=== PATIENT | female | born 1990 | race Caucasian/White ===

== ENCOUNTER 2016-09-29 16:35 | Emergency (ER) | payer OTHER ==
[~2016-09-29] VITALS: Ht 160 cm; Wt 126.5 kg
[~2016-09-29 16:35] MED LIST: ABILIFY5 MG; ALBUTEROL SULF8.5 GM INH; ATIVAN1 MG PO; BUSPIRONE HCL15 MG PO; CLONIDINE HCL0.1 MG PO; COPAXONE20 MG/1 ML SQ; COPAXONE20 MG/1 ML SUB-Q; CYCLOBENZAPRINE5 MG PO; DAYPRO600 MG PO; GABAPENTIN300 MG PO; GLATOPA20 MG/1 ML SQ; HYDROCODON-ACE1 EA10 PO; IBUPROFEN600 MG PO; IBUPROFEN800 MG PO; MACROBID 100 M100 MG PO; MEDROL4 M1 PO; MELOXICAM15 MG PO; MOTRIN600 MG PO; NAPROXEN500 MG PO; NORCO 10-325 T1 EACH PO; NORCO 5-325 TA1 EACH PO; PREDNISONE20 MG PO; PRENATAL 19 TA1 EAC1 PO; PRENATAL-FOLIC1 EACH PO; PROMETHAZINE HC25 M1 PO; ROBAXIN500 MG PO; TYLENOL325 MG PO; ZANAFLEX4 MG PO; ZOFRAN4 MG PO
== END 2016-09-29 19:29 | disposition home or self-care (01) ==
LOC: ED 16:35
DX: G35 Multiple sclerosis (principal); R51 Headache; J45.909 Unspecified asthma, uncomplicated; E66.01 Morbid (severe) obesity due to excess calories; Z88.0 Allergy status to penicillin; Z88.1 Allergy status to other antibiotic agents; Z88.5 Allergy status to narcotic agent; Z88.8 Allergy status to other drugs, medicaments and biological substances; Z79.899 Other long term (current) drug therapy
CPT/HCPCS: 96361; 96374; 96375; 99282; J1200; J2765; J7030

== ENCOUNTER 2016-11-27 13:33 | Emergency (ER) | payer OTHER ==
[~2016-11-27] VITALS: Ht 160 cm; Wt 126.5 kg
== END 2016-11-27 13:50 | disposition home or self-care (01) ==
LOC: ED 13:33
DX: Z00.8 Encounter for other general examination (principal)

== ENCOUNTER 2017-03-24 01:35 | Emergency (ER) | payer OTHER ==
[~2017-03-24] VITALS: Ht 160 cm; Wt 113.4 kg
[2017-03-27] MEDS ORDERED: PRENATABS RX T1 EACH PO (07:55)
[2017-07-16] MEDS ORDERED: NORCO 5-325 TA1 EACH PO (13:01)
== END 2017-03-24 02:19 | disposition home or self-care (01) ==
LOC: ED 01:35
DX: J20.9 Acute bronchitis, unspecified (principal); E66.01 Morbid (severe) obesity due to excess calories; Z87.891 Personal history of nicotine dependence; Z88.0 Allergy status to penicillin; Z88.5 Allergy status to narcotic agent; Z88.8 Allergy status to other drugs, medicaments and biological substances; Z79.899 Other long term (current) drug therapy
CPT/HCPCS: 99282

== ENCOUNTER → 2017-07-16 | Emergency (ER) | payer OTHER ==
[~2017-07-16] VITALS: Ht 160 cm; Wt 107.0 kg
[~2017-07-16] MED LIST changes: +PRENATABS RX T1 EACH PO
== END ==
LOC: ED 11:33
DX: M25.551 Pain in right hip (principal); W18.30XA Fall on same level, unspecified, initial encounter; J45.909 Unspecified asthma, uncomplicated; E66.01 Morbid (severe) obesity due to excess calories; Z87.891 Personal history of nicotine dependence; Z88.0 Allergy status to penicillin; Z88.1 Allergy status to other antibiotic agents; Z88.5 Allergy status to narcotic agent; Z88.8 Allergy status to other drugs, medicaments and biological substances; Z79.899 Other long term (current) drug therapy
CPT/HCPCS: 73502; 99283

== ENCOUNTER 2017-08-11 16:51 | Emergency (ER) | payer OTHER ==
[~2017-08-11] VITALS: Ht 160 cm; Wt 107.0 kg
== END 2017-08-11 21:05 | disposition home or self-care (01) ==
LOC: ED 16:51
DX: O99.353 Diseases of the nervous system complicating pregnancy, third trimester (principal); G35 Multiple sclerosis; O99.213 Obesity complicating pregnancy, third trimester; E66.01 Morbid (severe) obesity due to excess calories; O99.333 Smoking (tobacco) complicating pregnancy, third trimester; F17.200 Nicotine dependence, unspecified, uncomplicated; Z88.0 Allergy status to penicillin; Z88.5 Allergy status to narcotic agent; Z88.8 Allergy status to other drugs, medicaments and biological substances; Z79.899 Other long term (current) drug therapy
CPT/HCPCS: 80053; 85025; 96374; 96375; 99283; J2405; J2930

== ENCOUNTER 2017-09-01 00:06 | Inpatient (IN) | payer OTHER ==
[~2017-09-01] VITALS: Ht 160 cm; Wt 103.0 kg
[2017-09-01] MEDS ORDERED: VENTOLIN HFA18 GM (06:56)
[2017-09-01] MEDS ORDERED: ZONEGRAN25 MG PO (06:56)
--- NOTE | 2017-09-01 08:17 | PR ---
[facility] [address] [place], [place] [address] Signed Progress Notes IP Datetime Report Generated by CPN: 09/01/2017 08:17 PROGRESS NOTES: [id number] Impression: Normal progression of labor Procedures: Artificial ROM Plan: Continue present management; Anticipate Vaginal Delivery VITAL SIGNS: [id number] EXAM: [id number] Dilatation: 4.0 Effacement: 50 Station: -3 Uterine Contractions: every 2-4 minutes MEMBRANES: [id number] Membrane Status: Ruptured Amniotic Fluid Color: Meconium, Light ROM Note: AROM without difficulty Comments: Epidural prn Fetus A: [id number] FHR Baseline: 130 Variability: Moderate 6-25bpm Accelerations: 15X15 Presentation: Vertex Fetus B: [id number] Signing Physician: Jose Mcadams MD Copies: ~ *Electronically Signed* 09/01/17 0817 JOSE MCADAMS MD PATIENT NAME: CORDELL MORALES PROGRESS NOTE DATE OF : 89 PHYSICIAN: JOSE MCADAMS MD RPT #: [id number] REPORT IS CONFIDENTIAL AND NOT TO BE RELEASED WITHOUT AUTHORIZATION
[2017-09-01] MEDS ORDERED: PNV PRENATAL P1 EACH PO (16:16)
[2017-09-01] MEDS ORDERED: FOLIC ACID1 MG PO (16:17)
--- NOTE | 2017-09-01 16:18 | NUR ---
MED REC COMPLETE
== END 2017-09-03 15:15 | disposition home or self-care (01) | DRG 775 ==
LOC: FBCO 00:06 → FBC 05:40
PROVIDERS: ADMIT General Practice
PROC: 10E0XZZ Delivery of Products of Conception, External Approach (ICD-10-PCS; principal; 2017-09-01)
PROC: 10907ZC Drainage of Amniotic Fluid, Therapeutic from Products of Conception, Via Natural or Artificial Opening (ICD-10-PCS; 2017-09-01)
PROC: 00HU33Z Insertion of Infusion Device into Spinal Canal, Percutaneous Approach (ICD-10-PCS; 2017-09-01)
PROC: 3E0R3BZ Introduction of Anesthetic Agent into Spinal Canal, Percutaneous Approach (ICD-10-PCS; 2017-09-01)
DX: O99.354 Diseases of the nervous system complicating childbirth (principal); G35 Multiple sclerosis; E66.9 Obesity, unspecified; O99.214 Obesity complicating childbirth; O77.0 Labor and delivery complicated by meconium in amniotic fluid; O99.824 Streptococcus B carrier state complicating childbirth; F15.11 Other stimulant abuse, in remission; O99.324 Drug use complicating childbirth; O28.2 Abnormal cytological finding on antenatal screening of mother; O99.344 Other mental disorders complicating childbirth; F41.9 Anxiety disorder, unspecified; J45.20 Mild intermittent asthma, uncomplicated; O99.52 Diseases of the respiratory system complicating childbirth; O28.0 Abnormal hematological finding on antenatal screening of mother; R78.4 Finding of other drugs of addictive potential in blood; F43.10 Post-traumatic stress disorder, unspecified; Z88.0 Allergy status to penicillin; Z79.899 Other long term (current) drug therapy; Z87.891 Personal history of nicotine dependence; Z88.1 Allergy status to other antibiotic agents; Z3A.39 39 weeks gestation of pregnancy; Z37.0 Single live birth
CPT/HCPCS: 01960; 36415; 59025; 85027; 99214; J0690; J2550; J2590; J3010; J7120

== ENCOUNTER 2018-08-22 23:59 | Emergency (ER) | payer OTHER ==
[~2018-08-22] VITALS: Ht 160 cm; Wt 102.5 kg
[~2018-08-22 23:59] MED LIST changes: +FOLIC ACID1 MG PO; +PNV PRENATAL P1 EACH PO; +VENTOLIN HFA18 GM; +ZONEGRAN25 MG PO
--- OUTSIDE RECORDS SUMMARY | 2018-08-23 00:02 | XMS ---
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 PEMA Corbin Current PHONE: [phone] TIFFANY SERNA Primary Care Current PHONE: [phone] Ani has no Care Guidelines for this patient. Care History Medical/Surgical 04/22/2017 [facility] Care Recommendation: This patient has had 5 or more Emergency Department visits in the last 12 months. Patient requires education on the scope and purpose of the ED as an acute care provider not a Primary Care Provider and should not be utilized for chronic conditions. If patient returns to ED please contact Community Health WorkerRose at [phone]. These are guidelines and the provider should exercise clinical judgment when providing care. Mariah VISIT COUNT (12 MO.) 1 [facility]ad[facility] TOTAL 1 NOTE: Visits indicate total known visits. ED/UCC VISIT TRACKING (12 MO.) 08/22/2018 23:59 [facility] [place] TYPE: Emergency COMPLAINT: - POSS BROKEN R FOOT/INJURY INPATIENT VISIT TRACKING (12 MO.) 09/01/2017 05:[address] 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
[2018-08-23] MEDS ORDERED: MINIPRESS1 MG PO (00:13)
[2018-08-23] MEDS ORDERED: GABAPENTIN300 MG PO (00:21)
[2018-08-23] MEDS ORDERED: BACLOFEN10 MG PO (00:21)
[2018-08-23] MEDS ORDERED: BUPRENORPHINE HC2 MG SL (00:21)
[2018-08-23] MEDS ORDERED: CRUTCH1 EACH (00:28)
== END 2018-08-23 00:40 | disposition home or self-care (01) ==
LOC: ED 23:59
DX: M25.571 Pain in right ankle and joints of right foot (principal); F17.200 Nicotine dependence, unspecified, uncomplicated; Z88.0 Allergy status to penicillin; Z88.6 Allergy status to analgesic agent; Z88.8 Allergy status to other drugs, medicaments and biological substances; Z79.899 Other long term (current) drug therapy
CPT/HCPCS: 73610; 73630; 99283

== ENCOUNTER 2019-11-13 13:51 | Emergency (ER) | payer OTHER ==
[~2019-11-13] VITALS: Ht 160 cm; Wt 74.4 kg
--- OUTSIDE RECORDS SUMMARY | ~2019-11-13 | XMS | Encounter Summary ---
Demographics + + + | Address | [address] | | | [place] [address] | + + + | Home Phone | | + + + | Preferred Language | Unknown | + + + | Marital Status | Single | + + + | Church Affiliation | Unknown | + + + | Race | White | + + + | Ethnic Group | Unknown | + + + Author + + + | Author | [facility] | | | and [place] | + + + | Organization | [facility] | | | and [place] | + + + | Address | Unknown | + + + | Phone | Unavailable | + + + Support + + + + + | Name | Relationship | Address | Phone | + + + + + | Omar Gonzalez | ECON | [place] | | | | | [phone] | | + + + + + | Xiang Bah | ECON | Unknown | | + + + + + Care Team Providers + +------+ + | Care Track Coach Name | Role | Phone | + +------+ + | Erick Garcia PA-C | PCP | | + +------+ + Reason for Visit + + + | Reason | Comments | + + + | Back Pain | Pain has increased since having baby at end november | + + + | Headache | Pain has increased since having baby at november | + + + Encounter Details +--------+---------+ + + + | Date | Type | Department | Care Team | Description | +--------+---------+ + + + | 12/27/ | Office | [facility] | Dylan Edwards MD [address] | Relapsing remitting | | 2012 | Visit | [facility] [place] | [facility] [place] | multiple sclerosis | | | | [address] [facility], | [address] [place], | ([facility]) (Primary Dx); | | | | [address] [place] | [place] [address] | Back pain; Headache; | | | | [place] [address] | [phone] | Vitamin d | | | | [phone] | | deficiency | +--------+---------+ + + + Social History + +-------+ +--------+------+ | Tobacco Use | Types | Packs/Day | Years | Date | | | | | Used | | + +-------+ +--------+------+ | Current Some Day | | 0.1 | | | | Smoker | | | | | + +-------+ +--------+------+ + +---+---+---+ | Smokeless Tobacco: | | | | | Never Used | | | | + +---+---+---+ + + +---------+ + | Alcohol Use | Drinks/Week | oz/Week | Comments | + + +---------+ + | No | | | | + + +---------+ + + + + | Sex Assigned at | Date Recorded | | | | + + + | Not on file | | + + + documented as of this encounter Last Filed Vital Signs + + + + + | Vital Sign | Reading | Time Taken | Comments | + + + + + | Blood Pressure | 135/76 | 12/27/2012 1:27 PM | | | | | PDT | | + + + + + | Pulse | 91 | 12/27/2012 1:27 PM | | | | | PDT | | + + + + + | Temperature | - | - | | + + + + + | Respiratory Rate | 14 | 12/27/2012 1:27 PM | | | | | PDT | | + + + + + | Oxygen Saturation | 98% | 12/27/2012 1:27 PM | | | | | PDT | | + + + + + | Inhaled Oxygen | - | - | | | Concentration | | | | + + + + + | Weight | 113.4 kg (250 lb) | 12/27/2012 1:27 PM | | | | | PDT | | + + + + + | Height | 160 cm (5' 3") | 12/27/2012 1:27 PM | | | | | PDT | | + + + + + | Body Mass Index | 44.29 | 12/27/2012 1:27 PM | | | | | PDT | | + + + + + documented in this encounter Patient Instructions Patient Instructions Dylan Edwards MD - 12/27/2012 2:08 PM PDT1. Start gabapentin 100 mg three times a day. If you experience side effects please stop the medication. 2. Please continue to follow with your primary physician for your back pain 3. We will work on the prescription of copaxone, which is a daily injection. You can take t ylenol if you experience flu like symptoms. You will need follow up one month after the star t of copaxone. As I am leaving the practice, I will not be able to see you again until late January the earliest. Please follow with your primary physician if you have questions. Patient Education Gabapentin enacarbil Oral tablet, extended-release Gabapentin Oral capsule Gabapentin Oral solution Gabapentin Oral tablet Gabapentin Oral tablet, extended-release Gabapentin Oral tablet, extended-release, Gabapentin Oral tablet, extended-release Gabapentin Oral tablet What is this medicine? GABAPENTIN (GA ba pen tin) is used to control partial seizures in adults with epilepsy. It is also used to treat certain types of nerve pain. This medicine may be used for other purposes; ask your health care provider or pharmacist i f you have questions. What should I tell my health care provider before I take this medicine? They need to know if you have any of these conditions: kidney disease suicidal thoughts, plans, or attempt; a previous suicide attempt by you or a family memb er an unusual or allergic reaction to gabapentin, other medicines, foods, dyes, or preserva tives or trying to get breast-feeding How should I use this medicine? Take this medicine by mouth. Swallow it with a drink of water. Follow the directions on the prescription label. If this medicine upsets your stomach, take it with food or milk. Take y our medicine at regular intervals. Do not take it more often than directed. If you are directed to break the 600 or 800 mg tablets in half as part of your dose, the ex tra half tablet should be used for the next dose. If you have not used the extra half tablet within 3 days, it should be thrown away. A special MedGuide will be given to you by the pharmacist with each prescription and refill . Be sure to read this information carefully each time. Talk to your distribution center associate regarding the use of this medicine in children. Special care may be needed. Overdosage: If you think you have taken too much of this medicine contact a poison control center or emergency room at once. NOTE: This medicine is only for you. Do not share this medicine with others. What if I miss a dose? If you miss a dose, take it as soon as you can. If it is almost time for your next dose, ta ke only that dose. Do not take double or extra doses. What may interact with this medicine? Do not take this medicine with any of the following medications: other gabapentin products This medicine may also interact with the following medications: alcohol antacids antihistamines for allergy, cough and cold certain medicines for anxiety or sleep certain medicines for depression or psychotic disturbances homatropine; hydrocodone naproxen narcotic medicines (opiates) for pain phenothiazines like chlorpromazine, mesoridazine, prochlorperazine, thioridazine This list may not describe all possible interactions. Give your health care provider a list of all the medicines, herbs, non-prescription drugs, or dietary supplements you use. Also t ell them if you smoke, drink alcohol, or use illegal drugs. Some items may interact with you r medicine. What should I watch for while using this medicine? Visit your doctor or health patient centered care specialist for regular checks on your progress. You may want to keep a record at home of how you feel your condition is responding to treatment. You may want to share this information with your doctor or health patient centered care specialist at each vis it. You should contact your doctor or health patient centered care specialist if your seizures get worse or if you have any new types of seizures. Do not stop taking this medicine or any of your seiz ure medicines unless instructed by your doctor or health patient centered care specialist. Stopping your me dicine suddenly can increase your seizures or their severity. Wear a medical identification bracelet or chain if you are taking this medicine for seizure s, and carry a card that lists all your medications. You may get drowsy, dizzy, or have blurred vision. Do not drive, use machinery, or do anyth ing that needs mental alertness until you know how this medicine affects you. To reduce dizz y or fainting spells, do not sit or stand up quickly, especially if you are an older patient . Alcohol can increase drowsiness and dizziness. Avoid alcoholic drinks. Your mouth may get dry. Chewing sugarless gum or sucking hard candy, and drinking plenty of water will help. The use of this medicine may increase the chance of suicidal thoughts or actions. Pay speci al attention to how you are responding while on this medicine. Any worsening of mood, or tho ughts of suicide or dying should be reported to your health patient centered care specialist right away. Women who become while using this medicine may enroll in the [place]ptic Drug Registry by calling . This registry collects informatio n about the safety of antiepileptic drug use during . What side effects may I notice from receiving this medicine? Side effects that you should report to your doctor or health patient centered care specialist as soon as p ossible: allergic reactions like skin rash, itching or hives, swelling of the face, lips, or tong ue worsening of mood, thoughts or actions of suicide or dying Side effects that usually do not require medical attention (report to your doctor or health patient centered care specialist if they continue or are bothersome): constipation difficulty walking or controlling muscle movements dizziness nausea slurred speech tiredness tremors weight gain This list may not describe all possible side effects. Call your doctor for medical advice a bout side effects. You may report side effects to FDA at 4-662-YCH-9260. Where should I keep my medicine? Keep out of reach of children. Store at room temperature between 15 and 30 degrees C (59 and 86 degrees F). Throw away any unused medicine after the expiration date. NOTE:This sheet is a summary. It may not cover all possible information. If you have questi ons about this medicine, talk to your doctor, pharmacist, or health care provider. Copyright 2013 Gold Standard Patient Education Gabapentin enacarbil Oral tablet, extended-release Gabapentin Oral capsule Gabapentin Oral solution Gabapentin Oral tablet Gabapentin Oral tablet, extended-release Gabapentin Oral tablet, extended-release, Gabapentin Oral tablet, extended-release Gabapentin Oral tablet What is this medicine? GABAPENTIN (GA ba pen tin) is used to control partial seizures in adults with epilepsy. It is also used to treat certain types of nerve pain. This medicine may be used for other purposes; ask your health care provider or pharmacist i f you have questions. What should I tell my health care provider before I take this medicine? They need to know if you have any of these conditions: kidney disease suicidal thoughts, plans, or attempt; a previous suicide attempt by you or a family memb er an unusual or allergic reaction to gabapentin, other medicines, foods, dyes, or preserva tives or trying to get breast-feeding How should I use this medicine? Take this medicine by mouth. Swallow it with a drink of water. Follow the directions on the prescription label. If this medicine upsets your stomach, take it with food or milk. Take y our medicine at regular intervals. Do not take it more often than directed. If you are directed to break the 600 or 800 mg tablets in half as part of your dose, the ex tra half tablet should be used for the next dose. If you have not used the extra half tablet within 3 days, it should be thrown away. A special MedGuide will be given to you by the pharmacist with each prescription and refill . Be sure to read this information carefully each time. Talk to your distribution center associate regarding the use of this medicine in children. Special care may be needed. Overdosage: If you think you have taken too much of this medicine contact a poison control center or emergency room at once. NOTE: This medicine is only for you. Do not share this medicine with others. What if I miss a dose? If you miss a dose, take it as soon as you can. If it is almost time for your next dose, ta ke only that dose. Do not take double or extra doses. What may interact with this medicine? Do not take this medicine with any of the following medications: other gabapentin products This medicine may also interact with the following medications: alcohol antacids antihistamines for allergy, cough and cold certain medicines for anxiety or sleep certain medicines for depression or psychotic disturbances homatropine; hydrocodone naproxen narcotic medicines (opiates) for pain phenothiazines like chlorpromazine, mesoridazine, prochlorperazine, thioridazine This list may not describe all possible interactions. Give your health care provider a list of all the medicines, herbs, non-prescription drugs, or dietary supplements you use. Also t ell them if you smoke, drink alcohol, or use illegal drugs. Some items may interact with you r medicine. What should I watch for while using this medicine? Visit your doctor or health patient centered care specialist for regular checks on your progress. You may want to keep a record at home of how you feel your condition is responding to treatment. You may want to share this information with your doctor or health patient centered care specialist at each vis it. You should contact your doctor or health patient centered care specialist if your seizures get worse or if you have any new types of seizures. Do not stop taking this medicine or any of your seiz ure medicines unless instructed by your doctor or health patient centered care specialist. Stopping your me dicine suddenly can increase your seizures or their severity. Wear a medical identification bracelet or chain if you are taking this medicine for seizure s, and carry a card that lists all your medications. You may get drowsy, dizzy, or have blurred vision. Do not drive, use machinery, or do anyth ing that needs mental alertness until you know how this medicine affects you. To reduce dizz y or fainting spells, do not sit or stand up quickly, especially if you are an older patient . Alcohol can increase drowsiness and dizziness. Avoid alcoholic drinks. Your mouth may get dry. Chewing sugarless gum or sucking hard candy, and drinking plenty of water will help. The use of this medicine may increase the chance of suicidal thoughts or actions. Pay speci al attention to how you are responding while on this medicine. Any worsening of mood, or tho ughts of suicide or dying should be reported to your health patient centered care specialist right away. Women who become while using this medicine may enroll in the [place] Drug Registry by calling . This registry collects informatio n about the safety of antiepileptic drug use during . What side effects may I notice from receiving this medicine? Side effects that you should report to your doctor or health patient centered care specialist as soon as p ossible: allergic reactions like skin rash, itching or hives, swelling of the face, lips, or tong ue worsening of mood, thoughts or actions of suicide or dying Side effects that usually do not require medical attention (report to your doctor or health patient centered care specialist if they continue or are bothersome): constipation difficulty walking or controlling muscle movements dizziness nausea slurred speech tiredness tremors weight gain This list may not describe all possible side effects. Call your doctor for medical advice a bout side effects. You may report side effects to FDA at 9-035-LLA-2622. Where should I keep my medicine? Keep out of reach of children. Store at room temperature between 15 and 30 degrees C (59 and 86 degrees F). Throw away any unused medicine after the expiration date. NOTE:This sheet is a summary. It may not cover all possible information. If you have questi ons about this medicine, talk to your doctor, pharmacist, or health care provider. Copyright 2013 Gold Standard Glatiramer Acetate Solution for injection What is this medicine? GLATIRAMER (gla TIR a iván) helps to decrease the number of multiple sclerosis relapses in p eople with relapsing-remitting forms of the disease. The medicine does not cure multiple scl erosis. This medicine may be used for other purposes; ask your health care provider or pharmacist i f you have questions. What should I tell my health care provider before I take this medicine? They need to know if you have any of these conditions: immune system problems infection an unusual or allergic reaction to glatiramer, mannitol, other medicines, foods, dyes, o r preservatives or trying to get breast-feeding How should I use this medicine? This medicine is for injection under the skin. You will be taught how to prepare and give t his medicine. Use exactly as directed. Take your medicine at regular intervals. Do not take your medicine more often than directed. Do not stop taking except on your doctor's advice. It is important that you put your used needles and syringes in a special sharps container. Do not put them in a trash can. If you do not have a sharps container, call your pharmacist or healthcare provider to get one. Talk to your distribution center associate regarding the use of this medicine in children. Special care may be needed. Overdosage: If you think you have taken too much of this medicine contact a poison control center or emergency room at once. NOTE: This medicine is only for you. Do not share this medicine with others. What if I miss a dose? If you miss a dose, take it as soon as you can. If it is almost time for your next dose, ta ke only that dose. Do not take double or extra doses. What may interact with this medicine? Interactions are not expected. This list may not describe all possible interactions. Give your health care provider a list of all the medicines, herbs, non-prescription drugs, or dietary supplements you use. Also t ell them if you smoke, drink alcohol, or use illegal drugs. Some items may interact with you r medicine. What should I watch for while using this medicine? Visit your doctor or health patient centered care specialist for regular checks on your progress. What side effects may I notice from receiving this medicine? Side effects that you should report to your doctor or health patient centered care specialist as soon as p ossible: allergic reactions like skin rash, itching or hives, swelling of the face, lips, or tong ue chest pain or tightness difficulty breathing fever, chills, or any other sign of infection rapid heartbeat or palpitations severe pain at the injection site swelling of the ankles Side effects that usually do not require medical attention (report to your doctor or health patient centered care specialist if they continue or are bothersome): anxiety dizziness drowsiness flushing joint aches nausea, vomiting pain, redness, itching, or irritation at the injection site tremor weakness This list may not describe all possible side effects. Call your doctor for medical advice a bout side effects. You may report side effects to FDA at 7-029-AFS-0909. Where should I keep my medicine? Keep out of the reach of children. Store in a refrigerator between 2 and 8 degrees C (36 and 46 degrees F). An unused prefille d syringe may be stored for up to 7 days between 15 and 30 degrees C (59 and 86 degrees F). Do not freeze. Protect from light. Throw away any unused diluted injection. Throw away any u nused medicine after the expiration date. NOTE:This sheet is a summary. It may not cover all possible information. If you have questi ons about this medicine, talk to your doctor, pharmacist, or health care provider. Copyright 2013 Gold Standard documented in this encounter Progress Notes Dylan Edwards MD - 12/27/2012 2:17 PM PDTFormatting of this note might be different from the o riginal. Neurology Clinic Follow Up Note PCP: Erick Garcia PA-C Date of Encounter: 12/27/2012 Subjective: Sabi Gatica is a pleasant 22 y.o. female who presents to the clinic today for f ollow up of MS. The patient had her baby delivered three weeks ago. She reports increased headache and back pain since the delivery of her baby. Her back pain is diffuse, involving the neck, the lowe r back and the hip. The pain is sharp and achy, worse with movement. There is no radicular t ype of pain. She used to take hydrocodone that has been helpful. She also reports intermitte nt blurry vision, numbness/tingling in the extremities more on the left side, and the left a rm feels weak when she holds the baby. She denies bowel or bladder problems. Allergies Allergies Allergen Reactions Amoxicillin Medications Current Outpatient Prescriptions on File Prior to Visit Medication Status Sig Dispense Refill cholecalciferol (VITAMIN D-3) 1000 UNITS TABS Active Take 1 tablet by mouth Daily. 30 tablet 3 HYDROcodone-acetaminophen (NORCO) 5-325 mg per tablet Active Take 1 tablet by mouth aracelis ry 6 hours as needed. promethazine (PHENERGAN) 25 mg tablet Active Take 25 mg by mouth every 6 hours as neede d. Family history, social history and past medical history were reviewed and updated as necess hallie. Review of Systems In addition to HPI, a comprehensive ROS also revealed: Negative except noted in HPI Objective: BP 135/76 | Pulse 91 | Resp 14 | Ht 1.6 m (5' 3") | Wt 113.399 kg (250 lb) | BMI 44.29 kg/m 2 | SpO2 98% Morbidly obese, NAD. Head is ataumatic, normocephalic. MS: Awake, alert, oriented x3. Cooperative and appropirate during the encounter. Speech is rosa r, fluent and coherent. CN: Fundus showed optic disc with sharp border, no pallor. VFF to confrontation. EOMI. PERRLA. Face is symmtric. Shoulder shrug 5/5. Tongue protrusion is midline. Motor: Muscle strength: slightly weaker of the LUE, otherwise full, no orbiting or pronator drift. DTR 2+ and symmetrical in the upper and lower extremities. Plantar reflexes: flat Sensory: Mildly decreased to light touch in the left upper and lower extremity. Coordination: FNF intact Gait: Steady. Straight leg raising test is negative Lab Data Results for orders placed during the hospital encounter of 11/25/12 VITAMIN D, 25-HYDROXY Component Value Range Vitamin D, 25 Hydroxy 25 (*) 30 - 100 ng/mL Assessment: 1. RR MS 2. Vitamin D deficiency 3. Back pain 4. Headache - I will be leaving the practice in two days. We discussed the difficulty of follow up in t erms of new treatment to start at this point. Even though there is no urgency to start the d isease modifying medication however she appear to have the more aggressive type and we would rather start the medication earlier than later. I did wrote prescription of copaxone so we get things started. Once she starts the injections she should follow with her primary physic stefanie and the medication can be held if side effects are not tolerable. - I suspect much of her neck and back pain are musculoskeletal in origin, for which she ayla uld continue to follow with her primary physician for the pain management. - Trial of a gabapentin 100 mg three times a day for headache and back pain, this was chose n for relatively benign AE. Side effects were discussed. As this is low dose so she can stop the medication at any time if she experiences intolerable side effects. - Continue vitamin D supplement - Quit smoking Thank you for allowing me to take care of this patient. Please do not hesitate to contact m e if you have any questions. Cc: Erick Garcia PA-C [facility] Treatment Not on filedocumented as of this encounter Visit Diagnoses + + | Diagnosis | + + | Relapsing remitting multiple sclerosis (HCC) - Primary Multiple sclerosis | + + | Back pain Backache, unspecified | + + | Headache(784.0) Headache | + + | Vitamin D deficiency Unspecified vitamin D deficiency | + + documented in this encounter
--- OUTSIDE RECORDS SUMMARY | ~2019-11-13 | XMS | Encounter Summary ---
Demographics + + + | Address | [address] | | | [place] [address] | + + + | Home Phone | | + + + | Preferred Language | Unknown | + + + | Marital Status | Single | + + + | Christian Affiliation | Unknown | + + + | Race | White | + + + | Ethnic Group | Unknown | + + + Author + + + | Author | [facility] | | | and [place] | + + + | Organization | [facility] | | | and [place] | + + + | Address | Unknown | + + + | Phone | Unavailable | + + + Support + + + + + | Name | Relationship | Address | Phone | + + + + + | Omar Canruperto | ECON | [place] | | | | | [address] | | + + + + + | Xiang Olvin | ECON | Unknown | | + + + + + Care Team Providers + +------+ + | Care Civil Engineering Director Name | Role | Phone | + +------+ + | Erick Garcia PA-C | PCP | | + +------+ + Encounter Details +--------+ + + + + | Date | Type | Department | Care Team | Description | +--------+ + + + + | 04/08/ | Hospital | [facility] | Conversion | Chronic daily | | 2013 | Encounter | [facility] MRI 9[address] | Transaction, | headache; Multiple | | | | [address] | Provider Unknown | sclerosis, | | | | [place], [place] | | relapsing-remitting | | | | [address] | (Fax) | ([facility]) | | | | [phone] | | | +--------+ + + + + Social History + +-------+ [...] + + documented as of this encounter Medications at Time of Discharge + + + +---------+ + + | Medication | Sig | Dispensed | Refills | Start | End Date | | | | | | Date | | + + + +---------+ + + | cholecalciferol | Take 1 tablet by | 30 | 3 | 12/03/19 | | | (VITAMIN D-3) 1000 | mouth Daily. | tablet | | 13 | 8 | | UNITS | | | | | | | TABSIndications: | | | | | | | Vitamin D deficiency | | | | | | + + + +---------+ + + | gabapentin | Take 1 capsule by | 90 | 2 | 12/28/19 | | | (NEURONTIN) 100 mg | mouth 3 times daily. | capsule | | 13 | 8 | | capsuleIndications: | | | | | | | Back pain, | | | | | | | Headache(784.0) | | | | | | + + + +---------+ + + | | Take 1 tablet by | | 0 | | | | HYDROcodone-acetamin | mouth every 6 hours | | | | 8 | | ophen (NORCO) 5-325 | as needed. | | | | | | mg per tablet | | | | | | + + + +---------+ + + | promethazine | Take 25 mg by mouth | | 0 | | | | (PHENERGAN) 25 mg | every 6 hours as | | | | 8 | | tablet | needed. | | | | | + + + +---------+ + + documented as of this encounter Plan of Treatment Not on filedocumented as of this encounter Procedures + +--------+ + + + | Procedure Name | Priori | Date/Time | Associated Diagnosis | Comments | | | ty | | | | + +--------+ + + + | MRI CERVICAL SPINE W | Routin | 04/08/2013 | | Results for this | | WO CONTRAST | e | 4:37 PM | | procedure are in the | | | | PST | | results section. | + +--------+ + + + documented in this encounter Results MRI Cervical Spine w wo Contrast (04/08/2013 4:37 PM PST) + + | Specimen | + + | | + + + + + | Impressions | Performed At | + + + | 1. There are several new plaques noted throughout the cervical | | | thoracic cord at C4 and T1. No enhancing lesions are demonstrated. The | | | plaque at C5 is not as well-seen on today's study. Imaging findings | | | are consistent with dissemination of disease in space and time. | | | | | + + + + + + | Narrative | Performed At | + + + | [facility] MRI CERVICAL SPINE W WO CONTRAST 04/08/2013 | | | 4:37 PM INDICATION: Multiple sclerosis COMPARISON: 05/16/12 | | | TECHNIQUE: MRI of the cervical spine with and without IV contrast. | | | Multiplanar multi-sequence MRI performed on 1.5 Tennille magnet using | | | standard protocol. Multi-Marion: 23 FINDINGS: The craniocervical | | | junction is maintained with no tonsillar herniation. Vertebral body | | | heights are preserved. There is no subluxation. The facet joints are | | | normally aligned. There is no paraspinous muscular edema. Again, there | | | is a plaque at the level of C3 measuring 6.6 mm on image 7 series 8 | | | which is stable. The patient has a new plaque at C4 measuring 8.1 mm | | | on image 6 series 8. Another plaque is demonstrated at the level of T1 | | | which is a new finding from prior study. Plaque formation | | | demonstrated at C5 is resolved from the previous exam. There is no | | | epidural or prevertebral fluid. Findings by level: C2-3: | | | There is mild right neural foraminal stenosis from uncovertebral | | | arthropathy. There is no enhancement of the plaque at this level. | | | C3-4: No spinal canal or neural foraminal stenosis. C4-5: No | | | spinal canal or neural foraminal stenosis. There is no enhancement of | | | the plaque at this level. C5-6: No spinal canal or neural | | | foraminal stenosis is present. C6-7: No spinal canal or neural | | | foraminal stenosis. Plaque is demonstrated on the left side of the | | | cord at this level which is not well seen on sagittal imaging. No | | | enhancement of the cord is present. C7-T1: No spinal canal or | | | neural foraminal stenosis. The thyroid is normal. There is no | | | cervical lymph node enlargement. The submandibular and parotid glands | | | are normal. | | + + + + + | Procedure Note | + + | Tien, Rad Conversion - 10/22/2018 11:41 AM PDT [facility] CERVICAL SPINE | | W WO CONTRAST04/08/2013 4:37 PM INDICATION: Multiple sclerosis COMPARISON: 05/16/12 | | TECHNIQUE: MRI of the cervical spine with and without IV contrast. Multiplanar | | multi-sequence MRI performed on 1.5 Tennille magnet using standard protocol.Multi-Marion: 23 | | FINDINGS: The craniocervical junction is maintained with no tonsillar herniation. | | Vertebral body heights are preserved. There is no subluxation. The facet joints are | | normally aligned. There is no paraspinous muscular edema. Again, there is a plaque at | | the level of C3 measuring 6.6 mm on image 7 series 8 which is stable. The patient has a | | new plaque at C4 measuring 8.1 mm on image 6 series 8. Another plaque is demonstrated at | | the level of T1 which is a new finding from prior study. Plaque formation demonstrated | | at C5 is resolved from the previous exam. There is no epidural or prevertebral fluid. | | Findings by level: C2-3: There is mild right neural foraminal stenosis from | | uncovertebral arthropathy. There is no enhancement of the plaque at this level. C3-4: No | | spinal canal or neural foraminal stenosis. C4-5: No spinal canal or neural foraminal | | stenosis. There is no enhancement of the plaque at this level. C5-6: No spinal canal or | | neural foraminal stenosis is present. C6-7: No spinal canal or neural foraminal | | stenosis. Plaque is demonstrated on the left side of the cord at this level which is not | | well seen on sagittal imaging. No enhancement of the cord is present. C7-T1: No spinal | | canal or neural foraminal stenosis. The thyroid is normal. There is no cervical lymph | | node enlargement. The submandibular and parotid glands are normal. IMPRESSION: 1. There | | are several new plaques noted throughout the cervical thoracic cord at C4 and T1. No | | enhancing lesions are demonstrated. The plaque at C5 is not as well-seen on today's | | study. Imaging findings are consistent with dissemination of disease in space and time. | | | |C4-5: No spinal canal or neural foraminal stenosis. There is no enhancement of the plaque a t this level. | | | |C5-6: No spinal canal or neural foraminal stenosis is present. | | | |C6-7: No spinal canal or neural foraminal stenosis. Plaque is demonstrated on the left side of the cord at this level which is not well seen on sagittal imaging. No enhancement of the cord is present. | | | |C7-T1: No spinal canal or neural foraminal stenosis. | | | |The thyroid is normal. There is no cervical lymph node enlargement. The submandibular and p arotid glands are normal. | | | |IMPRESSION: | |1. There are several new plaques noted throughout the cervical thoracic cord at C4 and T1. No enhancing lesions are demonstrated. The plaque at C5 is not as well-seen on today's stud y. Imaging findings are consistent with dissemination of disease in | |space and time. | | | | | + + documented in this encounter Visit Diagnoses + + | Diagnosis | + + | Chronic daily headache Headache | + + | Multiple sclerosis, relapsing-remitting (HCC) Multiple sclerosis | + + documented in this encounter"
--- OUTSIDE RECORDS SUMMARY | ~2019-11-13 | XMS | Encounter Summary ---
Demographics + + + | Address | [address] | | | [place] [address] | + + + | Home Phone | | + + + | Preferred Language | Unknown | + + + | Marital Status | Single | + + + | Orthodoxy Affiliation | Unknown | + + + | Race | White | + + + | Ethnic Group | Unknown | + + + Author + + + | Author | [facility] | | | and [place] | + + + | Organization | [facility] | | | and [place] | + + + | Address | Unknown | + + + | Phone | Unavailable | + + + Support + + + + + | Name | Relationship | Address | Phone | + + + + + | Omar Gonzalez | ECON | [place] | | | | | [address] | | + + + + + | Xiang Bah | ECON | Unknown | | + + + + + Care Team Providers + +------+ + | Care Chief Engineer Waterworks Name | Role | Phone | + +------+ + | Erick Garcia PA-C | PCP | | + +------+ + Reason for Visit +--------+--------+ + | Reason | Onset | Comments | | | Date | | +--------+--------+ + | Other | 01/04/ | Copaxone Rx | | | 2012 | | +--------+--------+ + Encounter Details +--------+ + + + + | Date | Type | Department | Care Team | Description | +--------+ + + + + | 01/04/ | Telephone | [facility] | Amanda Pritchett | Other (Copaxone Rx) | | 2012 | | PHYSIATRY [address] | N, RN | | | | | [address] | | | | | | [place] | | | | | | [address] | | | | | | [phone] | | | +--------+ + + + [...] + + documented as of this encounter Miscellaneous Notes Telephone Encounter - Amanda Rubin RN - 01/04/2013 8:29 AM PDTContacted patient's PCP, Erick MCKAY, to find out if they would be willing to continue effort to get pat ient enrolled with Copaxone since Dr. Edwards is no longer taking care of patient; further signa tures are needed to complete enrollment. Per Radha's laboratory assistant, they will ensure patient g ets started on Copaxone. All enrollment forms and faxes received have been faxed to PCP office. Dr. Edwards notified as well. documented i n this encounter Plan of Treatment Not on filedocumented as of this encounter Visit Diagnoses Not on filedocumented in this encounter"
--- OUTSIDE RECORDS SUMMARY | ~2019-11-13 | XMS | Encounter Summary ---
Demographics + + + | Address | [address] | | | [place] [address] | + + + | Home Phone | | + + + | Preferred Language | Unknown | + + + | Marital Status | Single | + + + | Lutheran Affiliation | Unknown | + + + | Race | White | + + + | Ethnic Group | Unknown | + + + Author + + + | Author | [facility] | | | and [place] | + + + | Organization | [facility] | | | and [place] | + + + | Address | Unknown | + + + | Phone | Unavailable | + + + Support + + + + + | Name | Relationship | Address | Phone | + + + + + | Omar Gonzalez | ECON | [place] | | | | | [address] | | + + + + + | Xiang Bah | ECON | Unknown | | + + + + + Care Team Providers + +------+ + | Care Airline Pilot Name | Role | Phone | + +------+ + | Erick Garcia PA-C | PCP | | + +------+ + Reason for Visit + +--------+ + | Reason | Onset | Comments | | | Date | | + +--------+ + | Transportation | 11/02/ | [facility] | | Issues | 2017 | | + +--------+ + Encounter Details +--------+ + + + + | Date | Type | Department | Care Team | Description | +--------+ + + + + | 11/02/ | Telephone | [facility] | Lotus Wynne | Transportation | | 2017 | | HOSPITAL NEUROLOGY | D, [facility] [address] | Issues ([facility] | | | | CLINIC [address] | [address]TE [address]RICK | for Transportation) | | | | [address], | [place] [address] | | | | | [place] [address] | [phone] | | | | | [phone] | | | +--------+ + + + [...] this encounter Miscellaneous Notes Telephone Encounter - Lotus Wynne [facility] - 11/02/2017 10:33 AM PDTNeurology Clinic [facility] Chart Note Left message requesting return call for [facility] Services for transportation to assist patient w ith attending appointments with Dr. Jese Gonzales. MIGUEL A Pascal dojimena in t his encounter Plan of Treatment Not on filedocumented as of this encounter Visit Diagnoses Not on filedocumented in this encounter"
--- OUTSIDE RECORDS SUMMARY | ~2019-11-13 | XMS | Encounter Summary ---
Demographics + + + | Address | [address] | | | [place] [address] | + + + | Home Phone | | + + + | Preferred Language | Unknown | + + + | Marital Status | Single | + + + | Buddhism Affiliation | Unknown | + + + | Race | White | + + + | Ethnic Group | Unknown | + + + Author + + + | Author | [facility] | | | and [place] | + + + | Organization | [facility] | | | and [place] | + + + | Address | Unknown | + + + | Phone | Unavailable | + + + Support + + + + + | Name | Relationship | Address | Phone | + + + + + | Omar Lisa | ECON | [place] | | | | | [address] | | + + + + + | Xiang Olvin | ECON | Unknown | | + + + + + Care Team Providers + +------+ + | Care Repertoire Manager Name | Role | Phone | + +------+ + | Erick Garcia PA-C | PCP | | + +------+ + Reason for Visit + +--------+ + | Reason | Onset | Comments | | | Date | | + +--------+ + | Medication Related | 08/14/ | | | | 2017 | | + +--------+ + Encounter Details +--------+ + + + + | Date | Type | Department | Care Team | Description | +--------+ + + + + | 10/20/ | Telephone | [facility] | Alexandra, | Medication Related | | 2017 | | [facility] | [facility], ENVIRONMENTAL CONFLICT MANAGER [address] | | | | | CLIN[address] | [address] [facility], | | | | | [address], | [place] [address] | | | | | [place] [address] | [phone] | | | | | [phone] | | | +--------+ + + + [...] this encounter Miscellaneous Notes Telephone Encounter - Makayla Sapp RN - 10/20/2017 2:59 PM PDTPt called back and re-inf ormed pt, that she must be seen in order to prescribe medication for her, she stated underst anding. Gave pt option of trying to see her PCP, and see if they will prescribe until she is able to get to appointment in [facility]rology Clinic. Called and left message for Lotus Ward nd Silvia, to possible see about helping pt get rides to appointments. /TAVIA BrysonElectronica lly signed by Makayla Sapp RN at 10/20/2017 3:07 PM PDTTelephone Encounter - Makayla Sapp RN - 10/20/2017 2:54 PM PDTLeft message with friend, per him pt will call back. Pt has to be seen in order to get medication, last seen by Lion 05/2016. /TAVIA Bryson elephone Encounter - Jayda Benson - 10/20/2017 2:29 PM PDTPatient was scheduled w/ Alexis today but she missed her ride fo r medical transport. I got her rescheduled to 02/01. But, she said that she is not doing goo d without her Copaxone and would like to refill it. She uses [facility] for this rx. There is a message from 09/07 regarding this rx as well. You can call her back at [phone] Thank you documented in th is encounter Plan of Treatment Not on filedocumented as of this encounter Visit Diagnoses Not on filedocumented in this encounter"
--- OUTSIDE RECORDS SUMMARY | ~2019-11-13 | XMS | Encounter Summary ---
Demographics + + + | Address | [address] | | | [place] [address] | + + + | Home Phone | | + + + | Preferred Language | Unknown | + + + | Marital Status | Single | + + + | Nondenominational Affiliation | Unknown | + + + | Race | White | + + + | Ethnic Group | Unknown | + + + Author + + + | Author | [facility] | | | and [place] | + + + | Organization | [facility] | | | and [place] | + + + | Address | Unknown | + + + | Phone | Unavailable | + + + Support + + + + + | Name | Relationship | Address | Phone | + + + + + | Omar Lisa | ECON | [place] | | | | | [address] | | + + + + + | Xiang Olvin | ECON | Unknown | | + + + + + Care Team Providers + +------+ + | Care Welt Trimming Machine Operator Name | Role | Phone | + +------+ + PCP | Unavailable | + +------+ + Encounter Details +--------+ + + + + | Date | Type | Department | Care Team | Description | +--------+ + + + + | 12/10/ | Hospital | [facility] | Ronnie Bainh | | | 2010 | Encounter | HOSPITAL EMERGENCY | MD [place] [address] [facility] | | | | | CENTER [address] | [facility] [address] | | | | | [address] [place] | [place], [place] | | | | | [address] | [address] | | | | | [phone] | | | +--------+ + + + + Social History + +-------+ +--------+------+ | Tobacco Use | Types | Packs/Day | Years | Date | | | | | Used | | + +-------+ +--------+------+ | Never Assessed | | | | | + +-------+ +--------+------+ + + + | Sex Assigned at | Date Recorded | | | | + + + | Not on file | | + + + documented as of this encounter Plan of Treatment Not on filedocumented as of this encounter Visit Diagnoses Not on filedocumented in this encounter"
--- OUTSIDE RECORDS SUMMARY | ~2019-11-13 | XMS | Encounter Summary ---
Demographics + + + | Address | [address] | | | [place] [address] | + + + | Home Phone | | + + + | Preferred Language | Unknown | + + + | Marital Status | Single | + + + | Caodaism Affiliation | Unknown | + + + | Race | White | + + + | Ethnic Group | Unknown | + + + Author + + + | Author | [facility] | | | and [place] | + + + | Organization | [facility] | | | and [place] | + + + | Address | Unknown | + + + | Phone | Unavailable | + + + Support + + + + + | Name | Relationship | Address | Phone | + + + + + | Omar Gonzalez | ECON | [place] | | | | | [address] | | + + + + + | Xiang Bah | ECON | Unknown | | + + + + + Care Team Providers + +------+ + | Care Vice President Process Name | Role | Phone | + +------+ + | Erick Garcia PA-C | PCP | | + +------+ + Reason for Visit +--------+--------+ + | Reason | Onset | Comments | | | Date | | +--------+--------+ + | Other | 12/27/ | Copaxone Enrollment | | | 2012 | | +--------+--------+ + Encounter Details +--------+ + + + + | Date | Type | Department | Care Team | Description | +--------+ + + + + | 12/27/ | Telephone | [facility] | Amanda Pritchett | Other (Copaxone | | 2012 | | ADRIANA Duron RN | Enrollment) | | | | [address] [facility], | | | | | | [place] [address] [address] | | | | | | [place] [address] | | | | | | [phone] | | | +--------+ + + + [...] Telephone Encounter - Amanda Rubin RN - 12/27/2012 3:09 PM PDTFaxed Copaxone Enro llment form to [employer] for patient. Fax successful. documented in this encounter Plan of Treatment Not on filedocumented as of this encounter Visit Diagnoses Not on filedocumented in this encounter"
--- OUTSIDE RECORDS SUMMARY | ~2019-11-13 | XMS | Encounter Summary ---
Demographics + + + | Address | [address] | | | [place] [address] | + + + | Home Phone | | + + + | Preferred Language | Unknown | + + + | Marital Status | Single | + + + | Evangelical Affiliation | Unknown | + + + | Race | White | + + + | Ethnic Group | Unknown | + + + Author + + + | Author | [facility] | | | and [place] | + + + | Organization | [facility] | | | and [place] | + + + | Address | Unknown | + + + | Phone | Unavailable | + + + Support + + + + + | Name | Relationship | Address | Phone | + + + + + | Omar Gonzalez | ECON | [place] | | | | | [address] | | + + + + + | Xiang Bah | ECON | Unknown | | + + + + + Care Team Providers + +------+ + | Care Documentation Coordinator Name | Role | Phone | + +------+ + | Erick Garcia PA-C | PCP | | + +------+ + Reason for Visit +--------+--------+ + | Reason | Onset | Comments | | | Date | | +--------+--------+ + | Other | 06/05/ | pertaining to medication | | | 2017 | | +--------+--------+ + Encounter Details +--------+ + + + + | Date | Type | Department | Care Team | Description | +--------+ + + + + | 06/05/ | Telephone | [facility] | Estiven Gonzales MD | Other (pertaining to | | 2017 | | HOSPITAL NEUROLOGY | [address] [place] | medication) | | | | CLINIC [address] | [place] | | | | | [address] [place], | [address] | | | | | [place] [address] | | | | | | [phone] | | | +--------+ + + + [...] Telephone Encounter - Makayla Sapp RN - 06/05/2017 2:35 PM PDTLast seen 05/27/16, last f illed 08/08/16 with 11 refills. Copaxone 20 mg/ml one daily #30. Not filled since January per [facility]. [facility] stated, 2017 spoke with pt, she has new insurance (not [employer]), b ut never followed up, so no medication given to pt since January. Called and spoke with pt who is , so has not taken medication stated that OB Dr. Rodriguez in [facility] told her not to take it. Also, had some insurance issues too. Informed [facility] [phone], they will deactivate prescription until pt sees Dr. Gonzales again. /TAVIA Bryson Electronical ly signed by Makayla Sapp RN at 06/05/2017 2:52 PM PDTTelephone Encounter - Wilmer Drew - 06/05/2017 1:52 PM PDTShe had a change of insurance and they would like to inactiv ate the copaxone 20 mg prescription. 18 1:54 PM PDTdocumented in this encounter Plan of Treatment Not on filedocumented as of this encounter Visit Diagnoses Not on filedocumented in this encounter"
--- OUTSIDE RECORDS SUMMARY | ~2019-11-13 | XMS | Encounter Summary ---
Demographics + + + | Address | [address] | | | [place] [address] | + + + | Home Phone | | + + + | Preferred Language | Unknown | + + + | Marital Status | Single | + + + | Yazdanism Affiliation | Unknown | + + + | Race | White | + + + | Ethnic Group | Unknown | + + + Author + + + | Author | [facility] | | | and [place] | + + + | Organization | [facility] | | | and [place] | + + + | Address | Unknown | + + + | Phone | Unavailable | + + + Support + + + + + | Name | Relationship | Address | Phone | + + + + + | Omar Lisa | ECON | [place] | | | | | [address] | | + + + + + | Xiang Olvin | ECON | Unknown | | + + + + + Care Team Providers + +------+ + | Care Obstetrics Technician Name | Role | Phone | + +------+ + PCP | Unavailable | + +------+ + Encounter Details +--------+ + + + + | Date | Type | Department | Care Team | Description | +--------+ + + + + | 12/02/ | Hospital | [facility] | Manuel Sorto | | | 2010 | Encounter | HOSPITAL EMERGENCY | MD [address] | | | | | CENTER [address] | [facility] | | | | | [address], [place] | [place] [address] | | | | | [address] | [phone] | | | | | [phone] | | | +--------+ + + + [...]
--- OUTSIDE RECORDS SUMMARY | ~2019-11-13 | XMS | Encounter Summary ---
Demographics + + + | Address | [address] | | | [place] [address] | + + + | Home Phone | | + + + | Preferred Language | Unknown | + + + | Marital Status | Single | + + + | Jew Affiliation | Unknown | + + + | Race | White | + + + | Ethnic Group | Unknown | + + + Author + + + | Author | [facility] | | | and [place] | + + + | Organization | [facility] | | | and [place] | + + + | Address | Unknown | + + + | Phone | Unavailable | + + + Support + + + + + | Name | Relationship | Address | Phone | + + + + + | Omar Lisa | ECON | [place] | | | | | [address] | | + + + + + | Xiang Olvin | ECON | Unknown | | + + + + + Care Team Providers + +------+ + | Care Home Health Speech Therapist Name | Role | Phone | + +------+ + PCP | Unavailable | + +------+ + Encounter Details +--------+ + + + + | Date | Type | Department | Care Team | Description | +--------+ + + + + | 03/23/ | Hospital | [facility] | Lalita Martinez | | | 2011 | Encounter | MED CTR EMERGENCY | DO Balwinder Sam | | | | | CENTER [address] | [address] [place], [place] | | | | | [place], [place] | [address] | | | | | [address] | | | | | | [phone] | | | +--------+ + + + [...] + + documented as of this encounter ED Notes Lalita Martinez MD - 03/23/2011 7:29 PM PSTDATE: 03/23/2011 HISTORY OF PRESENT ILLNESS: The patient is a 21-year-old female who comes in by ambulance. Apparently she tripped over her dog and hit her head on the counter in her kitchen and lac erated her forehead. This occurred just prior to arrival. The patient did not have any loss of consciousness. She did not feel dazed. She has not had any other symptoms since then. S he has not had vomiting, is not complaining of a headache, and no neck pain. ROS TEn point review of systems negative except as indicated in the HPI PAST MEDICAL HISTORY: Significant for asthma. MEDICATIONS: She states that she takes an albuterol inhaler as needed. ALLERGIES: SHE HAS AN ALERT ADVERSE REACTION TO 1. AMOXICILLIN. 2. POTASSIUM CLAVULANATE. IMMUNIZATIONS: The patient states that her tetanus is up to date. SOCIAL HISTORY: She smokes 2 to 5 cigarettes per day. Denies illicit drug use or alcohol u se. PHYSICAL EXAMINATION VITAL SIGNS: Stable. Temperature is 98.5, respiratory rate 18, heart rate 86, blood pressu re 138/82. She is 98% on room air. GENERAL: The patient is alert. She appears to be in no acute distress. HEAD: On focused examination of the patient's head she is normocephalic, atraumatic, with the exception of a 1.5 cm longitudinal laceration right in her scalp line and back into the scalp about 1.5 cm in length. There is no associated hematoma to the area. Bleeding is wel l controlled at this point in time. The patient has no other injury to her head. NECK: Nontender, with painless range of motion. EYES: Pupils are equal, round and reactive. Extraocular movements are intact. EAR, NOSE AND THROAT: Completely normal with no bleeding from the nares. NEURO / PSYCH: She is alert, oriented. Mood and and affect are within normal limits. She has no sensory or motor deficits and cranial nerves are normal as tested. EMERGENCY DEPARTMENT COURSE: The patient had LAT applied to the wound, and when she had go od anesthesia the wound was copiously irrigated and explored and subsequently closed using 2 lacey. The patient tolerated the procedure without any difficulty. She then was complai kimmie of some pain to her left wrist. A left wrist x-ray was taken and there was no obvious fracture shown. DIAGNOSIS 1. SCALP LACERATION 1.5 CM. 2. LEFT WRIST SPRAIN STATUS POST FALL. PLAN: The patient is advised to keep the area on her head clean and dry, lacey out in 7 days in the ER, no direct spray of water into the wound, no pain medications for 24 hours. She was given a head injury guide sheet and she is advised to ice her wrist as needed. DICTATED BY: Flaco Martinez DO Emergency Medicine JOB #: [id number] EXT JOB #:[id number] <Electronicall y Signed by Lisa Martinez DO> 03/26/11 1341 documented in this encounter Plan of Treatment Not on filedocumented as of this encounter Procedures + +--------+ + + + | Procedure Name | Priori | Date/Time | Associated Diagnosis | Comments | | | ty | | | | + +--------+ + + + | XR WRIST LEFT 3 + VW | | 03/23/2011 | | Results for this | | | | 7:29 PM | | procedure are in the | | | | PST | | results section. | + +--------+ + + + documented in this encounter Results XR Wrist Left 3 + Vw (03/23/2011 7:29 PM PST) + + | Specimen | + + | | + + + + + | Narrative | Performed At | + + + | [facility] | [facility] | | [address] | [facility] | | LEFT WRIST SERIES, 03/23/2011 | DIAG IMG | | CLINICAL HISTORY: STATUS POST FALL ON OUTSTRETCHED HAND. | | | FINDINGS: No fracture or dislocation is identified. The | | | radiocarpal joint appears normal. Carpal b ones are intact. There | | | is partial obscuration of anatomic detail because of radiopaque wrist | | | bands ov er the distal radius and ulna. IMPRESSION: 1. | | | NEGATIVE FOR FRACTURE. Dictated Date/Time: 03/24/2011 07:17 | | | Transcribed Date/Time: 03/24/2011 10:22 Hob Machine Operator: | | | <Electronically Signed by Robinson Santoro MD> 03/24/11 1500 | | + + + + + | Procedure Note | + + | Tien, Rad Conversion - 04/15/2013 4:[address] [facility] | | Diagnostic Imaging Department [address] [place] [address] | | LEFT WRIST SERIES, 03/23/2011 CLINICAL HISTORY: STATUS | | POST FALL ON OUTSTRETCHED HAND. FINDINGS: No fracture or dislocation is identified. | | The radiocarpal joint appears normal. Carpal bones are intact. There is partial | | obscuration of anatomic detail because of radiopaque wrist bands over the distal radius | | and ulna. IMPRESSION:1. NEGATIVE FOR FRACTURE. Dictated Date/Time: 03/24/2011 | | 07:17Transcribed Date/Time: 03/24/2011 10:22Transcriptionist: <Electronically | | Signed by Robinson Santoro MD> 03/24/11 1500 | | | |FINDINGS: No fracture or dislocation is identified. The radiocarpal joint appears normal. Carpal b | |ones are intact. There is partial obscuration of anatomic detail because of radiopaque wris t bands ov | |er the distal radius and ulna. | | | |IMPRESSION: | |1. NEGATIVE FOR FRACTURE. | | | |Dictated Date/Time: 03/24/2011 07:17 | |Transcribed Date/Time: 03/24/2011 10:22 | |Hob Machine Operator: | |<Electronically Signed by Robinson Santoro MD> 03/24/11 1500 | + + + +---------+ + + | Performing | Address | City/State/Zipcode | Phone Number | | Organization | | | | + +---------+ + + | [facility] | | | | | [place] | | | | + +---------+ + + documented in this encounter Visit Diagnoses Not on filedocumented in this encounter"
--- OUTSIDE RECORDS SUMMARY | ~2019-11-13 | XMS | Encounter Summary ---
Demographics + + + | Address | [address] | | | [place] [address] | + + + | Home Phone | | + + + | Preferred Language | Unknown | + + + | Marital Status | Single | + + + | Anglican Affiliation | Unknown | + + + | Race | White | + + + | Ethnic Group | Unknown | + + + Author + + + | Author | [facility] | | | and [place] | + + + | Organization | [facility] | | | and [place] | + + + | Address | Unknown | + + + | Phone | Unavailable | + + + Support + + + + + | Name | Relationship | Address | Phone | + + + + + | Omar Lisa | ECON | [place] | | | | | [address] | | + + + + + | Xiang Olvin | ECON | Unknown | | + + + + + Care Team Providers + +------+ + | Care Community Development Manager Name | Role | Phone | + +------+ + PCP | Unavailable | + +------+ + Encounter Details +--------+ + + + + | Date | Type | Department | Care Team | Description | +--------+ + + + + | 01/02/ | Hospital | [facility] | Chato Burrell | | | 2010 | Encounter | HOSPITAL EMERGENCY | MD [address] | | | | | CENTER [address] | [facility] | | | | | [address] [place], [place] | [place] [address] | | | | | [address] | [phone] | | | | | [phone] | | | +--------+ + + + [...]
--- OUTSIDE RECORDS SUMMARY | ~2019-11-13 | XMS | Encounter Summary ---
Demographics + + + | Address | [address] | | | [place] [address] | + + + | Home Phone | | + + + | Preferred Language | Unknown | + + + | Marital Status | Single | + + + | Pentecostal Affiliation | Unknown | + + + | Race | White | + + + | Ethnic Group | Unknown | + + + Author + + + | Author | [facility] | | | and [place] | + + + | Organization | [facility] | | | and [place] | + + + | Address | Unknown | + + + | Phone | Unavailable | + + + Support + + + + + | Name | Relationship | Address | Phone | + + + + + | Omar Canruperto | ECON | [place] | | | | | [address] | | + + + + + | Xiang Olvin | ECON | Unknown | | + + + + + Care Team Providers + +------+ + | Care Driver/Refuse Collector Name | Role | Phone | + +------+ + | Erick Garcia PA-C | PCP | | + +------+ + Reason for Visit + +--------+ + | Reason | Onset | Comments | | | Date | | + +--------+ + | Medication Refill | 04/08/ | | | | 2018 | | + +--------+ + Encounter Details +--------+--------+ + + + | Date | Type | Department | Care Team | Description | +--------+--------+ + + + | 04/08/ | Refill | [facility] | Estiven Gonzales MD | Medication Refill | | 2018 | | HOSPITAL NEUROLOGY | [address] | | | | | CLINIC [address] | [place] | | | | | [address] [place], | [address] | | | | | [place] [address] | | | | | | [phone] | | | +--------+--------+ + + + Social History + +-------+ [...] Telephone Encounter - Makayla Sapp RN - 04/08/2018 1:21 PM PSTFaxed Copaxone prescripti on to [facility]. Phone number Fax number TAVIA Bryson elephone En counter - Makayla Sapp RN - 04/08/2018 11:36 AM PSTLast filled 02/01/18 Last seen 03/23/18 Pt needs new prescription to be sent to [facility] ./TAVIA Harding RN elephone En counter - Charito York - 04/08/2018 11:25 AM PSTRequesting refill of Copaxone 20 mg/ml kit Inject 1 syringe 20 mg subcutaneously once every day Last fill 03/18/18 docum ented in this encounter Plan of Treatment Not on filedocumented as of this encounter Visit Diagnoses + + | Diagnosis | + + | Acute relapsing multiple sclerosis (HCC) Multiple sclerosis | + + documented in this encounter"
--- OUTSIDE RECORDS SUMMARY | ~2019-11-13 | XMS | Encounter Summary ---
Demographics + + + | Address | [address] | | | [place] [address] | + + + | Home Phone | | + + + | Preferred Language | Unknown | + + + | Marital Status | Single | + + + | Mosque Affiliation | Unknown | + + + | Race | White | + + + | Ethnic Group | Unknown | + + + Author + + + | Author | [facility] | | | and [place] | + + + | Organization | [facility] | | | and [place] | + + + | Address | Unknown | + + + | Phone | Unavailable | + + + Support + + + + + | Name | Relationship | Address | Phone | + + + + + | Omar Gonzalez | ECON | [place] | | | | | [address] | | + + + + + | Xiang Bah | ECON | Unknown | | + + + + + Care Team Providers + +------+ + | Care Palaeontologist Name | Role | Phone | + +------+ + | Erick Garcia PA-C | PCP | | + +------+ + Reason for Visit +--------+--------+ + | Reason | Onset | Comments | | | Date | | +--------+--------+ + | Other | 12/29/ | | | | 2012 | | +--------+--------+ + Encounter Details +--------+ + + + + | Date | Type | Department | Care Team | Description | +--------+ + + + + | 12/29/ | Telephone | [facility] | Dylan Edwards MD [address] | Other | | 2012 | | [place]UROLOG[place] | [facility] | | | | | [address] [facility], | [address] [place], | | | | | [address] [place] | [place] [address] | | | | | [place] [address] | [phone] | | | | | [phone] | | | +--------+ + + + [...] Telephone Encounter - Amanda Rubin RN - 12/29/2012 1:47 PM PDTTried to contact isidoro tariq to discuss Copaxone; let her know we have not received any faxes yet from them yetElec tronically signed by Amanda Rubin RN at 12/29/2012 1:48 PM PDTTelephone Encounter - Josh Abel - 12/29/2012 11:48 AM PDTPatient called in stating that Dr. Edwards was go ing to order her medication COPAXIN. Patient was wondering status of medication request. Ple ase advise. documente d in this encounter Plan of Treatment Not on filedocumented as of this encounter Visit Diagnoses Not on filedocumented in this encounter"
--- OUTSIDE RECORDS SUMMARY | ~2019-11-13 | XMS | Encounter Summary ---
Demographics + + + | Address | [address] | | | [place] [address] | + + + | Home Phone | | + + + | Preferred Language | Unknown | + + + | Marital Status | Single | + + + | Sabianism Affiliation | Unknown | + + + | Race | White | + + + | Ethnic Group | Unknown | + + + Author + + + | Author | [facility] | | | and [place] | + + + | Organization | [facility] | | | and [place] | + + + | Address | Unknown | + + + | Phone | Unavailable | + + + Support + + + + + | Name | Relationship | Address | Phone | + + + + + | Omar Gonzalez | ECON | [place] | | | | | [address] | | + + + + + | Xiang Bah | ECON | Unknown | | + + + + + Care Team Providers + +------+ + | Care Aircraft Magneto Mechanic Name | Role | Phone | + +------+ + | Erick Garcia PA-C | PCP | | + +------+ + Encounter Details +--------+ + + + + | Date | Type | Department | Care Team | Description | +--------+ + + + + | 09/02/ | Documentati | [facility] | Elinor Mckee | | | 2018 | on | HOSPITAL DERMATOLOGY | R, CC CABLE REPAIRER | | | | | CLINIC [address] | | | | | | [address] [place], | | | | | | [place] [address] | | | | | | [phone] | | | +--------+ + + + [...] + + documented as of this encounter Progress Notes Elinor Mckee CC CMA - 09/02/2017 4:21 PM PDTReceived Copaxone prescription request from [facility]. Pt has not been seen since 05/27/16. Called and notified pharmacy pat ient needs to be seen. They will stop sending requests, until she is seen. Message sent to schedule. Elinor Mckee Electronically signed by JACQUES Alvarado CMA at 8 4:32 PM PDTdocumented in this encounter Plan of Treatment Not on filedocumented as of this encounter Visit Diagnoses Not on filedocumented in this encounter"
--- OUTSIDE RECORDS SUMMARY | ~2019-11-13 | XMS | Encounter Summary ---
Demographics + + + | Address | [address] | | | [place] [address] | + + + | Home Phone | | + + + | Preferred Language | Unknown | + + + | Marital Status | Single | + + + | Religion Affiliation | Unknown | + + + | Race | White | + + + | Ethnic Group | Unknown | + + + Author + + + | Author | [facility] | | | and [place] | + + + | Organization | [facility] | | | and [place] | + + + | Address | Unknown | + + + | Phone | Unavailable | + + + Support + + + + + | Name | Relationship | Address | Phone | + + + + + | Omar Gonzalez | ECON | [place] | | | | | [address] | | + + + + + | Xiang Bah | ECON | Unknown | | + + + + + Care Team Providers + +------+ + | Care Wire Stitcher Machine Name | Role | Phone | + +------+ + | Erick Garcia PA-C | PCP | | + +------+ + Reason for Visit +---------+--------+ + | Reason | Onset | Comments | | | Date | | +---------+--------+ + | Results | 12/01/ | | | | 2012 | | +---------+--------+ + Encounter Details +--------+ + + + + | Date | Type | Department | Care Team | Description | +--------+ + + + + | 12/01/ | Telephone | [facility] | Dylan Edwards MD [address] | Results | | 2012 | | [facility] | [facility] | | | | | [address] [facility], | [address] [place], | | | | | [address] [place] | [place] [address] | | | | | [place] [address] | [phone] | | | | | [phone] | | | +--------+ + + + + Social History + +-------+ +--------+------+ | Tobacco Use | Types | Packs/Day | Years | Date | | | | | Used | | + +-------+ +--------+------+ | Current Some Day | | | | | | Smoker | | [...] this encounter Miscellaneous Notes Telephone Encounter - Susana Jackosn RN - 12/01/2012 5:13 PM PDTCalled the patient's other emergency contact, her , Xiang Bah at [phone]. Sabi answered the phone and I told her that her Vitamin D was a little low and that Dr. Edwards would like her to take Domonique min D3 1000 units if that is okay with her TERRAZZO LAYER HELPER. I asked her to please ask her TERRAZZO LAYER HELPER abo ut it before starting to take the Vitamin D3. She verbalized good understanding about this and said she would ask her TERRAZZO LAYER HELPER about it tomorrow. She also said that she would like her prescription called into the [facility] in [place]. documented in this enco unter Plan of Treatment Not on filedocumented as of this encounter Visit Diagnoses Not on filedocumented in this encounter"
--- OUTSIDE RECORDS SUMMARY | ~2019-11-13 | XMS | Encounter Summary ---
Demographics + + + | Address | [address] | | | [place] [address] | + + + | Home Phone | | + + + | Preferred Language | Unknown | + + + | Marital Status | Single | + + + | Yarsani Affiliation | Unknown | + + + | Race | White | + + + | Ethnic Group | Unknown | + + + Author + + + | Author | [facility] | | | and [place] | + + + | Organization | [facility] | | | and [place] | + + + | Address | Unknown | + + + | Phone | Unavailable | + + + Support + + + + + | Name | Relationship | Address | Phone | + + + + + | Omar Lisa | ECON | [place] | | | | | [address] | | + + + + + | Xiang Olvin | ECON | Unknown | | + + + + + Care Team Providers + +------+ + | Care Financial Advocate Name | Role | Phone | + +------+ + | Erick Garcia PA-C | PCP | | + +------+ + Reason for Visit + +--------+ + | Reason | Onset | Comments | | | Date | | + +--------+ + | Medication Refill | 03/30/ | | | | 2018 | | + +--------+ + Encounter Details +--------+ + + + + | Date | Type | Department | Care Team | Description | +--------+ + + + + | 03/30/ | Telephone | [facility] | Estiven Gonzales MD | Medication Refill | | 2018 | | HOSPITAL NEUROLOGY | [address] | | | | | CLINIC [address] | [place] | | | | | [address] [place], | [id number] | | | | | [place] [address] | | | | | | [phone] | | | +--------+ + + + [...] this encounter Miscellaneous Notes Telephone Encounter - Marianne Parada CC CMA - 03/30/2018 4:05 PM PSTCalled and spoke with pt pharmacy since our records show that pt should still have refills. When talking with the pharmacy they stated that pt rx was [place]. I informed them that the Rx is still valid and that pt is taking the Rx and asked them to uncancel the Rx in their system they have done th is and now the pt can go sisal picker the Rx. Called and informed pt. JACQUES Ho CMA elephone Lev Mckinney - 03/30/2018 3:27 PM PSTPt states she was supposed to receive a refill on her Gabapentin sent to her pharmacy anaid she is out documented in this encounter Plan of Treatment Not on filedocumented as of this encounter Visit Diagnoses + + | Diagnosis | + + | Chronic bilateral low back pain with bilateral sciatica | + + | Acute relapsing multiple sclerosis (HCC) Multiple sclerosis | + + documented in this encounter"
--- OUTSIDE RECORDS SUMMARY | ~2019-11-13 | XMS | Encounter Summary ---
Demographics + + + | Address | [address] | | | [place] [address] | + + + | Home Phone | | + + + | Preferred Language | Unknown | + + + | Marital Status | Single | + + + | Sabianist Affiliation | Unknown | + + + | Race | White | + + + | Ethnic Group | Unknown | + + + Author + + + | Author | [facility] | | | and [place] | + + + | Organization | [facility] | | | and [place] | + + + | Address | Unknown | + + + | Phone | Unavailable | + + + Support + + + + + | Name | Relationship | Address | Phone | + + + + + | Omar Gonzalez | ECON | [place] | | | | | [address] | | + + + + + | Xiang Bah | ECON | Unknown | | + + + + + Care Team Providers + +------+ + | Care Legislators Name | Role | Phone | + +------+ + | Erick Garcia PA-C | PCP | | + +------+ + Reason for Visit + + + | Reason | Comments | + + + | Medication Refill | | + + + Encounter Details +--------+--------+ + + + | Date | Type | Department | Care Team | Description | +--------+--------+ + + + | 06/11/ | Refill | [facility] | Dylan Edwards MD [address] | Medication Refill | | 2013 | | NEUR[facility]Y [place] | [facility] | | | | | [address] [facility], | [address] [place], | | | | | [address] [place] | [place] [address] | | | | | [place] [address] | [phone] | | | | | [phone] | | | +--------+--------+ + + + [...]
--- OUTSIDE RECORDS SUMMARY | ~2019-11-13 | XMS | Encounter Summary ---
Demographics + + + | Address | [address] | | | [place] [address] | + + + | Home Phone [...] + + + | Author | [facility] | | | and [place] | + + + | Organization | [facility] | | | and [place] | + + + | Address | Unknown | + + + | Phone | Unavailable | + + + Support + + + + + | Name | Relationship | Address | Phone | + + + + + | Omar Gonzalez | ECON | [place] | | | | | [address] | | + + + + + | Xiang Olvin | ECON | Unknown | | + + + + + Care Team Providers + +------+ + | Care Prime Broker Name | Role | Phone | + +------+ + | Erick Garcia PA-C | PCP | | + +------+ + Encounter Details +--------+ + + + + | Date | Type | Department | Care Team | Description | +--------+ + + + + | 11/07/ | Hospital | [facility] | Estiven Gonzales MD | | | 2016 | Encounter | [facility] | [address] | | | | | MEDICAL CLIN[address] | [facility], [place] | | | | | [address] [place], | [address] | | | | | [place] [address] | | | | | | [phone] | | | +--------+ + + + [...] + + + +---------+ + + | ALBUTEROL SULFATE | Take by mouth. | | 0 | 11/17/19 | | | IN | | | | 14 | | + + + +---------+ + + | docusate sodium | Take 200 mg by | | 0 | 09/14/19 | | | (STOOL SOFTENER) 100 | mouth. | | | 15 | | | mg capsule | | | | | | + [...] + + + +---------+ + + | ondansetron | Take 4 mg by mouth. | | 0 | 09/14/19 | | | (ZOFRAN ODT) 4 mg | | | | 15 | 8 | | disintegrating | | | | | | | tablet | | | | | | + + + +---------+ + + | oxyCODONE | Take 5-10 mg by | | 0 | 09/14/19 | | | (ROXICODONE) 5 mg | mouth. | | | 15 | 8 | | tablet | | | | | | + + + +---------+ + + | promethazine | Take 25 mg by mouth | | 0 | | | | (PHENERGAN) 25 mg | every 6 hours as | | | | 8 | | tablet | needed. | | | | | + + + +---------+ + + | tiZANidine | Take by mouth. | | 0 | 08/07/19 | | | (ZANAFLEX) 4 mg | | | | 16 | 8 | | tablet | | | | | | + + + +---------+ + + documented as of this encounter Plan of Treatment Not on filedocumented as of this encounter Visit Diagnoses Not on filedocumented in this encounter"
--- OUTSIDE RECORDS SUMMARY | ~2019-11-13 | XMS | Encounter Summary ---
Demographics + + + | Address | [address] | | | [place] [address] | + + + | Home Phone | | + + + | Preferred Language | Unknown | + + + | Marital Status | Single | + + + | Anabaptist Affiliation | Unknown | + + + | Race | White | + + + | Ethnic Group | Unknown | + + + Author + + + | Author | [facility] | | | and [place] | + + + | Organization | [facility] | | | and [place] | + + + | Address | Unknown | + + + | Phone | Unavailable | + + + Support + + + + + | Name | Relationship | Address | Phone | + + + + + | Omar Gonzalez | ECON | [place] | | | | | [address] | | + + + + + | Xiang Bah | ECON | Unknown | | + + + + + Care Team Providers + +------+ + | Care Manager Of Information Name | Role | Phone | + +------+ + | Erick Garcia PA-C | PCP | | + +------+ + Reason for Visit +--------+--------+ + | Reason | Onset | Comments | | | Date | | +--------+--------+ + | Other | 01/07/ | | | | 2012 | | +--------+--------+ + Encounter Details +--------+ + + + + | Date | Type | Department | Care Team | Description | +--------+ + + + + | 01/07/ | Telephone | [facility] | Dylan Edwards MD [address] | Other | | 2012 | | NEUROLOGY [facility] | [facility] | | | | | [address] [facility], | [address] [place], | | | | | [address] [place] | [place] [address] | | | | | [place] [address] | [phone] | | | | | [phone] | | | +--------+ + + + [...] Telephone Encounter - Amanda Rubin RN - 01/11/2013 8:47 AM PSTCalled patient to t ell her to follow up with PCP Radha regarding Copaxone Rx. Patient verbalized luiz lazaro elephone Enccandice melissa - Josh Abel - 01/07/2013 8:42 AM PDTPatient called in stating that she bonnie ot get her medication because a prior authorization needs to be sent in. Please advise. Elec tronically signed by Josh Abel at 01/07/2013 8:43 AM PDTdocumented in this encoun ter Plan of Treatment Not on filedocumented as of this encounter Visit Diagnoses Not on filedocumented in this encounter"
--- OUTSIDE RECORDS SUMMARY | ~2019-11-13 | XMS | Encounter Summary ---
Demographics + + + | Address | [address] | | | [place] [address] | + + + | Home Phone | | + + + | Preferred Language | Unknown | + + + | Marital Status | Single | + + + | Muslim Affiliation | Unknown | + + + | Race | White | + + + | Ethnic Group | Unknown | + + + Author + + + | Author | [facility] | | | and [place] | + + + | Organization | [facility] | | | and [place] | + + + | Address | Unknown | + + + | Phone | Unavailable | + + + Support + + + + + | Name | Relationship | Address | Phone | + + + + + | Omar Lisa | ECON | [place] | | | | | [address] | | + + + + + | Xiang Olvin | ECON | Unknown | | + + + + + Care Team Providers + +------+ + | Care Lei Maker Name | Role | Phone | + +------+ + PCP | Unavailable | + +------+ + Encounter Details +--------+ + + + + | Date | Type | Department | Care Team | Description | +--------+ + + + + | 12/23/ | Hospital | [facility] | Ronnie Bainh | | | 2010 | Encounter | HOSPITAL EMERGENCY | [place] [address] [facility] | | | | | CENTER [address] | [facility] [address] | | | | | [address] [place] | [place], [place] | | | | | [address] | [address] | | | | | [phone] | | | +--------+ + + + [...]
--- OUTSIDE RECORDS SUMMARY | ~2019-11-13 | XMS | Encounter Summary ---
Demographics + + + | Address | [address] | | | [place] [address] | + + + | Home Phone | | + + + | Preferred Language | Unknown | + + + | Marital Status | Single | + + + | Baptism Affiliation | Unknown | + + + | Race | White | + + + | Ethnic Group | Unknown | + + + Author + + + | Author | [facility] | | | and [place] | + + + | Organization | [facility] | | | and [place] | + + + | Address | Unknown | + + + | Phone | Unavailable | + + + Support + + + + + | Name | Relationship | Address | Phone | + + + + + | Omar Gonzalez | ECON | [place] | | | | | [address] | | + + + + + | Xiang Olvin | ECON | Unknown | | + + + + + Care Team Providers + +------+ + | Care Wireless Sales Manager Name | Role | Phone | + +------+ + | Erick Garcia PA-C | PCP | | + +------+ + Encounter Details +--------+ + + + + | Date | Type | Department | Care Team | Description | +--------+ + + + + | 10/11/ | Hospital | [facility] | Estiven Gonzales MD | | | 2015 | Encounter | [facility] | [address] | | | | | [facility] | [place] [facility], [place] | | | | | [address] [place], | [address] | | | | | [place] [address] | | | | | | [phone] | | | +--------+ + + + [...]
--- OUTSIDE RECORDS SUMMARY | ~2019-11-13 | XMS | Encounter Summary ---
Demographics + + + | Address | [address] | | | [place] [address] | + + + | Home Phone | | + + + | Preferred Language | Unknown | + + + | Marital Status | Single | + + + | Methodist Affiliation | Unknown | + + + | Race | White | + + + | Ethnic Group | Unknown | + + + Author + + + | Author | [facility] | | | and [place] | + + + | Organization | [facility] | [...] [place] | | | | | [address] | | + + + + + | Xiang Olvin | ECON | Unknown | | + + + + + Care Team Providers + +------+ + | Care Linen Clerk Name | Role | Phone | + +------+ + | Erick Garcia PA-C | PCP | | + +------+ + Encounter Details +--------+ + + + + | Date | Type | Department | Care Team | Description | +--------+ + + + + | 04/08/ | Orders Only | [facility] | Estiven Gonzales MD | Acute relapsing | | 2019 | | HOSPITAL NEUROLOGY | [address] | multiple sclerosis | | | | CLINIC [address] | [place] | ([facility]) | | | | [address] [place], | [address] | | | | | [place] [address] | | | | | | [phone] | | | +--------+ + + + [...]
--- OUTSIDE RECORDS SUMMARY | ~2019-11-13 | XMS | Encounter Summary ---
Demographics + + + | Address | [address] | | | [place] [address] | + + + | Home Phone | | + + + | Preferred Language | Unknown | + + + | Marital Status | Single | + + + | Buddhist Affiliation | Unknown | + + + | Race | White | + + + | Ethnic Group | Unknown | + + + Author + + + | Author | [facility] | | | and [place] | + + + | Organization | [facility] | | | and [place] | + + + | Address | Unknown | + + + | Phone | Unavailable | + + + Support + + + + + | Name | Relationship | Address | Phone | + + + + + | Omar Canruperto | ECON | [place] | | | | | [address] | | + + + + + | Xiang Olvin | ECON | Unknown | | + + + + + Care Team Providers + +------+ + | Care Premium Representative Name | Role | Phone | + +------+ + | Erick Garcia PA-C | PCP | | + +------+ + Encounter Details +--------+ + + + + | Date | Type | Department | Care Team | Description | +--------+ + + + + | 04/08/ | Hospital | [facility] | Conversion | Chronic daily | | 2013 | Encounter | [facility] MRI 9[address] | Transaction, | headache; Multiple | | | | [address] | Provider Unknown | sclerosis, | | | | [place], [place] | | relapsing-remitting | | | | [address] | (Fax) | ([facility]) | | | | [phone] | | | +--------+ + + + [...] + +--------+ + + + | MRI BRAIN W WO | Routin | 04/08/2013 | | Results for this | | CONTRAST | e | 4:52 PM | | procedure are in the | | | | PST | | results section. | + +--------+ + + + documented in this encounter Results MRI Brain w wo Contrast (04/08/2013 4:52 PM PST) + + | Specimen | + + | | + + + + + | Impressions | Performed At | + + + | 1. There are new white matter signal changes throughout the brain | | | parenchyma with no enhancement. Imaging findings suggest that there is | | | progression in multiple sclerosis with no active plaque. Additional | | | considerations include chronic microvascular ischemic change. | | | | | + + + + + + | Narrative | Performed At | + + + | [facility] 1990 MRI BRAIN W WO CONTRAST 04/08/2013 4:52 PM | | | HISTORY: Multiple sclerosis with chronic daily headaches | | | COMPARISON: 05/16/12 TECHNIQUE: Imaging was performed on a 1.5 | | | [place] MRI system. Multiplanar sequences according to a standard | | | department protocol were acquired with and without contrast. | | | Contrast: MultiHance. Dose: 23 mL. FINDINGS: There is no | | | evidence of acute ischemia on diffusion imaging. There is no midline | | | shift. On gradient sequences, there is no abnormal susceptibility | | | artifact. There is no intra-axial mass. No extra-axial fluid is | | | present. The major intracranial vessels demonstrate normal T2 flow | | | voids. There is no uncal or tonsillar herniation. Multifocal areas | | | of white matter signal change are again demonstrated along the | | | periventricular white matter. There is a new lesion in the deep white | | | matter on image 8 series 4. There is new white matter signal change | | | noted along the periatrial white matter bilaterally. The pituitary | | | gland is normal. The bone marrow demonstrates normal signal. | | | Following gadolinium administration, there is no parenchymal, | | | meningeal or dural enhancement. The dural venous sinuses are normally | | | opacified. No enhancement of the optic nerve is present. The orbits | | | and globes are normal. The paranasal sinuses are clear. | | + + + + + | Procedure Note | + + | Tien, Rad Conversion - 10/22/2018 11:41 AM PDT [facility]MRI BRAIN W WO | | CONTRAST04/08/2013 4:52 PM HISTORY: Multiple sclerosis with chronic daily headaches | | COMPARISON: 05/16/12 TECHNIQUE:Imaging was performed on a 1.5 [place] MRI system. | | Multiplanar sequences according to a standard department protocol were acquired with and | | without contrast.Contrast: MultiHance. Dose: 23 mL. FINDINGS: There is no evidence of | | acute ischemia on diffusion imaging. There is no midline shift. On gradient sequences, | | there is no abnormal susceptibility artifact. There is no intra-axial mass. No | | extra-axial fluid is present. The major intracranial vessels demonstrate normal T2 flow | | voids. There is no uncal or tonsillar herniation. Multifocal areas of white matter | | signal change are again demonstrated along the periventricular white matter. There is a | | new lesion in the deep white matter on image 8 series 4. There is new white matter | | signal change noted along the periatrial white matter bilaterally. The pituitary gland | | is normal. The bone marrow demonstrates normal signal. Following gadolinium | | administration, there is no parenchymal, meningeal or dural enhancement. The dural | | venous sinuses are normally opacified. No enhancement of the optic nerve is present. The | | orbits and globes are normal. The paranasal sinuses are clear. IMPRESSION: 1. There | | are new white matter signal changes throughout the brain parenchyma with no enhancement. | | Imaging findings suggest that there is progression in multiple sclerosis with no active | | plaque. Additional considerations include chronic microvascular ischemic change. | | | | | |The pituitary gland is normal. The bone marrow demonstrates normal signal. Following gadoli nium administration, there is no parenchymal, meningeal or dural enhancement. The dural veno us sinuses are normally opacified. No | |enhancement of the optic nerve is | | present. The orbits and globes are normal. The paranasal sinuses are clear. | | | |IMPRESSION: | |1. There are new white matter signal changes throughout the brain parenchyma with no enhan cement. Imaging findings suggest that there is progression in multiple sclerosis with no act tiburcio plaque. Additional considerations include chronic microvascular | |ischemic change. | | | | | + + documented in this encounter Visit Diagnoses + + | Diagnosis | + + | Chronic daily headache Headache | + + | Multiple sclerosis, relapsing-remitting (HCC) Multiple sclerosis | + + documented in this encounter"
--- OUTSIDE RECORDS SUMMARY | ~2019-11-13 | XMS | Encounter Summary ---
Demographics + + + | Address | [address] | | | [place] [address] | + + + | Home Phone | | + + + | Preferred Language | Unknown | + + + | Marital Status | Single | + + + | Episcopalian Affiliation | Unknown | + + + [...] [place] | | | | | [address] | | + + + + + | Xiang Olvin | ECON | Unknown | | + + + + + Care Team Providers + +------+ + | Care Light Bulb Replacer Name | Role | Phone | + +------+ + | Erick Garcia PA-C | PCP | | + +------+ + Encounter Details +--------+ + + + + | Date | Type | Department | Care Team | Description | +--------+ + + + + | 05/27/ | Hospital | [facility] | Lion Valverde | | | 2017 | Encounter | HOSPITAL NEUROLOGY | [address] | | | | | CLIN[address] | [address] [place], [place] | | | | | [address] [place], | [address] | | | | | [place] [address] | | | | | | [phone] | | | +--------+ + + + [...] + + + +---------+ + + | ibuprofen | Take by mouth. | | 0 | 01/08/20 | | | (ADVIL,MOTRIN) 800 | | | | 16 | 8 | | MG tablet | | | | | | [...]
--- OUTSIDE RECORDS SUMMARY | ~2019-11-13 | XMS | Encounter Summary ---
Demographics + + + | Address | [address] | | | [place] [address] | + + + | Home Phone [...] + + + | Author | [facility] | | | and [place] | + + + | Organization | [facility] | | | and [place] | + + + | Address | Unknown | + + + | Phone | Unavailable | + + + Support + + + + + | Name | Relationship | Address | Phone | + + + + + | Omar Gonzalez | ECON | [place] | | | | | [address] | | + + + + + | Xiang Bah | ECON | Unknown | | + + + + + Care Team Providers + +------+ + | Care Assistant Film Editor Name | Role | Phone | + +------+ + | Erick Garcia PA-C | PCP | | + +------+ + Reason for Visit +--------+--------+ + | Reason | Onset | Comments | | | Date | | +--------+--------+ + | Other | 11/18/ | | | | 2012 | | +--------+--------+ + Encounter Details +--------+ + + + + | Date | Type | Department | Care Team | Description | +--------+ + + + + | 11/18/ | Telephone | [facility] | Dylan Edwards MD [address] | Other | | 2012 | | NEUROLOGY [place] | [facility] | | | | | [address] [facility], | [address] [place], | | | | | [address] [place] | [place] [address] | | | | | [place] [address] | [phone] | | | | | [phone] | | | +--------+ + + + [...] encounter Miscellaneous Notes Telephone Encounter - Susana Jackson RN - 11/18/2012 1:29 PM PDTCall placed to patient's p som number but it stated that this was no longer a working phone number. Then phone call p laced to the [facility] in [place], [place] and their voicemail stated that they are closed for the week for [place]. I was calling her PCP to see if they might have a different phone number on file for her. Will have to wait until Thursday to get in touch wit h them as they are closed and they have no voicemail. [facility] her to see Dr. Edwards even though she is moving to the [facility]. documented in this en counter Plan of Treatment Not on filedocumented as of this encounter Visit Diagnoses Not on filedocumented in this encounter"
--- OUTSIDE RECORDS SUMMARY | ~2019-11-13 | XMS | Encounter Summary ---
Demographics + + + | Address | [address] | | | [place] [address] | + + + | Home Phone | | + + + | Preferred Language | Unknown | + + + | Marital Status | Single | + + + | Orthodoxy Affiliation | Unknown | + + + | Race | White | + + + | Ethnic Group | Unknown | + + + Author + + + | Author | [facility] | | | and [place] | + + + | Organization | [facility] | | | and [place] | + + + | Address | Unknown | + + + | Phone | Unavailable | + + + Support + + + + + | Name | Relationship | Address | Phone | + + + + + | Omar Lisa | ECON | [place] | | | | | [phone] | | + + + + + | Xinag Olvin | ECON | Unknown | | + + + + + Care Team Providers + +------+ + | Care Parent Aide Name | Role | Phone | + +------+ + | Erick Garcia PA-C | PCP | | + +------+ + Reason for Referral Diagnostic/Screening (Routine) +--------+--------+ + + + + | Status | Reason | Specialty | Diagnoses / | Referred By | Referred To | | | | | Procedures | Contact | Contact | +--------+--------+ + + + + | Closed | | Radiology | Diagnoses | Alexandra, | [facility] | | | | | Acute | Alexis, | [facility] | | | | | relapsing | [employer] [address] | [address] | | | | | multiple | [address] [place] [address] | | | | | sclerosis | [place], [place] | [place], [place] | | | | | ([facility]) | [address] | [address] | | | | | Procedures | Phone: | Phone: | | | | | MRI Thoracic | [phone] | [phone] | | | | | Spine w wo | Fax: | Fax: | | | | | Contrast | [phone] | [phone] | +--------+--------+ + + + + Diagnostic/Screening (Routine) +--------+--------+ + + + + | Status | Reason | Specialty | Diagnoses / | Referred By | Referred To | | | | | Procedures | Contact | Contact | +--------+--------+ + + + + | Closed | | Radiology | Diagnoses | Alexandra, | [facility] | | | | | Acute | [place], | HOSPITAL | | | | | relapsing | [employer] [address] | [address] | | | | | multiple | [address] [place] | [address] | | | | | sclerosis | [place], [place] | [place], [place] | | | | | ([facility]) | [address] | [address] | | | | | Procedures | Phone: | Phone: | | | | | MRI Cervical | [phone] | [phone] | | | | | Spine w wo | Fax: | Fax: | | | | | Contrast | [phone] | [phone] | +--------+--------+ + + + + Diagnostic/Screening (Routine) +--------+--------+ + + + + | Status | Reason | Specialty | Diagnoses / | Referred By | Referred To | | | | | Procedures | Contact | Contact | +--------+--------+ + + + + | Closed | | Radiology | Diagnoses | Alexandra, | [facility] | | | | | Acute | [place], | HOSPITAL | | | | | relapsing | [employer] [address] | [address] | | | | | multiple | [address] [place] | [address] | | | | | sclerosis | [place], [place] | [place], [place] | | | | | ([facility]) | [address] | [address] | | | | | Procedures | Phone: | Phone: | | | | | MRI Brain w | [phone] | [phone] | | | | | wo Contrast | Fax: | Fax: | | | | | | [phone] | [phone] | +--------+--------+ + + + + Reason for Visit + + + | Reason | Comments | + + + | Multiple Sclerosis | | + + + Encounter Details +--------+---------+ + + + | Date | Type | Department | Care Team | Description | +--------+---------+ + + + | 02/01/ | Office | [facility] | Alexandra, | Acute relapsing | | 2018 | Visit | [facility] | Alexis, [employer] [address] | multiple sclerosis | | | | CLIN[facility] [address] | [address] [facility], | ([facility]); Chronic | | | | [place], | [place] [address] | bilateral low back | | | | [place] [address] | [phone] | pain with bilateral | | | | [phone] | | sciatica | +--------+---------+ + + + Social History [...] + + + | Blood Pressure | 110/60 | 02/01/2018 3:02 PM | | | | | PST | | + + + + + | Pulse | 79 | 02/01/2018 3:02 PM | | | | | PST | | + + + + + | Temperature | - | - | | + + + + + | Respiratory Rate | 16 | 02/01/2018 3:02 PM | | | | | PST | | + + + + + | Oxygen Saturation | 98% | 02/01/2018 3:02 PM | | | | | PST | | + + + + + | Inhaled Oxygen | - | - | | | Concentration | | | | + + + + + | Weight | 105.7 kg (233 lb) | 02/01/2018 3:02 PM | | | | | PST | | + + + + + | Height | 157.5 cm (5' 2") | 02/01/2018 3:02 PM | | | | | PST | | + + + + + | Body Mass Index | 42.62 | 02/01/2018 3:02 PM | | | | | PST | | + + + + + documented in this encounter Patient Instructions Patient Instructions Alexis Morris FNP - 02/01/2018 3:15 PM PST Understanding Multiple Sclerosis (MS) Multiple sclerosis (MS) is a disease of the brain and spinal cord. Unfortunately, there is no cure for MS. But there are many treatments available. Many people with MS can manage thei r symptoms and lead active, healthy lives. Read on to learn more about MS and its treatments . What is MS? The brain is the body s control center. Each part of the brain controls specific function s. These include movement, balance, sensation, and reasoning. The brain controls these funct ions by sending and receiving messages through nerves. Nerves have a protective covering (my bhakti). With MS, the myelin on nerves in the brain and spinal cordis damaged. The loss of t his covering causes messages traveling along affected nerves to slow or stop. This results i n MS symptoms. Causes and risk factorsfor MS Experts don't know what causes MS. But most research suggests that the body s immune syst em attacks and destroys myelin by mistake. MS most oftenbegins inadults between ages 20 and 40. Ithappens in women more often than men. It also is more likely to occur if a pers on has a family history of MS. Smoking does not cause MS, but can make it worse. Types of MS There are 4 main types of MS. These are: Relapsing-remitting MS. This type of MS is the most common. It is marked by isolated epi sodes of symptoms (also called attacks or flare-ups).Periods of partial or complete recove ry follow these episodes. Each attack may be worse than the one before it. Primary-progressive MS. This type of MS is marked by a slow onset of symptoms that gradu ally worsen over time. There are no periods of recovery. Secondary-progressive MS. This type of MS begins as relapsing-remitting MS. After a michael od of stability, the disease steadily gets worse. About 50% of peoplewith relapsing-remitt ing MS have secondary-progressive MS within 10 years of their first attack. About all of the m have it within 25 years. Progressive-relapsing MS. This type of MS includes both slowly progressive symptoms and periodsofflare-ups together. Symptoms of MS MS symptoms vary from person to person. The type of symptoms a person has depends on which nerves are affected. It also depends on how much nerve damage there is in the brain and spin al cord. A person can also have different symptoms during the course of the disease. Symptom s can include: Extreme tiredness (fatigue) Numbness, tingling, or loss of feeling Pain Muscle spasms or weakness in the arms, legs, or both Vision problems, such as rapid eye movements, double vision, or vision loss Balance and coordination problems Problems walking or moving the arms, legs, or both Bowel and bladder control problems Problems with sexual function Dizziness Trouble concentrating, focusing, or remembering things Trouble reasoning and solving problems Trouble speaking or swallowing Depression Diagnosing MS MS can be hard to diagnose. Symptoms come and go. They also may seem like those of other he alth problems. A diagnosis of MS is not made unless a person has had at least2 or more sep arate episodes of MS symptoms.To confirm a diagnosis of MS,yourhealthcare providerwi ll take a detailed history of symptoms.He or shewill alsogive youa neurologic exam t o check your muscle strength, balance, coordination, and reflexes. Skills such as thinking, memory, vision, hearing, and talking are also checked. In addition, healthcare providers may also give you the following tests: MRI. This test provides detailed pictures of the brain and spinal cord. It helps check f or areas of damaged nerves. These are often referred to as lesions or plaques. Visual evoked potentials.This test is done to see how well your optic nerves are worki ng. Spinal tap (also called lumbar puncture). This test checks the health of the fluid aroun dyour brain and spinal cord for signs ofnerve sheathdamage (demyelination). Blood tests. These help rule out other causes of the symptoms. Treating MS The goal of treatment is to manage your symptoms and slow the rate at which the disease wor sens. You can manage your symptomsin1 or more of the following ways: Medicines. Somemedicines help keepyour body s immune system from attacking the mye teena. This may reduce the frequency and severity of attacks. Othermedicines help control sy mptoms or relieve pain when attacks happen. Rehabilitation (rehab). Symptoms or problems due to MS can interfere with daily living. Rehab includes physical, occupational, or speech therapy. This can helpyou maintain streng th and function. If needed, yourhealthcare providerwill prescribe aids such as canes, wa lkers, or wheelchairs. You can also make changes in your work or living space to improve you r safety. Supportive services. These include counseling and support groups to helpyou cope with the challenges of living with MS. Family members and friends may also benefit from these ser vices. Lifestyle changes. Making certain changes in your lifestyle and daily routine may help y ou manage symptoms. This includes getting enough rest and regular exercise. It also includes eating healthy foods and reducing stress. It's helpful to figure out and stay away from thi ngs that trigger MS episodes. Other treatments. Researchers are exploring new treatments for MS. Many of these are in clinical trials. This means they are being tested for safety and effectiveness. Yourhealth care providerscangive youmore information about any treatments that might be an option for you. Long-term concerns MS is an unpredictable disease.Your experience will be different from other people'sexp eriences. In general, if you have MS, youshould have regular visits withyour healthcare provider. He or she will watchyour symptoms. Your healthcare provider willreview how wel l yourmedicines and other treatments work. MS symptoms may get worse asyour disease prog resses. If this happens, you may need more aggressive care and treatments.Visit the resour tanna below to learn more about MS and what advances researchers aremaking to find a cure: National Multiple Sclerosis Society, www.nationalmssociety.org Multiple Sclerosis Association [employer] [place], www.mymsaa.org Date Last Reviewed: 04/09/201719997736-8699 [employer]. [address] [place] [address]. All righ ts reserved. This information is not intended as a substitute for professional medical care. Always follow your healthcare professional's instructions. documented in this encounter Progress Notes Alexis Morris FNP - 02/01/2018 3:15 PM PST Patient: Sabi Bah Medical Record: [id number] Date of Services: 02/01/2018 Referring Doctor: Erick Garcia PA-C Chief Complaint: Multiple sclerosis, relapsing remitting History of Present Illness: The patient presents to the Neurology Clinic today for follow u p. The patient has a history of multiple sclerosis, relapsing remitting that was originally di agnosed in April 2012 when she was admitted to [facility] for headaches, dizziness an d blurred vision. She had a workup consisting of MRI of the brain, MRA and spinal tap confi rming a diagnosis of multiple sclerosis. She was initially started on Copaxone and has done well. She did use packs on with substitute and developed nausea and a rash. She has devel oped complications over the years of left eye blindness and left eye weakness with decreased sensation on the left side. The patient was lost to follow-up for approximately a year and a half. She has been off of almost all of her medications because of this. The patient wa s previously taking baclofen 10 mg 3 times daily, gabapentin 300 mg 3 times daily, Copaxone 20 mg daily, tizanidine 4 mg 3 times daily and zonisamide 50 mg 3 times daily. She has been out of these medications for several months. Because of this, her symptoms have worsened. She reports that she also typically has more symptoms in the winter due to cold weather. S he has had worsening stiffness, neck and back pain, pain shooting down her arms and legs, le ft-sided weakness and paresthesias and headaches. The patient also has not had any imaging since 2016. Patient Active Problem List Diagnosis Date Noted Ataxic gait 10/11/2014 Low back pain 10/11/2014 Anxiety 09/05/2014 Central loss of vision 09/05/2014 Overview Note: (last update: 02/01/2018) Overview: On the left, baseline, she can see shapes and movement peripherally. History of methamphetamine abuse 09/05/2014 Overview Note: (last update: 02/01/2018) Overview: Reportedly sober 43 days. Impaired activities of daily living 09/05/2014 Impaired mobility 09/05/2014 PTSD (post-traumatic stress disorder) 09/05/2014 ADHD (attention deficit hyperactivity disorder) 09/04/2014 Overview Note: (last update: 02/01/2018) Overview: Previously on Cymbalta and Klonopin but d/c'd after she learned she was . Asthma 09/04/2014 Overview Note: (last update: 02/01/2018) Overview: Does not require inhalers Rh negative status during 09/04/2014 Overview Note: (last update: 02/01/2018) Overview: US 09/03/14 (Good Ranjeet): 9w6d, S=D, SLIUP, 1.7 x 0.5 x 0.4 cm subchorionic hematoma. Given rh ogam 08/31/2014. Bilateral leg numbness 09/01/2014 Hyponatremia 09/01/2014 Leg weakness, bilateral 09/01/2014 Depression 11/16/2013 Acute relapsing multiple sclerosis (HCC) 11/26/2012 Overview Note: (last update: 02/01/2018) Current Treatment: Copaxone without Substitution Failed Treatment: Copaxone with subsitiute developed nausea and a rash 05/16/12 MRI of Cervical Spine: multiple areas of ill-defined increased T2 signal intens ity within the cervical cord at C2, C5 and C6 suggestive of multiple sclerosis plaques. May be faint enhancement involving the plaque on the left side of the cord at C6 suggesting an a hussein of active demyelination Ataxia 06/02/2012 Morbid obesity with BMI of 45.0-49.9, adult (HCC) 06/02/2012 Tobacco abuse 06/02/2012 Tobacco dependence syndrome 06/02/2012 Weakness of left side of body 05/15/2012 No past surgical history on file. Allergies Allergen Reactions Amoxicillin Amoxicillin-Pot Clavulanate Nausea And Vomiting And red rash Penicillins Nausea And Vomiting Rash Tramadol Other (See Comments) Horrible headache Current Medications: ALBUTEROL SULFATE IN baclofen docusate sodium gabapentin glatiramer ibuprofen tiZANidine zonisamide Review of Symptoms: CONSTITUTIONAL: No weight loss, fever, chills, weakness or fatigue. HEENT: Eyes: No visual loss, blurred vision, double vision or yellow sclerae. Ears, Nose, Throat: No hearing loss, sneezing, congestion, runny nose or sore throat. SKIN: No rash or itching. CARDIOVASCULAR: No chest pain, chest pressure or chest discomfort. No palpitations or edema . RESPIRATORY: No shortness of breath, cough or sputum. GASTROINTESTINAL: No anorexia, nausea, vomiting or diarrhea. No abdominal pain or blood. GENITOURINARY: No burning on urination. NEUROLOGICAL: No dizziness, syncope, paralysis, ataxia. No change in bowel or bladder contr ol. + Decreased sensation over left side of body, headaches, left eye blindness MUSCULOSKELETAL: +Chronic neck and back pain, spasticity due to multiple sclerosis PSYCHIATRIC: No depression or anxiety. Neurological Examination: Vitals: 02/01/18 1502 BP: 110/60 Pulse: 79 Resp: 16 PainSc: 8 PainLoc: Back Mental status: The patient is alert, attentive, and oriented. Speech is clear and fluent with good repetit ion, comprehension, and naming. Cranial nerves: CN II: Visual rihcards are full to confrontation in right eye. + left eye blindness. Fundosc opic exam is normal with sharp discs and no vascular changes. Pupils are 4 mm and briskly re active to light with accomodation. CN III, IV, : Gaze in conjugate. No blurred or double vision. + left eye blindness. EOM intact. CN V: Facial sensation is impaired on left CN VII: Face is symmetric with normal eye closure and smile. CN VII: Hearing is normal to rubbing fingers CN IX, X: Palate elevates symmetrically. Phonation is normal. CN XI: Head turning and shoulder shrug are intact CN XII: Tongue is midline with normal movements and no atrophy. Motor: There is no pronator drift of out-stretched arms. Muscle bulk and tone are normal. Shoulders Arms W[employer]/Hand Quadriceps Lower Leg Dorsiflexion Plantarflexion Right 5/5 5/5 5/5 5/5 5/5 5/5 5/5 5/5 Left 4/5 4/5 4/5 3/5 4/5 4/5 4/5 4/5 Reflexes: Reflexes are 1+ and symmetric at the biceps, triceps, knees, and ankles. Sensory: Light touch, pinprick, position sense, and vibration sense are intact in fingers and toes o n right side. + impaired sensation on left side. Coordination: Rapid alternating movements and fine finger movements are intact. There is no dysmetria on wgtqrp-pi-dclx and wiyw-raui-rwzp. There are no abnormal or extraneous movements. Romberg is absent. Gait/Stance: Mildly hemiparetic gait, wide-based stance, unable to tandem gait Clinical Impression: ICD-10-CM ICD-9-CM 1. Acute relapsing multiple sclerosis (HCC) G35 340 baclofen (LIORESAL) 10 mg tablet glatiramer (COPAXONE) 20 mg/mL injection tiZANidine (ZANAFLEX) 4 mg tablet zonisamide (ZONEGRAN) 100 mg capsule gabapentin (NEURONTIN) 300 mg capsule MRI Brain w wo Contrast MRI Cervical Spine w wo Contrast MRI Thoracic Spine w wo Contrast MRI Lumbar Spine w wo Contrast 2. Chronic bilateral low back pain with bilateral sciatica M54.42 724.2 tiZANidine (ZANAFLE X) 4 mg tablet M54.41 724.3 gabapentin (NEURONTIN) 300 mg capsule G89.29 338.29 Plan: Multiple sclerosis: The patient should restart her Copaxone 20 mg injected subcutaneously daily. She should also restart taking baclofen 10 mg 3 times daily, tizanidine 4 mg 3 times daily, gabapentin 300 mg 4 times daily and zonisamide 200 mg daily. The patient should als o have MRI of her brain and full spine due to worsening sensation changes and left-sided wea kness. She also has blindness of the left eye which is new since her last visit. She also has MRI scans of the brain and full spine from 2016 which showed numerous lesions throughout the entire neuro-axis. The patient will call back and we will consider pulse steroids for any worsening symptoms. The patient will follow up with Dr. Gonzales as scheduled on March 23, 2018. ALY Oneal Electronically signed This note was transcribed using voice recognition software. There may be speech recognitio n errors which escaped detection during review. documented in thi s encounter Plan of Treatment + +---------+--------+ + + | Name | Type | Priori | Associated Diagnoses | Order Schedule | | | | ty | | | + +---------+--------+ + + | MRI Brain w wo | Imaging | Routin | Acute relapsing | Expected: | | Contrast | | e | multiple sclerosis | 02/01/2018, Expires: | | | | | (HCC) | 02/01/2019 | + +---------+--------+ + + | MRI Cervical Spine w | Imaging | Routin | Acute relapsing | Expected: | | wo Contrast | | e | multiple sclerosis | 02/01/2018, Expires: | | | | | (HCC) | 02/01/2019 | + +---------+--------+ + + | MRI Thoracic Spine w | Imaging | Routin | Acute relapsing | Expected: | | wo Contrast | | e | multiple sclerosis | 02/01/2018, Expires: | | | | | (HCC) | 02/01/2019 | + +---------+--------+ + + documented as of this encounter Visit Diagnoses + + | Diagnosis | + + | Acute relapsing multiple sclerosis (HCC) Multiple sclerosis | + + | Chronic bilateral low back pain with bilateral sciatica | + + documented in this encounter
--- OUTSIDE RECORDS SUMMARY | ~2019-11-13 | XMS | Encounter Summary ---
Demographics + + + | Address | [address] | | | [place] [address] | + + + | Home Phone | | + + + | Preferred Language | Unknown | + + + | Marital Status | Single | + + + | Adventist Affiliation | Unknown | + + + | Race | White | + + + | Ethnic Group | Unknown | + + + Author + + + | Author | [facility] | | | and [place] | + + + | Organization | [facility] | | | and [place] | + + + | Address | Unknown | + + + | Phone | Unavailable | + + + Support + + + + + | Name | Relationship | Address | Phone | + + + + + | Omar Lisa | ECON | [place] | | | | | [phone] | | + + + + + | Deepa Olvin | ECON | Unknown | | + + + + + Care Team Providers + +------+ + | Care Support Architect Name | Role | Phone | + +------+ + PCP | Unavailable | + +------+ + Encounter Details +--------+ + + + + | Date | Type | Department | Care Team | Description | +--------+ + + + + | 05/15/ | Hospital | [facility] | Jane, | Acute thalamic | | 2013 - | Encounter | [facility] | MD [address] | infarction (HCC); | | | | CARE [address]LO[address] | Diagnosis unknown; | | | | [address] | [place] [address] | Left-sided weakness; | | 2012 | | [place], [place] | [phone] | as | | | | [address] | | incidental finding | | | | [phone] | | | +--------+ + + + [...] + + documented as of this encounter Discharge Summaries Damon Ocasio MD - 05/17/2012 1:15 PM PDT Discharge Summaries by Damno Ocasio MD at 05/17/12 131 Author: Damon Ocasio MD Service: (none) Author Type: Physician Filed: 05/26/12 3546 Date of Service: 05/17/121314 Status: Signed Elevator Runner: Damon Ocasio MD (Physician) [facility] Service: Hospitalist Discharge Summary Date of Admission: 05/15/2012 Date of Discharge: Discharge Provider: Damon Ocasio MD Treatment Team: Consulting Physician: Mauricio Rousseau MD Consulting Physician: Pranav Edmond MD Admitting Provider: Jaison Lara MD Discharge Diagnoses: Active Problems: Left-sided weakness Unspecified asthma , 8 weeks Resolved Problems: * No resolved hospital problems. * Procedures: * No surgery found * BRIEF HISTORY OF PRESENTATION: Sabi Morales is a 22 y.o. female who presented with [per hospital record]: (on 05/15/2012 ) The patient is a 22 y.o. female with significant past medical history of Asthma, 8 weeks who presents with Left side weakness The patient is a 22-year-old female with a significant past medical history of asthma, obesity and currently 8 weeks' who comes to the ED with left-sided weakness. The patient is actually a transfer from [facility]. The patient refers having left-sided weakness. The patient complained of headaches that appeared after she fell a couple of days ago while she was walking. She t ripped and fell hitting her frontal part of the head 2 hours later and started developing headaches, 8 out of 10 intensity, sta rting in the frontal region and radiated to the parietal left side, accompanied by some numb ness and tingling in the left side of her face, after which she started developing some left hand weakness and start ed dropping things with her left hand, some nausea but no vomiting, positive dizziness and s ome left leg weakness. She was trying to walk, but apparently her left side was a little weak and she was falling due to t his. She also complains of blurred vision, intermittent, having a hard time focusing her eye s, but no eye drooping. The patient denies any chest pain and no trouble swallowing, no neck pain, back pain, vomit ing, fever, chills or night sweats. Due to worsening of the symptoms today the patient went to [facility] where CT of the head was done which came back abnormal with the impression of the CT as foc al areas of low density in the right frontal white matter and internal capsule and MRI was s uggested. There was no evidence of trauma. Due to this, the patient was transferred to [facility] for an MRI of the head, which came back abnormal with 1 cm focus of restricted diffusion decreased ADC signal in the right thalamus, concerning for an acute right thalamic infarction. There was also additiona l cluster of abnormal signal in the right optic radiation white matter but no restricted eff usion, appears old. This could be demyelinating disease, if the patient has underlying multiple sclerosis. Alternati vely, this could be an old ischemia. Due to these abnormal findings, neurology was consulted , Dr. Edmond, who will see the patient in the morning and PIPELINE CONSTRUCTION INSPECTOR, Dr. Rousseau, was called, who will take care of the preg ta. Of note the patient with a history of methamphetamine use, but the last time she took it was 3 months ago. She does refer sometimes using Vicodin for pain for dental discomfort, and the last time she used it was actually 1 week ago, no recent drug abuse. HOSPITAL COURSE: Active Problems: Left-sided weakness Unspecified asthma , 8 weeks . Falls since 05/06; several times. With head trauma 05/11. Presented to ER 6th and disch arged. Presented with c/o of LUE and LLE weakness and dizziness, left sided tingling, and tr ouble walking, FOSS, and blurry vision. 05/[address] C-sp[address]. CT of head: right frontal WM an d internal capsule low density changes. MRI without contrast 05/15 yesterday shows signal rodriguez ges in 1 cm right thalamus concern for CVA ischemia. And possible old right optic CVA ischem ic vs MS. Attempted LP unsuccessful. OBGYN has been consulted per ER note. Dr. Quintana. fredy vix is given. Spoke with Dr. Edmond today, will order TTE with bubble study, carotid U/S, and MRI with co ntrast. He is concern it may be MS. Spoke with pt with deepa tyson at bedside and inform them of the result of last MRI with c ontrast which suggest lesions of the cervical spine concerning for MS, which may explain her symptoms. Discussed the need for further management with MS specialist to get 2nd opinion. Pt had LP done today and carotid US, Echocardiogram. 2. 8wks [place] . 3. H/o of asthma 4. Morbid Obesity 5. Polysubstance abuse (tobacco currently and h/o methamphetamine) 05/17 pt remains in stable condition clinically. Residual numbnes and tingling persist in le ft arm, no blurry vision, no N/V. Only complained of FOSS today and yesterday. Discussed pt's condition with her again and all questions answered. Discussed the need for MS specialist. P t agrees to going there. Will stop plavix (initially given for suspected CVA). Discussed case with Dr. Brown of OBGYN at [facility]. OB U/S is ordered for viability and dati ng. Dr. Brown saw pt and reviewed US. Ok to go. Normal IUP MAKSIM 12.24.12. Recommended Vit B-6 (25 mg qid) and doxylamine succinate (20 mg qid) may help with nausea. F/U with Dr. Ajay sheikh. called and spoke to Dr. Franco at [facility], reviewed MRI/MRA, labs results with her, and kimmy rushing referred me to call MS clinic: [phone] [facility], neurolog y division. I subsequently spoke with Dr. Ramirez and discussed the case in detail with her. Jaida ramirez was agreeable to seeing the pt "one time" but that follow up is difficult due to pt is [place] med[place] and that pt is 4-5hrs away from clinic. She recommends pt can follow wit h local neurology and coordinate care with MS clinic. I made the initial appt with clinic fo r pt with Neurology clinic in [facility] for 06/02/2012. Pt will need to follow with local neurologist in [place] where she lives for subsequent MS care theregilbert carter. Pt is discharged to home in stable condition with follow up with MS clinic as arranged. Walker is Rxed. Past Medical History Diagnosis Date Asthma Obese History reviewed. No pertinent past surgical history. Allergies Allergen Reactions Amoxicillin Nausea and Vomiting rash Augmentin Nausea and Vomiting And red rash Penicillins Nausea and Vomiting Rash Prescriptions prior to admission Medication Sig Dispense Refill Albuterol Sulfate (PROVENTIL HFA IN) Inhale 2 Inhalers into the lungs as needed. Vit-Fe Fumarate-FA ( MULTIVITAMIN) 60-1 MG tablet Take 1 tablet by tiffany th daily. promethazine (PHENERGAN) 25 MG tablet Take 25 mg by mouth every 8 (eight) hours as need ed. DISCHARGE EXAM Vital Signs: BP 118/58 | Pulse 78 | Temp(Src) 97 F (36.1 C) (Oral) | Resp 18 | Ht 1.6 m (5' 2.99") | Wt 124.6 kg (274 lb 11.1 oz) | BMI 48.67 kg/m2 | SpO2 99% | ? No General Appearance: No apparent distress. Conversive and appropriate to place and person. HEENT: Normocephalic, atraumatic, pupils EOMI, PERRLA. Nose: no septal deviation or dischar ge. Ears: normal size, location, and contour. NECK: is supple, full ROM, nontender. LUNGS: clear to auscultation bilaterally with no wheezing, No rales or rhonchi audible. HEART: S1S2, Regular rate and rhythm without murmurs, gallops or rubs. ABDOMEN: morbid obesity Bowel sound is normoactive, abdomen is soft, non-tender non-distend ed ,no mass. EXTREMITIES:No lower extermity edema, No clubbing or cyanosis bilaterally NEURO: Cranial Nerves 2-12 intact, no gross deficits. Gait not tested. Muscle strength good bilaterally, Sensation grossly intact. PSYCH: Alert, awake and Oriented x3. SKIN: multiple tattoos and piercing; No bruises, rashes, lesions, or ulcers. DATA Lab 05/17/12 0441 05/15/12 2145 WBC 9.9 11.4* RBC 3.93 4.11 HGB 11.9 12.4 HCT 36.0 37.6 MCV 91.6 91.5 MCH 30.2 30.1 MCHC 33.0 32.9 RDW 42.0 43.3 PLT 259 277 MPV 9.3 9.4 NEUTOPHILPCT 64.3 70.1 MONOPCT 7.6 5.9 Lab 05/17/12 0441 NA 139 K 4.0 CL 106 CO2 25 ANIONGAP 12 GLUF 91 BUN 10 CREATININE 0.93 BCR 10 CA 8.8 ALB 3.1* GLOB 3.7 PROT 6.8 BILITOT 0.3 ALT 16 AST 8* EGFR >60 PHOS 3.9 MG 2.0 AMYLASE -- LIPASE -- BNP -- Lab 05/17/12 044 HGBA1C 4.8 LABGLYC 91 Lab 05/17/12 0441 05/15/12 2145 APTT -- 27 INR 1.1 -- PTT -- -- No results found for this basename: TSH:1,T3FREE:1,FREET4:1 in the last 168 hours No results found for this basename: CKTOTAL:1,TROPONINI:1,TROPONINT:1,CKMBINDEX:[address] 168 hours HDL CHOL Date Value Range Status 05/17/2012 36* >40 mg/dL Final Testing performed at [facility] [place] [id number] Triglycerides Date Value Range Status 05/17/2012 91 <150 mg/dL Final Testing performed at [facility];[place] [address] LDL CALC Date Value Range Status 05/17/2012 104* <100 mg/dL Final Testing performed at [facility] [place] [id number] CHOLESTEROL Date Value Range Status 05/17/2012 158 <200 mg/dL Final Testing performed at [facility];[address];[place] [address] Ct Head Without Contrast 05/15/2012 This is a non-reportable procedure without a radiologist report and is used for image storage only Mra Neck With And Without Contrast 05/16/2012 [facility]AL[facility] MRA NECK W WO CONTRAST 05/16/2012 11:12 AM HISTORY: 22 years. Fem darlin. Left-sided weakness. Lesions seen in the right periventricular white matter and right thalamus on recent brain MRI. Assess for carotid dissection or vasculitis. TECHNIQUE: Yesenia ging was performed on a 1.5 Tennille MRI system. Coronal magnetic resonance angiography was pe rformed from the aortic arch to the [place] of [place] with and without contrast. In addition , axial 3-D lryg-fo-[id number] MR angiography and axial T1 fat sat postcontrast series were acqu ired through the carotid bifurcations. Multiplanar angiographic MIP reconstructions were pe rformed. MultiHance: 15 mL. A single dose of contrast was used for this study as well as t he concurrent contrast enhanced portions of the brain MRI and cervical MRI exam. COMPARISON : None. FINDINGS: MRA NECK: Arch: A left-sided aortic arch is noted with a 3 vessel arch co nfiguration. Ascending Aorta: No evidence of aneurysm, dissection or stenosis. Right Brachio cephalic: No evidence of aneurysm, dissection or stenosis. Right Common Carotid Origin: No e vidence of aneurysm, dissection or stenosis. Right Subclavian: No evidence of aneurysm, diss ection or stenosis. Left Common Carotid Origin: No evidence of aneurysm, dissection or steno sis. Left Subclavian: No evidence of aneurysm, dissection or stenosis. Carotids: Right Com mon carotid: Widely patent. Right External carotid: Widely patent. Right Internal carotid: W idely patent. Maximum diameter of normal ICA: 3.4 mm. This calculates to a 0 % stenosis usin g NASCET measurement technique. Left Common carotid: Widely patent. Left External carotid: Widely patent. Left Internal carotid: Widely patent. Maximum diameter of normal ICA: 4.5 mm. This calculates to a 0 % stenosis using NASCET measurement technique. Vertebrals: The left vertebral artery is dominant. Right Vertebral artery: Hypoplastic vessel which terminates i n the PICA in the posterior fossa. Left Vertebral artery: Widely patent. The visualized int racranial dural venous sinuses are patent. IMPRESSION: 1. Normal MRA examination of the n gemma. 2. No carotid artery or vertebral artery stenosis demonstrated. 3. Hypoplastic right vertebral artery noted which terminates in the right PICA in the posterior fossa. Nany monzon signed by Frank Doll DO on 05/16/2012 1:16 PM Mri Brain Without Contrast 05/15/2012 MR BRAIN WITHOUT CONTRAST 05/15/2012 History: Head trauma. Left-sided numbness. Technique: Multiplanar T1, T2, FLAIR, and diffusion-weighted sequences obtained through the brain on an MR scanner. Comparison: No priors. Findings: There is a 1 cm acute right colin lamic infarct with restricted diffusion and mild increased FLAIR signal. There is increased FLAIR and decreased T1 signal in the right optic radiation white matter, but no restricted diffusion. This appears old. No evidence of intracranial hemorrhage. No significant edema o r midline shift. Ventricles appear normal. Impression: 1. 1 cm focus of restricted diffusi on with decreased ADC signal in the right thalamus, concerning for an acute right thalamic i nfarct. This is unusual in a 22-year-old patient. No hemorrhage. 2. Additional cluster of ab normal signal in the right optic radiation white matter but no restricted diffusion, appears old. This could be demyelinating disease if the patient has underlying multiple sclerosis. Alternatively, old ischemia. Electronically signed by Ketan Araya MD on May 15 2012 9:07PM Mri Cervical Spine With And Without Contrast 05/16/2012 [facility] MRI CERVICAL SPINE W WO CONTRAST 05/16/2012 11:08 AM HISTORY: 22 y ears. Female. Left-sided weakness. Brain MRI findings suggestive of multiple sclerosis. TECHNIQUE: Imaging was performed on a 1.5 [employer] MRI system. Multiplanar sequences were acqu ired according to a standard department protocol with and without contrast. Contrast: MultiH ance. Dose: 15 mL. A single dose of contrast was used for the study as well as concurrent MRI exams of the brain and an MRA neck COMPARISON: None. FINDINGS: Imaging in the sagittal plane was performed from the posterior fossa through T5-6. The vertebral bodies are normal in height. Normal alignment is noted at all levels. Normal bone marrow signal intensity i s seen on all sequences. Prior surgical changes: None. The visualized structures in the po sterior fossa demonstrate normal morphology and signal intensity. The flow voids of the atif tebral and basilar arteries are normal. The clivus is normal. The pituitary is normal. Th e paraspinal soft tissues are normal. The structures in the nasopharynx and neck appear minerva ssly normal with no mass or adenopathy seen. The thyroid appears normal. The anterior long itudinal ligament, posterior longitudinal ligament, ligamentum flavum and intraspinous ligam ents are normal. The foramen magnum is widely patent. There is no evidence of an Arnold-Ch iari malformation. These are cord demonstrates patchy areas of increased T2, stir and pro ton density signal intensity located along the posterior right side of the cord at the C2 le mike and along the lateral aspect of the cord at C5 and C6. The lesion at C2 measures 7 mm in craniocaudal dimension while the lesion at C5 is somewhat indistinct measuring 7 mm in cr aniocaudal dimension. The lesion at C6 measures 14 mm in craniocaudal dimension there appea rs to be a faint degree of enhancement involving the lesion in the left side of C6, best see n on the sagittal series 11 image 10 but not on the axial postcontrast series. Otherwise no abnormal enhancement is seen within the vertebral bodies, disk spaces, epidural space, spin al cord or paraspinal soft tissues. C2-3 through T5-6: The disks are normal in height and signal intensity and have normal posterior contours. The canal and neuroforamina are paten t at these levels. IMPRESSION: 1. Multiple areas of ill-defined increased T2 signal intens ity within the cervical cord at C2, C5 and C6 suggestive of multiple sclerosis plaques. 2. There may be faint enhancement involving the plaque on the left side of the cord at C6 sug gesting an area of active demyelination. Electronically signed by Frank Doll DO on 05/07 1:29 PM Xr Cervical Spine 3 View 05/16/2012 HISTORY: 22-year-old female, trauma. Double shielded -- presumably DAVID HNIQUE: 1. 3 view radiographic examination of the cervical spine Prior study for review : None FINDINGS: Cervical rib formation on the right is normal variation, but can contribu te to chronic right upper extremity symptoms The cervical spine is straightened from C4 thr ough C6, with some focality of the cervical lordosis from C2 through C4. The upper cervical spine is rotated slightly. The odontoid view without fracture or malalignment. The anterior C1 -- C2 relationships are normal. On the AP view the upper cervical spine is rotated. T here is about 1.5 mm of retro-translocation of C3 relative to C4, prevertebral soft tissues are normal. The posterior spinal line is slightly irregular, but the spinal laminar and spin ous process lines are normal and the anterior spinal line is normal. The vertebral bodies are not perched, intravertebral disc spaces are normal. There is some narrowing of the spino us process space at C2-C3 -- this may be congenital. An element of partial nonossified fusio n can't be excluded IMPRESSION: 1. No proven fracture or radiographic evidence of instabil ity. Normal variation is believed to explain the findings from C2 through C4 described above . Would correlate clinically however and if exam is unclear, both flexion-extension views and MRI are available 2. A cervical rib arises on the right. Nonacute, but could correlate with chronic upper extremity symptoms. Electronically signed by Jeff Parrish MD on 12/2012 7:31 AM Ultrasound Carotid Bilateral 05/16/2012 [facility] VELASQUEZ[facility] US CAROTID DOPPLER, BILATERAL 05/16/2012 1:23 PM HISTORY: 22 years . Female. Left-sided weakness. MRI brain study showed lesions located in the periventricu lar white matter of the right frontal lobe and right thalamus. Possible infarct. TECHNIQUE : Imaging was performed with a linear array transducer. A duplex exam was performed includi ng grayscale, color flow and pulsed wave spectral Doppler techniques. COMPARISON: None. FI NDINGS: Right side: The right common carotid, internal carotid and external carotid arteries are widely patent. No intimal thickening is noted. No soft or calcified plaques are noted . CCA-PROX PSV: 141 (cm/s) EDV: 25 (cm/s) Grade: 1 CCA-DIST PSV: 77 (cm/s) EDV: 23 (cm/s) Grade: 1 ICA-PROX PSV: 72 (cm/s) EDV: 34 (cm/s) Grade: 1 ICA-MID PSV : 89 (cm/s) EDV: 34 (cm/s) Grade: 1 ICA-DIST PSV: 86 (cm/s) EDV: 32 (cm/s) Grade: 1 ECA-PROX PSV: 133 (cm/s) EDV: 17 (cm/s) Grade: 1 VERTEBRAL PSV: 42 (cm/s) EDV: 9 ( cm/s) Grade: 1 VERTEBRAL FLOW: Antegrade RATIO ICA/CCA: PSV: 1.2 EDV: 1.5 Left side: Th e left common carotid, internal carotid and external carotid arteries are widely patent. No intimal thickening is noted. No soft or calcified plaques are noted. CCA-PROX PSV: 13 1 (cm/s) EDV: 27 (cm/s) Grade: 1 CCA-DIST PSV: 86 (cm/s) EDV: 25 (cm/s) Grade: 1 ICA -PROX PSV: 69 (cm/s) EDV: 29 (cm/s) Grade: 1 ICA-MID PSV: 80 (cm/s) EDV: 34 (cm/s ) Grade: 1 ICA-DIST PSV: 104 (cm/s) EDV: 42 (cm/s) Grade: 1 ECA-PROX PSV: 75 (c m/s) EDV: 7 (cm/s) Grade: 1 VERTEBRAL PSV: 61 (cm/s) EDV: 22 (cm/s) Grade: 1 VERTEBRA L FLOW: Antegrade RATIO ICA/CCA: PSV: 1.2 EDV: 1.7 Grades: 1 = 01-50% PSV <125 cm/s EDV (cm/s)<40 cm/s (mild plaque) 2 = 01-50% PSV <125 cm/s EDV (cm/s)<40 cm/s (moderat e plaque) 3 = 50-69% PSV >125 cm/s EDV (cm/s)>40 cm/s 4 = 70-95% PSV >230 cm/s E DV (cm/s)>100 cm/s 5 = 90-95% 6 = Occluded IMPRESSION: 1. Widely patent carotid and ve rtebral arterial systems bilaterally with no evidence of significant plaque or stenosis. El ectronically signed by Frank Doll DO on 05/16/2012 2:34 PM X-ray Lumbar Puncture Diagnostic 05/16/2012 [facility] MORAL[facility] XR LUMBAR PUNCTURE DIAGNOSTIC 05/16/2012 12:04 PM HISTORY: 22 year s. Female. Possible multiple sclerosis. Patient has multiple lesions in the white matter seen on recent brain MRI. COMPARISON: None. DESCRIPTION OF PROCEDURE: Prior to beginning the procedure, I obtained written informed consent and I marked the patient's skin on the s kasey where the procedure was to be performed. A timeout was performed. The patient was plac ed in the prone position. The skin site over the left L2-L3 interlaminar notch was selected and marked. The skin was then prepped and draped in the usual sterile fashion and anesthet ized with 1% lidocaine buffered with sodium bicarbonate. Subsequently, a 22-gauge 5.5-inch needle was advanced into the thecal sac. Clear CSF was obtained on the first attempt. Mayers atif the flow of CSF was minimal despite multiple attempts to advance, withdraw and rotate th e hub of the needle. The head of the table was raised to 45 degrees at this did not produce any significant increase in the flow of CSF. Further attempts were abandoned to limit radia tion dose to the fetus. The needle was removed with the tubing attached to the hub of the ne edle and all collected CSF was injected into a collection tube. Unfortunately only 1.5-mL o f CSF was collected. While this maximized the amount of CSF was collected to introduce a sm all amount of blood into the CSF sample which had been clear in the tubing. The patient t olerated the procedure well. FLUOROSCOPY TIME: 0.3 minutes. FLUOROSCOPY DOSE: 31.8 mGy. C OMPLICATIONS: None. IMPRESSION: 1. Successful diagnostic lumbar puncture. 2. Only 1.5-mL of CSF was collected before the CSF stopped flowing. This was sent to the laboratory. Furt her attempts were abandoned to limit radiation dose to the fetus. Mri Brain W Contrast And Mra Head 05/16/2012 [facility] MORAL[facility] MRI BRAIN W AND MRA HEAD 05/16/2012 11:07 AM HISTORY: 22 years. F emale. Left-sided numbness which began several days ago. MRI of brain showed FLAIR hyperin tense lesions in the right frontal lobe periventricular white matter and right thalamus. Im aging with contrast is performed to assess for tumor or active multiple sclerosis. TECHNIQ UE: Imaging was performed on a 1.5 [employer] MRI system. Multiplanar sequences were acquired ac cording to a standard department protocol with contrast. Contrast: MultiHance. Dose: 15 mL . COMPARISON: MRI brain 05/15/2012, CT head 05/15/2012. FINDINGS: The focal FLAIR hyperintense lesion located in the right frontal lobe periventricular white matter measuring 2.4 x 2.4 x 1.4 cm in AP, transverse and cranial caudal dimension is again seen but shows no evidence o f enhancement. The central portion of this lesion is very low in T1 signal intensity sugges ting a burned out multiple sclerosis plaque. The second lesion situated in the lateral alisa in of the right thalamus which measured 10.5 mm on the previous exam shows a minimal patchy degree of enhancement along its superior border measuring 5.7 mm in size. This suggests an active area of demyelination. The lesions seen on the prior MRI and recurrent enhancing les ion meet the International Panel criteria for the diagnosis of multiple sclerosis disseminat ion in space. High-resolution imaging of the orbits demonstrates a normal symmetric appear ance of the optic globes and extraocular muscles. No inflammation is seen in the intraconal or extraconal fat of the posterior orbits. The optic nerves and optic nerve sheaths appear normal. No enhancement or inflammation is seen to suggest optic neuritis. MRA Distal In ternal Carotids: Right Internal carotid: Widely patent. Left Internal carotid: Widely paten t. Posterior Circulation: Vertebral Dominance: Left. Right vertebral artery: Terminates in the right posterior inferior cerebellar artery. Left vertebral artery: Normal. Posterior inf erior cerebellar arteries: Normal. Anterior inferior cerebellar arteries: Normal. Basilar ar ron: Normal. Superior cerebellar arteries: Normal. Right posterior cerebral artery: Normal. Left posterior cerebral artery: Normal. [place] [employer]: Anterior communicating artery: N ormal. Right posterior communicating artery: Not visualized. It may be too small to resolv e or is congenitally absent. Left posterior communicating artery: Normal. Anterior Circulat ion: Right Anterior cerebral artery: A1 segment: Hypoplastic. A2 segment: Normal. Right MC A: M1 segment: Normal. Post bifurcation M1 segment: Normal. M2 segments: Normal. M3 segments : Normal. M4 segments: Normal. Left Anterior cerebral artery: A1 segment: Normal. A2 segme nt: Normal. Left MCA: M1 segment: Normal. Post bifurcation M1 segment: Normal. M2 segments: Normal. M3 segments: Normal. M4 segments: Normal. IMPRESSION: 1. Proximally 7 FLAIR hyper intense lesions in the periventricular, deep and juxtacortical white matter. There is mild enhancement of the lesion located in the posterior lateral right thalamus. These findings m ay be International Panel criteria for the diagnosis of multiple sclerosis dissemination in space. 2. The largest FLAIR hyperintense lesion located in the right periventricular white matter does not show enhancement but shows cystic areas centrally with low T1 signal intensi ty typical of a "burned out" multiple sclerosis plaque. 3. No evidence of optic neuritis. 4 . MRA head is normal. No stenosis, aneurysm, occlusion or vasculitis noted. Normal varian t termination of the right vertebral artery in the right PICA noted. Echo Caridac Adult With Bubble Study 05/17/2012 Patient Name: SABI MORALES Date of : 1990 Pe rforming Physician: Jan Phan MD INDICATIONS STROKE CONCLUSIONS 1. Essentially norm al study. FINDINGS -------- ECG rhythm: Sinus rhythm. Study: A 2-dimensional transthoracic echocardiogram with m-mode, spectral and color flow Doppler was perfomed. Study: This was a technically adequate study. Left Ventricle: Overall left ventricular systolic function is n ormal with, an EF between 55 - 60 %. Left Ventricle: The left ventricle cavity size is norm al. Left Ventricle: Left ventricular wall thickness is normal. Left Ventricle: The diastol ic filling pattern indicates impaired relaxation consistent with mild dysfunction (Grade I), which is normal for the patient's age. Right Ventricle: The right ventricle is normal in si ze and function. Left Atrium: The left atrium is normal in size. Right Atrium: The right atr ium is normal in size. Aortic Valve: The aortic valve is trileaflet, and appears anatomical ly normal. No aortic stenosis or regurgitation. Mitral Valve: The mitral valve is normal. M itral Valve: There is trace mitral regurgitation. Tricuspid Valve: The tricuspid valve appea rs structurally normal. Tricuspid Valve: Trace tricuspid regurgitation present. Tricuspid Valve: Right ventricular systolic pressure (pulmonary artery systolic pressure) is normal at < 35 mmHg. Pulmonic Valve: Pulmonic valve appears structurally normal. Pulmonic Valve: Tra ce pulmonic regurgitation. Pericardium: There is a trivial pericardial effusion present. IV C/Hepatic Veins: The IVC is small (<1.5cm) and collapses with sniff, consistent with central venous pressures of 0-5mmHg. Thrombus: No clot visualized Septum: Negative agitated saline study. MEASUREMENTS IVC: 0.99 cm LA Major: 4.64 cm EDV(Teich): 108.06 m l IVSd: 1.06 cm LVIDd: 4.81 cm LVPWd: 1.06 cm LVOT Diam: 2.17 cm %FS: 27.19 % EF(T diane): 52.85 % ESV(Teich): 50.95 ml IVSs: 1.14 cm LVIDs: 3.50 cm LVPWs: 1.54 cm SV (Teich): 57.11 ml RA Major: 4.35 cm RVIDd: 3.04 cm LVEF MOD A4C: 57.61 % SV MOD A4C: 62.54 ml LVEDV MOD A4C: 108.55 ml LVLd A4C: 7.72 cm LVESV MOD A4C: 46.00 ml LVLs A4 C: 5.76 cm LAESV(A-L): 44.34 ml LAESV Index (A-L): 20.24 ml/m2 LAAs A2C: 17.01 cm2 L AESV A-L A2C: 46.99 ml LALs A2C: 5.23 cm LAAs A4C: 16.06 cm2 LAESV A-L A4C: 41.75 ml LALs A4C: 5.24 cm Ao Diam: 2.81 cm AV Cusp: 2.28 cm LA Diam: 3.67 cm LA/Ao: 1.30 %FS: 34.28 % EDV(Teich): 152.72 ml EF(Teich): 62.67 % ESV(Teich): 57.01 ml IVSd: 0.63 cm IVSs: 1.17 cm LVIDd: 5.58 cm LVIDs: 3.67 cm LVPWd: 0.85 cm LVPWs: 1.17 cm SV(Teich): 95.71 ml D-E Excursion: 1.91 cm E-F Dillon: 0.09 m/s EPSS: 0.69 cm IVC bernie meter: 1.28 cm IVC collapse: 0.50 cm IVC % collapse: 59.31 % HR: 50.24 BPM AV maxP.31 mmHg AV meanP.15 mmHg AV Vmax: 1.52 m/s AV Vmean: 1.07 m/s AV VTI: 34.23 cm MACK Vmax: 3.01 cm2 MACK (VTI): 3.08 cm2 LVCI Dopp: 2.66 l/minm2 LVCO Dopp: 5.84 l /min HR: 55.38 BPM LVOT maxP.09 mmHg LVOT meanP.16 mmHg LVSI Dopp: 48.19 ml/ m2 LVSV Dopp: 105.54 ml LVOT Vmax: 1.23 m/s LVOT Vmean: 0.84 m/s LVOT VTI: 28.33 cm MCO: 462.10 ms MV A Mike: 0.73 m/s MV DecT: 182.78 ms MV E Mike: 1.09 m/s MV E/A Ratio : 1.48 MV PHT: 55.80 ms MVA By PHT: 3.94 cm2 MV A Dur: 129.39 ms Septal e': 0.10 m/s Septal E/e': 10.21 Lateral e': 0.13 m/s Lateral E/e': 8.39 P Vein A: 0.22 m/s P Vein A Dur: 81.33 ms P Vein D: 0.44 m/s P Vein S/D Ratio: 1.14 P Vein S: 0.50 m/s HR: 48.30 BPM PV maxP.14 mmHg PV meanP.21 mmHg PV Vmax: 0.73 m/s PV Vmean: 0.52 m/s PV VTI: 19.03 cm TV A Mike: 0.62 m/s TV Dec Dillon: 5.27 m/s2 TV Dec Time: 226.93 ms TV E Mike: 1.19 m/s TV E/A Ratio: 1.92 Roller Man: LEV Authenticated by: Deyanira Phan MD Report Date/Time: 05-17-2012 08:38:15 PLAN Discharge to home with marbella Otoole in stable condition. Code Status: Full Code No discharge procedures on file. Follow up: No follow-up provider specified. Current Discharge Medication List CONTINUE these medications which have NOT CHANGED Details Albuterol Sulfate (PROVENTIL HFA IN) Inhale 2 Inhalers into the lungs as needed. Vit-Fe Fumarate-FA ( MULTIVITAMIN) 60-1 MG tablet Take 1 tablet by mouth d aily. promethazine (PHENERGAN) 25 MG tablet Take 25 mg by mouth every 8 (eight) hours as needed. Discharge took 73 minutes, to include final examination, discussion of admission, and prepa ration of prescriptions, instructions for on-going care, follow-up and documentation of disc harge summary. Damon Ocasio MD @td documente d in this encounter Progress Notes Conversion Transaction, Provider Unknown - 05/17/2012 3:37 PM PDTFormatting of this note m ight be different from the original. Progress Notes by Bobby Lara RN at 05/17/12 1537 Author: Bobby Lara RN Service: (none) Author Type: Registered Nurse Filed: 05/17/12 1538 Date of Service: 05/17/12 1537 Status: Signed Elevator Runner: Bobby Lara RN (Registered Nurse) May 17, 2012 Discharge instructions given to patient. Learner indicates understanding. Time of discharge:1514 Discharge to:home Mode of Transportation:wheelchair Accompanied by:transporter Latonia Perez MSW - 05/17/2012 9:46 AM PDT Progress Notes by RAIN Knight at 05/17/12 0924 Author: RAIN Knight Service: (none) Author Type: Outside Event Sales Specialist Filed: 05/17/12 4123 Date of Service: 05/17/12 0946 Status: Addendum Elevator Runner: RAIN Knight (Outside Event Sales Specialist) Related Notes: Original Note by RAIN Knight (Outside Event Sales Specialist) filed at 05/17/12 8173 RN reported patient had concerns about transportation and limited resources if she is trans ferred to [facility]. Pts facesheet indicates patient has [place] Medicaid with transportation [place] [employer]. CM called [place] [employer] to confirm patient has this benefit for hsieh sportation to appts and hospital and Babar / dispatcher confirmed patient has this benefit with confirmation of patient's , current address and contact phone number. When patient is ready for dc CM to call and request pick up truck driver during M - F business hours with preferred 24 hour notice, however can provide transportation day of discharge if necessary. Pt and boyfr iend to discharge home to [place] at 3:30pm via [place] [employer]. Pt has f/ u appt with OB MD Angela Barcenas on 05/20/2012 at 1:20pm. Pt has been seen once per NELY Hayes for Dr Barcenas. [facility] Freddy's request. [phone] and o [facility] [phone] fx. CM provided patient with [employer] with Transport ation contact #. Pranav Burgess MD - 05/17/2012 9:31 AM PDT Progress Notes by Pranav Edmond MD at 05/17/12930 Author: Pranav Edmond MD Service: Neurology Author Type: Physician Filed: 05/17/12 1011 Date of Service: 05/17/12930 Status: Signed Elevator Runner: Pranav Edmond MD (Physician) Subjective: Patient seen and examined. Sabi Morales is a 22 y.o. female admitted to the hospital for numbness and weakness of the l eft side with imbalance. Patient Summary: please refer to H&P and My consult. Current complaints: She is stable with no new symptoms. Objective: Vitals: Temp: [97 F (36.1 C)-98.1 F (36.7 C)] 97.8 F (36.6 C) Heart Rate: [62-80] 79 Resp: [18-20] 18 BP: (111-115)/(51-65) 111/57 mmHg Speech: Is normal; fluent and spontaneous. Cognition: The patient is oriented to person, place, and time. Cranial Nerves: At this time, the pupils are equal, round, and reactive to light. Visual fi elds are full to finger confrontation. Extraocular movements are intact. The face is symmetr ic. Tone: Normal muscle tone. Strength: Strength is 5/5 right side and 4+/5 left side. Light Touch: Impaired over the left side. DTR's: Deep tendon reflexes in the upper and lower extremities are normal bilaterally. Toes: The toes are downgoing right and upgoing left CURRENT MEDICATIONS: Scheduled Meds: clopidogrel 75 mg Oral Daily heparin (porcine) 5,000 Units Subcutaneous Q8H influenza trivalent-split vaccine 0.5 mL Intramuscular Once Immunization sodium bicarbonate buffer 1 mL Other Once sodium bicarbonate buffer 5 mL Infiltration Once Labs Lab Results Component Value Date WBC 9.9 05/17/2012 HGB 11.9 05/17/2012 HCT 36.0 05/17/2012 MCV 91.6 05/17/2012 PLT 259 05/17/2012 Lab Results Component Value Date CREATININE 0.93 05/17/2012 BUN 10 05/17/2012 NA 139 05/17/2012 K 4.0 05/17/2012 CL 106 05/17/2012 CO2 25 05/17/2012 ESR: 23 HGBA1c: 4.8 LP: 158/91/36/104 Homocysteine: Pending. MELI: negative. Lyme, Treponema pallidum, B9 and B12: Pending. CSF: WBC: 2 RBC: 8350 Glucose: 50 Protein: 43 OCB: pending. Pathology: Pending. Images: Brain MRI/MRA: 1. Proximally 7 FLAIR hyperintense lesions in the periventricular, deep and juxtacortical w eliz matter. There is mild enhancement of the lesion located in the posterior lateral right thalamus. These findings may be International Panel criteria for the diagnosis of multiple s clerosis dissemination in space. 2. The largest FLAIR hyperintense lesion located in the right periventricular white matter does not show enhancement but shows cystic areas centrally with low T1 signal intensity typi nicky of a "burned out" multiple sclerosis plaque. 3. No evidence of optic neuritis. 4. MRA head is normal. No stenosis, aneurysm, occlusion or vasculitis noted. Normal variant termination of the right vertebral artery in the right PICA noted. Neck MRA: 1. Normal MRA examination of the neck. 2. No carotid artery or vertebral artery stenosis demonstrated. 3. Hypoplastic right vertebral artery noted which terminates in the right PICA in the poste rior fossa. Echocardiography: Pending. Telemetry: NSR. Assessment: This patient was admitted to the hospital with: 1- Left sided weakness, numbness and dizziness started few days ago with h/o intermittent n eurologic symptoms in the last year as mentioned in my HPI. Brain MRI is more consistent wit h demyelinating processes. 2- , 8 weeks. 3- Obesity. Plan: 1. Continue telemetry bed. 2. Vital signs and neurocheck every 2 hours. 3. BP target of 120-130/70 but avoid hypotension and keep MAP greater than 80-90. 4. I do not see clear reason to continue Clopidogrel especially that she is . 5. Most likely demyelinating processes versus less likely tumor. LP was done but did not ge t enough fluids to run full MS work up. If no clear answer, we may repeat LP in the future. We may also consider VEP. 6. Discussed with the patient all therapeuitc options including IV steroids (class C in gen eral and class D during the first trimester). Given that the treatment will not change the c ourse but make the recovery faster, and given that her symptoms are not severe to start with and that has favorable effects on MS in general, we decided to hold on treatment for now. She understands and agrees. 7. There is also no indication to start immunomodulator therapy at this time (8 week pregna nt) including Copaxone or Interferon. I will defer this to MS specialist. 8. TTE is pending. 9. Consult PT to evaluate patient is she may need IPR. 10. General care including GI and DVT prophylaxis and risk factors modification per primary team. Thank you for allowing us to participate in your patient care. High risk , plan to evaluation by PIPELINE CONSTRUCTION INSPECTOR. I discussed with Dr. Ocasio again that I recommend a transfer / referral to [facility] for MS specialist input on management in 8 weeks with newly diagnosed demyelinati ng disease. onversion Transacti on, Provider Unknown - 05/16/2012 9:25 PM PDTFormatting of this note might be different fro m the original. Progress Notes by aSskia Gonzalez RN at 05/16/122124 Author: Saskia Gonzalez RN Service: (none) Author Type: Registered Nurse Filed: 05/16/122126 Date of Service: 05/16/122124 Status: Signed Elevator Runner: Saskia Gonzalez RN (Registered Nurse) Pt off the floor with security as escort to go to the garden for some fresh air. Explained to the patient the importance of not smoking while she stated she understood. Pt re turned to floor at 2119, updated by security that she smoked half a cigarette. Will continue to monitor. Miguel Gonzalez RN Kianna Fu MD - 05/16/2012 8:39 AM PDTFormatting of this note might be different from nguyễn martinez. Progress Notes by Damon Ocasio MD at 05/16/12838 Author: Damon Ocasio MD Service: (none) Author Type: Physician Filed: 05/16/121625 Date of Service: 05/16/12838 Status: Signed Elevator Runner: Damon Ocasio MD (Physician) [facility] Service: Hospitalist Progress Note Hospital Day: LOS: 1 day Post-Op Day: * No surgery found * SUBJECTIVE Events Overnight: No blurry vision, but left hand "feels like not there". Numbness an d tingling persistent. C/o FOSS. ROS: 12 point ROS reviewed and negative other than above. Scheduled Medications clopidogrel 75 mg Oral Daily heparin (porcine) 5,000 Units Subcutaneous Q8H HYDROmorphone 0.5 mg Intravenous Once influenza trivalent-split vaccine 0.5 mL Intramuscular Once Immunization sodium bicarbonate buffer 5 mL Infiltration Once DISCONTD: clopidogrel 75 mg Oral Daily DISCONTD: omeprazole 20 mg Oral QAM AC DISCONTD: pantoprazole 40 mg Intravenous QAM AC DISCONTD: sodium bicarbonate buffer 5 mL Infiltration Once Continuous Infusions sodium chloride 75 mL/hr at 05/16/12 0410 PRN Medications acetaminophen, acetaminophen, HYDROmorphone, HYDROmorphone, labetalol, ondansetron, ondanse julia, polyethylene glycol, ranitidine, zolpidem OBJECTIVE Vital Signs: BP 102/51 | Pulse 74 | Temp(Src) 97.9 F (36.6 C) (Oral) | Resp 18 | Ht 1.6 m (5' 2.99") | Wt 124.6 kg (274 lb 11.1 oz) | BMI 48.67 kg/m2 | SpO2 97% | ? No Physical Exam: General Appearance: No apparent distress. Conversive and appropriate to place and person. HEENT: Normocephalic, atraumatic, pupils EOMI, PERRLA. Nose: no septal deviation or dischar ge. Ears: normal size, location, and contour. NECK: is supple, full ROM, nontender. LUNGS: clear to auscultation bilaterally with no wheezing, No rales or rhonchi audible. HEART: S1S2, Regular rate and rhythm without murmurs, gallops or rubs. ABDOMEN: morbid obesity Bowel sound is normoactive, abdomen is soft, non-tender non-distend ed ,no mass. EXTREMITIES:No lower extermity edema, No clubbing or cyanosis bilaterally NEURO: Cranial Nerves 2-12 intact, no gross deficits. Gait not tested. Muscle strength good bilaterally, Sensation grossly intact. PSYCH: Alert, awake and Oriented x3. SKIN: multiple tattoos and piercing; No bruises, rashes, lesions, or ulcers. DATA Lab 05/15/12 2145 WBC 11.4* RBC 4.11 HCT 37.6 MCV 91.5 MCH 30.1 MCHC 32.9 RDW 43.3 PLT 277 MPV 9.4 DIFFTYPE AUTOMATED Lab 05/15/12 2145 K 3.8 CL 108 CO2 22* ANIONGAP 13 GLUF 77 BUN 9 CREATININE 0.79 BCR 11 CA 8.3* PROT 7.3 ALB 3.3* GLOB 4.0 AGRATIO -- BILITOT 0.3 ALP 63 AST 9* ALT 18 EGFR >60 BMP: Lab 05/15/12 2145 NA 139 K 3.8 CL 108 CO2 22* ANIONGAP 13 GLUF 77 BUN 9 CREATININE 0.79 BCR 11 CA 8.3* EGFR >60 No results found for this basename: M in the last 168 hours Lab 05/15/12 2145 APTT 27 INR 1.0 PTT -- No results found for this basename: CKTOTAL:3,TROPONINI:3,TROPONINT:3,CKMBINDEX:[address] Head Without Contrast 05/15/2012 This is a non-reportable procedure without a radiologist report and is used for image storage only Mri Brain Without Contrast 05/15/2012 MR BRAIN WITHOUT CONTRAST 05/15/2012 History: Head trauma. Left-sided numbness. Technique: Multiplanar T1, T2, FLAIR, and diffusion-weighted sequences obtained through the brain on an MR scanner. Comparison: No priors. Findings: There is a 1 cm acute right colin lamic infarct with restricted diffusion and mild increased FLAIR signal. There is increased FLAIR and decreased T1 signal in the right optic radiation white matter, but no restricted diffusion. This appears old. No evidence of intracranial hemorrhage. No significant edema o r midline shift. Ventricles appear normal. Impression: 1. 1 cm focus of restricted diffusi on with decreased ADC signal in the right thalamus, concerning for an acute right thalamic i nfarct. This is unusual in a 22-year-old patient. No hemorrhage. 2. Additional cluster of ab normal signal in the right optic radiation white matter but no restricted diffusion, appears old. This could be demyelinating disease if the patient has underlying multiple sclerosis. Alternatively, old ischemia. Electronically signed by Ketan Araya MD on May 15 2012 9:07PM Xr Cervical Spine 3 View 05/16/2012 HISTORY: 22-year-old female, trauma. Double shielded -- presumably DAVID HNIQUE: 1. 3 view radiographic examination of the cervical spine Prior study for review : None FINDINGS: Cervical rib formation on the right is normal variation, but can contribu te to chronic right upper extremity symptoms The cervical spine is straightened from C4 thr ough C6, with some focality of the cervical lordosis from C2 through C4. The upper cervical spine is rotated slightly. The odontoid view without fracture or malalignment. The anterior C1 -- C2 relationships are normal. On the AP view the upper cervical spine is rotated. T here is about 1.5 mm of retro-translocation of C3 relative to C4, prevertebral soft tissues are normal. The posterior spinal line is slightly irregular, but the spinal laminar and spin ous process lines are normal and the anterior spinal line is normal. The vertebral bodies are not perched, intravertebral disc spaces are normal. There is some narrowing of the spino us process space at C2-C3 -- this may be congenital. An element of partial nonossified fusio n can't be excluded IMPRESSION: 1. No proven fracture or radiographic evidence of instabil ity. Normal variation is believed to explain the findings from C2 through C4 described above . Would correlate clinically however and if exam is unclear, both flexion-extension views and MRI are available 2. A cervical rib arises on the right. Nonacute, but could correlate with chronic upper extremity symptoms. Electronically signed by Jeff Parrish MD on 12/2012 7:31 AM PROBLEM LIST ASSESSMENT & PLAN Active Problems: Left-sided weakness Unspecified asthma , 8 weeks 1. Falls since 05/06; several times. With head trauma 05/11. Presented to ER 6th and discharge d. Presented with c/o of LUE and LLE weakness and dizziness, left sided tingling, and troubl e walking, FOSS, and blurry vision. 05/16 C-spine negative. CT of head: right frontal WM and in ternal capsule low density changes. MRI without contrast 05/15 yesterday shows signal changes in 1 cm right thalamus concern for CVA ischemia. And possible old right optic CVA ischemic v s MS. Attempted LP unsuccessful. OBGYN has been consulted per ER note. Dr. Quintana. plavix is given. Spoke with Dr. Edmond today, will order TTE with bubble study, carotid U/S, and MRI with co ntrast. He is concern it may be MS. Spoke with pt with deepa tyson at bedside and inform them of the result of last MRI with c ontrast which suggest lesions of the cervical spine concerning for MS, which may explain her symptoms. Discussed the need for further management with MS specialist to get 2nd opinion. Pt had LP done today and carotid US, Echocardiogram. 2. 8wks GA . 3. H/o of asthma 4. obesity Disposition: inpatient. Code Status: Full Code Damon Ocasio MD 05/16/2012 onversio n Transaction, Provider Unknown - 05/16/2012 4:30 AM PDTFormatting of this note might be di fferent from the original. Progress Notes by Elzbieta Jin RPH at 05/16/12 0430 Author: Elzbieta Jin RPH Service: (none) Author Type: Pharmacist Filed: 05/16/12429 Date of Service: 05/16/12429 Status: Signed Elevator Runner: Elzbieta Jin RPH (Pharmacist) Clinical Pharmacy Note: Renal Monitoring Sabi Morales 22 y.o. female Height: 160 cm Weight: 124.6 kg CREATININE: 0.79 (05/15/122144) Estimated creatinine clearance - Cockcroft-Gault CrCl: 144.6 mL/min Pharmacy dosing for renal function per Dr. Lara. Currently, there are no medications needing to be adjusted. Pharmacy will continue to monit or for changes in medication orders and in renal function and adjust accordingly. Elzbieta Jin PharmJaida 05/16/2012 4:30 AM Jaison Hamilton MD - 05/16/2012 1:32 AM PSTFormatting of this note might be different fr om the original. Significant Event by Jaison Lara MD at 05/16/12131 Author: Jaison Lara MD Service: Hospitalist Author Type: Physician Filed: 05/16/12140 Date of Service: 05/16/12131 Status: Addendum Elevator Runner: Jaison Lara MD (Physician) Related Notes: Original Note by Jaison Lara MD (Physician) filed at 05/16/12133 Called from machine tool technology instructor - Tech unsure of hospital policies regarding MRI contrast due to potential harm to fetus - would like to wait until our hospital radiaologist reviewed the case for further testing and safety Called from ED - unable to perform LP / recommend LP under fluoroscopy Plan -AM hospitalist to contact our radiologist during morning hours for further assessment of s afety (I discussed case with [facility] radiologist and unknown safety - please see my admit note ) -Order for LP with MS panel already ordered / please contact radiology department thanks onversion T ransajoe, Provider Unknown - 05/15/2012 10:14 PM PSTFormatting of this note might be diffe rent from the original. Progress Notes by RAIN Buitrago at 05/15/122213 Author: RAIN Buitrago Service: (none) Author Type: Outside Event Sales Specialist Filed: 05/15/122230 Date of Service: 05/15/122213 Status: Addendum Elevator Runner: RAIN Buitrago (Outside Event Sales Specialist) Related Notes: Original Note by RAIN Buitrago (Outside Event Sales Specialist) filed at 05/15/12 2 217 Pt's marbella Otoole asking re housing accommodations while she is here in [facility]. He was advise d that if he would like to stay the night he can stay in the room w/Pt. He explained that he heard [facility] provides gas voucher. Pt has friend next to him that brought both himself and Pt here to [facility]. Fiance reports that he does not have gas money to get back. Pt advised He c an call his friends and relatives to see if he can get a ride back but if that fails we can find a ride whether covered by Medicaid or by [employer] bus. Pt and fiance report their que stions have been answered. docume nted in this encounter H&P Notes Jaison Lara MD - 05/15/2012 11:03 PM PSTFormatting of this note might be diffe rent from the original. H&P by Jaison Lara MD at 05/15/127 Author: Jaison Lara MD Service: (none) Author Type: Physician Filed: 05/17/12 0457 Date of Service: 05/15/122302 Status: Addendum Elevator Runner: Jaison Lara MD (Physician) Related Notes: Original Note by Jaison Lara MD (Physician) filed at 05/16/12 0017 [facility] Service: Hospitalist Admission History & Physical Date of Admission: 05/15/2012 Requesting Physician: Dr Mendoza, Emergency Department / transfer from [facility] Reason for Admission: Left side weakness History Obtained From: patient CHIEF COMPLAINT: Left side weakness HISTORY OF PRESENT ILLNESS The patient is a 22 y.o. female with significant past medical history of Asthma, 8 weeks who presents with Left side weakness The patient is a 22-year-old female with a significant past medical history of asthma, obesity and currently 8 weeks' who comes to the ED with left-sided weakness. The patient is actually a transfer from [facility]. The patient refers having left-sided weakness. The patient complained of headaches that appeared after she fell a couple of days ago while she was walking. She tripped and fell hitting her frontal part of the head 2 hours later and started developing headaches, 8 out of 10 intensity, starting in the frontal region and radiated to the parietal left side, accompanied by some numbness and tingling in the left side of her face, after which she started developing some left hand weakness and started dropping things with her left hand, some nausea but no vomiting, positive dizziness and some left leg weakness. She was trying to walk, but apparently her left side was a little weak and she was falling due to this. She also complains of blurred vision, intermittent, having a hard time focusing her eyes, but no eye drooping. The patient denies any chest pain and no trouble swallowing, no neck pain, back pain, vomiting, fever, chills or night sweats. Due to worsening of the symptoms today the patient went to [facility] where CT of the head was done which came back abnormal with the impression of the CT as focal areas of low density in the right frontal white matter and internal capsule and MRI was suggested. There was no evidence of trauma. Due to this, the patient was transferred to [facility] for an MRI of the head, which came back abnormal with 1 cm focus of restricted diffusion decreased ADC signal in the right thalamus, concerning for an acute right thalamic infarction. There was also additional cluster of abnormal signal in the right optic radiation white matter but no restricted effusion, appears old. This could be demyelinating disease, if the patient has underlying multiple sclerosis. Alternatively, this could be an old ischemia. Due to these abnormal findings, neurology was consulted, Dr. Edmond, who will see the patient in the morning and PIPELINE CONSTRUCTION INSPECTOR, Dr. Rousseau, was called, who will take care of the . Of note the patient with a history of methamphetamine use, but the last time she took it was 3 months ago. She does refer sometimes using Vicodin for pain for dental discomfort, and the last time she used it was actually 1 week ago, no recent drug abuse. Review of Systems Constitutional: Negative for fever, chills, diaphoresis and fatigue. HENT: Negative for congestion, sneezing, neck pain and neck stiffness. Respiratory: Negative for apnea, cough, choking, shortness of breath and wheezing. Cardiovascular: Negative for chest pain, palpitations and leg swelling. Gastrointestinal: Negative for nausea, vomiting, diarrhea, constipation and abdominal diste ntion. Genitourinary: Negative for dysuria and difficulty urinating. Musculoskeletal: Positive for gait problem. Negative for arthralgias. Skin: Negative for color change. Neurological: Positive for dizziness, weakness, numbness and headaches. Negative for tremor s, seizures, syncope, facial asymmetry, speech difficulty and light-headedness. Psychiatric/Behavioral: Negative for confusion and agitation. Past Medical History Diagnosis Date Asthma Obese History reviewed. No pertinent past surgical history. Immunizations: Influenza: Pneumoccocal: Allergies Allergen Reactions Amoxicillin Nausea and Vomiting rash Augmentin Nausea and Vomiting And red rash Penicillins Nausea and Vomiting Rash (Not in a hospital admission) History reviewed. No pertinent family history. History Social History Marital Status: Single Spouse Name: N/A Number of Children: N/A Years of Education: N/A Occupational History Not on file. Social History Main Topics Smoking status: Former Smoker -- 1.0 packs/day Smokeless tobacco: Never Used Alcohol Use: No Drug Use: No Sexually Active: Yes -- Male partner(s) Other Topics Concern Not on file Social History Narrative No narrative on file PHYSICAL EXAM Vital Signs: BP 138/93 | Pulse 70 | Temp(Src) 100 F (37.8 C) (Oral) | Resp 16 | Ht 1.6 m (5' 3") | W t 111.131 kg (245 lb) | BMI 43.40 kg/m2 | SpO2 99% Physical Exam Constitutional: She is oriented to person, place, and time. She appears well-developed. HENT: Head: Normocephalic and atraumatic. Eyes: EOM are normal. Pupils are equal, round, and reactive to light. Neck: Neck supple. No JVD present. Cardiovascular: Normal rate, regular rhythm and normal heart sounds. Exam reveals no pimentel p and no friction rub. No murmur heard. Pulmonary/Chest: Effort normal. No respiratory distress. She has no wheezes. She has no ral es. She exhibits no tenderness. Abdominal: Soft. Bowel sounds are normal. She exhibits no distension and no mass. There is no tenderness. There is no rebound and no guarding. Musculoskeletal: She exhibits no edema. Neurological: She is alert and oriented to person, place, and time. No sensory deficit. Numbness and tingling on left facial / no facial droop Strength 4/5 on left side - arm and leg Strength 5/5 on right side Abnormal coordination on left side but appear related to more to weakness DATA CBC: Lab Results Component Value Date WBC 11.4* 05/15/2012 RBC 4.11 05/15/2012 HGB 12.4 05/15/2012 HCT 37.6 05/15/2012 MCV 91.5 05/15/2012 MCH 30.1 05/15/2012 MCHC 32.9 05/15/2012 RDW 43.3 05/15/2012 PLT 277 05/15/2012 MPV 9.4 05/15/2012 DIFFTYPE AUTOMATED 05/15/2012 CMP: Lab Results Component Value Date NA 139 05/15/2012 K 3.8 05/15/2012 CL 108 05/15/2012 CO2 22* 05/15/2012 ANIONGAP 13 05/15/2012 GLUF 77 05/15/2012 BUN 9 05/15/2012 CREATININE 0.79 05/15/2012 BCR 11 05/15/2012 CA 8.3* 05/15/2012 PROT 7.3 05/15/2012 ALB 3.3* 05/15/2012 GLOB 4.0 05/15/2012 BILITOT 0.3 05/15/2012 ALP 63 05/15/2012 AST 9* 05/15/2012 ALT 18 05/15/2012 EGFR >60 05/15/2012 Records from [place] showed that CT of the head had an impression of focal areas of low density in the right frontal white matter and internal capsule. An MRI suggested no evidence of trauma. No further imaging is found in the patient's paperwork. CT head without contrast [[id number]] Resulted:05/15/122157 Order Status:Completed Updated:05/15/122157 Narrative: This is a non-reportable procedure without a radiologist report and is used for image storage only MRI brain without contrast [[id number]] Resulted:05/15/122106 Order Status:Completed Updated:05/15/122106 Narrative: MR BRAIN WITHOUT CONTRAST 05/15/2012 History: Head trauma. Left-sided numbness. Technique: Multiplanar T1, T2, FLAIR, and diffusion-weighted sequences obtained through th e brain on an MR scanner. Comparison: No priors. Findings: There is a 1 cm acute right thalamic infarct with restricted diffusion and mild increased F LAIR signal. There is increased FLAIR and decreased T1 signal in the right optic radiation white matter, but no restricted diffusion. This appears old. No evidence of intracranial hemorrhage. No significant edema or midline shift. Ventricles appear normal. Impression: 1. 1 cm focus of restricted diffusion with decreased ADC signal in the right thalamus, conc erning for an acute right thalamic infarct. This is unusual in a 22-year-old patient. No hem orrhage. 2. Additional cluster of abnormal signal in the right optic radiation white matter but no r estricted diffusion, appears old. This could be demyelinating disease if the patient has und erlying multiple sclerosis. Alternatively, old ischemia. Electronically signed by Ketan Araya MD on May 15 2012 9:07PM PROBLEM LIST Active Problems: Left-sided weakness Unspecified asthma , 8 weeks ASSESSMENT & PLAN A -Left side weakness - acute / with hx of fall but no signs of trauma on CT head or MRI / Ab normal MRi with 1 cm focus of restricted diffusion with decreased ADC signal in the right th alamus , additional cluster of abnormal signal in the right optic radiation white matter Differential - Ischemic CVA vs demyelinating disorder (would favor the later , MS) - - 8 weeks / stable -Asthma - with no signs of exacerbation P Will admit to inpatient ED already contacted SSIS ARCHITECT Dr Rousseau who will see the patient in AM ED already contacted neurology Dr Turcios who will see the patient in AM for further assessme nt and treatment Will start plavix (ASA category D in , plavix category B) IVF with NS at 75 ml/h NPO / speech and swallow eval in AM - advance diet per speech Telemetry / Vital signs and neurochecks q4h If fever will use tylenol Oxygen if needed to keep sat > 90% Will do not treat BP unless is greater than 210/120 (will use labetalol PRN if needed) Will keep MAP greater than 90 Will treat risk factors - will check for lipid panel and A1c in AM Will hold on statin therapy at this point due to current (? Safety - will follow SSIS ARCHITECT recommendatoins) MRA head without contrast due to MRA neck Coagulation panel Echocardiogram bubble study PT / OT eval Duo nebs prn DVT / GI prophylaxis Disposition: Inpatient / Full code - discussed with patient Code Status: No Order Addendum - Discussed case with Neurology Dr Turcios who is concerned of possible MS (less lik bess tumor), recommends MRI brain with contrast and LP with MS panel I discussed case with Radia Radiologist, unknown safety of MRI contrast in (not e nough case studies), discussed case with patient and significant other , they are willing to have both tests . Will do MRI with contrast and LP with MS panel Primary Care Physician: PER PT NONE Jaison Lara MD 05/15/2012 documented i n this encounter Consult Notes Soy Brown MD - 05/17/2012 2:46 PM PDTFormatting of this note might be different fro m the original. Consult* by Soy Brown MD at 05/17/12 1446 Author: Soy Brown MD Service: Obstetrics/Gynecology Author Type: Physician Filed: 05/18/12 0122 Date of Service: 05/17/121445 Status: Signed Elevator Runner: Soy Brown MD (Physician) [facility] Service: Obstetrics & Gynecology Initial Consult Note Date of Admission: 05/15/2012 Reason for Consultation: Evaluate patient's status4 Requesting Physician: Hospitalist, Keily Ocasio MD History Obtained From: patient CHIEF COMPLAINT: Falling down, numbness in left upper and lower extremities. HISTORY OF PRESENT ILLNESS The patient is a 22 y.o. female with significant past medical history of Asthma and Recreat ional Drug Use who presents with complaints of numbness and weakness x 2 days. I have been asked to evaluate patient for her current . Her LMP was in February, but patient i s uncertain which day precisely. An obstetrical ultrasound was performed on [address] Moss in [place], [place]. This put her MAKSIM as 12/24/2012. REVIEW OF SYSTEMS Review of Systems Constitutional: Negative. HENT: Negative. Eyes: Negative. Respiratory: Negative. Cardiovascular: Negative. Gastrointestinal: Positive for nausea and vomiting. Genitourinary: Negative. Musculoskeletal: Negative. Skin: Negative. Neurological: Negative. Hematological: Negative. Psychiatric/Behavioral: Negative. Past Medical History Diagnosis Date Asthma Obese History reviewed. No pertinent past surgical history. Allergies Allergen Reactions Amoxicillin Nausea and Vomiting rash Augmentin Nausea and Vomiting And red rash Penicillins Nausea and Vomiting Rash Prescriptions prior to admission Medication Sig Dispense Refill Albuterol Sulfate (PROVENTIL HFA IN) Inhale 2 Inhalers into the lungs as needed. Vit-Fe Fumarate-FA ( MULTIVITAMIN) 60-1 MG tablet Take 1 tablet by tiffany th daily. promethazine (PHENERGAN) 25 MG tablet Take 25 mg by mouth every 8 (eight) hours as need ed. Scheduled Medications heparin (porcine) 5,000 Units Subcutaneous Q8H influenza trivalent-split vaccine 0.5 mL Intramuscular Once Immunization pneumococcal 23-valent vaccine 0.5 mL Intramuscular Once Immunization sodium bicarbonate buffer 5 mL Infiltration Once DISCONTD: clopidogrel 75 mg Oral Daily Continuous Infusions sodium chloride 75 mL/hr at 05/16/12 0410 PRN Medications acetaminophen, acetaminophen, HYDROmorphone, HYDROmorphone, labetalol, ondansetron, ondanse julia, polyethylene glycol, ranitidine, sodium chloride, zolpidem, DISCONTD: acetaminophen History reviewed. No pertinent family history. History Social History Marital Status: Single Spouse Name: N/A Number of Children: N/A Years of Education: N/A Occupational History Not on file. Social History Main Topics Smoking status: Former Smoker -- 1.0 packs/day Smokeless tobacco: Never Used Alcohol Use: No Drug Use: No Sexually Active: Yes -- Male partner(s) Other Topics Concern Not on file Social History Narrative No narrative on file History Smoking status Former Smoker -- 1.0 packs/day Smokeless tobacco Never Used History Alcohol Use No History Drug Use No History Sexual Activity Sexually Active: Yes -- Male partner(s) PHYSICAL EXAM Vital Signs: BP 112/59 | Pulse 68 | Temp(Src) 97 F (36.1 C) (Oral) | Resp 19 | Ht 1.6 m (5' 2.99") | Wt 124.6 kg (274 lb 11.1 oz) | BMI 48.67 kg/m2 | SpO2 99% | ? No Temp: [97 F (36.1 C)-97.8 F (36.6 C)] 97.6 F (36.4 C) (05/17 1332) BP: (111-118)/(57-59) 112/59 mmHg (05/17 1332) Heart Rate: [68-79] 68 (05/17 1332) Resp: [18-19] 19 (05/17 1332) SpO2: [99 %] 99 % (05/17 1332) Physical Exam DATA CBC: Lab Results Component Value Date WBC 9.9 05/17/2012 RBC 3.93 05/17/2012 HGB 11.9 05/17/2012 HCT 36.0 05/17/2012 MCV 91.6 05/17/2012 MCH 30.2 05/17/2012 MCHC 33.0 05/17/2012 RDW 42.0 05/17/2012 PLT 259 05/17/2012 MPV 9.3 05/17/2012 DIFFTYPE AUTOMATED 05/17/2012 CMP: Lab Results Component Value Date NA 139 05/17/2012 K 4.0 05/17/2012 CL 106 05/17/2012 CO2 25 05/17/2012 ANIONGAP 12 05/17/2012 GLUF 91 05/17/2012 BUN 10 05/17/2012 CREATININE 0.93 05/17/2012 BCR 10 05/17/2012 CA 8.8 05/17/2012 PROT 6.8 05/17/2012 ALB 3.1* 05/17/2012 GLOB 3.7 05/17/2012 BILITOT 0.3 05/17/2012 ALP 56 05/17/2012 AST 8* 05/17/2012 ALT 16 05/17/2012 EGFR >60 05/17/2012 PROBLEM LIST Active Problems: Left-sided weakness Unspecified asthma , 8 weeks ASSESSMENT & PLAN 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 Normal appearing IUP c/w an MAKSIM of 12/24/2012. Some nausea and vomiting of is present, but not severe. Recommend: Transfer OK Vit B-6 (25 mg qid) and doxylamine succinate (20 mg qid) may help with nausea. F/U with Dr. Ajay sheikh. Code Status: Full Code Primary Care Physician: PER PT NONE Thank you for allowing me to participate in the care of this patient. SOY BROWN MD 05/17/2012 ammaa, MD Pranav - 05/16/2012 9:08 AM PDT Consults by Pranav Edmond MD at 05/16/12 0908 Author: Pranav Edmond MD Service: Neurology Author Type: Physician Filed: 05/16/12 4979 Date of Service: 05/16/1208 Status: Addendum Elevator Runner: Pranav Edmond MD (Physician) Related Notes: Original Note by Pranav Edmond MD (Physician) filed at 05/16/12 1642 Consult Orders: 1. Consult to Neurology [[id number]] ordered by Jaison Lara MD at 05/15/12 6841 I was asked by primary team to evaluate this patient in neurological consultation. Sabi Morales is a 22 y.o. right handed female who was brought to the hospital with chief com plaint of left sided numbness / weakness and dizziness. - Onset, context and course: She reports intermittent dizziness since Apr, 2012. She then f ell on 05/11/12 and hit her head (tripped per her report). Her balance worsened since that ans he continued to have tendency to fall. She then noticed weakness / numbness of the left mansoor e of her body. Head CT was done in outside facility and she then transferred [facility]. She reports left sided weakness / numbness/ tingling and imbalance. She also reports previous episodes of numbness (she had previous right leg numbness lasted ~ 2 years). She also reports short lived periods of slurred speech and blurred vision. - Associated symptoms: Headache. - Previous work up: As mentioned above. - Previous diagnosis and treatment: Brain MRI reported 1 cm focus of restricted diffusion w ith decreased ADC signal in the right thalamus, concerning for an acute right thalamic infar ct. This is unusual in a 22-year-old patient. No hemorrhage. Additional cluster of abnormal signal in the right optic radiation white matter but no restricted diffusion, appears old. T his could be demyelinating disease if the patient has underlying multiple sclerosis. Alterna tively, old ischemia. The patient was started on Plavix for possible stroke. The patient is 8 weeks. Review of Systems Please see my HPI. All other system were reviewed and are negative. PMH: Patient Active Problem List Diagnoses Date Noted Left-sided weakness 05/15/2012 Unspecified asthma 05/15/2012 , 8 weeks 05/15/2012 Unspecified asthma 05/15/2012 Past Medical History Diagnosis Date Asthma Obese History reviewed. No pertinent past surgical history. Allergy: Allergies Allergen Reactions Amoxicillin Nausea and Vomiting rash Augmentin Nausea and Vomiting And red rash Penicillins Nausea and Vomiting Rash Medications: Home medications: Prior to Admission medications Medication Sig Start Date End Date Taking? Authorizing Provider Albuterol Sulfate (PROVENTIL HFA IN) Inhale 2 Inhalers into the lungs as needed. Yes Hist orical Provider Vit-Fe Fumarate-FA ( MULTIVITAMIN) 60-1 MG tablet Take 1 tablet by mouth d aily. Yes Historical Provider promethazine (PHENERGAN) 25 MG tablet Take 25 mg by mouth every 8 (eight) hours as needed. Yes Historical Provider Scheduled Meds: clopidogrel 75 mg Oral Daily heparin (porcine) 5,000 Units Subcutaneous Q8H HYDROmorphone 0.5 mg Intravenous Once influenza trivalent-split vaccine 0.5 mL Intramuscular Once Immunization sodium bicarbonate buffer 5 mL Infiltration Once DISCONTD: clopidogrel 75 mg Oral Daily DISCONTD: omeprazole 20 mg Oral QAM AC DISCONTD: pantoprazole 40 mg Intravenous QAM AC DISCONTD: sodium bicarbonate buffer 5 mL Infiltration Once FHx: History reviewed. No pertinent family history. SHx: History Social History Marital Status: Single Spouse Name: N/A Number of Children: N/A Years of Education: N/A Occupational History Not on file. Social History Main Topics Smoking status: Former Smoker -- 1.0 packs/day Smokeless tobacco: Never Used Alcohol Use: No Drug Use: No Sexually Active: Yes -- Male partner(s) Other Topics Concern Not on file Social History Narrative No narrative on file Objective: Vitals: BP 102/51 | Pulse 74 | Temp(Src) 97.9 F (36.6 C) (Oral) | Resp 18 | Ht 1.6 m (5 ' 2.99") | Wt 124.6 kg (274 lb 11.1 oz) | BMI 48.67 kg/m2 | SpO2 97% | ? No General: Well developed, well nourished, in no acute distress Neck: Supple, unable to appreciate bruits. Lungs: Clear bilaterally to A & P Heart: Regular rate and rhythm, S1, S2 Pulses: Normal in all 4 extremities Detailed Neurologic Exam: Speech: Is normal; fluent and spontaneous with normal comprehension Cognition: The patient is oriented to person, place, and time; memory intact; language flue nt; normal attention, concentration, and fund of knowledge Cranial Nerves: At this time, the pupils are equal, round, and reactive to light. Visual fi elds are full to finger confrontation. Extraocular movements are intact. Trigeminal sensatio n is impaired over the left side of the face and the muscles of mastication are normal. The face is symmetric. Hearing is impaired on the left to fingers rubbing. The palate elevates i n the midline. Voice is normal. Shoulder shrug is normal. The tongue has normal motion witho ut fasciculations. Coordination: Mild impairment finger to nose on the left. Gait: Ataxic, wide-based. Observation: No asymmetry, no atrophy, and no involuntary movements noted. Tone: Normal muscle tone. Posture: Posture is normal. Strength: Strength is 5/5 right side and 4+/5 left side. Light Touch: Impaired over the left side. DTR's: Deep tendon reflexes in the upper and lower extremities are normal bilaterally. Toes: The toes are downgoing right and upgoing left Labs Lab Results Component Value Date WBC 11.4* 05/15/2012 HGB 12.4 05/15/2012 HCT 37.6 05/15/2012 MCV 91.5 05/15/2012 PLT 277 05/15/2012 Lab Results Component Value Date CREATININE 0.79 05/15/2012 BUN 9 05/15/2012 NA 139 05/15/2012 K 3.8 05/15/2012 CL 108 05/15/2012 CO2 22* 05/15/2012 IMAGING Brain MRI: 1. 1 cm focus of restricted diffusion with decreased ADC signal in the right thalamus, conc erning for an acute right thalamic infarct. This is unusual in a 22-year-old patient. No hem orrhage. 2. Additional cluster of abnormal signal in the right optic radiation white matter but no r estricted diffusion, appears old. This could be demyelinating disease if the patient has und erlying multiple sclerosis. Alternatively, old ischemia. EKG NSR. Assessment: This patient was admitted to the hospital with: 1- Left sided weakness, numbness and dizziness started few days ago with h/o intermittent n eurologic symptoms in the last year as mentioned in my HPI. Brain MRI was suggestive of stro ke, but the possibility of demyelinating processes versus tumor can not be ruled out. 2- , 8 weeks. 3- Obesity. Plan: 1- Agree with admission to telemetry bed. 2- Vital signs and neurocheck every 1 hour for 24 hours then every 2 hours. 3- BP target of 120-130/70 but avoid hypotension and keep MAP greater than 80-90. 4- She is on Clopidogrel 75 mg daily. Agree with stroke work up. 5- Differential diagnosis include demyelinating processes versus tumor. MRI with contrast i s recommended. However, she is . I covered with her and with her significant-other ( introduce himself as the father of her baby) that we do not have enough data on the safety o f the MRI with contrast and she has to make a decision in this regard. I covered with her al so the possibility of transferring her to another facility for second opinion. They will thi nk about it and out radiologist will discuss with her in detail the risks versus the benefit s of the MRI with contrast (gadollinum). Will also consider cervical spine MRI w/o and with. 6- Agree with LP. 7- Work up should include carotid US, TTE with bubble study. 8- Consult PT, OT, Speech therapy and IPR if felt to be indicated. 9- General care including GI and DVT prophylaxis and risk factors modification per primary team. Thank you for allowing us to participate in your patient care. Methylprednisolone was reported to be class C in . I discussed with our pharmacist, it is even class D during the first trimester of . IVIG is also class C. Copaxone and interferon were reported to be class B in but again, I am not sure i f it is the right time to use during the first 8 weeks. Given that she is 8 weeks , if work up is consistent with MS, I will recommend a keesha pickens to [facility] were she may get an access to an MS specialist. She is a high risk patient. 05/16/12 @ 5:00 pm: Brain MRI with contrast and cervical MRI results were noticed. Findings are most consistent with RR MS with acute flare up. She is 8 weeks and I do not feel comfortable treating her acutely with IV steroids or IVIG. I will hold on immunomodulator as well for now. I discussed with her primary team, Dr. Ocasio. We both felt that this patient will definitely benefit from transfere to [facility] to be seen by MS specialist. Dr. Ocasio will be working on possible transfer. I really do not have much to add at this time. Will keep following for now. documented in this e ncounter ED Notes Conversion Transaction, Provider Unknown - 05/16/2012 3:19 AM PDTFormatting of this note m ight be different from the original. ED Notes by Janel Mcneill RN at 05/16/12318 Author: Janel Mcneill RN Service: (none) Author Type: Registered Nurse Filed: 05/16/12323 Date of Service: 05/16/12318 Status: Signed Elevator Runner: Janel Mcneill RN (Registered Nurse) machine tool technology instructor states postponing MRI w/ contrast until tomorrow when radiologist can discuss risk s/benefits of MRI including risks of contrast to fetus due to carcinogenic nature contrast h as shown in animal studies. Pt/pt's sig other notified; verb understanding.. Assisted pt/s ig other w/ writing questions to discuss w/ MD in am, per pt request. Report to 4 op RN. M ultiple beverages/ food items to pt through out visit. Janel Mcneill RN 05/16/124 onver timothy Transaction, Provider Unknown - 05/16/2012 3:18 AM PDT ED Notes by Janel Mcneill RN at 05/16/12317 Author: Janel Mcneill RN Service: (none) Author Type: Registered Nurse Filed: 05/16/12 0328 Date of Service: 05/16/12317 Status: Signed Elevator Runner: Janel Mcneill RN (Registered Nurse) PA states pt now ok to transfer to tx room. Janel Mcneill RN 05/16/128 onver timothy Transaction, Provider Unknown - 05/16/2012 3:00 AM PDT ED Notes by Janel Mcneill RN at 05/16/12299 Author: Janel Mcneill RN Service: (none) Author Type: Registered Nurse Filed: 05/16/12339 Date of Service: 05/16/12299 Status: Signed Elevator Runner: aJnel Mcneill RN (Registered Nurse) Please note time change for daylight savings from 0200 changed to 0300 Janel Mcneill RN 05/16/12339 onver timothy Transaction, Provider Unknown - 05/16/2012 1:28 AM PST ED Notes by Janel Mcneill RN at 05/16/12127 Author: Janel Mcneill RN Service: (none) Author Type: Registered Nurse Filed: 05/16/12129 Date of Service: 05/16/12127 Status: Addendum Elevator Runner: Jaenl Mcneill RN (Registered Nurse) Related Notes: Original Note by Janel Mcneill RN (Registered Nurse) filed at 05/16/12128 angel unable to perform LP due to unable to palp land sprague. Pt is to remain in ED until PA consults W/ Dr Munoz. Janel Mcneill RN 05/16/12128 Janel Mcneill RN 05/16/12129 onver timothy Transaction, Provider Unknown - 05/16/2012 12:23 AM PST ED Notes by Janel Mcneill RN at 05/16/12 002 Author: Janel Mcneill RN Service: (none) Author Type: Registered Nurse Filed: 05/16/1224 Date of Service: 05/16/1222 Status: Signed Elevator Runner: Janel Mcneill RN (Registered Nurse) LP set up and consent in room. PA notified. Janel Mcneill RN 05/16/1224 onver timothy Transaction, Provider Unknown - 05/16/2012 12:07 AM PST ED Notes by Janel Mcneill RN at 05/16/126 Author: Janel Mcneill RN Service: (none) Author Type: Registered Nurse Filed: 05/16/128 Date of Service: 05/16/126 Status: Signed Elevator Runner: Janel Mcneill RN (Registered Nurse) Hospitalist at bedside discussing poss MS and risks vs benefits of MRI w/ contrast. Sig ot her at bedside emotionally supportive. Janel Mcneill RN 05/16/128 onver timothy Transaction, Provider Unknown - 05/15/2012 11:53 PM PST ED Notes by Janel Mcneill RN at 05/15/122352 Author: Janel Mcneill RN Service: (none) Author Type: Registered Nurse Filed: 05/15/122352 Date of Service: 05/15/122352 Status: Signed Elevator Runner: Janel Mcneill RN (Registered Nurse) IV RAC discontinued per pt request due to discomfort, w/ abbocath intact. Sterile dressing applied. Janel Mcneill RN 05/15/122352 onver timothy Transaction, Provider Unknown - 05/15/2012 11:05 PM PST ED Notes by Janel Mcneill RN at 05/15/12 5694 Author: Janel Mcneill RN Service: (none) Author Type: Registered Nurse Filed: 05/15/122310 Date of Service: 05/15/122304 Status: Signed Elevator Runner: Janel Mcneill RN (Registered Nurse) Patient given instructions on how to obtain a clean catch urine specimen. Patient verbaliz ed understanding. Specimen cup and towelettes provided. Patient to bathroom to attempt col lection. Janel Mcneill RN 05/15/122310 onver timothy Transaction, Provider Unknown - 05/15/2012 10:58 PM PST ED Notes by Janel Mcneill RN at 05/15/122257 Author: Janel Mcneill RN Service: (none) Author Type: Registered Nurse Filed: 05/15/122257 Date of Service: 05/15/122257 Status: Signed Elevator Runner: Janel Mcneill RN (Registered Nurse) Hospitalist at bedside. Janel Mcneill RN 05/15/122257 onver timothy Transaction, Provider Unknown - 05/15/2012 10:41 PM PST ED Notes by Janel Mcneill RN at 05/15/122240 Author: Janel Mcneill RN Service: (none) Author Type: Registered Nurse Filed: 05/15/122240 Date of Service: 05/15/122240 Status: Signed Elevator Runner: Janel Mcneill RN (Registered Nurse) General diet tray to pt. Janel Mcneill RN 05/15/122240 onver timothy Transaction, Provider Unknown - 05/15/2012 10:14 PM PST ED Notes by Janel Mcneill RN at 05/15/122213 Author: Janel Mcneill RN Service: (none) Author Type: Registered Nurse Filed: 05/15/122213 Date of Service: 05/15/122213 Status: Signed Elevator Runner: Janel Mcneill RN (Registered Nurse) MD at bedside. Janel Mcneill RN 05/15/122213 onver timothy Transaction, Provider Unknown - 05/15/2012 8:58 PM PST ED Notes by Janel Mcneill RN at 05/15/122057 Author: Janel Mcneill RN Service: (none) Author Type: Registered Nurse Filed: 05/15/122058 Date of Service: 05/15/122057 Status: Signed Elevator Runner: Janel Mcneill RN (Registered Nurse) Answered call light. Lemon glycerine swabs to pt. Rodriguez's strongly. Talking on phone w/ clear speach Janel Mcneill RN 05/15/122058 onver timothy Transaction, Provider Unknown - 05/15/2012 8:43 PM PST ED Notes by Janel Mcneill RN at 05/15/122042 Author: Janel Mcneill RN Service: (none) Author Type: Registered Nurse Filed: 05/15/122042 Date of Service: 05/15/122042 Status: Signed Elevator Runner: Janel Mcneill RN (Registered Nurse) Pt retuens from mri, returned to monitor. VSS. Updated as to plan of care. Janel Mcneill RN 05/15/122042 Se Aquino MD - 05/15/2012 8:07 PM PST ED Provider Notes by Se Mendoza MD at 05/15/122006 Author: Se Mendoza MD Service: (none) Author Type: Physician Filed: 05/20/122238 Date of Service: 05/15/122006 Status: Signed Elevator Runner: Se Mendoza MD (Physician) [facility] Department of Emergency Medicine ED Pre-arrival Provider to Provider 05/15/2012 Provider Name mckeon Pertinent History and Concerns 22 yo , fell hit head, 11 may, came in on had headache, returned today, keeps falling, left sided tingling, dizzy, trouble walking. abnor mal finger to nose on left. 05/15/2012 History of Present Illness Patient Identification Sabi Morales is a 22 y.o. female. Patient information was obtained from patient. History/Exam limitations: none. Patient presented to the Emergency Department [facility] Room:4445/4445-1 Chief Complaint Chief Complaint Patient presents with Head Injury Pt fell about , now has Lt sided weakness and dizziness. Also is about eight week s . Problem Patient presents for evaluation of head injury. This occurred a few days ago. Pt is complai kimmie of trouble walking since then ("starting a little while after the fall"). Severity is d escribed as moderate, Exacerbated after waking and improved by nothing. Patient also compla ins of blurred vision (intermittent), increased confusion, headache, neck pain ("a little so re"), L hand weakness ("I keep dropping things"), nausea, and dizziness. Pt denies dysuria, trouble swallowing, rashes, back pain or vomiting. Care prior to arrival included evaluation at outside facility ED, who performed CT head. Pt was referred to [facility] ED for MRI. Pt additionally reports she is 8 weeks (pt has taken home tests reports test confirmed these at transferring facility today). PMHx includes: asthma Primary Care Doctor: PER PT NONE Past Medical History Diagnosis Date Asthma Obese History reviewed. No pertinent past surgical history. Prior to Admission medications Medication Sig Start Date End Date Taking? Authorizing Provider Albuterol Sulfate (PROVENTIL HFA IN) Inhale 2 Inhalers into the lungs as needed. Yes Hist orical Provider Vit-Fe Fumarate-FA ( MULTIVITAMIN) 60-1 MG tablet Take 1 tablet by mouth d aily. Yes Historical Provider promethazine (PHENERGAN) 25 MG tablet Take 25 mg by mouth every 8 (eight) hours as needed. Yes Historical Provider Allergies Allergen Reactions Amoxicillin Nausea and Vomiting rash Augmentin Nausea and Vomiting And red rash Penicillins Nausea and Vomiting Rash History Social History Marital Status: Single Spouse Name: N/A Number of Children: N/A Years of Education: N/A Occupational History Not on file. Social History Main Topics Smoking status: Former Smoker -- 1.0 packs/day Smokeless tobacco: Never Used Alcohol Use: No Drug Use: No Sexually Active: Yes -- Male partner(s) Other Topics Concern Not on file Social History Narrative No narrative on file History reviewed. No pertinent family history. Review of Systems REVIEW OF SYSTEMS No fever, chills, or vomiting. No hearing loss, difficult swallowing, difficulty breathing. No chest pain, abdominal pain, or rash. No difficulty with urination or bowel movement. Positive for: blurred vision, increased confusion, headache, neck pain ("a little sore"), L hand weakness, nausea, and dizziness. All systems otherwise negative, except as recorded above and as recorded in the HPI. Physical Exam BP 122/64 | Pulse 67 | Temp(Src) 100 F (37.8 C) (Oral) | Resp 14 | Ht 1.6 m (5' 3") | W t 111.131 kg (245 lb) | BMI 43.40 kg/m2 | SpO2 100% INTERPRETATION OF VITALS other than pulse oximetry Normal vitals Pulse Oximetry interpretation: Normal PHYSICAL EXAM Appearance: Alert. No acute distress. Head: Normal external exam Eyes: Eyes normal inspection. ENT: Normal external ENT inspection. Neck: Normal inspection. CVS: Normal heart rate and rhythm. Heart sounds normal. Pulse normal. Respiratory: No respiratory distress. Breath sounds normal. No rales or rhonchi. Abdomen: Soft and nontender. No rebound or guarding. Back: Moves without difficulty. Skin: Skin warm. Extremities: No calf tenderness. No lower extremity edema. Neuro: Oriented. Decreased senssation on L face, arm, and leg. Decreased strength with fisheries inspector on L. Mild decreased strength in L arm. L leg weakness. Seemed to have dysmetria with L leg . No pronator drift. CN II-XII exam normal other than sensory. Medical Decision Making and Emergency Department Course ED Medical decision making: Pt's clinical exam is suggestive of stroke. Pt at increased risk of fall. Ordered MRI study to r/o intracranial hemorrhage or contusion. Will admit and consult OB. Not tpa candidate ED Department Course: 8:07 PM. Patient is in MRI. I will evaluate the pt on her return. 8:40 PM. Patient recheck: Pt back from MRI. I evaluated the pt. 8:52 PM. Reviewed transferring facility documents: CT head w/o contrast impression: focal areas of low density in the R frontal white matter a nd internal capsule. An MRI is suggested. No evidence of trauma. 9:08 PM. MRI resulted: 1. 1 cm focus of restricted diffusion with decreased ADC signal in the right thalamus, conc erning for an acute right thalamic infarct. This is unusual in a 22-year-old patient. No hem orrhage. 2. Additional cluster of abnormal signal in the right optic radiation white matter but no r estricted diffusion, appears old. This could be demyelinating disease if the patient has und erlying multiple sclerosis. Alternatively, old ischemia. Noted Plavix is category B for . Aspirin is category D. I will consult Boiling House Oiler at t his time. 9:12 PM. Patient recheck: I informed the pt of the MRI results, as well as the my impressio n of stroke. I explained the plan of care for admission for further evaluation. Pt understan ds and agrees with this plan of care. 9:20 PM. Discussed the case with Dr. Quintana (carry all driver), who agreed Plavix would be fine to administer. He recommended I order further lab studies on pt. He would like to be updated o n the case and is available for consult. I will recommend XR c-spine, given pt's fall. I nichole l give 75 mg Plavix and consult hospitalist at this time. 9:51 PM. Patient recheck: I informed the pt of my discussion with Dr. Rousseau, as well as the plan of care to include XR c-spine and labs. Pt understands and agrees with this plan o f care. Visit Vitals Filed Vitals: 05/17/12 0000 05/17/12 0400 05/17/12 0800 05/17/12 1333 BP: 111/51 111/57 118/58 112/59 Pulse: 62 79 78 68 Temp: 97 F (36.1 C) 97.8 F (36.6 C) 97 F (36.1 C) 97.6 F (36.4 C) TempSrc: Oral Oral Oral Oral Resp: 18 18 18 19 Height: Weight: SpO2: 99% 99% 99% 99% Records Reviewed Reviewed nursing triage notes. There are no prior ED or hospital records available for review in [facility]. Laboratory Evaluation Labs Reviewed CBC W/AUTO DIFF (REFLEX TO MANUAL) - Abnormal; Notable for the following: WBC 11.4 (*) Testing performed at [facility] [place] [address];[place] [address] NEUTROPHILS ABS 8.0 (*) All other components within normal limits COMPREHENSIVE METABOLIC PANEL - Abnormal; Notable for the following: CO2 22 (*) Testing performed at [facility] [place] [address];[place] [address] CALCIUM 8.3 (*) Testing performed at [facility] [place] [address];[place] [address] Albumin 3.3 (*) Testing performed at [facility] [place] [address] A/G 0.8 (*) Testing performed at [facility] [place] [address];[place] [address] AST 9 (*) Testing performed at [facility] [place] [address] All other components within normal limits HCG, QUANTITATIVE, - Abnormal; Notable for the following: HCG,QUANTITATIVE 51699 (*) All other components within normal limits RAPID DRUG SCREEN, URINE - Abnormal; Notable for the following: OPIATES PRESUMPTIVE POSITIVE (*) All other components within normal limits LUPUS INHIBITOR SCREEN - Abnormal; Notable for the following: THROMBIN TIME,PATIENT 14.9 (*) Testing performed at [facility], [address], [facility] [address] APTT,PATIENT 25 (*) Testing performed at [facility], [address], [facility] [address] All other components within normal limits COMPREHENSIVE METABOLIC PANEL - Abnormal; Notable for the following: Albumin 3.1 (*) Testing performed at [facility] [place] [address];[place] [address] A/G 0.8 (*) Testing performed at [facility] [place] [address] AST 8 (*) Testing performed at [facility];[address] [place] [address];[place] [address] All other components within normal limits HIGH SENSITIVITY CRP - Abnormal; Notable for the following: hsCRP 9.2 (*) Testing performed at [facility] [place] [address] All other components within normal limits HYPERCOAG CONSULT BASIC REFLEX - Abnormal; Notable for the following: PROTEIN S,ACTIVITY 64 (*) THROMBIN TIME,PATIENT 14.9 (*) Testing performed at [facility], [address], [place] [address] All other components within normal limits LIPID PANEL - Abnormal; Notable for the following: HDL CHOL 36 (*) Testing performed at [facility] [facility];[place] [address] LDL CALC 104 (*) Testing performed at [facility];[address] [facility];[place] [address] All other components within normal limits SEDIMENTATION RATE, AUTOMATED - Abnormal; Notable for the following: ESR 23 (*) Testing performed at [facility];[address] [place] [address];[place] [address] All other components within normal limits MELI CARDIOLIPIN ANTIBODY PROTHROMBIN GENE MUTATION PROTEIN S, TOTAL AND FREE PROTEIN C ANTIGEN, TOTAL FACTOR 5 LEIDEN TYPE AND SCREEN ANTITHROMBIN III PROTIME-INR APTT CSF CELL COUNT WITH DIFFERENTIAL GLUCOSE, CSF PROTEIN, CSF CSF CULT W/GRAM STAIN AQUAPORIN 4 RECEPTOR ANTIBODY CBC W/AUTO DIFF (REFLEX TO MANUAL) VON [place] PANEL GLYCOHEMOGLOBIN A1C HOMOCYSTEINE,CARD RISK MAGNESIUM PHOSPHOROUS PROTEIN S, TOTAL AND FREE PROTIME-INR BILIRUBIN, DIRECT TREPONEMA PALLIDUM (SYPHILLIS) ANTIBODY LYME AB IGG/IGM REFL VITAMIN B12 FOLATE PATHOLOGY CYTOLOGY - FLUID PATHOLOGY CYTOLOGY - FLUID OLIGOCLONAL BANDING (MS PANEL) I have reviewed lab results from the emergency department workup and abnormal results have been posted to the chart. Pertinent positive and negative findings have been addressed appr opriately. Radiology and EKG Evaluation Imaging Results XR Cervical Spine 3 View (Final result) Result time:05/16/12730 Notes Recorded by BECKIE Means on 05/16/2012 at 2:37 PM Pt is admitted and followed by hospitalist service. Final result by Rad Results In Tien (05/16/12 07:31:35) Narrative: HISTORY: 22-year-old female, trauma. Double shielded -- presumably TECHNIQUE: 1. 3 view radiographic examination of the cervical spine Prior study for review : None FINDINGS: Cervical rib formation on the right is normal variation, but can contribute to chronic righ t upper extremity symptoms The cervical spine is straightened from C4 through C6, with some focality of the cervical l ordosis from C2 through C4. The upper cervical spine is rotated slightly. The odontoid view without fracture or malalig nment. The anterior C1 -- C2 relationships are normal. On the AP view the upper cervical spine is rotated. There is about 1.5 mm of retro-translocation of C3 relative to C4, prevertebral soft tissue s are normal. The posterior spinal line is slightly irregular, but the spinal laminar and sp inous process lines are normal and the anterior spinal line is normal. The vertebral bodies are not perched, intravertebral disc spaces are normal. There is some narrowing of the spinous process space at C2-C3 -- this may be congenital. An element of par tial nonossified fusion can't be excluded IMPRESSION: 1. No proven fracture or radiographic evidence of instability. Normal variation is believed to explain the findings from C2 through C4 described above. Would correlate clinically however and if exam is unclear, both flexion-extension views and MRI are available 2. A cervical rib arises on the right. Nonacute, but could correlate with chronic upper ext remity symptoms. Interpretation Documented by Se Mendoza MD (05/15/122234, [facility] Emergency Department, Emergency Medicine) No fracture, first rib abnormality - appears missing on the left, good alignment. MRI brain without contrast (Final result) Result time:05/15/122106 Final result by Rad Results In Tien (05/15/12 21:07:36) Narrative: MR BRAIN WITHOUT CONTRAST 05/15/2012 History: Head trauma. Left-sided numbness. Technique: Multiplanar T1, T2, FLAIR, and diffusion-weighted sequences obtained through th e brain on an MR scanner. Comparison: No priors. Findings: There is a 1 cm acute right thalamic infarct with restricted diffusion and mild increased F LAIR signal. There is increased FLAIR and decreased T1 signal in the right optic radiation white matter, but no restricted diffusion. This appears old. No evidence of intracranial hemorrhage. No significant edema or midline shift. Ventricles appear normal. Impression: 1. 1 cm focus of restricted diffusion with decreased ADC signal in the right thalamus, conc erning for an acute right thalamic infarct. This is unusual in a 22-year-old patient. No hem orrhage. 2. Additional cluster of abnormal signal in the right optic radiation white matter but no r estricted diffusion, appears old. This could be demyelinating disease if the patient has und erlying multiple sclerosis. Alternatively, old ischemia. Electronically signed by Ketan Araya MD on May 15 2012 9:07PM EK Normal Sinus Rhythm. Rate: 62 Normal [place] Normal [place] Normal QRS No acute ischemia Interpreted by Se Mendoza MD at time of service. ED Diagnosis Final diagnosis Acute thalamic infarction, R Disposition: ED Disposition Admit/Observation Bed request special needs: None Diagnosis?: stroke, , obgyn to follow Follow-up Information Follow up With Details Comments Contact Info Angela Barcenas MD on 05/20/2012 1:20pm [address], [facility] [place] [address] [facility] [address] [facility] on 06/02/2012 Dr [facility] [phone] [address] [facility] [address] Discharge Medications: Discharge Medication List as of 05/17/2012 3:29 PM Additional Documentation Procedures Attending Note: Documentation assistance provided by Elodia Pelayo (Scribe). Information recorded by the scribe has been reviewed and validated by me. I frederick vicente with its contents. MD Se Ordaz MD 05/20/12 2239 onversio n Transaction, Provider Unknown - 05/15/2012 8:00 PM PSTFormatting of this note might be di fferent from the original. ED Notes by Janel Mcneill RN at 05/15/121999 Author: Janel Mcneill RN Service: (none) Author Type: Registered Nurse Filed: 05/15/122001 Date of Service: 05/15/121999 Status: Signed Elevator Runner: Janel Mcneill RN (Registered Nurse) To MRI via cart Janel Mcneill RN 05/15/122001 onver timothy Transaction, Provider Unknown - 05/15/2012 7:50 PM PST ED Notes by Janel Mcneill RN at 05/15/121949 Author: Janel Mcneill RN Service: (none) Author Type: Registered Nurse Filed: 05/15/122002 Date of Service: 05/15/121949 Status: Signed Elevator Runner: Janel Mcneill RN (Registered Nurse) MRi safety form to pt w/ instructions. Verb understanding. Janel Mcneill RN 05/15/122002 onver timothy Transaction, Provider Unknown - 05/15/2012 7:43 PM PST ED Notes by Janel Mcneill RN at 05/15/121942 Author: Janel Mcneill RN Service: (none) Author Type: Registered Nurse Filed: 05/15/122003 Date of Service: 05/15/121942 Status: Signed Elevator Runner: Janel Mcneill RN (Registered Nurse) Pt transferred to [facility], w/ strong steady movements of all extremities. Janel Mcneill RN 05/15/122003 onver timothy Transaction, Provider Unknown - 05/15/2012 7:33 PM PST ED Notes by Janel Mcneill RN at 05/15/121932 Author: Janel Mcneill RN Service: (none) Author Type: Registered Nurse Filed: 05/15/121932 Date of Service: 05/15/121932 Status: Signed Elevator Runner: Janel Mcneill RN (Registered Nurse) Bed:19
Expected date:
Expected time:
Means of arrival:
Comments:
ems onver timothy Transaction, Provider Unknown - 05/15/2012 7:10 PM PST ED Notes by Jagdish Cruz RN at 05/15/121909 Author: Jagdish Cruz RN Service: (none) Author Type: Registered Nurse Filed: 05/15/121909 Date of Service: 05/15/121909 Status: Signed Elevator Runner: Jagdish Cruz RN (Registered Nurse) EMS call, pt c/o 8/10 headache, no other changes en route. CV NSR, no ectopy. Jagdish Cruz RN 05/15/121909 onver timothy Transaction, Provider Unknown - 05/15/2012 6:47 PM PST ED Notes by Jagdish Cruz RN at 05/15/121846 Author: Jagdish Cruz RN Service: (none) Author Type: Registered Nurse Filed: 05/15/121847 Date of Service: 05/15/121846 Status: Signed Elevator Runner: Jagdish Crzu RN (Registered Nurse) Per report pt fell recently, several dates were given. Fall occurred about , pt has had several falls since. Pt is also about eight weeks . Hx asthma, anxiety, obesi ty. Pt had CT done, has focal low density area, needs MRI. C/o LUE and LLE weakness, and d izziness. Jagdish Cruz RN 05/15/[id number] docume nted in this encounter Miscellaneous Notes Plan of Care - Conversion Transaction, Provider Unknown - 05/23/2012 1:13 PM PDT Plan of Care by Radha Wang RN at 05/23/121312 Author: Radha Wang RN Service: (none) Author Type: Registered Nurse Filed: 05/23/121314 Date of Service: 05/23/121312 Status: Signed Elevator Runner: Radha Wang RN (Registered Nurse) Pt called to [facility] nurses station with questions regarding follow up visits. RN accessed [facility] [employer] to assist pt with questions. Pt verified self with name, birthdate. RADHA DAVIS docume amauried in this encounter Plan of Treatment Not on filedocumented as of this encounter Procedures + +--------+ + + + | Procedure Name | Priori | Date/Time | Associated Diagnosis | Comments | | | ty | | | | + +--------+ + + + | US OB < 14 WEEKS | Routin | 05/17/2012 | | Results for this | | SINGLE OR FIRST | e | 1:22 PM | | procedure are in the | | GESTATION | | PDT | | results section. | + +--------+ + + + | ECHO COMPLETE W | Routin | 05/16/2012 | | Results for this | | CONTRAST | e | 2:50 PM | | procedure are in the | | | | PDT | | results section. | + +--------+ + + + | VAS CAROTID DUPLEX | Routin | 05/16/2012 | | Results for this | | BILATERAL | e | 1:53 PM | | procedure are in the | | | | PDT | | results section. | + +--------+ + + + | CULTURE, CSF, SMEAR | Routin | 05/16/2012 | | Results for this | | | e | 1:25 PM | | procedure are in the | | | | PDT | | results section. | + +--------+ + + + | CELL COUNT WITH | Routin | 05/16/2012 | | Results for this | | DIFFERENTIAL, CSF | e | 1:25 PM | | procedure are in the | | | | PDT | | results section. | + +--------+ + + + | PROTEIN, CSF | Routin | 05/16/2012 | | Results for this | | | e | 1:25 PM | | procedure are in the | | | | PDT | | results section. | + +--------+ + + + | GLUCOSE, CSF | Routin | 05/16/2012 | | Results for this | | | e | 1:25 PM | | procedure are in the | | | | PDT | | results section. | + +--------+ + + + | FL LUMBAR PUNCTURE | Routin | 05/16/2012 | | Results for this | | DIAGNOSTIC | e | 1:18 PM | | procedure are in the | | | | PDT | | results section. | + +--------+ + + + | MRI CERVICAL SPINE W | Routin | 05/16/2012 | | Results for this | | WO CONTRAST | e | 12:12 PM | | procedure are in the | | | | PDT | | results section. | + +--------+ + + + | MRI ANGIOGRAM NECK W | Routin | 05/16/2012 | | Results for this | | WO CONTRAST | e | 12:12 PM | | procedure are in the | | | | PDT | | results section. | + +--------+ + + + | MRI BRAIN W CONTRAST | Routin | 05/16/2012 | | Results for this | | MRI ANGIOGRAM BRAIN | e | 12:12 PM | | procedure are in the | | WO CONTRAST | | PDT | | results section. | + +--------+ + + + | XR CERVICAL SPINE 2 | Routin | 05/15/2012 | | Results for this | | OR 3 VIEWS | e | 10:17 PM | | procedure are in the | | | | PST | | results section. | + +--------+ + + + | MRI BRAIN WO | Routin | 05/15/2012 | | Results for this | | CONTRAST | e | 8:37 PM | | procedure are in the | | | | PST | | results section. | + +--------+ + + + | CT HEAD WO CONTRAST | Routin | 05/15/2012 | | Results for this | | | e | 4:12 PM | | procedure are in the | | | | PST | | results section. | + +--------+ + + + documented in this encounter Results US OB < 14 Weeks Singl or First Gestatio (05/17/2012 1:22 PM PDT) + + | Specimen | + + | | + + + + + | Narrative | Performed At | + + + | SABI MORALES US OB LESS THAN 14 WKS 05/17/2012 11:53 AM HISTORY: | | | 22 years. Female. patient with pelvic discomfort after | | | a fall. No vaginal bleeding. Assess for viability. TECHNIQUE: | | | Transabdominal ultrasound evaluation of the pelvis performed. | | | COMPARISON: None. FINDINGS: A single intrauterine is | | | identified. No subchorionic hemorrhage identified. The right ovary | | | measures 2.9 x 2.5 x 3.4 cm. The left ovary was not visible. There | | | is no free fluid in the cul-de-sac. Measurements and Calculations: | | | Yolk sac: 0.48 mm. [place] rump length: 18.9 mm = 76% = 8 weeks, 3 | | | days. MAKSIM based on current scan: 12/24/2012. heart rate: 182 | | | beats/min. Cervix length: 3.2 cm. IMPRESSION: 1. Single, | | | living intrauterine at 8 weeks, 3 days. Electronically | | | signed by Frank Doll DO on 05/17/2012 1:52 PM | | + + + + + | Procedure Note | + + | Manjit Chauhan Conversion - 10/29/2018 5:37 PM PDT SABI MANZANO OB LESS THAN 14 | | WK05/17/2012 11:53 AM HISTORY:22 years. Female. patient with pelvic | | discomfort after a fall. No vaginal bleeding. Assess for viability. | | TECHNIQUE:Transabdominal ultrasound evaluation of the pelvis performed. COMPARISON:None. | | FINDINGS:A single intrauterine is identified.No subchorionic hemorrhage | | identified.The right ovary measures 2.9 x 2.5 x 3.4 cm. The left ovary was not | | visible.There is no free fluid in the cul-de-sac. Measurements and Calculations:Yolk | | sac: 0.48 mm.[place] rump length: 18.9 mm = 76% = 8 weeks, 3 days.MAKSIM based on current | | scan: 12/24/2012. heart rate: 182 beats/min.Cervix length: 3.2 cm. IMPRESSION:1. | | Single, living intrauterine at 8 weeks, 3 days. | |None. | | | |FINDINGS: | |A single intrauterine is identified. | |No subchorionic hemorrhage identified. | |The right ovary measures 2.9 x 2.5 x 3.4 cm. The left ovary was not visible. | |There is no free fluid in the cul-de-sac. | | | |Measurements and Calculations: | |Yolk sac: 0.48 mm. | |[place] rump length: 18.9 mm = 76% = 8 weeks, 3 days. | |MAKSIM based on current scan: 12/24/2012. | | heart rate: 182 beats/min. | |Cervix length: 3.2 cm. | | | |IMPRESSION: | |1. Single, living intrauterine at 8 weeks, 3 days. | | | | | + + ECHO Complete w Contrast (05/16/2012 2:50 PM PDT) + + | Specimen | + + | | + + + + + | Narrative | Performed At | + + + | Patient Name: SABI MORALES Date of : 1990 | | | Performing Physician: Jan Phan | | | MD | | | INDICATIONS STROKE CONCLUSIONS 1. | | | Essentially normal study. FINDINGS -------- ECG rhythm: Sinus | | | rhythm. Study: A 2-dimensional transthoracic echocardiogram with | | | m-mode, spectral and color flow Doppler was perfomed. Study: This was | | | a technically adequate study. Left Ventricle: Overall left | | | ventricular systolic function is normal with, an EF between 55 - 60 %. | | | Left Ventricle: The left ventricle cavity size is normal. Left | | | Ventricle: Left ventricular wall thickness is normal. Left Ventricle: | | | The diastolic filling pattern indicates impaired relaxation | | | consistent with mild dysfunction (Grade I), which is normal for the | | | patient's age. Right Ventricle: The right ventricle is normal in size | | | and function. Left Atrium: The left atrium is normal in size. Right | | | Atrium: The right atrium is normal in size. Aortic Valve: The aortic | | | valve is trileaflet, and appears anatomically normal. No aortic | | | stenosis or regurgitation. Mitral Valve: The mitral valve is normal. | | | Mitral Valve: There is trace mitral regurgitation. Tricuspid Valve: | | | The tricuspid valve appears structurally normal. Tricuspid Valve: | | | Trace tricuspid regurgitation present. Tricuspid Valve: Right | | | ventricular systolic pressure (pulmonary artery systolic pressure) is | | | normal at < 35 mmHg. Pulmonic Valve: Pulmonic valve appears | | | structurally normal. Pulmonic Valve: Trace pulmonic regurgitation. | | | Pericardium: There is a trivial pericardial effusion present. | | | IVC/Hepatic Veins: The IVC is small (<1.5cm) and collapses with sniff, | | | consistent with central venous pressures of 0-5mmHg. Thrombus: No | | | clot visualized Septum: Negative agitated saline study. | | | MEASUREMENTS IVC: 0.99 cm LA Major: 4.64 cm | | | EDV(Teich): 108.06 ml IVSd: 1.06 cm LVIDd: 4.81 cm LVPWd: | | | 1.06 cm LVOT Diam: 2.17 cm %FS: 27.19 % EF(Teich): | | | 52.85 % ESV(Teich): 50.95 ml IVSs: 1.14 cm LVIDs: 3.50 cm | | | LVPWs: 1.54 cm SV(Teich): 57.11 ml RA Major: 4.35 cm | | | RVIDd: 3.04 cm LVEF MOD A4C: 57.61 % SV MOD A4C: 62.54 ml | | | LVEDV MOD A4C: 108.55 ml LVLd A4C: 7.72 cm LVESV MOD A4C: | | | 46.00 ml LVLs A4C: 5.76 cm LAESV(A-L): 44.34 ml LAESV Index | | | (A-L): 20.24 ml/m2 LAAs A2C: 17.01 cm2 LAESV A-L A2C: 46.99 | | | ml LALs A2C: 5.23 cm LAAs A4C: 16.06 cm2 LAESV A-L A4C: | | | 41.75 ml LALs A4C: 5.24 cm Ao Diam: 2.81 cm AV Cusp: 2.28 | | | cm LA Diam: 3.67 cm LA/Ao: 1.30 %FS: 34.28 % EDV(Teich): | | | 152.72 ml EF(Teich): 62.67 % ESV(Teich): 57.01 ml IVSd: | | | 0.63 cm IVSs: 1.17 cm LVIDd: 5.58 cm LVIDs: 3.67 cm | | | LVPWd: 0.85 cm LVPWs: 1.17 cm SV(Teich): 95.71 ml D-E | | | Excursion: 1.91 cm E-F Dillon: 0.09 m/s EPSS: 0.69 cm IVC | | | diameter: 1.28 cm IVC collapse: 0.50 cm IVC % collapse: | | | 59.31 % HR: 50.24 BPM AV maxP.31 mmHg AV meanP.15 | | | mmHg AV Vmax: 1.52 m/s AV Vmean: 1.07 m/s AV VTI: 34.23 cm | | | MACK Vmax: 3.01 cm2 MACK (VTI): 3.08 cm2 LVCI Dopp: 2.66 | | | l/minm2 LVCO Dopp: 5.84 l/min HR: 55.38 BPM LVOT maxPG: | | | 6.09 mmHg LVOT meanP.16 mmHg LVSI Dopp: 48.19 ml/m2 LVSV | | | Dopp: 105.54 ml LVOT Vmax: 1.23 m/s LVOT Vmean: 0.84 m/s | | | LVOT VTI: 28.33 cm MCO: 462.10 ms MV A Mike: 0.73 m/s MV | | | DecT: 182.78 ms MV E Mike: 1.09 m/s MV E/A Ratio: 1.48 MV | | | PHT: 55.80 ms MVA By PHT: 3.94 cm2 MV A Dur: 129.39 ms | | | Septal e': 0.10 m/s Septal E/e': 10.21 Lateral e': 0.13 m/s | | | Lateral E/e': 8.39 P Vein A: 0.22 m/s P Vein A Dur: 81.33 | | | ms P Vein D: 0.44 m/s P Vein S/D Ratio: 1.14 P Vein S: | | | 0.50 m/s HR: 48.30 BPM PV maxP.14 mmHg PV meanP.21 | | | mmHg PV Vmax: 0.73 m/s PV Vmean: 0.52 m/s PV VTI: 19.03 | | | cm TV A Mike: 0.62 m/s TV Dec Dillon: 5.27 m/s2 TV Dec Time: | | | 226.93 ms TV E Mike: 1.19 m/s TV E/A Ratio: 1.92 | | | Roller Man: LEV Authenticated by: Jan Phan MD Report | | | Date/Time: 05-17-2012 08:38:15 | | + + + + + | Procedure Note | + + | Manjit Chauhan Conversion - 10/29/2018 5:37 PM PDT Patient Name: Laurel MORALES of | | : 1990 Performing Physician: Jan Phan | | INDICATIONS S | | TROKE CONCLUSIONS 1. Essentially normal study. FINDINGS--------ECG rhythm: | | Sinus rhythm.Study: A 2-dimensional transthoracic echocardiogram with m-mode, spectral | | and color flow Doppler was perfomed.Study: This was a technically adequate study.Left | | Ventricle: Overall left ventricular systolic function is normal with, an EF between 55 - | | 60 %.Left Ventricle: The left ventricle cavity size is normal.Left Ventricle: Left | | ventricular wall thickness is normal.Left Ventricle: The diastolic filling pattern | | indicates impaired relaxation consistent with mild dysfunction (Grade I), which is | | normal for the patient's age.Right Ventricle: The right ventricle is normal in size and | | function.Left Atrium: The left atrium is normal in size.Right Atrium: The right atrium | | is normal in size.Aortic Valve: The aortic valve is trileaflet, and appears anatomically | | normal. No aortic stenosis or regurgitation.Mitral Valve: The mitral valve is | | normal.Mitral Valve: There is trace mitral regurgitation.Tricuspid Valve: The tricuspid | | valve appears structurally normal.Tricuspid Valve: Trace tricuspid regurgitation | | present.Tricuspid Valve: Right ventricular systolic pressure (pulmonary artery systolic | | pressure) is normal at < 35 mmHg.Pulmonic Valve: Pulmonic valve appears structurally | | normal.Pulmonic Valve: Trace pulmonic regurgitation.Pericardium: There is a trivial | | pericardial effusion present.IVC/Hepatic Veins: The IVC is small (<1.5cm) and collapses | | with sniff, consistent with central venous pressures of 0-5mmHg.Thrombus: No clot | | visualizedSeptum: Negative agitated saline study. MEASUREMENTS IVC: 0.99 | | cmLA Major: 4.64 cmEDV(Teich): 108.06 mlIVSd: 1.06 cmLVIDd: 4.81 cmLVPWd: 1.06 | | cmLVOT Diam: 2.17 cm%FS: 27.19 %EF(Teich): 52.85 %ESV(Teich): 50.95 mlIVSs: | | 1.14 cmLVIDs: 3.50 cmLVPWs: 1.54 cmSV(Teich): 57.11 mlRA Major: 4.35 cmRVIDd: | | 3.04 cmLVEF MOD A4C: 57.61 %SV MOD A4C: 62.54 mlLVEDV MOD A4C: 108.55 mlLVLd A4C: | | 7.72 cmLVESV MOD A4C: 46.00 mlLVLs A4C: 5.76 cmLAESV(A-L): 44.34 mlLAESV Index | | (A-L): 20.24 ml/m2LAAs A2C: 17.01 [id number] A-L A2C: 46.99 mlLALs A2C: 5.23 | | cmLAAs A4C: 16.06 [id number] A-L A4C: 41.75 mlLALs A4C: 5.24 cmAo Diam: 2.81 cmAV | | Cusp: 2.28 cmLA Diam: 3.67 cmLA/Ao: 1.30%FS: 34.28 %EDV(Teich): 152.72 | | mlEF(Teich): 62.67 %ESV(Teich): 57.01 mlIVSd: 0.63 cmIVSs: 1.17 cmLVIDd: 5.58 | | cmLVIDs: 3.67 cmLVPWd: 0.85 cmLVPWs: 1.17 cmSV(Teich): 95.71 mlD-E Excursion: | | 1.91 cmE-F Dillon: 0.09 m/sEPSS: 0.69 cmIVC diameter: 1.28 cmIVC collapse: 0.50 | | cmIVC % collapse: 59.31 %HR: 50.24 BPMAV maxP.31 mmHgAV meanP.15 mmHgAV | | Vmax: 1.52 m/Lisa Vmean: 1.07 m/Lisa VTI: 34.23 cmAVA Vmax: 3.01 cm2AVA (VTI): | | 3.08 [id number] Dopp: 2.66 l/[id number] Dopp: 5.84 l/minHR: 55.38 BPMLVOT maxPG: | | 6.09 mmHgLVOT meanP.16 mmHgLVSI Dopp: 48.19 ml/m2LVSV Dopp: 105.54 mlLVOT | | Vmax: 1.23 m/sLVOT Vmean: 0.84 m/sLVOT VTI: 28.33 cmMCO: 462.10 msMV A Mike: | | 0.73 m/sMV DecT: 182.78 msMV E Mike: 1.09 m/sMV E/A Ratio: 1.48MV PHT: 55.80 | | msMVA By PHT: 3.94 cm2MV A Dur: 129.39 msSeptal e': 0.10 m/sSeptal E/e': | | 10.21Lateral e': 0.13 m/sLateral E/e': 8.39P Vein A: 0.22 m/sP Vein A Dur: 81.33 | | msP Vein D: 0.44 m/sP Vein S/D Ratio: 1.14P Vein S: 0.50 m/sHR: 48.30 BPMPV | | maxP.14 mmHgPV meanP.21 mmHgPV Vmax: 0.73 m/sPV Vmean: 0.52 m/sPV VTI: | | 19.03 cmTV A Mike: 0.62 m/sTV Dec Dillon: 5.27 m/s2TV Dec Time: 226.93 msTV E Mike: | | 1.19 m/sTV E/A Ratio: 1.92 Roller Man: KVWAuthenticated by: Jan Phan | | MDReport Date/Time: 05-17-2012 08:38:15 | |IVSd: 1.06 cm | |LVIDd: 4.81 cm | |LVPWd: 1.06 cm | |LVOT Diam: 2.17 cm | |%FS: 27.19 % | |EF(Teich): 52.85 % | |ESV(Teich): 50.95 ml | |IVSs: 1.14 cm | |LVIDs: 3.50 cm | |LVPWs: 1.54 cm | |SV(Teich): 57.11 ml | |RA Major: 4.35 cm | |RVIDd: 3.04 cm | |LVEF MOD A4C: 57.61 % | |SV MOD A4C: 62.54 ml | |LVEDV MOD A4C: 108.55 ml | |LVLd A4C: 7.72 cm | |LVESV MOD A4C: 46.00 ml | |LVLs A4C: 5.76 cm | |LAESV(A-L): 44.34 ml | |LAESV Index (A-L): 20.24 ml/m2 | |LAAs A2C: 17.01 cm2 | |LAESV A-L A2C: 46.99 ml | |LALs A2C: 5.23 cm | |LAAs A4C: 16.06 cm2 | |LAESV A-L A4C: 41.75 ml | |LALs A4C: 5.24 cm | |Ao Diam: 2.81 cm | |AV Cusp: 2.28 cm | |LA Diam: 3.67 cm | |LA/Ao: 1.30 | |%FS: 34.28 % | |EDV(Teich): 152.72 ml | |EF(Teich): 62.67 % | |ESV(Teich): 57.01 ml | |IVSd: 0.63 cm | |IVSs: 1.17 cm | |LVIDd: 5.58 cm | |LVIDs: 3.67 cm | |LVPWd: 0.85 cm | |LVPWs: 1.17 cm | |SV(Teich): 95.71 ml | |D-E Excursion: 1.91 cm | |E-F Dillon: 0.09 m/s | |EPSS: 0.69 cm | |IVC diameter: 1.28 cm | |IVC collapse: 0.50 cm | |IVC % collapse: 59.31 % | |HR: 50.24 BPM | |AV maxP.31 mmHg | |AV meanP.15 mmHg | |AV Vmax: 1.52 m/s | |AV Vmean: 1.07 m/s | |AV VTI: 34.23 cm | |MACK Vmax: 3.01 cm2 | |MACK (VTI): 3.08 cm2 | |LVCI Dopp: 2.66 l/minm2 | |LVCO Dopp: 5.84 l/min | |HR: 55.38 BPM | |LVOT maxP.09 mmHg | |LVOT meanP.16 mmHg | |LVSI Dopp: 48.19 ml/m2 | |LVSV Dopp: 105.54 ml | |LVOT Vmax: 1.23 m/s | |LVOT Vmean: 0.84 m/s | |LVOT VTI: 28.33 cm | |MCO: 462.10 ms | |MV A Mike: 0.73 m/s | |MV DecT: 182.78 ms | |MV E Mike: 1.09 m/s | |MV E/A Ratio: 1.48 | |MV PHT: 55.80 ms | |MVA By PHT: 3.94 cm2 | |MV A Dur: 129.39 ms | |Septal e': 0.10 m/s | |Septal E/e': 10.21 | |Lateral e': 0.13 m/s | |Lateral E/e': 8.39 | |P Vein A: 0.22 m/s | |P Vein A Dur: 81.33 ms | |P Vein D: 0.44 m/s | |P Vein S/D Ratio: 1.14 | |P Vein S: 0.50 m/s | |HR: 48.30 BPM | |PV maxP.14 mmHg | |PV meanP.21 mmHg | |PV Vmax: 0.73 m/s | |PV Vmean: 0.52 m/s | |PV VTI: 19.03 cm | |TV A Mike: 0.62 m/s | |TV Dec Dillon: 5.27 m/s2 | |TV Dec Time: 226.93 ms | |TV E Mike: 1.19 m/s | |TV E/A Ratio: 1.92 | | | |Roller Man: LEV | |Authenticated by: Jan Phan MD | |Report Date/Time: 05-17-2012 08:38:15 | + + VAS Carotid Duplex Bilateral (05/16/2012 1:53 PM PDT) + + | Specimen | + + | | + + + + + | Narrative | Performed At | + + + | SABI MORALES US CAROTID DOPPLER, BILATERAL 05/16/2012 1:23 PM | | | HISTORY: 22 years. Female. Left-sided weakness. MRI brain study | | | showed lesions located in the periventricular white matter of the | | | right frontal lobe and right thalamus. Possible infarct. | | | TECHNIQUE: Imaging was performed with a linear array transducer. A | | | duplex exam was performed including grayscale, color flow and pulsed | | | wave spectral Doppler techniques. COMPARISON: None. FINDINGS: | | | Right side: The right common carotid, internal carotid and external | | | carotid arteries are widely patent. No intimal thickening is noted. | | | No soft or calcified plaques are noted. CCA-PROX PSV: 141 | | | (cm/s) EDV: 25 (cm/s) Grade: 1 CCA-DIST PSV: 77 (cm/s) EDV: | | | 23 (cm/s) Grade: 1 ICA-PROX PSV: 72 (cm/s) EDV: 34 (cm/s) | | | Grade: 1 ICA-MID PSV: 89 (cm/s) EDV: 34 (cm/s) Grade: 1 | | | ICA-DIST PSV: 86 (cm/s) EDV: 32 (cm/s) Grade: 1 ECA-PROX | | | PSV: 133 (cm/s) EDV: 17 (cm/s) Grade: 1 VERTEBRAL | | | PSV: 42 (cm/s) EDV: 9 (cm/s) Grade: 1 VERTEBRAL FLOW: Antegrade | | | RATIO ICA/CCA: PSV: 1.2 EDV: 1.5 Left side: The left common | | | carotid, internal carotid and external carotid arteries are widely | | | patent. No intimal thickening is noted. No soft or calcified | | | plaques are noted. CCA-PROX PSV: 131 (cm/s) EDV: 27 (cm/s) | | | Grade: 1 CCA-DIST PSV: 86 (cm/s) EDV: 25 (cm/s) Grade: 1 | | | ICA-PROX PSV: 69 (cm/s) EDV: 29 (cm/s) Grade: 1 ICA-MID | | | PSV: 80 (cm/s) EDV: 34 (cm/s) Grade: 1 ICA-DIST PSV: | | | 104 (cm/s) EDV: 42 (cm/s) Grade: 1 ECA-PROX PSV: 75 (cm/s) | | | EDV: 7 (cm/s) Grade: 1 VERTEBRAL PSV: 61 (cm/s) EDV: 22 | | | (cm/s) Grade: 1 VERTEBRAL FLOW: Antegrade RATIO ICA/CCA: PSV: 1.2 | | | EDV: 1.7 Grades: 1 = 01-50% PSV <125 cm/s EDV | | | (cm/s)<40 cm/s (mild plaque) 2 = 01-50% PSV <125 cm/s EDV | | | (cm/s)<40 cm/s (moderate plaque) 3 = 50-69% PSV >125 cm/s | | | EDV (cm/s)>40 cm/s 4 = 70-95% PSV >230 cm/s EDV (cm/s)>100 | | | cm/s 5 = 90-95% 6 = Occluded IMPRESSION: 1. Widely patent | | | carotid and vertebral arterial systems bilaterally with no evidence of | | | significant plaque or stenosis. | | + + + + + | Procedure Note | + + | Tien, Rad Conversion - 10/29/2018 5:37 PM PDT SABI MANZANO CAROTID DOPPLER, | | BILATERAL05/16/2012 1:23 PM HISTORY:22 years. Female. Left-sided weakness. MRI brain | | study showed lesions located in the periventricular white matter of the right frontal | | lobe and right thalamus. Possible infarct. TECHNIQUE:Imaging was performed with a | | linear array transducer. A duplex exam was performed including grayscale, color flow | | and pulsed wave spectral Doppler techniques. COMPARISON:None. FINDINGS:Right side:The | | right common carotid, internal carotid and external carotid arteries are widely patent. | | No intimal thickening is noted. No soft or calcified plaques are noted. CCA-PROX | | PSV: 141 (cm/s) EDV: 25 (cm/s) Grade: 1CCA-DIST PSV: 77 (cm/s) EDV: 23 (cm/s) | | Grade: 1ICA-PROX PSV: 72 (cm/s) EDV: 34 (cm/s) Grade: 1ICA-MID PSV: 89 (cm/s) | | EDV: 34 (cm/s) Grade: 1ICA-DIST PSV: 86 (cm/s) EDV: 32 (cm/s) Grade: 1ECA-PROX | | PSV: 133 (cm/s) EDV: 17 (cm/s) Grade: 1VERTEBRAL PSV: 42 (cm/s) EDV: 9 (cm/s) | | Grade: 1VERTEBRAL FLOW: AntegradeRATIO ICA/CCA: PSV: 1.2 EDV: 1.5 Left side:The left | | common carotid, internal carotid and external carotid arteries are widely patent. No | | intimal thickening is noted. No soft or calcified plaques are noted. CCA-PROX PSV: | | 131 (cm/s) EDV: 27 (cm/s) Grade: 1CCA-DIST PSV: 86 (cm/s) EDV: 25 (cm/s) Grade: | | 1ICA-PROX PSV: 69 (cm/s) EDV: 29 (cm/s) Grade: 1ICA-MID PSV: 80 (cm/s) EDV: | | 34 (cm/s) Grade: 1ICA-DIST PSV: 104 (cm/s) EDV: 42 (cm/s) Grade: 1ECA-PROX | | PSV: 75 (cm/s) EDV: 7 (cm/s) Grade: 1VERTEBRAL PSV: 61 (cm/s) EDV: 22 (cm/s) | | Grade: 1VERTEBRAL FLOW: AntegradeRATIO ICA/CCA: PSV: 1.2 EDV: 1.7 Grades:1 = 01-50% | | PSV <125 cm/s EDV (cm/s)<40 cm/s (mild plaque)2 = 01-50% PSV <125 cm/s EDV | | (cm/s)<40 cm/s (moderate plaque)3 = 50-69% PSV >125 cm/s EDV (cm/s)>40 cm/s4 = | | 70-95% PSV >230 cm/s EDV (cm/s)>100 cm/s5 = 90-95%6 = Occluded IMPRESSION:1. | | Widely patent carotid and vertebral arterial systems bilaterally with no evidence of | | significant plaque or stenosis. | | 2:34 PM | | | |Left side: | |The left common carotid, internal carotid and external carotid arteries are widely patent. No intimal thickening is noted. No soft or calcified plaques are noted. | | | |CCA-PROX PSV: 131 (cm/s) EDV: 27 (cm/s) Grade: 1 | |CCA-DIST PSV: 86 (cm/s) EDV: 25 (cm/s) Grade: 1 | |ICA-PROX PSV: 69 (cm/s) EDV: 29 (cm/s) Grade: 1 | |ICA-MID PSV: 80 (cm/s) EDV: 34 (cm/s) Grade: 1 | |ICA-DIST PSV: 104 (cm/s) EDV: 42 (cm/s) Grade: 1 | |ECA-PROX PSV: 75 (cm/s) EDV: 7 (cm/s) Grade: 1 | |VERTEBRAL PSV: 61 (cm/s) EDV: 22 (cm/s) Grade: 1 | |VERTEBRAL FLOW: Antegrade | |RATIO ICA/CCA: PSV: 1.2 EDV: 1.7 | | | |Grades: | |1 = 01-50% PSV <125 cm/s EDV (cm/s)<40 cm/s (mild plaque) | |2 = 01-50% PSV <125 cm/s EDV (cm/s)<40 cm/s (moderate plaque) | |3 = 50-69% PSV >125 cm/s EDV (cm/s)>40 cm/s | |4 = 70-95% PSV >230 cm/s EDV (cm/s)>100 cm/s | |5 = 90-95% | |6 = Occluded | | | |IMPRESSION: | |1. Widely patent carotid and vertebral arterial systems bilaterally with no evidence of si gnificant plaque or stenosis. | | | | | + + Culture, CSF, Smear (05/16/2012 1:25 PM PDT) + + | Specimen | + + | | + + + + + | Narrative | Performed At | + + + | Specimen Description CEREBROSPINAL FLUID | EXTERNAL LAB | | Testing performed at | | | [facility] [place] [place] [id number] GRAM STAIN | | | 1+ WBC'S SEEN | | | NO ORGANISMS SEEN | | | Testing performed at [facility] [place] [place] [id number] | | | CULTURE NO GROWTH 3 DAYS | | | Testing performed | | | at [facility], [address] [place] [address] REPORT STATUS | | | 05/19/2012 FINAL | | + + + + +---------+ + + | Performing | Address | City/State/Zipcode | Phone Number | | Organization | | | | + +---------+ + + | EXTERNAL LAB | | | | + +---------+ + + Cell Count with Differential, CSF (05/16/2012 1:25 PM PDT) + + | Specimen | + + | | + + + + + | Narrative | Performed At | + + + | COLOR RED | EXTERNAL LAB | | Testing performed at [facility] [place] [place] [address];[place] [address] APPEARANCE | | | CLOUDY Testing performed at | | | [facility] [place];[place] [address] Tube Number, CSF | | | 1 Testing performed at [facility] [place];[place] [address] CSF RBC | | | 8350 Testing performed at [facility] [place];[place], [place] | | | [id number] CSF WBC 2 | | | Testing performed at [facility] [place];[place] [address] | | + + + + +---------+ + + | Performing | Address | City/State/Zipcode | Phone Number | | Organization | | | | + +---------+ + + | EXTERNAL LAB | | | | + +---------+ + + Protein, CSF (05/16/2012 1:25 PM PDT) + + | Specimen | + + | | + + + + + | Narrative | Performed At | + + + | CSF TOTAL PROTEIN 43 Testing | EXTERNAL LAB | | performed at [facility] [place];[place] [address] | | + + + + +---------+ + + | Performing | Address | City/State/Zipcode | Phone Number | | Organization | | | | + +---------+ + + | EXTERNAL LAB | | | | + +---------+ + + Glucose, CSF (05/16/2012 1:25 PM PDT) + + | Specimen | + + | | + + + + + | Narrative | Performed At | + + + | CSF GLUCOSE 50 | EXTERNAL LAB | | Testing performed at [facility] [place] [place] [address];[place], [place] [address] | | + + + + +---------+ + + | Performing | Address | City/State/Zipcode | Phone Number | | Organization | | | | + +---------+ + + | EXTERNAL LAB | | | | + +---------+ + + [facility] (05/16/2012 1:18 PM PDT) + + | Specimen | + + | | + + + + + | Narrative | Performed At | + + + | [facility] 05/16/2012 12:04 PM | | | HISTORY: 22 years. Female. Possible multiple sclerosis. Patient | | | has multiple lesions in the white matter seen on recent brain MRI. | | | COMPARISON: None. DESCRIPTION OF PROCEDURE: Prior to beginning | | | the procedure, I obtained written informed consent and I marked the | | | patient's skin on the side where the procedure was to be performed. | | | A timeout was performed. The patient was placed in the prone | | | position. The skin site over the left L2-L3 interlaminar notch was | | | selected and marked. The skin was then prepped and draped in the | | | usual sterile fashion and anesthetized with 1% lidocaine buffered with | | | sodium bicarbonate. Subsequently, a 22-gauge 5.5-inch needle was | | | advanced into the thecal sac. Clear CSF was obtained on the first | | | attempt. However the flow of CSF was minimal despite multiple | | | attempts to advance, withdraw and rotate the hub of the needle. The | | | head of the table was raised to 45 degrees at this did not produce any | | | significant increase in the flow of CSF. Further attempts were | | | abandoned to limit radiation dose to the fetus. The needle was removed | | | with the tubing attached to the hub of the needle and all collected | | | CSF was injected into a collection tube. Unfortunately only 1.5-mL | | | of CSF was collected. While this maximized the amount of CSF was | | | collected to introduce a small amount of blood into the CSF sample | | | which had been clear in the tubing. The patient tolerated the | | | procedure well. FLUOROSCOPY TIME: 0.3 minutes. FLUOROSCOPY | | | DOSE: 31.8 mGy. COMPLICATIONS: None. IMPRESSION: 1. | | | Successful diagnostic lumbar puncture. 2. Only 1.5-mL of CSF was | | | collected before the CSF stopped flowing. This was sent to the | | | laboratory. Further attempts were abandoned to limit radiation dose | | | to the fetus. Electronically signed by Frank Doll DO on | | | 05/16/2012 1:38 PM | | + + + + + | Procedure Note | + + | Tien, Rad Conversion - 10/29/2018 5:37 PM PDT [facility] | | DIAGNOSTIC05/16/2012 12:04 PM HISTORY:22 years. Female. Possible multiple sclerosis. | | Patient has multiple lesions in the white matter seen on recent brain MRI. | | COMPARISON:None. DESCRIPTION OF PROCEDURE:Prior to beginning the procedure, I obtained | | written informed consent and I marked the patient's skin on the side where the procedure | | was to be performed. A timeout was performed. The patient was placed in the prone | | position. The skin site over the left L2-L3 interlaminar notch was selected and marked. | | The skin was then prepped and draped in the usual sterile fashion and anesthetized | | with 1% lidocaine buffered with sodium bicarbonate. Subsequently, a 22-gauge 5.5-inch | | needle was advanced into the thecal sac. Clear CSF was obtained on the first attempt. | | However the flow of CSF was minimal despite multiple attempts to advance, withdraw and | | rotate the hub of the needle. The head of the table was raised to 45 degrees at this | | did not produce any significant increase in the flow of CSF. Further attempts were | | abandoned to limit radiation dose to the fetus. The needle was removed with the tubing | | attached to the hub of the needle and all collected CSF was injected into a collection | | tube. Unfortunately only 1.5-mL of CSF was collected. While this maximized the amount | | of CSF was collected to introduce a small amount of blood into the CSF sample which had | | been clear in the tubing. The patient tolerated the procedure well. FLUOROSCOPY TIME:0.3 | | minutes. FLUOROSCOPY DOSE:31.8 mGy. COMPLICATIONS:None. IMPRESSION:1. Successful | | diagnostic lumbar puncture.2. Only 1.5-mL of CSF was collected before the CSF stopped | | flowing. This was sent to the laboratory. Further attempts were abandoned to limit | | radiation dose to the fetus. | | 1:38 PM | | | |FLUOROSCOPY DOSE: | |31.8 mGy. | | | |COMPLICATIONS: | |None. | | | |IMPRESSION: | |1. Successful diagnostic lumbar puncture. | |2. Only 1.5-mL of CSF was collected before the CSF stopped flowing. This was sent to the laboratory. Further attempts were abandoned to limit radiation dose to the fetus. | | | | | + + MRI Cervical Spine w wo Contrast (05/16/2012 12:12 PM PDT) + + | Specimen | + + | | + + + + + | Narrative | Performed At | + + + | [facility] CERVICAL SPINE W WO CONTRAST 05/16/2012 11:08 AM | | | HISTORY: 22 years. Female. Left-sided weakness. Brain MRI | | | findings suggestive of multiple sclerosis. TECHNIQUE: Imaging was | | | performed on a 1.5 [place] MRI system. Multiplanar sequences were | | | acquired according to a standard department protocol with and without | | | contrast. Contrast: MultiHance. Dose: 15 mL. A single dose of | | | contrast was used for the study as well as concurrent MRI exams of the | | | brain and an MRA neck COMPARISON: None. FINDINGS: Imaging | | | in the sagittal plane was performed from the posterior fossa through | | | T5-6. The vertebral bodies are normal in height. Normal | | | alignment is noted at all levels. Normal bone marrow signal | | | intensity is seen on all sequences. Prior surgical changes: None. | | | The visualized structures in the posterior fossa demonstrate | | | normal morphology and signal intensity. The flow voids of the | | | vertebral and basilar arteries are normal. The clivus is normal. | | | The pituitary is normal. The paraspinal soft tissues are normal. | | | The structures in the nasopharynx and neck appear grossly normal | | | with no mass or adenopathy seen. The thyroid appears normal. The | | | anterior longitudinal ligament, posterior longitudinal ligament, | | | ligamentum flavum and intraspinous ligaments are normal. The | | | foramen magnum is widely patent. There is no evidence of an | | | Arnold-Chiari malformation. These are cord demonstrates patchy | | | areas of increased T2, stir and proton density signal intensity | | | located along the posterior right side of the cord at the C2 level and | | | along the lateral aspect of the cord at C5 and C6. The lesion at | | | C2 measures 7 mm in craniocaudal dimension while the lesion at C5 is | | | somewhat indistinct measuring 7 mm in craniocaudal dimension. The | | | lesion at C6 measures 14 mm in craniocaudal dimension there appears to | | | be a faint degree of enhancement involving the lesion in the left | | | side of C6, best seen on the sagittal series 11 image 10 but not on | | | the axial postcontrast series. Otherwise no abnormal enhancement is | | | seen within the vertebral bodies, disk spaces, epidural space, spinal | | | cord or paraspinal soft tissues. C2-3 through T5-6: The disks are | | | normal in height and signal intensity and have normal posterior | | | contours. The canal and neuroforamina are patent at these levels. | | | IMPRESSION: 1. Multiple areas of ill-defined increased T2 signal | | | intensity within the cervical cord at C2, C5 and C6 suggestive of | | | multiple sclerosis plaques. 2. There may be faint enhancement | | | involving the plaque on the left side of the cord at C6 suggesting an | | | area of active demyelination. | | + + + + + | Procedure Note | + + | Tien, Rad Conversion - 10/29/2018 5:37 PM PDT [facility] CERVICAL SPINE W WO | | CONTRAST05/16/2012 11:08 AM HISTORY:22 years. Female. Left-sided weakness. Brain MRI | | findings suggestive of multiple sclerosis. TECHNIQUE:Imaging was performed on a 1.5 | | [place] MRI system. Multiplanar sequences were acquired according to a standard | | department protocol with and without contrast.Contrast: MultiHance. Dose: 15 mL. A | | single dose of contrast was used for the study as well as concurrent MRI exams of the | | brain and an MRA neck COMPARISON:None. FINDINGS:Imaging in the sagittal plane was | | performed from the posterior fossa through T5-6. The vertebral bodies are normal in | | height. Normal alignment is noted at all levels. Normal bone marrow signal intensity | | is seen on all sequences. Prior surgical changes: None. The visualized structures in the | | posterior fossa demonstrate normal morphology and signal intensity. The flow voids of | | the vertebral and basilar arteries are normal. The clivus is normal. The pituitary is | | normal. The paraspinal soft tissues are normal. The structures in the nasopharynx and | | neck appear grossly normal with no mass or adenopathy seen. The thyroid appears normal. | | The anterior longitudinal ligament, posterior longitudinal ligament, ligamentum flavum | | and intraspinous ligaments are normal. The foramen magnum is widely patent. There is | | no evidence of an Arnold-Chiari malformation. These are cord demonstrates patchy areas | | of increased T2, stir and proton density signal intensity located along the posterior | | right side of the cord at the C2 level and along the lateral aspect of the cord at C5 | | and C6. The lesion at C2 measures 7 mm in craniocaudal dimension while the lesion at C5 | | is somewhat indistinct measuring 7 mm in craniocaudal dimension. The lesion at C6 | | measures 14 mm in craniocaudal dimension there appears to be a faint degree of | | enhancement involving the lesion in the left side of C6, best seen on the sagittal | | series 11 image 10 but not on the axial postcontrast series. Otherwise no abnormal | | enhancement is seen within the vertebral bodies, disk spaces, epidural space, spinal | | cord or paraspinal soft tissues. C2-3 through T5-6: The disks are normal in height and | | signal intensity and have normal posterior contours. The canal and neuroforamina are | | patent at these levels. IMPRESSION:1. Multiple areas of ill-defined increased T2 signal | | intensity within the cervical cord at C2, C5 and C6 suggestive of multiple sclerosis | | plaques.2. There may be faint enhancement involving the plaque on the left side of the | | cord at C6 suggesting an area of active demyelination. | | | |C2-3 through T5-6: The disks are normal in height and signal intensity and have normal post erior contours. The canal and neuroforamina are patent at these levels. | | | |IMPRESSION: | |1. Multiple areas of ill-defined increased T2 signal intensity within the cervical cord at C2, C5 and C6 suggestive of multiple sclerosis plaques. | |2. There may be faint enhancement involving the plaque on the left side of the cord at C6 suggesting an area of active demyelination. | | | | | + + MRI Angiogram Neck w wo Contrast (05/16/2012 12:12 PM PDT) + + | Specimen | + + | | + + + + + | Narrative | Performed At | + + + | [facility] MRA NECK W WO CONTRAST 05/16/2012 11:12 AM HISTORY: | | | 22 years. Female. Left-sided weakness. Lesions seen in the | | | right periventricular white matter and right thalamus on recent brain | | | MRI. Assess for carotid dissection or vasculitis. TECHNIQUE: | | | Imaging was performed on a 1.5 [place] MRI system. Coronal magnetic | | | resonance angiography was performed from the aortic arch to the [place] | | | of [place] with and without contrast. In addition, axial 3-D | | | [id number] MR angiography and axial T1 fat sat postcontrast | | | series were acquired through the carotid bifurcations. Multiplanar | | | angiographic MIP reconstructions were performed. MultiHance: 15 mL. | | | A single dose of contrast was used for this study as well as the | | | concurrent contrast enhanced portions of the brain MRI and cervical | | | MRI exam. COMPARISON: None. FINDINGS: MRA NECK: Arch: A | | | left-sided aortic arch is noted with a 3 vessel arch configuration. | | | Ascending Aorta: No evidence of aneurysm, dissection or stenosis. | | | Right Brachiocephalic: No evidence of aneurysm, dissection or | | | stenosis. Right Common Carotid Origin: No evidence of aneurysm, | | | dissection or stenosis. Right Subclavian: No evidence of aneurysm, | | | dissection or stenosis. Left Common Carotid Origin: No evidence of | | | aneurysm, dissection or stenosis. Left Subclavian: No evidence of | | | aneurysm, dissection or stenosis. Carotids: Right Common carotid: | | | Widely patent. Right External carotid: Widely patent. Right | | | Internal carotid: Widely patent. Maximum diameter of normal ICA: 3.4 | | | mm. This calculates to a 0 % stenosis using NASCET measurement | | | technique. Left Common carotid: Widely patent. Left External | | | carotid: Widely patent. Left Internal carotid: Widely patent. | | | Maximum diameter of normal ICA: 4.5 mm. This calculates to a 0 % | | | stenosis using NASCET measurement technique. Vertebrals: The left | | | vertebral artery is dominant. Right Vertebral artery: Hypoplastic | | | vessel which terminates in the PICA in the posterior fossa. Left | | | Vertebral artery: Widely patent. The visualized intracranial dural | | | venous sinuses are patent. IMPRESSION: 1. Normal MRA | | | examination of the neck. 2. No carotid artery or vertebral artery | | | stenosis demonstrated. 3. Hypoplastic right vertebral artery noted | | | which terminates in the right PICA in the posterior fossa. | | | | | + + + + + | Procedure Note | + + | Manjit Chauhan Conversion - 10/29/2018 5:37 PM PDT [facility] N[facility]K W WO | | CONTRAST05/16/2012 11:12 AM HISTORY:22 years. Female. Left-sided weakness. Lesions | | seen in the right periventricular white matter and right thalamus on recent brain MRI. | | Assess for carotid dissection or vasculitis. TECHNIQUE:Imaging was performed on a 1.5 | | [place] MRI system. Coronal magnetic resonance angiography was performed from the aortic | | arch to the [place] with and without contrast. In addition, axial 3-D | | [id number] MR angiography and axial T1 fat sat postcontrast series were acquired | | through the carotid bifurcations. Multiplanar angiographic MIP reconstructions were | | performed. MultiHance: 15 mL. A single dose of contrast was used for this study as | | well as the concurrent contrast enhanced portions of the brain MRI and cervical MRI | | exam. COMPARISON:None. FINDINGS:MRA NECK:Arch: A left-sided aortic arch is noted with a | | 3 vessel arch configuration.Ascending Aorta: No evidence of aneurysm, dissection or | | stenosis.Right Brachiocephalic: No evidence of aneurysm, dissection or stenosis.Right | | Common Carotid Origin: No evidence of aneurysm, dissection or stenosis.Right Subclavian: | | No evidence of aneurysm, dissection or stenosis.Left Common Carotid Origin: No evidence | | of aneurysm, dissection or stenosis.Left Subclavian: No evidence of aneurysm, | | dissection or stenosis. Carotids:Right Common carotid: Widely patent.Right External | | carotid: Widely patent.Right Internal carotid: Widely patent.Maximum diameter of normal | | ICA: 3.4 mm.This calculates to a 0 % stenosis using NASCET measurement technique. Left | | Common carotid: Widely patent.Left External carotid: Widely patent.Left Internal | | carotid: Widely patent.Maximum diameter of normal ICA: 4.5 mm.This calculates to a 0 % | | stenosis using NASCET measurement technique. Vertebrals:The left vertebral artery is | | dominant.Right Vertebral artery: Hypoplastic vessel which terminates in the PICA in the | | posterior fossa.Left Vertebral artery: Widely patent. The visualized intracranial dural | | venous sinuses are patent. IMPRESSION:1. Normal MRA examination of the neck.2. No | | carotid artery or vertebral artery stenosis demonstrated.3. Hypoplastic right vertebral | | artery noted which terminates in the right PICA in the posterior fossa. Electronically | | signed by Frank Doll DO on 05/16/2012 1:16 PM | |Right External carotid: Widely patent. | |Right Internal carotid: Widely patent. | |Maximum diameter of normal ICA: 3.4 mm. | |This calculates to a 0 % stenosis using NASCET measurement technique. | | | |Left Common carotid: Widely patent. | |Left External carotid: Widely patent. | |Left Internal carotid: Widely patent. | |Maximum diameter of normal ICA: 4.5 mm. | |This calculates to a 0 % stenosis using NASCET measurement technique. | | | |Vertebrals: | |The left vertebral artery is dominant. | |Right Vertebral artery: Hypoplastic vessel which terminates in the PICA in the posterior fo ssa. | |Left Vertebral artery: Widely patent. | | | |The visualized intracranial dural venous sinuses are patent. | | | |IMPRESSION: | |1. Normal MRA examination of the neck. | |2. No carotid artery or vertebral artery stenosis demonstrated. | |3. Hypoplastic right vertebral artery noted which terminates in the right PICA in the post erior fossa. | | | | | + + MRI Brain w CMri Angiogram Brain wo C (05/16/2012 12:12 PM PDT) + + | Specimen | + + | | + + + + + | Narrative | Performed At | + + + | [facility] MRI BRAIN W AND MRA HEAD 05/16/2012 11:07 AM | | | HISTORY: 22 years. Female. Left-sided numbness which began | | | several days ago. MRI of brain showed FLAIR hyperintense lesions in | | | the right frontal lobe periventricular white matter and right | | | thalamus. Imaging with contrast is performed to assess for tumor or | | | active multiple sclerosis. TECHNIQUE: Imaging was performed on | | | a 1.5 [place] MRI system. Multiplanar sequences were acquired | | | according to a standard department protocol with contrast. Contrast: | | | MultiHance. Dose: 15 mL. COMPARISON: MRI brain 05/15/2012, CT | | | head 05/15/2012. FINDINGS: The focal FLAIR hyperintense lesion | | | located in the right frontal lobe periventricular white matter | | | measuring 2.4 x 2.4 x 1.4 cm in AP, transverse and cranial caudal | | | dimension is again seen but shows no evidence of enhancement. The | | | central portion of this lesion is very low in T1 signal intensity | | | suggesting a burned out multiple sclerosis plaque. The second lesion | | | situated in the lateral margin of the right thalamus which measured | | | 10.5 mm on the previous exam shows a minimal patchy degree of | | | enhancement along its superior border measuring 5.7 mm in size. This | | | suggests an active area of demyelination. The lesions seen on the | | | prior MRI and recurrent enhancing lesion meet the International Panel | | | criteria for the diagnosis of multiple sclerosis dissemination in | | | space. High-resolution imaging of the orbits demonstrates a normal | | | symmetric appearance of the optic globes and extraocular muscles. | | | No inflammation is seen in the intraconal or extraconal fat of the | | | posterior orbits. The optic nerves and optic nerve sheaths appear | | | normal. No enhancement or inflammation is seen to suggest optic | | | neuritis. MRA Distal Internal Carotids: Right Internal carotid: | | | Widely patent. Left Internal carotid: Widely patent. Posterior | | | Circulation: Vertebral Dominance: Left. Right vertebral artery: | | | Terminates in the right posterior inferior cerebellar artery. Left | | | vertebral artery: Normal. Posterior inferior cerebellar arteries: | | | Normal. Anterior inferior cerebellar arteries: Normal. Basilar | | | artery: Normal. Superior cerebellar arteries: Normal. Right | | | posterior cerebral artery: Normal. Left posterior cerebral artery: | | | Normal. [place]: Anterior communicating artery: Normal. | | | Right posterior communicating artery: Not visualized. It may be too | | | small to resolve or is congenitally absent. Left posterior | | | communicating artery: Normal. Anterior Circulation: Right | | | Anterior cerebral artery: A1 segment: Hypoplastic. A2 segment: | | | Normal. Right MCA: M1 segment: Normal. Post bifurcation M1 | | | segment: Normal. M2 segments: Normal. M3 segments: Normal. M4 | | | segments: Normal. Left Anterior cerebral artery: A1 segment: | | | Normal. A2 segment: Normal. Left MCA: M1 segment: Normal. Post | | | bifurcation M1 segment: Normal. M2 segments: Normal. M3 segments: | | | Normal. M4 segments: Normal. IMPRESSION: 1. Proximally 7 FLAIR | | | hyperintense lesions in the periventricular, deep and juxtacortical | | | white matter. There is mild enhancement of the lesion located in the | | | posterior lateral right thalamus. These findings may be | | | International Panel criteria for the diagnosis of multiple sclerosis | | | dissemination in space. 2. The largest FLAIR hyperintense lesion | | | located in the right periventricular white matter does not show | | | enhancement but shows cystic areas centrally with low T1 signal | | | intensity typical of a "burned out" multiple sclerosis plaque. 3. | | | No evidence of optic neuritis. 4. MRA head is normal. No | | | stenosis, aneurysm, occlusion or vasculitis noted. Normal variant | | | termination of the right vertebral artery in the right PICA noted. | | | * | | | * * * * * * * ADDENDUM #1 * * * * * * * * Addendum to the technique | | | is requested for billing purposes. TECHNIQUE: Imaging was | | | performed on a 1.5 [place] MRI system. Multiplanar sequences were | | | acquired according to a standard department protocol with contrast | | | including coronal STIR, axial T1-3-D postcontrast, axial T1 mag | | | transfer post contrast. Axial 3D noncontrast [id number] MRA | | | sequence was acquired through the head. Multiplanar angiographic MIP | | | reconstructions from the MRA dataset were performed. | | | | | + + + + + | Procedure Note | + + | Tien, Rad Conversion - 10/29/2018 5:37 PM PDT [facility] | | HEAD05/16/2012 11:07 AM HISTORY:22 years. Female. Left-sided numbness which began | | several days ago. MRI of brain showed FLAIR hyperintense lesions in the right frontal | | lobe periventricular white matter and right thalamus. Imaging with contrast is | | performed to assess for tumor or active multiple sclerosis. TECHNIQUE:Imaging was | | performed on a 1.5 [place] MRI system. Multiplanar sequences were acquired according to a | | standard department protocol with contrast.Contrast: MultiHance. Dose: 15 mL. | | COMPARISON:MRI brain 05/15/2012, CT head 05/15/2012. FINDINGS:The focal FLAIR hyperintense | | lesion located in the right frontal lobe periventricular white matter measuring 2.4 x | | 2.4 x 1.4 cm in AP, transverse and cranial caudal dimension is again seen but shows no | | evidence of enhancement. The central portion of this lesion is very low in T1 signal | | intensity suggesting a burned out multiple sclerosis plaque. The second lesion situated | | in the lateral margin of the right thalamus which measured 10.5 mm on the previous exam | | shows a minimal patchy degree of enhancement along its superior border measuring 5.7 mm | | in size. This suggests an active area of demyelination. The lesions seen on the prior | | MRI and recurrent enhancing lesion meet the International Panel criteria for the | | diagnosis of multiple sclerosis dissemination in space. High-resolution imaging of the | | orbits demonstrates a normal symmetric appearance of the optic globes and extraocular | | muscles. No inflammation is seen in the intraconal or extraconal fat of the posterior | | orbits. The optic nerves and optic nerve sheaths appear normal. No enhancement or | | inflammation is seen to suggest optic neuritis. MRADistal Internal Carotids:Right | | Internal carotid: Widely patent.Left Internal carotid: Widely patent. Posterior | | Circulation:Vertebral Dominance: Left.Right vertebral artery: Terminates in the right | | posterior inferior cerebellar artery.Left vertebral artery: Normal.Posterior inferior | | cerebellar arteries: Normal.Anterior inferior cerebellar arteries: Normal.Basilar | | artery: Normal.Superior cerebellar arteries: Normal.Right posterior cerebral artery: | | Normal.Left posterior cerebral artery: Normal. [place]:Anterior communicating | | artery: Normal.Right posterior communicating artery: Not visualized. It may be too | | small to resolve or is congenitally absent.Left posterior communicating artery: Normal. | | Anterior Circulation:Right Anterior cerebral artery:A1 segment: Hypoplastic.A2 segment: | | Normal. Right MCA:M1 segment: Normal.Post bifurcation M1 segment: Normal.M2 segments: | | Normal.M3 segments: Normal.M4 segments: Normal. Left Anterior cerebral artery:A1 | | segment: Normal.A2 segment: Normal. Left MCA:M1 segment: Normal.Post bifurcation M1 | | segment: Normal.M2 segments: Normal.M3 segments: Normal.M4 segments: Normal. | | IMPRESSION:1. Proximally 7 FLAIR hyperintense lesions in the periventricular, deep and | | juxtacortical white matter. There is mild enhancement of the lesion located in the | | posterior lateral right thalamus. These findings may be International Panel criteria | | for the diagnosis of multiple sclerosis dissemination in space.2. The largest FLAIR | | hyperintense lesion located in the right periventricular white matter does not show | | enhancement but shows cystic areas centrally with low T1 signal intensity typical of a | | "burned out" multiple sclerosis plaque.3. No evidence of optic neuritis.4. MRA head is | | normal. No stenosis, aneurysm, occlusion or vasculitis noted. Normal variant | | termination of the right vertebral artery in the right PICA noted. * * * * * * * * ADDENDUM #1 * * * * * * * | | *Addendum to the technique is requested for billing purposes. TECHNIQUE:Imaging was | | performed on a 1.5 [employer] MRI system. Multiplanar sequences were acquired according to a | | standard department protocol with contrast including coronal STIR, axial T1-3-D | | postcontrast, axial T1 mag transfer post contrast. Axial 3D noncontrast [id number] | | MRA sequence was acquired through the head. Multiplanar angiographic MIP | | reconstructions from the MRA dataset were performed. | |Right MCA: | |M1 segment: Normal. | |Post bifurcation M1 segment: Normal. | |M2 segments: Normal. | |M3 segments: Normal. | |M4 segments: Normal. | | | |Left Anterior cerebral artery: | |A1 segment: Normal. | |A2 segment: Normal. | | | |Left MCA: | |M1 segment: Normal. | |Post bifurcation M1 segment: Normal. | |M2 segments: Normal. | |M3 segments: Normal. | |M4 segments: Normal. | | | |IMPRESSION: | |1. Proximally 7 FLAIR hyperintense lesions in the periventricular, deep and juxtacortical white matter. There is mild enhancement of the lesion located in the posterior lateral righ t thalamus. These findings may be | |International Panel criteria for the | | diagnosis of multiple sclerosis dissemination in space. | |2. The largest FLAIR hyperintense lesion located in the right periventricular white matter does not show enhancement but shows cystic areas centrally with low T1 signal intensity typ ical of a "burned out" multiple sclerosis plaque. | |3. No evidence of optic neuritis. | |4. MRA head is normal. No stenosis, aneurysm, occlusion or vasculitis noted. Normal vari ant termination of the right vertebral artery in the right PICA noted. | | | | | |* * * * * * * * ADDENDUM #1 * * * * * * * * | |Addendum to the technique is requested for billing purposes. | | | |TECHNIQUE: | |Imaging was performed on a 1.5 [employer] MRI system. Multiplanar sequences were acquired accor ding to a standard department protocol with contrast including coronal STIR, axial T1-3-D po stcontrast, axial T1 mag transfer | |post contrast. Axial 3D noncontrast | |[id number] MRA sequence was acquired through the head. Multiplanar angiographic MIP re constructions from the MRA dataset were performed. | | | | | + + XR Cervical Spine 2 or 3 Views (05/15/2012 10:17 PM PST) + + | Specimen | + + | | + + + + + | Narrative | Performed At | + + + | HISTORY: 22-year-old female, trauma. Double shielded -- presumably | | | TECHNIQUE: 1. 3 view radiographic examination of the | | | cervical spine Prior study for review : None FINDINGS: | | | Cervical rib formation on the right is normal variation, but can | | | contribute to chronic right upper extremity symptoms The cervical | | | spine is straightened from C4 through C6, with some focality of the | | | cervical lordosis from C2 through C4. The upper cervical spine is | | | rotated slightly. The odontoid view without fracture or malalignment. | | | The anterior C1 -- C2 relationships are normal. On the AP view the | | | upper cervical spine is rotated. There is about 1.5 mm of | | | retro-translocation of C3 relative to C4, prevertebral soft tissues | | | are normal. The posterior spinal line is slightly irregular, but the | | | spinal laminar and spinous process lines are normal and the anterior | | | spinal line is normal. The vertebral bodies are not perched, | | | intravertebral disc spaces are normal. There is some narrowing of the | | | spinous process space at C2-C3 -- this may be congenital. An element | | | of partial nonossified fusion can't be excluded IMPRESSION: 1. | | | No proven fracture or radiographic evidence of instability. Normal | | | variation is believed to explain the findings from C2 through C4 | | | described above. Would correlate clinically however and if exam is | | | unclear, both flexion-extension views and MRI are available 2. A | | | cervical rib arises on the right. Nonacute, but could correlate with | | | chronic upper extremity symptoms. | | + + + + + | Procedure Note | + + | Tien, Rad Conversion - 10/29/2018 5:37 PM PDT HISTORY: 22-year-old female, trauma. | | Double shielded -- presumably TECHNIQUE: 1. 3 view radiographic examination of | | the cervical spinePrior study for review : None FINDINGS: Cervical rib formation on the | | right is normal variation, but can contribute to chronic right upper extremity symptoms | | The cervical spine is straightened from C4 through C6, with some focality of the | | cervical lordosis from C2 through C4. The upper cervical spine is rotated slightly. The | | odontoid view without fracture or malalignment. The anterior C1 -- C2 relationships are | | normal. On the AP view the upper cervical spine is rotated. There is about 1.5 mm of | | retro-translocation of C3 relative to C4, prevertebral soft tissues are normal. The | | posterior spinal line is slightly irregular, but the spinal laminar and spinous process | | lines are normal and the anterior spinal line is normal. The vertebral bodies are not | | perched, intravertebral disc spaces are normal. There is some narrowing of the spinous | | process space at C2-C3 -- this may be congenital. An element of partial nonossified | | fusion can't be excluded IMPRESSION: 1. No proven fracture or radiographic evidence of | | instability. Normal variation is believed to explain the findings from C2 through C4 | | described above. Would correlate clinically however and if exam is unclear, both | | flexion-extension views and MRI are available 2. A cervical rib arises on the right. | | Nonacute, but could correlate with chronic upper extremity symptoms. Electronically | | signed by Jeff Parrish MD on 05/16/2012 7:31 AM | | | |The vertebral bodies are not perched, intravertebral disc spaces are normal. There is some narrowing of the spinous process space at C2-C3 -- this may be congenital. An element of par tial nonossified fusion can't be excluded | | | |IMPRESSION: | | | |1. No proven fracture or radiographic evidence of instability. Normal variation is believed to explain the findings from C2 through C4 described above. | | | |Would correlate clinically however and if exam is unclear, both flexion-extension views and MRI are available | | | |2. A cervical rib arises on the right. Nonacute, but could correlate with chronic upper ext remity symptoms. | | | | | + + MRI Brain wo Contrast (05/15/2012 8:37 PM PST) + + | Specimen | + + | | + + + + + | Narrative | Performed At | + + + | MR BRAIN WITHOUT CONTRAST 05/15/2012 History: Head trauma. | | | Left-sided numbness. Technique: Multiplanar T1, T2, FLAIR, and | | | diffusion-weighted sequences obtained through the brain on an MR | | | scanner. Comparison: No priors. Findings: There is a 1 cm | | | acute right thalamic infarct with restricted diffusion and mild | | | increased FLAIR signal. There is increased FLAIR and decreased T1 | | | signal in the right optic radiation white matter, but no restricted | | | diffusion. This appears old. No evidence of intracranial | | | hemorrhage. No significant edema or midline shift. Ventricles | | | appear normal. Impression: 1. 1 cm focus of restricted diffusion | | | with decreased ADC signal in the right thalamus, concerning for an | | | acute right thalamic infarct. This is unusual in a 22-year-old | | | patient. No hemorrhage. 2. Additional cluster of abnormal signal in | | | the right optic radiation white matter but no restricted diffusion, | | | appears old. This could be demyelinating disease if the patient has | | | underlying multiple sclerosis. Alternatively, old ischemia. | | | Electronically signed by Ketan Araya MD on May 15 2012 9:07PM | | + + + + + | Procedure Note | + + | Tien, Rad Conversion - 10/29/2018 5:37 PM PDT MR BRAIN WITHOUT CONTRAST 05/15/2012 | | History: Head trauma. Left-sided numbness. Technique: Multiplanar T1, T2, FLAIR, and | | diffusion-weighted sequences obtained through the brain on an MR scanner. Comparison: No | | priors. Findings: There is a 1 cm acute right thalamic infarct with restricted | | diffusion and mild increased FLAIR signal. There is increased FLAIR and decreased T1 | | signal in the right optic radiation white matter, but no restricted diffusion. This | | appears old. No evidence of intracranial hemorrhage. No significant edema or midline | | shift. Ventricles appear normal. Impression:1. 1 cm focus of restricted diffusion with | | decreased ADC signal in the right thalamus, concerning for an acute right thalamic | | infarct. This is unusual in a 22-year-old patient. No hemorrhage.2. Additional cluster | | of abnormal signal in the right optic radiation white matter but no restricted | | diffusion, appears old. This could be demyelinating disease if the patient has | | underlying multiple sclerosis. Alternatively, old ischemia. Electronically signed by | | Ketan Araya MD on May 15 2012 9:07PM | |There is increased FLAIR and decreased T1 signal in the right optic radiation white matter, but no restricted diffusion. This appears old. | | | |No evidence of intracranial hemorrhage. No significant edema or midline shift. | | | |Ventricles appear normal. | | | |Impression: | |1. 1 cm focus of restricted diffusion with decreased ADC signal in the right thalamus, conc erning for an acute right thalamic infarct. This is unusual in a 22-year-old patient. No hem orrhage. | |2. Additional cluster of abnormal signal in the right optic radiation white matter but no r estricted diffusion, appears old. This could be demyelinating disease if the patient has und erlying multiple sclerosis. Alternatively, old ischemia. | | | | | | | | Electronically signed by Ketan Araya MD on May 15 2012 9:07PM | + + CT Head wo Contrast (05/15/2012 4:12 PM PST) + + | Specimen | + + | | + + + + + | Narrative | Performed At | + + + | This is a non-reportable procedure without a radiologist report and | | | is used for image storage only | | + + + + + | Procedure Note | + + | Manjit Chauhan - 10/29/2018 5:37 PM PDT This is a non-reportable procedure | | without a radiologist report and isused for image storage only | + + documented in this encounter Visit Diagnoses + + | Diagnosis | + + | Acute thalamic infarction (HCC) Unspecified cerebral artery occlusion with cerebral | | infarction | + + | Diagnosis unknown Other unknown and unspecified cause of morbidity or mortality | + + | Left-sided weakness Muscle weakness (generalized) | + + | as incidental finding state, incidental | + + documented in this encounter
--- OUTSIDE RECORDS SUMMARY | ~2019-11-13 | XMS | Encounter Summary ---
Demographics + + + | Address | [address] | | | [place] [address] | + + + | Home Phone | | + + + | Preferred Language | Unknown | + + + | Marital Status | Single | + + + | Uatsdin Affiliation | Unknown | + + + | Race | White | + + + | Ethnic Group | Unknown | + + + Author + + + | Author | [facility] | | | and [place] | + + + | Organization | [facility] | | | and [place] | + + + | Address | Unknown | + + + | Phone | Unavailable | + + + Support + + + + + | Name | Relationship | Address | Phone | + + + + + | Omar Canruperto | ECON | [place] | | | | | [address] | | + + + + + | Xiang Olvin | ECON | Unknown | | + + + + + Care Team Providers + +------+ + | Care Forensic Artist Name | Role | Phone | + +------+ + | Erick Garcia PA-C | PCP | | + +------+ + Encounter Details +--------+ + + + + | Date | Type | Department | Care Team | Description | +--------+ + + + + | 06/03/ | Hospital | [facility] | Rosamaria Castellon, | | | 2015 | Encounter | [facility] | [facility] [address] | | | | | CENTER [address] | [address] [place], [place] | | | | | [place] | [address] | | | | | [address] | | | | | | [phone] | | | +--------+ + + + [...]
--- OUTSIDE RECORDS SUMMARY | ~2019-11-13 | XMS | Encounter Summary ---
Demographics + + + | Address | [address] | | | [place] [address] | + + + | Home Phone | | + + + | Preferred Language | Unknown | + + + | Marital Status | Single | + + + | Zoroastrian Affiliation | Unknown | + + + [...] [place] | | | | | [address] | | + + + + + | Xiang Olvin | ECON | Unknown | | + + + + + Care Team Providers + +------+ + | Care Insurance Loss Control Surveyor Name | Role | Phone | + +------+ + | Erick Garcia PA-C | PCP | | + +------+ + Reason for Visit + +--------+ + | Reason | Onset | Comments | | | Date | | + +--------+ + | Medication Refill | 11/09/ | | | | 2018 | | + +--------+ + Encounter Details +--------+--------+ + + + | Date | Type | Department | Care Team | Description | +--------+--------+ + + + | 11/09/ | Refill | [facility] | Estiven Gonzales MD | Medication Refill | | 2018 | | [facility] | [address] | | | | | CLINIC [address] | [place] | | | | | [address] [place], | [address] | | | | | [place] [address] | | | | | | [phone] | | | +--------+--------+ + + + [...] this encounter Miscellaneous Notes Telephone Encounter - Hood Souza - 11/09/2018 4:37 PM PDTCalled to set up a f /up per Shannen's request. Left message with Omar (on her contacts list) to call us back to schedule that. el ephone Encounter - Marianne Parada CC ROADWAY DESIGNER - 11/09/2018 3:56 PM PDTFormatting of this no te might be different from the original. Rx -Gabapentin 300 mg, Last fill- 08/31/18, #120, 0-RF Last OV- 03/23/18 with Gonzales Next OV- None Last labs- Lab Results Component Value Date CREA 0.8 08/07/2015 BUN 13 08/07/2015 NA 139 08/07/2015 K 4 08/07/2015 CL 104 08/07/2015 CO2 25 08/07/2015 elephone [place] unter - Hood Souza - 11/09/2018 3:09 PM PDTFax request from: Maurisio Cohn gabapentin (NEURONTIN) 300 mg capsule Directions: Take 1 capsule by mouth 4 times daily. Last Fill Date: 08/31/2018 3: 10 PM PDTdocumented in this encounter Plan of Treatment Not on filedocumented as of this encounter Visit Diagnoses + + | Diagnosis | + + | Chronic bilateral low back pain with bilateral sciatica | + + | Acute relapsing multiple sclerosis (HCC) Multiple sclerosis | + + documented in this encounter"
--- OUTSIDE RECORDS SUMMARY | ~2019-11-13 | XMS | Encounter Summary ---
Demographics + + + | Address | [address] | | | [place] [address] | + + + | Home Phone | | + + + | Preferred Language | Unknown | + + + | Marital Status | Single | + + + | Presybeterian Affiliation | Unknown | + + + [...] [place] | | | | | [address] | | + + + + + | Xiang Olvin | ECON | Unknown | | + + + + + Care Team Providers + +------+ + | Care Civil Designer Name | Role | Phone | + +------+ + | Erick Garcia PA-C | PCP | | + +------+ + Reason for Visit + +--------+ + | Reason | Onset | Comments | | | Date | | + +--------+ + | Medication Refill | 09/07/ | | | | 2017 | | + +--------+ + Encounter Details +--------+ + + + + | Date | Type | Department | Care Team | Description | +--------+ + + + + | 09/07/ | Telephone | [facility] | Estiven Gonzales MD | Medication Refill | | 2017 | | [facility] | [address] | | | | | CLINIC [address] | [place] | | | | | [address] [place], | [phone] | | | | | [place] [address] | | | | | | [phone] | | | +--------+ + + + [...] Telephone Encounter - Makayla Sapp RN - 09/07/2017 3:24 PM PDTCalled and spoke with pt, and reminded her that Dr. Gonzales is unable to prescribe medication, unless pt comes in for a f ollow up appt. Appears pt has f/u appt with BEAU Espinoza on 10/20/17 and has delivered baby. Pt stated understanding and stated she will come to appt./TAVIA Bryson elephone Encounter - Nehal Drew - 04/2017 3:18 PM PDTThe patient is trying to refill her RX for copaxton, the pharmacy stated she needs to get it authorized from her provider. Shruti send to [facility]. If you need to reach the patient she currently has a message phone: [phone].Nany monzon signed by Nehal Drew at 09/07/2017 3:22 PM PDTdocumented in this encounter Plan of Treatment Not on filedocumented as of this encounter Visit Diagnoses Not on filedocumented in this encounter"
--- OUTSIDE RECORDS SUMMARY | ~2019-11-13 | XMS | Encounter Summary ---
Demographics + + + | Address | [address] | | | [place] [address] | + + + | Home Phone | | + + + | Preferred Language | Unknown | + + + | Marital Status | Single | + + + | Faith Affiliation | Unknown | + + + | Race | White | + + + | Ethnic Group | Unknown | + + + Author + + + | Author | [facility] | | | and [place] | + + + | Organization | [facility] | | | and [place] | + + + | Address | Unknown | + + + | Phone | Unavailable | + + + Support + + + + + | Name | Relationship | Address | Phone | + + + + + | Omar Canruperto | ECON | [place] | | | | | [address] | | + + + + + | Xiang Olvin | ECON | Unknown | | + + + + + Care Team Providers + +------+ + | Care Strategic Sourcing Consultant Name | Role | Phone | + +------+ + | Erick Garcia PA-C | PCP | | + +------+ + Encounter Details +--------+ + + + + | Date | Type | Department | Care Team | Description | +--------+ + + + + | 11/25/ | Hospital | [facility] | Dylan Edwards MD [address] | MS (multiple | | 2012 | Encounter | [facility] | [address] | sclerosis) (HCC) | | | | [address] | [address] [place], | | | | | [place] | [place] [address] | | | | | [address] | [phone] | | | | | [phone] | | | +--------+ + + + [...] at Time of Discharge + + + +---------+--------+ + | Medication | Sig | Dispensed | Refills | Start | End Date | | | | | | Date | | + + + +---------+--------+ + | | Take 1 tablet by | | 0 | | | | HYDROcodone-acetamin | mouth every 6 hours | | | | 8 | | ophen (NORCO) 5-325 | as needed. | | | | | | mg per tablet | | | | | | + + + +---------+--------+ + | | Take 1 tablet by | | 0 | | | | multivitamin tablet | mouth Daily. | | | | 3 | + + + +---------+--------+ + | promethazine | Take 25 mg by mouth | | 0 | | | | (PHENERGAN) 25 mg | every 6 hours as | | | | 8 | | tablet | needed. | | | | | + + + +---------+--------+ + documented as of this encounter Plan of Treatment Not on filedocumented as of this encounter Procedures + +--------+ + + + | Procedure Name | Priori | Date/Time | Associated Diagnosis | Comments | | | ty | | | | + +--------+ + + + | VITAMIN D, | Routin | 11/25/2012 | | Results for this | | DEFICIENCY SCREEN | e | 4:11 PM | | procedure are in the | | (25-HYDROXY) | | PDT | | results section. | + +--------+ + + + | VITAMIN D, | Routin | 11/25/2012 | MS (multiple | Results for this | | DEFICIENCY SCREEN | e | 4:07 PM | sclerosis) (HCC) | procedure are in the | | (25-HYDROXY) | | PDT | | results section. | + +--------+ + + + documented in this encounter Results Vitamin D, 25-Hydroxy (11/25/2012 4:11 PM PDT) + + + + + + | Component | Value | Ref Range | Performed | Pathologist | | | | | At | Signature | + + + + + + | Vitamin D, | 25 (L)Comment: <20 ng/mL | 30 - 100 ng/mL | [facility] | | | 25 Hydroxy | Suggests deficiency of | | [facility]. | | | | 25-OH Vitamin D. 20-29 | | [facility] | | | | ng/mL Suggests a | | CENTER - | | | | relative insufficiency | | LABORATORY | | | | of 25-OH Vitamin D. | | | | | | 30-100 ng/mL Suggests | | | | | | a sufficient level of | | | | | | 25-OH Vitamin D. >100 | | | | | | ng/mL Potentially Toxic | | | | | | level of 25-OH Vitamin | | | | | | D. Blood levels of | | | | | | 25-OH vitamin D vary | | | | | | with the extent of sun | | | | | | exposure. Values tend | | | | | | to be highest in late | | | | | | summer and lowest in | | | | | | spring. Values also tend | | | | | | to decrease with age, | | | | | | due to decreased | | | | | | precursor synthesis in | | | | | | the skin. | | | | + + + + + + + + | Specimen | + + | | + + + + + + + | Performing | Address | City/State/Zipcode | Phone Number | | Organization | | | | + + + + + | [facility] | [address] | [place] | [phone] | | [facility] | | [address] | | | - LABORATORY | | | | + + + + + | [facility] | [address] | [place], [place] | | | [facility] | | [phone] | | | - LABORATORY | | | | + + + + + Vitamin D, 25-Hydroxy (11/25/2012 4:07 PM PDT) + + + + + + | Component | Value | Ref Range | Performed | Pathologist | | | | | At | Signature | + + + + + + | Vitamin D, | 25 (L)Comment: <20 ng/mL | 30 - 100 ng/mL | [facility] | | | 25 Hydroxy | Suggests deficiency of | | ST. | | | | 25-OH Vitamin D.20-29 | | [facility] | | | | ng/mL Suggests a | | CENTER - | | | | relative insufficiency | | LABORATORY | | | | of 25-OHVitamin D.30-100 | | | | | | ng/mL Suggests a | | | | | | sufficient level of | | | | | | 25-OH Vitamin D.>100 | | | | | | ng/mL Potentially Toxic | | | | | | level of 25-OH Vitamin | | | | | | D. Blood levels of 25-OH | | | | | | vitamin D vary with the | | | | | | extent of sunexposure. | | | | | | Values tend to be | | | | | | highest in late summer | | | | | | andlowest in spring. | | | | | | Values also tend to | | | | | | decrease with age, dueto | | | | | | decreased precursor | | | | | | synthesis in the skin. | | | | + + + + + + + + | Specimen | + + | Blood specimen | | (specimen) | + + + + + + + | Performing | Address | City/State/Zipcode | Phone Number | | Organization | | | | + + + + + | [facility] | [address] | [place] | [phone] | | [facility] | | [address] | | | - LABORATORY | | | | + + + + + | [facility] | [address] | [place] | | | [facility] | | [id number], [facility] | | | - LABORATORY | | | | + + + + + documented in this encounter Visit Diagnoses + + | Diagnosis | + + | MS (multiple sclerosis) (HCC) Multiple sclerosis | + + documented in this encounter"
--- OUTSIDE RECORDS SUMMARY | ~2019-11-13 | XMS | Encounter Summary ---
Demographics + + + | Address | [address] | | | [place] [address] | + + + | Home Phone | | + + + | Preferred Language | Unknown | + + + | Marital Status | Single | + + + | Adventism Affiliation | Unknown | + + + | Race | White | + + + | Ethnic Group | Unknown | + + + Author + + + | Author | [facility] | | | and [place] | + + + | Organization | [facility] | | | and [place] | + + + | Address | Unknown | + + + | Phone | Unavailable | + + + Support + + + + + | Name | Relationship | Address | Phone | + + + + + | Omar Lisa | ECON | [place] | | | | | [address] | | + + + + + | Xiang Olvin | ECON | Unknown | | + + + + + Care Team Providers + +------+ + | Care District Recruiter Name | Role | Phone | + +------+ + PCP | Unavailable | + +------+ + Encounter Details +--------+ + + + + | Date | Type | Department | Care Team | Description | +--------+ + + + + | 06/15/ | Hospital | [facility] | [facility] | | | 2010 | Encounter | H[facility] | [place] [address] [facility] | | | | | CENTER [address] | [facility] [address] | | | | | [address] [place] | [place], [place] | | | | | [address] | [address] | | | | | [phone] | | | +--------+ + + + [...]
--- OUTSIDE RECORDS SUMMARY | ~2019-11-13 | XMS | Encounter Summary ---
Demographics + + + | Address | [address] | | | [place] [address] | + + + | Home Phone | | + + + | Preferred Language | Unknown | + + + | Marital Status | Single | + + + | Pentecostalism Affiliation | Unknown | + + + | Race | White | + + + | Ethnic Group | Unknown | + + + Author + + + | Author | [facility] | | | and [place] | + + + | Organization | [facility] | | | and [place] | + + + | Address | Unknown | + + + | Phone | Unavailable | + + + Support + + + + + | Name | Relationship | Address | Phone | + + + + + | Omar Gonzalez | ECON | [place] | | | | | [address] | | + + + + + | Xiang Bah | ECON | Unknown | | + + + + + Care Team Providers + +------+ + | Care Skid Wrapper Name | Role | Phone | + +------+ + | Erick Garcia PA-C | PCP | | + +------+ + Reason for Visit +--------+--------+ + | Reason | Onset | Comments | | | Date | | +--------+--------+ + | Other | 12/29/ | Returning phone call | | | 2012 | | +--------+--------+ + Encounter Details +--------+ + + + + | Date | Type | Department | Care Team | Description | +--------+ + + + + | 12/29/ | Telephone | [facility] | Amanda Pritchett | Other (Returning | | 2012 | | PHYSIATRY [address] | N, RN | phone call) | | | | [facility] | | | | | | [place] | | | | | | [address] | | | | | | [phone] | | | +--------+ + + + [...] Encounter - Amanda Rubin RN - 12/29/2012 2:13 PM PDTPatient returned my phone call. I let her know once we receive a fax from [facility] stating they received her Rx request, she will be contacted. documented in th is encounter Plan of Treatment Not on filedocumented as of this encounter Visit Diagnoses Not on filedocumented in this encounter"
--- OUTSIDE RECORDS SUMMARY | ~2019-11-13 | XMS | Encounter Summary ---
Demographics + + + | Address | [address] | | | [place] [address] | + + + | Home Phone [...] [place] | | | | | [id number] | | + + + + + | Xiang Olvin | ECON | Unknown | | + + + + + Care Team Providers + +------+ + | Care Senior Applications Architect Name | Role | Phone | [...] Closed | | Radiology | Diagnoses | Gonzales, | [facility] | | | | | Multiple | Estiven R, | HOSPITAL | | | | | sclerosis | MD [address] | | | | | (HCC) | [place] M[place]QUEZ, | [address] | | | | | Neurologic | [place] | [place], [place] | | | | | gait | [place], [place] | [address] | | | | | disorder | [address] | Phone: | | | | | Urinary | Phone: | [phone] | | | | | dysfunction | [phone] | Fax: | | | | | Procedures | Fax: | [phone] | | | | | MRI Lumbar | [phone] | | | | | | Spine w wo | | | | | | | Contrast | | | +--------+--------+ + + + + Diagnostic/Screening (Routine) +--------+--------+ + + + + | Status | Reason | Specialty | Diagnoses / | Referred By | Referred To | | | | | Procedures | Contact | Contact | +--------+--------+ + + + + | Closed | | Radiology | Diagnoses | Gonzales, | [facility] | | | | | Multiple | Estiven Calabrese, | HOSPITAL | | | | | sclerosis | MD [address] | | | | | ([facility]) | ANGELA MÁRQUEZ, | [address]FT[address] | | | | | Neurologic | [place] [place] | [place], [place] | | | | | gait | [place], [place] | [address] | | | | | disorder | [address] | Phone: | | | | | Procedures | Phone: | [phone] | | | | | MRI Brain w | [phone] | Fax: | | | | | wo Contrast | Fax: | [phone] | | | | | | [phone] | | +--------+--------+ + + + + Reason for Visit + + + | Reason | Comments | + + + | Multiple Sclerosis | | + + + Encounter Details +--------+---------+ + + + | Date | Type | Department | Care Team | Description | +--------+---------+ + + + | 03/23/ | Office | [place] [facility] | Estiven Gonzales MD | Multiple sclerosis | | 2019 | Visit | HOSPITAL NEUROLOGY | [address] | ([facility]) (Primary Dx); | | | | CLINIC [address] | [place] | Chronic low back | | | | DR [place]RISSIE [place], | [address] | pain without | | | | [place] [address] | | sciatica, | | | | [phone] | | unspecified back | | | | | | pain laterality; | | | | | | Neurologic gait | | | | | | disorder; Urinary | | | | | | dysfunction | +--------+---------+ + + + Social History [...] + + + | Blood Pressure | 120/80 | 03/23/2018 3:15 PM | | | | | PST | | + + + + + | Pulse | 63 | 03/23/2018 3:15 PM | | | | | PST | | + + + + + | Temperature | - | - | | + + + + + | Respiratory Rate | 20 | 03/23/2018 3:15 PM | | | | | PST | | + + + + + | Oxygen Saturation | 92% | 03/23/2018 3:15 PM | | | | | PST | | + + + + + | Inhaled Oxygen | - | - | | | Concentration | | | | + + + + + | Weight | 106 kg (233 lb 11 | 03/23/2018 3:15 PM | | | | oz) | PST | | + + + + + | Height | 162.6 cm (5' 4") | 03/23/2018 3:15 PM | | | | | PST | | + + + + + | Body Mass Index | 40.11 | 03/23/2018 3:15 PM | | | | | PST | | + + + + + documented in this encounter Patient Instructions Patient Instructions Estiven Gonzales MD - 03/23/2018 3:30 PM PSTFormatting of this note mi ght be different from the original. Patient Instructions [facility] Neurology Clinic Dr. Estiven Gonzales, Neurologist Date:03/23/2018 Name:Sabi Bah :..1990 Please schedule next follow up appt with Alexis in 5 months for Multiple Sclerosis, relap sing remitting Gait disorder Low back pain with spasms Treatment Option- massage, Acupuncture, Over the counter heat patches (icy hot, thermacare, salonpas) , over the counter creams (aspercream, bengay cream, emu oi l), Relaxation therapy, Water therapy, Cortisone shots, Toradol Injections Suggest acupuncture treatment Continue copaxone for disease modifying agent Any Questions please call TAVIA Benavides or Dr. Gonzales at [facility] Neurology Clinic General Neck and Back Pain Both neck and back pain are usually caused by injury to the muscles or ligaments of the spi ne. Sometimes the disks that separate each bone of the spine may cause pain by pressing on a nearby nerve. Back and neck pain may appear after a sudden twisting or bending force (such as in a car accident), or sometimes after a simple awkward movement. In either case, muscle spasm is often present and adds to the pain. Acute neck and back pain usually gets better in 1 to 2 weeks. Pain related to disk disease, arthritis in the spinal joints or spinal stenosis (narrowing of the spinal canal) can becom e chronic and last for months or years. Back and neck pain are common problems. Most people feel better in 1 or 2 weeks, and most o f the rest in 1 to 2 months. Most people can remain active. People have anddescribe pain differently. Pain can be sharp, stabbing, shooting, aching, cramping, or burning Movement, standing, bending, lifting, sitting, or walking may worsen the pain Pain can be localized to one spot or area, or it can be more generalized Pain can spread or radiate upwards, downwards, to the front, or go down your arms Muscle spasm may occur. Most of the time mechanical problems with the muscles or spine cause the pain. it is usuall y caused by an injury, whether known or not, to the muscles or ligaments. While illnesses ca n cause back pain, it is usually not caused by a serious illness. Pain is usually related to physical activity, whether sports, exercise, work, or normal activity. Sometimes it can occ ur without an identifiable cause. This can happen simply by stretching or moving wrong, with out noting pain at the time. Other causes include: Overexertion, lifting, pushing, pulling incorrectly or too aggressively. Sudden twisting, bending or stretching from an accident (car or fall), or accidental mov ement. Poor posture Poor conditioning, lack of regular exercise Spinal disc disease or arthritis Stress , or illness like appendicitis, bladder or kidney infection, pelvic infections Home care Forneck pain:Use a comfortable pillow that supports the head and keeps the spine in a neutral position. The position of the head should not be tilted forward or backward. When in bed, try to find a position of comfort. A firm mattress is best. Try lying flat on your back with pillows under your knees. You can also try lying on your side with your kn ees bent up towards your chest and a pillow between your knees. At first, do not try to stretch out the sore spots. If there is a strain, it is not like the good soreness you get after exercising without an injury. In this case, stretching may make it worse. Don't sit for long periods, as inlong car rides orother travel. This puts more stres s on the lower back than standing or walking. During the first 24 to 72 hours after an injury, apply an ice pack to the painful area f or 20 minutes and then remove it for 20 minutes over a period of 60 to 90 minutes or several times a day. You can alternate ice and heat therapies. Talk with your healthcare provider about the b est treatment for your back or neck pain. As a safety precaution, do not use a heating pad a t bedtime. Sleeping with a heating pad can lead to skin rivas or tissue damage. Therapeutic massage can help relax the back and neck muscles without stretching them. Be aware of safe lifting methods and do not lift anything over 15 pounds until all the p ain is gone. Medicines Talk to your healthcare provider before using medicine, especially if you have other medica l problems or are taking other medicines. You may use apul-wcz-anupadb medicine to control pain, unless another pain medicine was prescribed. If you have chronic conditions like diabetes, liver or kidney disease, stomach u lcers, gastrointestinal bleeding, or are taking blood thinner medicines. Be careful if you are given pain medicines, narcotics, or medicine for muscle spasm. The y can cause drowsiness, and can affect your coordination, reflexes, and judgment. Do not dri ve or operate heavy machinery. Follow-up care Follow up with your healthcare provider, or as advised. Physical therapy or further tests m ay be needed. If X-rays were taken, you will be notified of any new findings that may affect your care. Call 911 Call 911 if any of the following occur: Trouble breathing Confusion Very drowsy or trouble awakening Fainting or loss of consciousness Rapid or very slow heart rate Loss of bowel or bladder control When to seek medical advice Call your healthcare provider right away if any of these occur: Pain becomes worse or spreads into your arms or legs Weakness, numbness or pain in one or both arms or legs Numbness in the groin area Difficulty walking Fever of 100.4F (38C) or higher, or as directed by your healthcare provider Date Last Reviewed: 09/07/201519998121-4770 [employer]. [address] [place] [address]. All righ ts reserved. This information is not intended as a substitute for professional medical care. Always follow your healthcare professional's instructions. Relieving Back Pain Back pain is a common problem. You can strain back muscles by lifting too much weight or ju st by moving the wrong way. Back strain can be uncomfortable, even painful. And it can take weeks or monthsto improve. To help yourself feel better and prevent future back strains, t ry these tips. Important Note: Do not give aspirin to children or teens without first discussing it with y our healthcare provider. ?Ice Ice reduces muscle pain and swelling. It helps most during the first 24 to 48 hours after a n injury. Wrap an ice pack or a bag of frozen peas in a thin towel. (Never place ice directly on y our skin.) Place the ice where your back hurts the most. Don t ice for more than 20 minutes at a time. You can use ice several times a day. ?Medicines Chvg-tnt-jczizyt pain relievers can includeacetaminophen and anti-inflammatory medicines, which includes aspirin or ibuprofen. They can help ease discomfort. Some also reduce swelli ng. Tell your healthcare provider about any medicines you are already taking. Take medicines only as directed. ?Heat After the first 48 hours, heat can relax sore muscles and improve blood flow. Try a warm bath or shower. Or use a heating pad set on low. To prevent a burn, keep a cl oth between you and the heating pad. Don t use a heating pad for more than 15 minutes at a time. Never sleep on a heating p ad. Date Last Reviewed: 11/07/201419999841-9943 [employer]. [address] [place] [address], [place] [address]. All righ ts reserved. This information is not intended as a substitute for professional medical care. Always follow your healthcare professional's instructions. Chronic Pain Painserves an important role. It lets you know something is wrong that needs your attenti on. When the body heals, pain normally goes away. When pain lasts longer than 6 months, it is called chronic pain. This is pain that is present even after the body has healed.Chronic pain can cause mood problems and get in th e way of your relationships and your daily life. A number of conditions can cause chronic pain. Some of the more common include: Previous surgery An old injury Infection Diseases such as diabetes Nerve damage Back injury Arthritis Migraine or other headaches Fibromyalgia Cancer Depression and stress can make chronic pain symptoms worse.In some cases, a cause for the pain can't be found. Treatment Treatmentcangreatly reducepain.In many cases,pain can become less severe, occur l ess often, and interfere less with your daily life.Chronic pain is often treated with a co mbination of medicines,therapies, and lifestyle changes. You will work closely with your [facility] provider to find a treatment plan that works best for you. Ask your healthcare provider for a referral to a pain management specialty center. These can provide the most recent and proven pain management strategies, along with emotional sup port and comprehensive services. Several different types of medicines may be prescribed for chronic pain. Work with your healthcare provider to develop a medicine plan that helps manage your pain. Physical therapy can help reduce certain types of chronic pain. Occupational therapy teaches you how to do routine tasks of daily living in ways that le ssen your discomfort. Counseling can help youcope better with stress and pain. Other therapies such as meditation, yoga, biofeedback, massage, and acupuncture can also help manage chronic pain. Changing certain habits can help reduce chronic pain. They include: Eating healthy Developing an exercise routine Getting enough sleep Stopping smoking and limiting alcohol use Losing excess weight Follow-up care Follow up with yourhealthcare provider, or as advised. Let yourhealthcare providerkno w if your current treatment plan is working or if changes are needed. Resources For more information, contact: [place] [employer], aarti.[employer] or 260-022-6679 [place] [employer], theacpa.org or 448-698-1939 Date Last Reviewed: 10/07/201619996537-[address] [employer] [place] [address]. All righ ts reserved. This information is not intended as a substitute for professional medical care. Always follow your healthcare professional's instructions. Managing Chronic Pain Being in pain can be exhausting. You may find you have trouble working, sleeping, or just d oing day-to-day tasks. But you can learn to manage pain, feel better, and regain control of your life. Understanding chronic pain Chronic pain is a serious medical problem. It is defined as pain that lasts longer than 3 m onths. Chronic pain includes pain that you feel regularly, even if it comes and goes. The pa in may be from an ongoing injury or health problem. Or it may be because of a chronic pain s yndrome, such as fibromyalgia. Sometimes pain persists when no cause can be found. Pain should be treated You have a right to have your pain treated. Untreated chronic pain can affect your overall health. It can lead to depression, anxiety, anger, and personality changes. It can also disr upt work, sleep, relationships, and other aspects of normal life. It may not be possible to relieve all of your pain. But it can be reduced to a level you can cope with. Your role in treatment Your healthcare provider will work closely with you on a plan to manage your pain. But it s up to you to put this plan into action. Control of chronic pain is done mainly through se lf-management. This means that you take an active role in your care. Getting support from fa deejay and friends is important too. Planning your treatment Your healthcare provider will first look for a cause of your pain that can be treated. He o r she will also assess your pain level. This may be done by asking you to rate your pain on a scale from 1 (low pain) to 10 (severe pain). Your provider will also ask you to describe t he pain. For example, is your pain sharp or dull? Is it constant or does it come and go? You may be asked to keep a pain log. This is a diary in which you track your pain. It may help identify things that tend to make your pain worse. You and your healthcare provider can make a plan to help prevent and cope with pain on a daily basis. In some cases, you may be refer red to a special pain program or clinic. Your treatment plan may include: Medicines Complementary therapies Mind and body therapies Other medical treatments Getting physical activity Medicines Medicine will most likely be a part of your treatment plan. Your provider will evaluate whi ch are the best medicines for your pain. You may use fnxa-swh-mtqvrlm or prescription medici jamison. You may need to take more than one medicine. It may take some time to find the best med icine or combination of medicines for your pain. Take all medicines as directed. Pain medici jamison can be used in many ways. You may take medicines: Every day to help stay ahead of the pain so that it doesn t flare up At times when pain is worse than usual Before activities that tend to trigger pain To decrease sensitivity to pain Medicines for chronic pain include: Nonsteroidal anti-inflammatory medicines (NSAIDs) for pain from swelling and inflammatio n. Your provider may prescribe a type of NSAID called a ALVAREZ inhibitor. Acetaminophen Anticonvulsants to treat nerve pain called neuropathy Antidepressants to treat neuropathy Muscle relaxants for muscle spasms Topical medicines. These are put on the skin. Opioids, or narcotics, to treat severe pain. These very strong medicines can help ease c ertain kinds of pain. They most often are used for short periods of time. Your provider will monitor your care very closely if you take opioids. Complementary therapies These are treatments that can be used along with medical care to help relieve pain. Look haven r a licensed practitioner with experience treating chronic pain. Talk with your healthcare p dorina about using complementary therapies such as: Massage Acupuncture and acupressure Chiropractic Vitamins or herbal supplements Mind/body therapies The brain and the body are both part of the pain response. The brain reads the pain signals from the body. This means that your mind has some control over how pain signals are process ed. Mind/body therapies may help change how your brain reads pain signals. They may be learn ed with the help of a trained therapist or in a class. They include: Deep breathing Distraction Visualization Meditation Biofeedback Other medical treatments If other treatments don t work for you, one of these procedures or devices may help: Nerve blocks to numb nerves in a painful area Trigger point injections for painful muscles Steroid injections for joint pain Transcutaneous electrical nerve stimulation (TENS) to block pain signals to the brain Spinal stimulation to block spinal pain Implanted spinal pump that contains pain medicine Ablation using heat, cold, or chemicals to destroy painful nerves Getting physical activity Being physically active has many benefits. It can improve your ability to cope with pain. I t may also help improve your mood, sleep, and overall health. Your healthcare provider can h elp you plan an exercise program that s right for your needs. This may include: Stretching and thlmp-du-mnawjv exercises Low-impact exercise such as walking, biking, swimming, and other water exercise Strength training using light weights Walking up the stairs instead of taking the elevator Riding a bike instead of driving Parking your car farther from your destination You may need to not do high-impact activities. These involve jumping, running, or sudden st arts, stops, or changes of direction. If you haven t exercised in a long time or you have physical limitations, your healthcare provider may refer you to a physical therapist. He or she can teach you stretches and exercises that fit your condition and fitness level. Being active and healthy A healthier lifestyle makes it easier to cope with pain and function better. Follow these t ips: Choose a balance of healthy foods and drinks. Limit alcohol and caffeine. Go to bed at about the same time each day. Don t let pain keep you from others. Spend time with friends and family. Keep your mind active. Read books or take classes. If you re not working, volunteer or join a club or social group. Getting support A support group lets you talk with others who also have chronic pain. Chronic pain support groups can help you feel less isolated. They can also give you tips for coping with pain. To find a local support group, contact your nearest hospital or pain clinic. You may also want to try counseling. Counseling can help you learn coping skills and method s such as visualization. It can also help with mood problems. When choosing a counselor, edilmao k for someone who has worked with people who have chronic pain. See your provider for regular visits and let him or her know how well treatments are workin g for you. Also reach out to family and friends for help and support. For more support and information, contact these groups: [place] [employer], www.aapainmanage.org [place] [employer], www.painmed.org [place] [employer], www.theacpa.org National Pain Foundation, www.thenationalpainfoundation.org Date Last Reviewed: 02/06/201719997911-[address] [employer] [place] [address], [place] [address]. All righ ts reserved. This information is not intended as a substitute for professional medical care. Always follow your healthcare professional's instructions. Understanding Multiple Sclerosis (MS) Multiple sclerosis (MS) [...] Association of [place], www.mymsaa.org Date Last Reviewed: 04/09/201719996695-[address] [employer] [place] [address], [place] [address]. All [facility] ts reserved. This information is not intended as a substitute for professional medical care. Always follow your healthcare professional's instructions. Discharge Instructions for Multiple Sclerosis You have been diagnosed with multiple sclerosis (MS), a disease of the brain, the spinal co rd, or both.MSinvolvesthe destruction of thecovering of the nerves (myelin sheath). When the nerves are damaged, messages from the brain are not transmitted very well. You may not be able to move your body as well as you did before, and you may lose some of your abili ty to feel things, such as heat or cold. Some people may have vision problems or trouble emp tying their bladder.Here are some things you can do to feel better. Activity Do's and don'ts: Get plenty of rest.Extreme tirednessis a common symptom of MS. Plan your activities in advance. Avoid excessive heat. Use a cane or other aid to help you get around and conserve energy, if needed. Stretching can be useful with medicines to help symptoms of stiff muscles. Exercise. Aerobic exercise may improve your strength, muscle tone, balance, and coordina tion. A physical therapist can help you determine which exercises are safe for you. Swimming may be a good exercise in which your temperature doesn't increase. Never swim a lone. Other home care Moredo's and don'ts: Take yourmedicine exactly as directed by your healthcare provider. Don t skip doses. Use hot tubs or long hot bathswith caution. If you soak too long in hot water, your mu scles maybecome weak. Don t get in a hot tub unless there s someone nearby who can pul l you out if necessary. If you become overheated and your symptoms get worse, cool down for a few hours. This wi ll help you return to normal. Consider installing an air-conditioning system in your home if you don t already have one. Eat a well-balanced diet. Talk to yourhealthcare providerabout taking vitamins. Avoid constipation: Eat a diet high in fiber. Drink 6 to 8 glasses of water every day, unless directed otherwise. Use an pzmk-uhi-wasqfoi laxative as directed by your healthcare provider. Let yourhealthcareproviderknow: About any pain you are having About any sexual issues you are having If you laugh or cry inappropriately (such as cry when you are really happy) If you feel sad or depressed If you lose your urine (incontinence) Follow-up Make a follow-up appointment. When to call your healthcare provider Call yourhealthcare providerright away if you have any of the following: Extremetiredness or increasing weakness Confusion or unusual behavior New neurologic symptoms, such as weakness or numbness in the face, arms, or legs Double vision or loss of vision Trouble urinating or change in the color or odor of your urine Fever vdtl438.4F (38.0C) Date Last Reviewed: 01/14/201519998889-2085 [employer]. [address] [place] [address]. All righ ts reserved. This information is not intended as a substitute for professional medical care. Always follow your healthcare professional's instructions. documented in this encounter Progress Notes Estiven Gonzales MD - 03/23/2018 3:30 PM PST Patient: Sabi Bah Medical Record: [id number] Date of Services: 03/23/2018 Referring Doctor: Erick Garcia PA-C Chief Complaint: Multiple sclerosis, new lesions in the cervical spine spine MRI History of Present Illness: Miss Bah was a 28-year-old right-handed lady, seen for neurologic evaluation, with intra venous a multiple sclerosis, relapsing remitting, still experiencing gait ataxia with diffic ulty on ambulation, dizziness, visual disturbance , and occasionally urinary dysfunction. R ecent MRI of the cervical spine demonstrated lesions in the spinal cord largest in the poste rior C2-3 disc and C3 vertebral body and a small lesion at the level CV measuring 4 x 3 x 3 with no evidence of enhancement. However, she requires MRI of the brain and with the eviden ce of urinary dysfunction, MRI of the lumbosacral spine is indicated to rule out cauda equin a syndrome. Patient is presently tolerating Copaxone and discussed the possibility of pulse steroids, though patient prefers to hold off at this time. I also discussed other disease modifying agents such as the oral disease modifying agents, along with Tysabri and Ocrevus. She complains of significant low back pain with prominent spasms and advised treatment opti ons such as acupuncture treatments, massage therapy, relation therapy, water therapy, and co rtisone shots. I advised patient to use zlit-duh-mpxlzjw medications such as Tylenol and/o r ibuprofen. In addition, she uses zonisamide, gabapentin, and Cymbalta for neuropathic sym ptoms with baclofen for spasms. Review of Systems: Denies headache, earache, nasal catarrh, diplopia, blurring of vision, d ysphagia, odynophagia, sore throat, neck masses, hearing loss, chest pain, palpitations, ayla rtness of breath, cough, hemoptysis, abdominal pain, diarrhea, constipation, bowel or bladde r dysfunction, hematuria, dysuria, lymphadenopathies, echhymoses, rashes, and homicidal or suicidal ideations. Present Medication: Current Outpatient Prescriptions Medication Sig Dispense Refill ALBUTEROL SULFATE IN Take by mouth. baclofen (LIORESAL) 10 mg tablet Take 1 tablet by mouth 3 times daily. 90 tablet 5 buprenorphine (SUBUTEX) [address] 1 tablet under the tongue 3 times daily. cloNIDine (CATAPRES) 0.1 mg tablet Take 1 tablet by mouth 3 times daily. docusate sodium (STOOL SOFTENER) 100 mg capsule Take 200 mg by mouth. DULoxetine (CYMBALTA) [address] capsule Take 1 capsule by mouth Daily. gabapentin (NEURONTIN) 300 mg capsule Take 1 capsule by mouth 4 times daily. 120 capsul e 5 glatiramer (COPAXONE) 20 mg/mL injection Inject 1 mL under the skin Daily. 30 Syringe 5 prazosin (MINIPRESS) 2 MG capsule Take 1 capsule by mouth nightly. zonisamide (ZONEGRAN) 100 mg capsule Take 2 capsules by mouth nightly. 60 capsule 5 No current facility-administered medications for this visit. Patient's Allergies: Allergies Allergen Reactions Amoxicillin Amoxicillin-Pot Clavulanate Nausea And Vomiting And red rash Penicillins Nausea And Vomiting Rash Tramadol Other (See Comments) Horrible headache Neurological Examination: Vitals: 03/23/18 1515 BP: 120/80 Pulse: 63 Resp: 20 PainSc: 6 PainLoc: Back MENTAL STATUS: The patient is awake, alert, and oriented to time, place, and person. Spee is fluent. Memory, attention, comprehension, and general fund of knowledge are intact. CRANIAL NERVES: Funduscopy revealed distinct disc margins. There are no exudates or hemor rhages noted. Pupils are 3-4 mm, equal and reactive to light and accommodation. Extraocular muscle movements are intact. There are no visual field cuts. There is no nystagmus. There is no facial asymmetry. Facial sensation is intact. Palate elevates symmetrically. Streng th in the trapezius and sternocleidomastoid muscles is normal. Tongue is midline on protrusi on. MOTOR EXAMINATION: Strength is 5/5 throughout. mild spasticity in lower extremities SENSORY EXAMINATION: Intact to light touch, pin prick, vibration, and proprioception. The re is no extinction on double simultaneous stimulation. DEEP TENDON REFLEXES: 2+ and symmetric, slight hyperreflexia in the lower extremities PLANTAR RESPONSES: Downgoing bilaterally GAIT: wide-based stance, unable to tandem gait, Romberg was negative CEREBELLAR EXAMINATION: There is no dysmetria on fvyhpr-bi-twkf test. MISCELLANEOUS EXAM: Atraumatic, no evidence of frontal or maxillary sinus tenderness, no ne ck masses, tenderness in the paraspinal cervical spine, trapezius, and suprascapular muscles with the decrease with decreased range of motion space on flexion and extension at 5-10, tenderness in the paraspinal lumbosacral spine with increased pain upon flexion and extensio n at 5-10, abdomen is soft and nontender, extremities equally palpable pulses Clinical Impression: Multiple Sclerosis, relapsing remitting Gait disorder Low back pain with spasms rule out cauda equina syndrome, history of urinary dysfunction Plan: Patient Instructions [facility] Neurology Clinic Dr. Estiven Gonzales, Neurologist Date:03/23/2018 Name:Sabi Nilson Bah :..1990 Please schedule next follow up appt with Alexis in 5 months for Multiple Sclerosis, relap sing remitting Gait disorder Low back pain with spasms Treatment Option- massage, Acupuncture, Over the counter heat patches (icy hot, thermacare, salonpas) , over the counter creams (aspercream, bengay cream, emu oi l), Relaxation therapy, Water therapy, Cortisone shots, Toradol Injections Suggest acupuncture treatment Continue copaxone for disease modifying agent MRI the brain and MRI of the lumbar spine rule out cauda equina syndrome Any Questions please call TAVIA Benavides or Dr. Gonzales at [facility] Neurology Clinic General Neck and Back Pain Both neck and back pain are usually caused by injury to the muscles or ligaments of the spi ne. Sometimes the disks that separate each bone of the spine may cause pain by pressing on a nearby nerve. Back and neck pain may appear after a sudden twisting or bending force (such as in a car accident), or sometimes after a simple awkward movement. In either case, muscle spasm is often present and adds to the pain. Acute neck and back pain usually gets better in 1 to 2 weeks. Pain related to disk disease, arthritis in the spinal joints or spinal stenosis (narrowing of the spinal canal) can becom e chronic and last for months or years. Back and neck pain are common problems. Most people feel better in 1 or 2 weeks, and most o f the rest in 1 to 2 months. Most people can remain active. People have anddescribe pain differently. Pain can be sharp, stabbing, shooting, aching, cramping, or burning Movement, standing, bending, lifting, sitting, or walking may worsen the pain Pain can be localized to one spot or area, or it can be more generalized Pain can spread or radiate upwards, downwards, to the front, or go down your arms Muscle spasm may occur. Most of the time mechanical problems with the muscles or spine cause the pain. it is usuall y caused by an injury, whether known or not, to the muscles or ligaments. While illnesses ca n cause back pain, it is usually not caused by a serious illness. Pain is usually related to physical activity, whether sports, exercise, work, or normal activity. Sometimes it can occ ur without an identifiable cause. This can happen simply by stretching or moving wrong, with out noting pain at the time. Other causes include: Overexertion, lifting, pushing, pulling incorrectly or too aggressively. Sudden twisting, bending or stretching from an accident (car or fall), or accidental mov ement. Poor posture Poor conditioning, lack of regular exercise Spinal disc disease or arthritis Stress , or illness like appendicitis, bladder or kidney infection, pelvic infections Home care Forneck pain:Use a comfortable pillow that supports the head and keeps the spine in a neutral position. The position of the head should not be tilted forward or backward. When in bed, try to find a position of comfort. A firm mattress is best. Try lying flat on your back with pillows under your knees. You can also try lying on your side with your kn ees bent up towards your chest and a pillow between your knees. At first, do not try to stretch out the sore spots. If there is a strain, it is not like the good soreness you get after exercising without an injury. In this case, stretching may make it worse. Don't sit for long periods, as inlong car rides orother travel. This puts more stres s on the lower back than standing or walking. During the first 24 to 72 hours after an injury, apply an ice pack to the painful area f or 20 minutes and then remove it for 20 minutes over a period of 60 to 90 minutes or several times a day. You can alternate ice and heat therapies. Talk with your healthcare provider about the b est treatment for your back or neck pain. As a safety precaution, do not use a heating pad a t bedtime. Sleeping with a heating pad can lead to skin rivas or tissue damage. Therapeutic massage can help relax the back and neck muscles without stretching them. Be aware of safe lifting methods and do not lift anything over 15 pounds until all the p ain is gone. Medicines Talk to your healthcare provider before using medicine, especially if you have other medica l problems or are taking other medicines. You may use lamc-mrb-ismukpm medicine to control pain, unless another pain medicine was prescribed. If you have chronic conditions like diabetes, liver or kidney disease, stomach u lcers, gastrointestinal bleeding, or are taking blood thinner medicines. Be careful if you are given pain medicines, narcotics, or medicine for muscle spasm. The y can cause drowsiness, and can affect your coordination, reflexes, and judgment. Do not dri ve or operate heavy machinery. Follow-up care Follow up with your healthcare provider, or as advised. Physical therapy or further tests m ay be needed. If X-rays were taken, you will be notified of any new findings that may affect your care. Call 911 Call 911 if any of the following occur: Trouble breathing Confusion Very drowsy or trouble awakening Fainting or loss of consciousness Rapid or very slow heart rate Loss of bowel or bladder control When to seek medical advice Call your healthcare provider right away if any of these occur: Pain becomes worse or spreads into your arms or legs Weakness, numbness or pain in one or both arms or legs Numbness in the groin area Difficulty walking Fever of 100.4F (38C) or higher, or as directed by your healthcare provider Date Last Reviewed: 09/07/2015 [employer]. [address] [place] [address]. All righ ts reserved. This information is not intended as a substitute for professional medical care. Always follow your healthcare professional's instructions. Relieving Back Pain Back pain is a common problem. You can strain back muscles by lifting too much weight or ju st by moving the wrong way. Back strain can be uncomfortable, even painful. And it can take weeks or monthsto improve. To help yourself feel better and prevent future back strains, t ry these tips. Important Note: Do not give aspirin to children or teens without first discussing it with y our healthcare provider. ?Ice Ice reduces muscle pain and swelling. It helps most during the first 24 to 48 hours after a n injury. Wrap an ice pack or a bag of frozen peas in a thin towel. (Never place ice directly on y our skin.) Place the ice where your back hurts the most. Don t ice for more than 20 minutes at a time. You can use ice several times a day. ?Medicines Itld-xgi-wnwyval pain relievers can includeacetaminophen and anti-inflammatory medicines, which includes aspirin or ibuprofen. They can help ease discomfort. Some also reduce swelli ng. Tell your healthcare provider about any medicines you are already taking. Take medicines only as directed. ?Heat After the first 48 hours, heat can relax sore muscles and improve blood flow. Try a warm bath or shower. Or use a heating pad set on low. To prevent a burn, keep a cl oth between you and the heating pad. Don t use a heating pad for more than 15 minutes at a time. Never sleep on a heating p ad. Date Last Reviewed: 11/07/2014 [employer]. [address] [place] [address]. All righ ts reserved. This information is not intended as a substitute for professional medical care. Always follow your healthcare professional's instructions. Chronic Pain Painserves an important role. It lets you know something is wrong that needs your attenti on. When the body heals, pain normally goes away. When pain lasts longer than 6 months, it is called chronic pain. This is pain that is present even after the body has healed.Chronic pain can cause mood problems and get in th e way of your relationships and your daily life. A number of conditions can cause chronic pain. Some of the more common include: Previous surgery An old injury Infection Diseases such as diabetes Nerve damage Back injury Arthritis Migraine or other headaches Fibromyalgia Cancer Depression and stress can make chronic pain symptoms worse.In some cases, a cause for the pain can't be found. Treatment Treatmentcangreatly reducepain.In many cases,pain can become less severe, occur l ess often, and interfere less with your daily life.Chronic pain is often treated with a co mbination of medicines,therapies, and lifestyle changes. You will work closely with your [facility] provider to find a treatment plan that works best for you. Ask your healthcare provider for a referral to a pain management specialty center. These can provide the most recent and proven pain management strategies, along with emotional sup port and comprehensive services. Several different types of medicines may be prescribed for chronic pain. Work with your healthcare provider to develop a medicine plan that helps manage your pain. Physical therapy can help reduce certain types of chronic pain. Occupational therapy teaches you how to do routine tasks of daily living in ways that le ssen your discomfort. Counseling can help youcope better with stress and pain. Other therapies such as meditation, yoga, biofeedback, massage, and acupuncture can also help manage chronic pain. Changing certain habits can help reduce chronic pain. They include: Eating healthy Developing an exercise routine Getting enough sleep Stopping smoking and limiting alcohol use Losing excess weight Follow-up care Follow up with yourhealthcare provider, or as advised. Let yourhealthcare providerkno w if your current treatment plan is working or if changes are needed. Resources For more information, contact: [place] [employer] Mig[employer] Associationaarti.memberclicks.net or [phone] [place] [employer], theacpa.org or [phone] Date Last Reviewed: 10/07/201619993559-[address] [employer] [place] [address], [place] [address]. All righ ts reserved. This information is not intended as a substitute for professional medical care. Always follow your healthcare professional's instructions. Managing Chronic Pain Being in pain can be exhausting. You may find you have trouble working, sleeping, or just d oing day-to-day tasks. But you can learn to manage pain, feel better, and regain control of your life. Understanding chronic pain Chronic pain is a serious medical problem. It is defined as pain that lasts longer than 3 m onths. Chronic pain includes pain that you feel regularly, even if it comes and goes. The pa in may be from an ongoing injury or health problem. Or it may be because of a chronic pain s yndrome, such as fibromyalgia. Sometimes pain persists when no cause can be found. Pain should be treated You have a right to have your pain treated. Untreated chronic pain can affect your overall health. It can lead to depression, anxiety, anger, and personality changes. It can also disr upt work, sleep, relationships, and other aspects of normal life. It may not be possible to relieve all of your pain. But it can be reduced to a level you can cope with. Your role in treatment Your healthcare provider will work closely with you on a plan to manage your pain. But it s up to you to put this plan into action. Control of chronic pain is done mainly through se lf-management. This means that you take an active role in your care. Getting support from fa deejay and friends is important too. Planning your treatment Your healthcare provider will first look for a cause of your pain that can be treated. He o r she will also assess your pain level. This may be done by asking you to rate your pain on a scale from 1 (low pain) to 10 (severe pain). Your provider will also ask you to describe t he pain. For example, is your pain sharp or dull? Is it constant or does it come and go? You may be asked to keep a pain log. This is a diary in which you track your pain. It may help identify things that tend to make your pain worse. You and your healthcare provider can make a plan to help prevent and cope with pain on a daily basis. In some cases, you may be refer red to a special pain program or clinic. Your treatment plan may include: Medicines Complementary therapies Mind and body therapies Other medical treatments Getting physical activity Medicines Medicine will most likely be a part of your treatment plan. Your provider will evaluate whi ch are the best medicines for your pain. You may use umak-nkb-qvpczon or prescription medici jamison. You may need to take more than one medicine. It may take some time to find the best med icine or combination of medicines for your pain. Take all medicines as directed. Pain medici jamison can be used in many ways. You may take medicines: Every day to help stay ahead of the pain so that it doesn t flare up At times when pain is worse than usual Before activities that tend to trigger pain To decrease sensitivity to pain Medicines for chronic pain include: Nonsteroidal anti-inflammatory medicines (NSAIDs) for pain from swelling and inflammatio n. Your provider may prescribe a type of NSAID called a ALVAREZ inhibitor. Acetaminophen Anticonvulsants to treat nerve pain called neuropathy Antidepressants to treat neuropathy Muscle relaxants for muscle spasms Topical medicines. These are put on the skin. Opioids, or narcotics, to treat severe pain. These very strong medicines can help ease c ertain kinds of pain. They most often are used for short periods of time. Your provider will monitor your care very closely if you take opioids. Complementary therapies These are treatments that can be used along with medical care to help relieve pain. Look haven calabrese a licensed practitioner with experience treating chronic pain. Talk with your healthcare p dorina about using complementary therapies such as: Massage Acupuncture and acupressure Chiropractic Vitamins or herbal supplements Mind/body therapies The brain and the body are both part of the pain response. The brain reads the pain signals from the body. This means that your mind has some control over how pain signals are process ed. Mind/body therapies may help change how your brain reads pain signals. They may be learn ed with the help of a trained therapist or in a class. They include: Deep breathing Distraction Visualization Meditation Biofeedback Other medical treatments If other treatments don t work for you, one of these procedures or devices may help: Nerve blocks to numb nerves in a painful area Trigger point injections for painful muscles Steroid injections for joint pain Transcutaneous electrical nerve stimulation (TENS) to block pain signals to the brain Spinal stimulation to block spinal pain Implanted spinal pump that contains pain medicine Ablation using heat, cold, or chemicals to destroy painful nerves Getting physical activity Being physically active has many benefits. It can improve your ability to cope with pain. I t may also help improve your mood, sleep, and overall health. Your healthcare provider can h elp you plan an exercise program that s right for your needs. This may include: Stretching and hjagy-vz-nvlgqg exercises Low-impact exercise such as walking, biking, swimming, and other water exercise Strength training using light weights Walking up the stairs instead of taking the elevator Riding a bike instead of driving Parking your car farther from your destination You may need to not do high-impact activities. These involve jumping, running, or sudden st arts, stops, or changes of direction. If you haven t exercised in a long time or you have physical limitations, your healthcare provider may refer you to a physical therapist. He or she can teach you stretches and exercises that fit your condition and fitness level. Being active and healthy A healthier lifestyle makes it easier to cope with pain and function better. Follow these t ips: Choose a balance of healthy foods and drinks. Limit alcohol and caffeine. Go to bed at about the same time each day. Don t let pain keep you from others. Spend time with friends and family. Keep your mind active. Read books or take classes. If you re not working, volunteer or join a club or social group. Getting support A support group lets you talk with others who also have chronic pain. Chronic pain support groups can help you feel less isolated. They can also give you tips for coping with pain. To find a local support group, contact your nearest hospital or pain clinic. You may also want to try counseling. Counseling can help you learn coping skills and method s such as visualization. It can also help with mood problems. When choosing a counselor, loo k for someone who has worked with people who have chronic pain. See your provider for regular visits and let him or her know how well treatments are workin g for you. Also reach out to family and friends for help and support. For more support and information, contact these groups: [place] [employer], www.aapainmanage.org [place] [employer], www.painmed.org [place] [employer], www.theacpa.org National Pain Foundation, www.thenationalpainfoundation.org Date Last Reviewed: 02/06/201719999672-3846 [employer]. [address] [place] [address], [place] [address]. All righ ts reserved. This information is not intended as a substitute for professional medical care. Always follow your healthcare professional's instructions. Understanding Multiple Sclerosis (MS) Multiple sclerosis (MS) [...] Association of [place], www.mymsaa.org Date Last Reviewed: 04/09/201719998550-[address] [employer] [place] [address]. All righ ts reserved. This information is not intended as a substitute for professional medical care. Always follow your healthcare professional's instructions. Discharge Instructions for Multiple Sclerosis You have been diagnosed with multiple sclerosis (MS), a disease of the brain, the spinal co rd, or both.MSinvolvesthe destruction of thecovering of the nerves (myelin sheath). When the nerves are damaged, messages from the brain are not transmitted very well. You may not be able to move your body as well as you did before, and you may lose some of your abili ty to feel things, such as heat or cold. Some people may have vision problems or trouble emp tying their bladder.Here are some things you can do to feel better. Activity Do's and don'ts: Get plenty of rest.Extreme tirednessis a common symptom of MS. Plan your activities in advance. Avoid excessive heat. Use a cane or other aid to help you get around and conserve energy, if needed. Stretching can be useful with medicines to help symptoms of stiff muscles. Exercise. Aerobic exercise may improve your strength, muscle tone, balance, and coordina tion. A physical therapist can help you determine which exercises are safe for you. Swimming may be a good exercise in which your temperature doesn't increase. Never swim a lone. Other home care Moredo's and don'ts: Take yourmedicine exactly as directed by your healthcare provider. Don t skip doses. Use hot tubs or long hot bathswith caution. If you soak too long in hot water, your mu scles maybecome weak. Don t get in a hot tub unless there s someone nearby who can pul l you out if necessary. If you become overheated and your symptoms get worse, cool down for a few hours. This wi ll help you return to normal. Consider installing an air-conditioning system in your home if you don t already have one. Eat a well-balanced diet. Talk to yourhealthcare providerabout taking vitamins. Avoid constipation: Eat a diet high in fiber. Drink 6 to 8 glasses of water every day, unless directed otherwise. Use an [id number] laxative as directed by your healthcare provider. Let yourhealthcareproviderknow: About any pain you are having About any sexual issues you are having If you laugh or cry inappropriately (such as cry when you are really happy) If you feel sad or depressed If you lose your urine (incontinence) Follow-up Make a follow-up appointment. When to call your healthcare provider Call yourhealthcare providerright away if you have any of the following: Extremetiredness or increasing weakness Confusion or unusual behavior New neurologic symptoms, such as weakness or numbness in the face, arms, or legs Double vision or loss of vision Trouble urinating or change in the color or odor of your urine Fever dvnt561.4F (38.0C) Date Last Reviewed: 01/14/201519997035-0515 [employer]. [address] [place] [address], [place] [address]. All righ ts reserved. This information is not intended as a substitute for professional medical care. Always follow your healthcare professional's instructions. Estiven Gonzales MD03/23/201816:06 Electronically signed NOTE: Part of this report was transcribed using voice recognition software. Every effort was made to ensure accuracy. However, inadvertent computerize dedicated local truck driver errors may be present documented in this enc ounter Plan of Treatment + +---------+--------+ + + | Name | Type | Priori | Associated Diagnoses | Order Schedule | | | | ty | | | + +---------+--------+ + + | MRI Brain w wo | Imaging | Routin | Multiple sclerosis | Expected: | | Contrast | | e | ([facility]) Neurologic | 03/23/2018, Expires: | | | | | gait disorder | 03/23/2019 | + +---------+--------+ + + | MRI Lumbar Spine w | Imaging | Routin | Multiple sclerosis | Expected: | | wo Contrast | | e | (HCC) Neurologic | 03/23/2018, Expires: | | | | | gait disorder | 03/23/2019 | | | | | Urinary dysfunction | | + +---------+--------+ + + documented as of this encounter Visit Diagnoses + + | Diagnosis | + + | Multiple sclerosis (HCC) - Primary Multiple sclerosis | + + | Chronic low back pain without sciatica, unspecified back pain laterality | + + | Neurologic gait disorder Abnormality of gait | + + | Urinary dysfunction Other abnormality of urination | + + documented in this encounter
--- OUTSIDE RECORDS SUMMARY | ~2019-11-13 | XMS | Encounter Summary ---
Demographics + + + | Address | [address] | | | [place] [address] | + + + | Home Phone | | + + + | Preferred Language | Unknown | + + + | Marital Status | Single | + + + | Buddhist Affiliation | Unknown | + + + | Race | White | + + + | Ethnic Group | Unknown | + + + Author + + + | Author | [facility] | | | and [place] | + + + | Organization | [facility] | | | and [place] | + + + | Address | Unknown | + + + | Phone | Unavailable | + + + Support + + + + + | Name | Relationship | Address | Phone | + + + + + | Omar Gonzalez | ECON | [place] | | | | | [address] | | + + + + + | Xiang Bah | ECON | Unknown | | + + + + + Care Team Providers + +------+ + | Care Organizational Development Director Name | Role | Phone | + +------+ + | Erick Garcia PA-C | PCP | | + +------+ + Encounter Details +--------+ + + + + | Date | Type | Department | Care Team | Description | +--------+ + + + + | 06/05/ | Documentati | [facility] | Makayla Sapp RN | | | 2018 | on | [facility] | | | | | | CLINIC [address] | | | | | | [address] [place], | | | | | | [place] [address] | | | | | | [phone] | | | +--------+ + + + [...] documented as of this encounter Progress Notes Makayla Sapp RN - 06/05/2017 3:03 PM PDTPlease schedule f/u appt for pt after . /TAVIA Bryson documented in this encounter Plan of Treatment Not on filedocumented as of this encounter Visit Diagnoses Not on filedocumented in this encounter"
--- OUTSIDE RECORDS SUMMARY | ~2019-11-13 | XMS | Encounter Summary ---
Demographics + + + | Address | [address] | | | [place] [address] | + + + | Home Phone | | + + + | Preferred Language | Unknown | + + + | Marital Status | Single | + + + | Yazidi Affiliation | Unknown | + + + [...] [place] | | | | | [address] | | + + + + + | Xiang Olvin | ECON | Unknown | | + + + + + Care Team Providers + +------+ + | Care Piling Cutter Name | Role | Phone | + +------+ + | Erick Garcia PA-C | PCP | | + +------+ + Encounter Details +--------+ + + + + | Date | Type | Department | Care Team | Description | +--------+ + + + + | 11/16/ | Hospital | [facility] | Estiven Gonzales MD | | | 2014 | Encounter | [facility] | [address] | | | | | [facility] [address] | [place] [facility], [place] | | | | | [address] [place], | [address] | | | | | [place] [address] | | | | | | [phone] | | | +--------+ + + + [...]
--- OUTSIDE RECORDS SUMMARY | ~2019-11-13 | XMS | Encounter Summary ---
Demographics + + + | Address | [address] | | | [place] [address] | + + + | Home Phone | | + + + | Preferred Language | Unknown | + + + | Marital Status | Single | + + + | Quaker Affiliation | Unknown | + + + | Race | White | + + + | Ethnic Group | Unknown | + + + Author + + + | Author | [facility] | | | and [place] | + + + | Organization | [facility] | | | and [place] | + + + | Address | Unknown | + + + | Phone | Unavailable | + + + Support + + + + + | Name | Relationship | Address | Phone | + + + + + | Omar Gonzalez | ECON | [place] | | | | | [address] | | + + + + + | Xiang Olvin | ECON | Unknown | | + + + + + Care Team Providers + +------+ + | Care Coin Machine Collector Supervisor Name | Role | Phone | + +------+ + | Erick Garcia PA-C | PCP | | + +------+ + Encounter Details +--------+ + + + + | Date | Type | Department | Care Team | Description | +--------+ + + + + | 08/06/ | Hospital | [facility] | Estiven Gonzales MD | | | 2016 | Encounter | [facility] | [address] | | | | | [address] | [place] | | | | | [place] | [id number] | | | | | [address] | | | | | | [phone] | | | +--------+ + + + [...] | + +--------+ + + + | CBC W/AUTO | Routin | 08/07/2015 | | Results for this | | DIFFERENTIAL | e | 4:02 PM | | procedure are in the | | | | PDT | | results section. | + +--------+ + + + | COMPREHENSIVE | Routin | 08/07/2015 | | Results for this | | METABOLIC PANEL | e | 4:02 PM | | procedure are in the | | | | PDT | | results section. | + +--------+ + + + documented in this encounter Results Comprehensive Metabolic Panel (08/07/2015 4:02 PM PDT) + +-------+ + + + | Component | Value | Ref Range | Performed | Pathologist | | | | | At | Signature | + +-------+ + + + | Sodium | 139 | 132 - 143 | EXTERNAL | | | | | mmol/L | LAB | | + +-------+ + + + | Potassium | 4 | 3.3 - 4.9 | EXTERNAL | | | | | mmol/L | LAB | | + +-------+ + + + | Cl | 104 | 95 - 108 mmol/L | EXTERNAL | | | | | | LAB | | + +-------+ + + + | CO2 | 25 | 23 - 34 mmol/L | EXTERNAL | | | | | | LAB | | + +-------+ + + + | Anion Gap | 10 | 7 - 16 | EXTERNAL | | | | | | LAB | | + +-------+ + + + | Calcium | 8.5 | 8.3 - 10.0 | EXTERNAL | | | | | mg/dL | LAB | | + +-------+ + + + | Glucose | 95 | 70 - 110 mg/dL | EXTERNAL | | | | | | LAB | | + +-------+ + + + | BUN, Bld | 13 | 5 - 26 mg/dL | EXTERNAL | | | | | | LAB | | + +-------+ + + + | Creatinine | 0.8 | 0.60 - 1.30 | EXTERNAL | | | | | mg/dL | LAB | | + +-------+ + + + | BUN/Creatin | 16.3 | 7.0 - 24.0 | EXTERNAL | | | ine Ratio | | RATIO | LAB | | + +-------+ + + + | GFR | 60 | >=60 | EXTERNAL | | | ESTIMATE | | mL/min/1.73m2 | LAB | | | (REF) | | | | | + +-------+ + + + | Bilirubin, | 0.2 | <=1.2 mg/dL | EXTERNAL | | | Total | | | LAB | | + +-------+ + + + | Protein, | 7 | 6.6 - 8.5 g/dL | EXTERNAL | | | Total | | | LAB | | + +-------+ + + + | Albumin | 3.3 | 3.0 - 4.5 g/dL | EXTERNAL | | | | | | LAB | | + +-------+ + + + | Alkaline | 99 | 46 - 116 U/L | EXTERNAL | | | Phosphatase | | | LAB | | + +-------+ + + + | ALT, | 18 | 14 - 59 U/L | EXTERNAL | | | External | | | LAB | | + +-------+ + + + | AST, | 18 | <=38 U/L | EXTERNAL | | | External | | | LAB | | + +-------+ + + + + + | Specimen | + + | | + + + +---------+ + + | Performing | Address | City/State/Zipcode | Phone Number | | Organization | | | | + +---------+ + + | EXTERNAL LAB | | | | + +---------+ + + CBC w/ Auto Differential (08/07/2015 4:02 PM PDT) + +-------+ + + + | Component | Value | Ref Range | Performed | Pathologist | | | | | At | Signature | + +-------+ + + + | WBC | 10.2 | 4.3 - 10.4 | EXTERNAL | | | | | 1000/mm3 | LAB | | + +-------+ + + + | RBC | 4.08 | 4.12 - 5.30 | EXTERNAL | | | | | mil/mm3 | LAB | | + +-------+ + + + | HGB, | 11.8 | 12.4 - 15.7 | EXTERNAL | | | External | | g/dL | LAB | | + +-------+ + + + | HCT, | 35.5 | 37.7 - 47.0 % | EXTERNAL | | | External | | | LAB | | + +-------+ + + + | MCV | 87 | 82 - 97 fl | EXTERNAL | | | | | | LAB | | + +-------+ + + + | MCH | 28.9 | 27.1 - 32.3 pg | EXTERNAL | | | | | | LAB | | + +-------+ + + + | MCHC | 33.2 | 32.0 - 36.9 | EXTERNAL | | | | | g/dL | LAB | | + +-------+ + + + | RDW-CV | 12.6 | <=17.0 % | EXTERNAL | | | | | | LAB | | + +-------+ + + + | Platelet | 310 | 150 - 450 | EXTERNAL | | | Count | | 1000/mm3 | LAB | | | Plasma | | | | | + +-------+ + + + | MPV | 10.3 | 9.4 - 12.3 FL | EXTERNAL | | | | | | LAB | | + +-------+ + + + | % Segmented | 71.2 | 42.0 - 76.0 % | EXTERNAL | | | | | | LAB | | | Neutrophils | | | | | + +-------+ + + + | LYMPH % | 22.6 | 20.0 - 40.0 % | EXTERNAL | | | | | | LAB | | + +-------+ + + + | % Monocytes | 6.2 | <=12.0 % | EXTERNAL | | | | | | LAB | | + +-------+ + + + | Absolute | 7.3 | 2.50 - 8.50 | EXTERNAL | | | Neutrophils | | 1000/mm3 | LAB | | + +-------+ + + + | Absolute | 2.3 | 1.00 - 3.80 | EXTERNAL | | | Lymphocytes | | 1000/mm3 | LAB | | + +-------+ + + + | Absolute | 0.6 | <=1.25 1000/mm3 | EXTERNAL | | | Monocytes | | | LAB | | + +-------+ + + + | SLIDE | NO | | EXTERNAL | | | REVIEW | | | LAB | | + +-------+ + + + + + | Specimen | + + | | + + + +---------+ + + | Performing | Address | City/State/Zipcode | Phone Number | | Organization | | | | + +---------+ + + | EXTERNAL LAB | | | | + +---------+ + + documented in this encounter Visit Diagnoses Not on filedocumented in this encounter"
--- OUTSIDE RECORDS SUMMARY | ~2019-11-13 | XMS | Encounter Summary ---
Demographics + + + | Address | [address] | | | [place] [address] | + + + | Home Phone | | + + + | Preferred Language | Unknown | + + + | Marital Status | Single | + + + | Mandaeism Affiliation | Unknown | + + + | Race | White | + + + | Ethnic Group | Unknown | + + + Author + + + | Author | [facility] | | | and [place] | + + + | Organization | [facility] | | | and [place] | + + + | Address | Unknown | + + + | Phone | Unavailable | + + + Support + + + + + | Name | Relationship | Address | Phone | + + + + + | Omar Gonzalez | ECON | [place] | | | | | [address] | | + + + + + | Xiang Olvin | ECON | Unknown | | + + + + + Care Team Providers + +------+ + | Care Fire Marshal Name | Role | Phone | + +------+ + | Erick Garcia PA-C | PCP | | + +------+ + Reason for Visit + +--------+ + | Reason | Onset | Comments | | | Date | | + +--------+ + | Multiple Sclerosis | 06/07/ | | | | 2017 | | + +--------+ + Encounter Details +--------+ + + + + | Date | Type | Department | Care Team | Description | +--------+ + + + + | 08/13/ | Telephone | [facility] | Estiven Gonzales MD | Multiple Sclerosis | | 2017 | | [facility] | [address] [place] [place] | | | | | CLINIC [address] | [place] | | | | | [address] [place], | [address] | | | | | [place] [address] | | | | | | [phone] | | | +--------+ + + + [...] this encounter Miscellaneous Notes Telephone Encounter - Estiven Gonzales MD - 08/13/2017 2:39 PM PDTCalled and discussed with Dr. Kelly, Michele de, Sabi having weakness and started on pulse steroids though complian t, started pulse steroids , gave options to Dr. Kelly to continue the pulse steroids for to 3 more days with to go to oral steroids prednisone 60 mg and taper 10 mg every 4 days to finish to be taken with food; of special note, patient is +/-36 weeks in AOGElectronically s igned by Estiven Gonzales MD at 08/13/2017 2:40 PM PDTdocumented in this encounter Plan of Treatment Not on filedocumented as of this encounter Visit Diagnoses Not on filedocumented in this encounter"
--- OUTSIDE RECORDS SUMMARY | ~2019-11-13 | XMS | Encounter Summary ---
Demographics + + + | Address | [address] | | | [place] [address] | + + + | Home Phone | | + + + | Preferred Language | Unknown | + + + | Marital Status | Single | + + + | Caodaism Affiliation | Unknown | + + + | Race | White | + + + | Ethnic Group | Unknown | + + + Author + + + | Author | [facility] | | | and [place] | + + + | Organization | [facility] | | | and [place] | + + + | Address | Unknown | + + + | Phone | Unavailable | + + + Support + + + + + | Name | Relationship | Address | Phone | + + + + + | Omar Gonzalez | ECON | [place] | | | | | [address] | | + + + + + | Xiang Bah | ECON | Unknown | | + + + + + Care Team Providers + +------+ + | Care Mold Stripper Name | Role | Phone | + +------+ + | Erick Garcia PA-C | PCP | | + +------+ + Encounter Details +--------+ + + + + | Date | Type | Department | Care Team | Description | +--------+ + + + + | 05/26/ | Documentati | [facility] | Makayla Sapp RN | | | 2019 | on | [facility] | | | | | | CLINIC [address] | | | | | | [address] [place], | | | | | | [place] [address] | | | | | | [phone] | | | +--------+ + + + [...] encounter Progress Notes Makayla Sapp RN - 05/26/2018 2:57 PM PDTSpoke with pt, and reminded her that she has MR I of brain & lower back ordered, on 03/23/18. Informed her that she must call [facility], and make appt, they will not call her, pt stated understanding. Also, told her that her auth for MRI's will by June 21,so need to scheduled appt before christophe /TAVIA BrysonElectr onically signed by Makayla Sapp RN at 05/26/2018 3:00 PM PDTdocumented in this encounter Plan of Treatment Not on filedocumented as of this encounter Visit Diagnoses Not on filedocumented in this encounter"
--- OUTSIDE RECORDS SUMMARY | ~2019-11-13 | XMS | Encounter Summary ---
Demographics + + + | Address | [address] | | | [place] [address] | + + + | Home Phone | | + + + | Preferred Language | Unknown | + + + | Marital Status | Single | + + + | Judaism Affiliation | Unknown | + + + [...] [place] | | | | | [address] | | + + + + + | Xiang Bah | ECON | Unknown | | + + + + + Care Team Providers + +------+ + | Care Wood Lather Name | Role | Phone | + +------+ + | Erick Garcia PA-C | PCP | | + +------+ + Reason for Visit + + + | Reason | Comments | + + + | Multiple Sclerosis | Here to discuss having MS with Dr. Edwards. Patient states that she | | | is dizzy, blurry vision, her left side goes numb, she can have a | | | tingling feeling down her spine and into her legs, sometimes she | | | spaces off. Both of her legs sometimes go numb and she has a | | | hard time going around. | + + + | Headache | Pain in the right side of her head and patient states she has | | | headaches quite a bit. | + + + Evaluate & Treat (Routine) +--------+--------+ + + + + | Status | Reason | Specialty | Diagnoses / | Referred By | Referred To | | | | | Procedures | Contact | Contact | +--------+--------+ + + + + | Closed | | Neurology | Diagnoses | Radha, | Jerry, Dylan, | | | | | Multiple | Erick, | MD [address] | | | | | sclerosis | PA-C [address] | [place] | | | | | ([facility]) | [address] | [address] | | | | | [address] | [place], | | | | | | [place], | [place] [address] | | | | | | [place] [address] | Phone: | | | | | | Phone: | [phone] | | | | | | [phone] | Fax: | | | | | | Fax: | [phone] | | | | | | [phone] | | +--------+--------+ + + + + Encounter Details +--------+---------+ + + + | Date | Type | Department | Care Team | Description | +--------+---------+ + + + | 11/25/ | Office | [facility] [place] | Dylan Edwards MD [address] | MS (multiple | | 2013 | Visit | [facility] [place] | [address] [address] | sclerosis) (HCC) | | | | [address] [facility], | [address], | (Primary Dx) | | | | [address] [place] | [place] [address] | | | | | [place] [address] | [phone] | | | | | [phone] | | | +--------+---------+ + + + Social History [...] + + + | Blood Pressure | 110/80 | 11/25/2012 2:59 PM | | | | | PDT | | + + + + + | Pulse | 102 | 11/25/2012 2:59 PM | | | | | PDT | | + + + + + | Temperature | - | - | | + + + + + | Respiratory Rate | 12 | 11/25/2012 2:59 PM | | | | | PDT | | + + + + + | Oxygen Saturation | 98% | 11/25/2012 2:59 PM | | | | | PDT | | + + + + + | Inhaled Oxygen | - | - | | | Concentration | | | | + + + + + | Weight | 116.8 kg (257 lb 8 | 11/25/2012 2:59 PM | | | | oz) | PDT | | + + + + + | Height | 159 cm (5' 2.6") | 11/25/2012 2:59 PM | | | | | PDT | | + + + + + | Body Mass Index | 46.2 | 11/25/2012 2:59 PM | | | | | PDT | | + + + + + documented in this encounter Patient Instructions Patient Instructions Dylan Edwards MD - 11/25/2012 3:45 PM PDT1. Check vit D level 2. Consider disease modifying medications, rebif or copaxone. 3. [employer] MS society website there are a lot useful information. Call me if you have any questions. Patient Education Interferon Beta-1a Solution for injection (rebif) What is this medicine? INTERFERON BETA-1a (in ter FEER on [place]) helps to decrease the number of multiple sclerosis attacks and to slow physical disability in people with relapsing forms of the dis ease. The medicine does not cure multiple sclerosis. This medicine may be used for other purposes; ask your health care provider or pharmacist i f you have questions. What should I tell my health care provider before I take this medicine? They need to know if you have any of these conditions: depression drink more than 3 alcohol containing drinks per day heart disease or irregular heart beats/rhythm immune system problems liver disease seizures thyroid disease an unusual or allergic reaction to interferon, hamster proteins, albumin, mannitol, or o ther medicines, foods, dyes, or preservatives or trying to get breast-feeding How should I use this medicine? This medicine is for injection under the skin. You will be taught how to prepare and give t his medicine. Use exactly as directed. Take your medicine at regular intervals. Do not take it more often than directed. It is important that you put your used needles and syringes in a special sharps container. Do not put them in a trash can. If you do not have a sharps container, call your pharmacist or healthcare provider to get one. A special MedGuide will be given to you by the pharmacist with each prescription and refill . Be sure to read this information carefully each time. Talk to your net mobile developer regarding the use of this medicine in children. Special care may be needed. Patients over 65 years old may have a stronger reaction and need a smaller dose. The bonsai tender of the medicine offers free information to patients and their health care partners. Call 864-920-4218 for more information. Overdosage: If you think you have taken [...] Do not take double or extra doses. Do not give 2 injections within 2 days of each other. If you accidentally take a dose on 2 consecutive days, call your doctor or [facility] memory care program resident. What may interact with this medicine? zidovudine, AZT This list may not describe all possible interactions. Give your health care provider a list of all the medicines, herbs, non-prescription drugs, or dietary supplements you use. Also t ell them if you smoke, drink alcohol, or use illegal drugs. Some items may interact with you r medicine. What should I watch for while using this medicine? Visit your doctor or health memory care program resident for regular checks on your progress. You will need frequent blood checks. Flu-like symptoms are common with the medicine. Using this medicine at night may help. Ask your doctor or health memory care program resident about taking acetaminophen or ibuprofen before your dose and for 24 hours after you receive your injection. Do not become while taking this medicine. Women should inform their doctor if they wish to become or think they might be . There is a potential for serious s kasey effects to an unborn child. Talk to your health memory care program resident or pharmacist for more information. What side effects may I notice from receiving this medicine? Side effects that you should report to your doctor or health memory care program resident as soon as p ossible: a skin sore with a black-blue color, swelling, or drainage allergic reactions like skin rash, itching or hives, swelling of the face, lips, or tong ue breathing problems depression pain at site where injected seizures severe stomach pain signs of infection - fever or chills, cough, sore throat, pain or difficulty passing uri ne swelling of the ankles unusual bleeding or bruising unusually weak or tired yellowing of the eyes or skin Side effects that usually do not require medical attention (report to your doctor or health memory care program resident if they continue or are bothersome): dizziness headache menstrual changes muscle aches nausea redness or irritation at site where injected tiredness This list may not describe all possible side effects. Call your doctor for medical advice a bout side effects. You may report side effects to FDA at 7-703-ZTD-1504. Where should I keep my medicine? Keep out of the reach of children. Store in a refrigerator between 2 and 8 degrees C (36 and 46 degrees F). Do not freeze. If a refrigerator is not available, the medicine can be kept cool at or below 25 degrees C (77 degrees F) for up to 30 days. Protect from light. Throw away any unused medicine after the e xpiration date. NOTE:This sheet is a summary. It may not cover all possible information. If you have questi ons about this medicine, talk to your doctor, pharmacist, or health care provider. Copyright 2013 Gold Standard Glatiramer Acetate Solution for injection (copaxone) What is this medicine? GLATIRAMER (gla TIR [...] provider to get one. Talk to your net mobile developer regarding the use of this medicine in [...] this medicine? Visit your doctor or health memory care program resident for regular checks on your progress. What side effects may I notice from receiving this medicine? Side effects that you should report to your doctor or health memory care program resident as soon as p ossible: allergic reactions [...] attention (report to your doctor or health memory care program resident if they continue or are bothersome): anxiety dizziness drowsiness flushing joint aches nausea, vomiting pain, redness, itching, or irritation at the injection site tremor weakness This list may not describe all possible side effects. Call your doctor for medical advice a bout side effects. You may report side effects to FDA at 3-665-ACZ-4004. Where should I keep my medicine? Keep [...] encounter Progress Notes Dylan Edwards MD - 11/25/2012 3:35 PM PDTFormatting of this note might be different from the o riginal. Neurology New Patient Evaluation Referring Physician: Erick Garcia PA-C PCP: Erick Garcia PA-C Date of Encounter: 11/25/2012 CC: Multiple sclerosis HPI: Sabi Gatica is a pleasant 22 y.o. female who is 36 weeks gestation who presents t o the clinic today for multiple sclerosis. The patient had acute onset left-sided weakness, numbness, dizziness, headache and blurry v ision in April. She was admitted to [facility]. MRI of brain revealed multip le white matter periventricular and juxtacortical hyperintensities, there was a contrast enh ancing lesion in the right thalamic area. MRA of head and neck was normal. Patient had lum bar puncture and CSF showed wbc 2, RBC 8350, glucose 50, protein 43 and oligoclonal band pre sent. NMO was negative. Patient also had MRI of the C-spine, which showed multiple hyperin tensities in the cervical spine with one possible faint enhancement at C6. VEP was normal. B12 was 706. Negative for lyme and syphillis. She at that time was just found to be . Decision was made to not treat with steroids. Her symptoms gradually improved. She was then seen in the multiple sclerosis clinic at [facility], whom confirmed the diagnosis of multiple sclerosis. Since then she reports intermittent numbness involving the left face, arm and l eg, she also reports back pain and intermittent numbness in both legs. She denies radicular type of pain. There was no significant weakness. She still has intermittent blurry vision and brief eye pain that last for a few minutes. She still has intermittent headaches and d izziness. She still smokes. Extensive medical records, labs and diagnostic studies were rev iewed and summarized here. Allergies Allergies Allergen Reactions Amoxicillin Medications vitamins Hydrocodone as needed for back pain Promethazine as needed for nausea Past Medical History Past Medical History Diagnosis Date Asthma Family History Family History Problem Relation Age of Onset Other (See Comment) Mother Heart problems, blood clots, hypertension, lung problems, stroke Other (See Comment) Father Stroke Other (See Comment) Brother Hypertension, lung problems, mental illness Social History History Social History Marital Status: Unknown Spouse Name: N/A Number of Children: N/A Years of Education: N/A Occupational History Not on file. Social History Main Topics Smoking status: Current Some Day Smoker Smokeless tobacco: Never Used Alcohol Use: No Drug Use: No Sexually Active: Yes -- Male partner(s) Other Topics Concern Not on file Social History Narrative No narrative on file Review of Systems In addition to HPI, a comprehensive ROS also revealed (See scanned intake form): Ophthalmic: Blurry vision Psychological: Memory difficulties Physical Exam: BP 110/80 | Pulse 102 | Resp 12 | Ht 1.59 m (5' 2.6") | Wt 116.801 kg (257 lb 8 oz) | BMI 4 6.20 kg/m2 | SpO2 98% | ? No General: WDWN, NAD. Head is ataumatic, normocephalic. Conjunctiva without injection. Neck is supple. Lungs are clear to auscultation bilaterally. Heart is regular. No pedal edema. MS: Awake, alert, oriented x3. Cooperative and appropirate during the encounter. Speech is rosa r, fluent and coherent. Attention and memory intact. CN: Fundus showed optic disc with sharp border, no pallor. VFF to confrontation. EOMI. PERRLA. Facial sensation is mildly decreased on the left side. Face is symmtric. Palate elevation is symmetric. Shoulder shrug 5/5. Tongue protrusion is midline. Motor: Bulk: normal Tone: normal Muscle strength: full in all extremities. No pronator drift or orbiting. DTR 2+ and symmetrical in the upper extremities, 1+ in lower extremities. Plantar reflexes: Flat Abnormal movement: none. Sensory: Mildly decreased to light touch in the left lower extremity. Coordination: FNF/HKS intact Gait: Steady. Romberg sign is absent. Assessment/Plan: RR MS - We discussed treatment options and potential side effects of each DMT. Reference material s for rebif and Copaxone was given to the patient. Treatment should be started once the baby is delivered. - has protective effect for MS. Delivery increases risk of relapses. With relapse s during and cervical spine lesions, we discussed she may have more aggressive typ e of MS. - Check vitamin D level - Quit smoking - For blurry vision I recommended for her to see her eye doctor. Her VEP was normal. Fund us was normal. It does not appear that the blurry vision is related to MS. Thank you for allowing me to take care of this patient. Please do not hesitate to contact m e if you have any questions. Cc: Erick Garcia PA-C documented in this encounter Miscellaneous Notes Miscellaneous - ONBASE NICKO ANDERSON - 11/25/2012 12:00 AM PDT documented in this encounter Plan of Treatment Not on filedocumented as of this encounter Results Vitamin D, 25-Hydroxy (11/25/2012 4:07 PM PDT) [...] + | [facility] | [address] | [place], [place] | [phone] | | [facility] | | [address] | | | - LABORATORY | | | | + + + + + | [facility] | [address] | [place], [place] | | | [facility] | | [address], [facility] | | | - LABORATORY | | | | + + + + + documented in this encounter Visit Diagnoses + + | Diagnosis | + + | MS (multiple sclerosis) (HCC) - Primary Multiple sclerosis | + + documented in this encounter
--- OUTSIDE RECORDS SUMMARY | ~2019-11-13 | XMS | Encounter Summary ---
Demographics + + + | Address | [address] | | | [place] [address] | + + + | Home Phone | | + + + | Preferred Language | Unknown | + + + | Marital Status | Single | + + + | Catholic Affiliation | Unknown | + + + [...] [place] | | | | | [address] | | + + + + + | Xiang Olvin | ECON | Unknown | | + + + + + Care Team Providers + +------+ + | Care Pathology Transcriptionist Name | Role | Phone | + +------+ + | Erick Garcia PA-C | PCP | | + +------+ + Encounter Details +--------+ + + + + | Date | Type | Department | Care Team | Description | +--------+ + + + + | 08/06/ | Hospital | [facility] | Estiven Gonzales MD | | | 2016 | Encounter | [facility] | [address] | | | | | MEDICAL [facility] [address] | [facility], [place] | | | | | [address] [place], | [address] | | | | | [place] [address] | | | | | | [phone] | | | +--------+ + + + [...]
--- OUTSIDE RECORDS SUMMARY | ~2019-11-13 | XMS | Clinical Summary ---
Demographics + + + | Address | [address] | | | [place] [address] | + + + | Home Phone | | + + + | Preferred Language | Unknown | + + + | Marital Status | Single | + + + | Mormon Affiliation | Unknown | + + + | Race | White | + + + | Ethnic Group | Unknown | + + + Author + + + | Author | [facility] | | | and [place] | + + + | Organization | [facility] | | | and [place] | + + + | Address | Unknown | + + + | Phone | Unavailable | + + + Support + + + + + | Name | Relationship | Address | Phone | + + + + + | Omar Lisa | ECON | [place] | | | | | [address] | | + + + + + | Xiang Bah | ECON | Unknown | | + + + + + Care Team Providers + +------+ + | Care Rn Anesthetist Name | Role | Phone | + +------+ + | Erick Garcia PA-C | PCP | | + +------+ + Allergies + + + + + + | Active Allergy | Reactions | Severity | Noted | Comments | | | | | Date | | + + + + + + | Amoxicillin-Pot | Nausea And Vomiting | Low | 05/16/19 | And red rash | | Clavulanate | | | 13 | | + + + + + + | Amoxicillin | | High | 11/26/19 | | | | | | 13 | | + + + + + + | Penicillins | Nausea And Vomiting | Low | 05/16/19 | Rash | | | | | 13 | | + + + + + + | Tramadol | Other (See Comments) | Low | 09/06/19 | Horrible headache | | | | | 15 | | + + + + + + Medications + + + +---------+------+------+-------+ | Medication | Sig | Dispensed | Refills | Star | End | Statu | | | | | | t | Date | s | | | | | | Date | | | + + + +---------+------+------+-------+ | ALBUTEROL SULFATE | Take by mouth. | | 0 | 09/1 | | Activ | | IN | | | | 0/20 | | e | | | | | | 14 | | | + + + +---------+------+------+-------+ | docusate sodium | Take 200 mg by | | 0 | 07/0 | | Activ | | (STOOL SOFTENER) 100 | mouth. | | | 8/20 | | e | | mg capsule | | | | 15 | | | + + + +---------+------+------+-------+ | baclofen | Take 1 tablet by | 90 | 5 | 11/2 | | Activ | | (LIORESAL) 10 mg | mouth 3 times daily. | tablet | | 6/20 | | e | | tabletIndications: | | | | 18 | | | | Acute relapsing | | | | | | | | multiple sclerosis | | | | | | | | (HCC) | | | | | | | + + + +---------+------+------+-------+ | zonisamide | Take 2 capsules by | 60 | 5 | 11/2 | | Activ | | (ZONEGRAN) 100 mg | mouth nightly. | capsule | | 6/20 | | e | | capsuleIndications: | | | | 18 | | | | Acute relapsing | | | | | | | | multiple sclerosis | | | | | | | | (HCC) | | | | | | | + + + +---------+------+------+-------+ | buprenorphine | Place 1 tablet under | | 0 | 11/2 | | Activ | | (SUBUTEX) 2 mg SUBL | the tongue 3 times | | | 7/20 | | e | | | daily. | | | 18 | | | + + + +---------+------+------+-------+ | cloNIDine | Take 1 tablet by | | 0 | 11/2 | | Activ | | (CATAPRES) 0.1 mg | mouth 3 times daily. | | | 7/20 | | e | | tablet | | | | 18 | | | + + + +---------+------+------+-------+ | DULoxetine | Take 1 capsule by | | 0 | 11/2 | | Activ | | (CYMBALTA) [address] | mouth Daily. | | | 7/20 | | e | | capsule | | | | 18 | | | + + + +---------+------+------+-------+ | prazosin | Take 1 capsule by | | 0 | 11/2 | | Activ | | (MINIPRESS) 2 MG | mouth nightly. | | | 7/20 | | e | | capsule | | | | 18 | | | + + + +---------+------+------+-------+ | gabapentin | Take 1 capsule by | 120 | 5 | 09/0 | | Activ | | (NEURONTIN) 300 mg | mouth 4 times daily. | capsule | | 05/26 | | e | | capsuleIndications: | | | | 19 | | | | Chronic bilateral | | | | | | | | low back pain with | | | | | | | | bilateral sciatica, | | | | | | | | Acute relapsing | | | | | | | | multiple sclerosis | | | | | | | | (HCC) | | | | | | | + + + +---------+------+------+-------+ Active Problems + + + | Problem | Noted Date | + + + | Ataxic gait | 10/11/2014 | + + + | Low back pain | 10/11/2014 | + + + | Anxiety | 09/05/2014 | + + + | Central loss of vision | 09/05/2014 | + + + + + | Overview: Overview: On the left, baseline, she can see shapes | | and movement peripherally. | + + + + + | History of methamphetamine abuse | 09/05/2014 | + + + + + | Overview: Overview: | | Reportedly sober 43 days. | + + + + + | Impaired activities of daily living | 09/05/2014 | + + + | Impaired mobility | 09/05/2014 | + + + | PTSD (post-traumatic stress disorder) | 09/05/2014 | + + + | ADHD (attention deficit hyperactivity disorder) | 09/04/2014 | + + + + + | Overview: Overview: Previously on Cymbalta and Klonopin but | | d/c'd after she learned she was . | + + +--------+ + | Asthma | 09/04/2014 | +--------+ + + + | Overview: Overview: | | Does not require inhalers | + + + + + | Rh negative status during | 09/04/2014 | + + + + + | Overview: Overview: 09/03/14 ([facility]): 9w6d, S=D, SLIUP, | | 1.7 x 0.5 x 0.4 cm subchorionic hematoma. Given rhogam 08/31/2014. | + + + + + | Bilateral leg numbness | 09/01/2014 | + + + | Hyponatremia | 09/01/2014 | + + + | Leg weakness, bilateral | 09/01/2014 | + + + | Depression | 11/16/2013 | + + + | Multiple sclerosis | 11/26/2012 | + + + + + | Overview: Current Treatment: Copaxone without | | Substitution Failed Treatment: Copaxone with subsitiute | | developed nausea and a rash 05/16/12 MRI of Cervical Spine: | | multiple areas of ill-defined increased T2 signal intensity | | within the cervical cord at C2, C5 and C6 suggestive of multiple | | sclerosis plaques. May be faint enhancement involving the plaque | | on the left side of the cord at C6 suggesting an area of active | | demyelination | + + + + + | Ataxia | 06/02/2012 | + + + | Morbid obesity with BMI of 45.0-49.9, adult | 06/02/2012 | + + + | Tobacco abuse | 06/02/2012 | + + + | Tobacco dependence syndrome | 06/02/2012 | + + + | Weakness of left side of body | 05/15/2012 | + + + Immunizations + + + + | Name | Administration Dates | Next Due | + + + + | INFLUENZA PF | 01/05/2015 | | | TRIVALENT(PED/ADOL/A | | | | TERE)VENUS | | | + + + + | TDAP, (ADOL/ADULT) | 01/18/2015 | | + + + + Family History + + +------+ + | Medical History | Relation | Name | Comments | + + +------+ + | Other (see comment) | Brother | | Hypertension, lung problems, mental illness | + + +------+ + | Other (see comment) | Father | | Stroke | + + +------+ + | Other (see comment) | Mother | | Heart problems, blood clots, hypertension, | | | | | lung problems, stroke | + + +------+ + + +------+--------+ + | Relation | Name | Status | Comments | + +------+--------+ + | Brother | | | | + +------+--------+ + | Father | | | | + +------+--------+ + | Mother | | | | + +------+--------+ + Social History + +-------+ +--------+------+ | [...] on file | | + + + Last Filed Vital Signs + + + [...] | | + + + + + Plan of Treatment + + + + + | Health Maintenance | Due Date | Last | Comments | | | | Done | | + + + + + | Hepatitis C | | | | | Screening | 1 | | | + + + + + | Medication | | | | | Management | 1 | | | + + + + + | Vaccine: | | | | | Pneumococcal 19-64 | 7 | | | | (1 of 1 - PPSV23) | | | | + + + + + | Cervical Cancer | | | | | Screening (Pap) | 2 | | | + + + + + | Med Mgmt: Cr | | 08/07/19 | | | | 7 | 16 | | + + + + + | Med Mgmt: eGFR | | 08/07/19 | | | | 7 | 16 | | + + + + + | Vaccine: Influenza | | 01/06/20 | | | (#1) | 0 | 15 | | + + + + + | Vaccine: | | 01/19/20 | | | Dtap/Tdap/Td (2 - | 5 | 15 | | | Td) | | | | + + + + + Results Not on filefrom Last 3 Months Insurance + +--------+ +--------+ +---------+--------+ | Payer | Benefi | Subscriber | Effect | Phone | Address | Type | | | t Plan | ID | tiburcio | | | | | | / | | Dates | | | | | | Group | | | | | | + +--------+ +--------+ +---------+--------+ | [employer] | MODA | [id number] | | [phone] | | Medica | | MEDICAID HMO | HEALTH | | 013-Pr | 1 | | id | | | MDCD | | esent | | | | | [place] | | | | | | + +--------+ +--------+ +---------+--------+ | [employer] | MODA | [id number] | 03/04/ | [phone] | | Medica | | MEDICAID HMO | HEALTH | | 2017-P | 1 | | id | | | MDCD | | resent | | | | | | [place] | | | | | | + +--------+ +--------+ +---------+--------+ + +--------+ +--------+ + + | Guarantor Name | Accoun | Relation to | Date | Phone | Billing Address | | | t Type | Patient | of | | | | | | | | | | + +--------+ +--------+ + + | Sabi Bah | Person | Self | [birth year] | [address] | | | al/Fam | | 1989 | [phone] | [address] [place], | | | [place] | | | [address] (Home) | [place] [address] | + +--------+ +--------+ + + | Sabi Bah | Person | Self | [birth year] | [address] | | | al/Fam | | 1989 | [phone] | [address] [place], | | | [place] | | | [address] (Home) | [place] [address] | + +--------+ +--------+ + + | Sabi Bah | Person | Self | [birth year] | [address] | | | al/Fam | | 1989 | [phone] | [address] [place], | | | [place] | | | [address] (Home) | [place] [address] | + +--------+ +--------+ + + Advance Directives + + + + + | Type | Date Recorded | Patient | Explanation | | | | Snuff Drier | | + + + + + | Power of | | | | | Grinder Dresser | | | | + + + + + | Advance | | | | | Directive | | | | + + + + +
--- OUTSIDE RECORDS SUMMARY | ~2019-11-13 | XMS | Encounter Summary ---
Demographics + + + | Address | [address] | | | [place] [address] | + + + | Home Phone [...] [place] | | | | | [address] | | + + + + + | Xiang Olvin | ECON | Unknown | | + + + + + Care Team Providers + +------+ + | Care Open Hearth Helper Name | Role | Phone | + +------+ + PCP | Unavailable | + +------+ + Encounter Details +--------+ + + + + | Date | Type | Department | Care Team | Description | +--------+ + + + + | 11/23/ | Hospital | [facility] | Rosamaria Castellon, | | | 2010 | Encounter | [facility] | [facility] [address] | | | | | CENTER [address] | [place] | | | | | [place] | [address] | | | | | [address] | | | | | | [phone] | | | +--------+ + + + [...]
--- OUTSIDE RECORDS SUMMARY | ~2019-11-13 | XMS | Encounter Summary ---
Demographics + + + | Address | [address] | | | [place] [address] | + + + | Home Phone | | + + + | Preferred Language | Unknown | + + + | Marital Status | Single | + + + | Hindu Affiliation | Unknown | + + + [...] [place] | | | | | [address] | | + + + + + | Xiang Olvin | ECON | Unknown | | + + + + + Care Team Providers + +------+ + | Care Metaphysics Teacher Name | Role | Phone | + +------+ + | Erick Garcia PA-C | PCP | | + +------+ + Encounter Details +--------+ + + + + | Date | Type | Department | Care Team | Description | +--------+ + + + + | 02/02/ | Orders Only | [facility] | Alexandra, | Acute relapsing | | 2018 | | HOSPITAL [facility] | Rashimdeniskristan, [facility] [address] | multiple sclerosis | | | | CLINIC [address] | [facility], | (HCC) (Primary Dx) | | | | [address] [place], | [place] [address] | | | | | [place] [address] | [phone] | | | | | [phone] | | | +--------+ + + + [...] + | Acute relapsing multiple sclerosis (HCC) - Primary Multiple sclerosis | + + documented in this encounter"
--- OUTSIDE RECORDS SUMMARY | ~2019-11-13 | XMS | Encounter Summary ---
Demographics + + + | Address | [address] | | | [place] [address] | + + + | Home Phone | | + + + | Preferred Language | Unknown | + + + | Marital Status | Single | + + + | Hinduism Affiliation | Unknown | + + + [...] [place] | | | | | [address] | | + + + + + | Xiang Olvin | ECON | Unknown | | + + + + + Care Team Providers + +------+ + | Care Hospice Manager Name | Role | Phone | + +------+ + | Erick Garcia PA-C | PCP | | + +------+ + Encounter Details +--------+ + + + + | Date | Type | Department | Care Team | Description | +--------+ + + + + | 04/18/ | Hospital | [facility] | Estiven Gonzales MD | | | 2015 | Encounter | [facility] | [address] | | | | | MEDICAL CL[facility] [address] | [facility], [place] | | | | | [address] [place], | [address] | | | | | [place] [address] | | | | | | [phone] | | | +--------+ + + + [...]
--- OUTSIDE RECORDS SUMMARY | ~2019-11-13 | XMS | Encounter Summary ---
Demographics + + + | Address | [address] | | | [place] [address] | + + + | Home Phone | | + + + | Preferred Language | Unknown | + + + | Marital Status | Single | + + + | Voodoo Affiliation | Unknown | + + + | Race | White | + + + | Ethnic Group | Unknown | + + + Author + + + | Author | [facility] | | | and [place] | + + + | Organization | [facility] | | | and [place] | + + + | Address | Unknown | + + + | Phone | Unavailable | + + + Support + + + + + | Name | Relationship | Address | Phone | + + + + + | Omar Canruperto | ECON | [place] | | | | | [address] | | + + + + + | Xiang Olvin | ECON | Unknown | | + + + + + Care Team Providers + +------+ + | Care Hand Rug Braider Name | Role | Phone | + +------+ + | Erick Garcia PA-C | PCP | | + +------+ + Encounter Details +--------+ + + + + | Date | Type | Department | Care Team | Description | +--------+ + + + + | 12/02/ | Orders Only | [facility] | Dylan Edwards MD [address] | Vitamin d deficiency | | 2012 | | NEUROLOGY [place] | [address] | (Primary Dx) | | | | [address] [facility], | [address] | | | | | [place] [address] [facility] | [place] [address] | | | | | [place] [address] | [phone] | | | | | [phone] | | | +--------+ + + + [...] + | Diagnosis | + + | Vitamin D deficiency - Primary Unspecified vitamin D deficiency | + + documented in this encounter"
--- OUTSIDE RECORDS SUMMARY | ~2019-11-13 | XMS | Encounter Summary ---
Demographics + + + | Address | [address] | | | [place] [address] | + + + | Home Phone | | + + + | Preferred Language | Unknown | + + + | Marital Status | Single | + + + | Buddhist Affiliation | Unknown | + + + | Race | White | + + + | Ethnic Group | Unknown | + + + Author + + + | Author | [facility] | | | and [place] | + + + | Organization | [facility] | | | and [place] | + + + | Address | Unknown | + + + | Phone | Unavailable | + + + Support + + + + + | Name | Relationship | Address | Phone | + + + + + | Omar Gonzalez | ECON | [place] | | | | | [address] | | + + + + + | Xiang Bah | ECON | Unknown | | + + + + + Care Team Providers + +------+ + | Care Center Rep Name | Role | Phone | + +------+ + | Erick Garcia PA-C | PCP | | + +------+ + Reason for Visit + +--------+ + | Reason | Onset | Comments | | | Date | | + +--------+ + | Advice Only | 08/10/ | | | | 2017 | | + +--------+ + Encounter Details +--------+ + + + + | Date | Type | Department | Care Team | Description | +--------+ + + + + | 08/10/ | Telephone | [facility] | Estiven Gonzales MD | Advice Only | | 2018 | | HOSPITAL NEUROLOGY | [address] | | | | | CLINIC [address] | [place] | | | | | [address] [place], | [address] | | | | | [place] [address] | | | | | | [phone] | | | +--------+ + + + [...] Telephone Encounter - Makayla Sapp RN - 08/11/2017 3:32 PM PDTCalled and spoke with pt and referred to ER in [facility] pt has not been seen by Dr. Gonzales since 11/08/15 and [facility] 05/27. Pt is also now and see OB - Dr. Staley? and has no PCP. /Eliseo pressley RN elephone Encoun Jayda Robledo - 08/11/2017 2:37 PM PDTPatient called again. She said that her right leg is very weak and she is having difficulty supporting herself and walking. I offered an appt for 08/[address] Gonzales but she has to give med transport 3 days notice. She is wondering if there is a possibility to order steroid IV infusion to the [facility] for her MS. Please contact the patient and discuss. Thank you elephone Encoun Nirali Garcia CC CMA - 08/10/2017 4:35 PM PDTPlease advise elephone Encounter - Nehal Drew - 08/10/2017 4:31 PM PDTThe patient called because her MS is acting up. Her arms feel we ak, like they are floating. She is and cannot take her meds. She would go to the hospital in [place] but they do no know how to treat her so she thought she would call our office. documented in this encounter Plan of Treatment Not on filedocumented as of this encounter Visit Diagnoses Not on filedocumented in this encounter"
--- OUTSIDE RECORDS SUMMARY | ~2019-11-13 | XMS | Encounter Summary ---
Demographics + + + | Address | [address] | | | [place] [address] | + + + | Home Phone | | + + + | Preferred Language | Unknown | + + + | Marital Status | Single | + + + | Roman Catholic Affiliation | Unknown | + + + | Race | White | + + + | Ethnic Group | Unknown | + + + Author + + + | Author | [facility] | | | and [place] | + + + | Organization | [facility] | | | and [place] | + + + | Address | Unknown | + + + | Phone | Unavailable | + + + Support + + + + + | Name | Relationship | Address | Phone | + + + + + | Omar Gonzalez | ECON | [place] | | | | | [address] | | + + + + + | Xiang Bah | ECON | Unknown | | + + + + + Care Team Providers + +------+ + | Care Outboard Motor Mechanic Name | Role | Phone | [...] + + | 12/01/ | Telephone | [facility] | Dylan Edwards MD [address] | Results | | 2012 | | [facility] | [facility] | | | | | [address] [facility], | [address] [place], | | | | | [address] [place] | [place] [address] | | | | | [place] [address] | [phone] | | | | | [phone] | | | +--------+ + + + [...] Telephone Encounter - Susana Jackson RN - 12/01/2012 10:34 AM PDTWas calling the patient to let her know about her lab results. Her phone number listed at [phone] is a non worki ng number, so I called her emergency contact Omar Gonzalez at [phone] and left a message as king Sabi to call Dr. Edwards's office back.Electronically signed by Susana Jackson RN at 2012 10:37 AM PDTdocumented in this encounter Plan of Treatment Not on filedocumented as of this encounter Visit Diagnoses Not on filedocumented in this encounter"
[~2019-11-13 13:51] MED LIST changes: +BACLOFEN10 MG PO; +BUPRENORPHINE HC2 MG SL; +CATAPRES0.2 MG PO; +CLINDAMYCIN HC300 MG PO; +CRUTCH1 EACH; +IBUPROFEN400 MG PO; +MINIPRESS1 MG PO; +ZONEGRAN100 MG PO; -ZONEGRAN25 MG PO
--- OUTSIDE RECORDS SUMMARY | 2019-11-13 13:54 | XMS ---
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 No recent Security Events currently on file CRITERIA MET - Group Notification - [facility] - Has Care Guidelines - PDMP CARE PROVIDERS REKHA URIBE Physician Chicken Vaccinator: Medical Current PHONE: [phone] KELSI SERNA Physician Chicken Vaccinator 10/12/2018-Current PHONE: [phone] Guidelines [email or web address] Date: 08/23/2018 Care Coordination: Has engaged in mental health services with [facility].\T\nbsp; Please contact [facility] for mental health concerns.\T\nbsp; [facility] [place]: \T\nbsp; Victor: [phone]. Care History Medical/Surgical 09/30/2018 [facility] - PATIENT REFERRED TO [facility]- PATIENT HAS [facility]- NO PCP- AND NEEDS CLOSE FOLLOW UP ON WOUND CARE. 08/23/2018 [facility] - PATIENT ALSO KNOWN CORDELL MORALES. 04/22/2017 [facility] Care Recommendation: This patient has had 5 or more Emergency Department visits in the last 12 months. Patient requires education on the scope and purpose of the ED as an acute care provider not a Primary Care Provider and should not be utilized for chronic conditions. If patient returns to ED please contact Community Health WorkerRose at [phone]. These are guidelines and the provider should exercise clinical judgment when providing care. E.D. VISIT COUNT (12 MO.) 1 ADINA Guadarrama TOTAL 1 NOTE: Visits indicate total known visits. ED/C VISIT TRACKING (12 MO.) 11/13/2019 13:52 [facility] [place] TYPE: Emergency COMPLAINT: - SWALLOWED FOREIGN OBJECT INPATIENT VISIT TRACKING (12 MO.) No inpatient visits to display in this time frame [email or web address]
== END 2019-11-13 14:54 | disposition home or self-care (01) ==
LOC: ED 13:51
DX: T18.2XXA Foreign body in stomach, initial encounter (principal); J45.909 Unspecified asthma, uncomplicated; E66.01 Morbid (severe) obesity due to excess calories; F17.200 Nicotine dependence, unspecified, uncomplicated; Z88.1 Allergy status to other antibiotic agents; Z88.0 Allergy status to penicillin; Z88.6 Allergy status to analgesic agent; Z79.899 Other long term (current) drug therapy
CPT/HCPCS: 71045; 99283-25

== ENCOUNTER 2020-01-04 16:51 | Emergency (ER) | payer OTHER ==
[~2020-01-04] VITALS: Ht 160 cm; Wt 74.4 kg
--- OUTSIDE RECORDS SUMMARY | 2020-01-04 17:10 | XMS ---
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 Tool Rental Technician Events No recent Security Events currently on file CRITERIA MET - Group Notification - [facility] - Has Care Guidelines CARE PROVIDERS REKHA URIBE Physician Restaurant Host/Hostess: Medical Current PHONE: [phone] KELSI SERNA Physician Restaurant Host/Hostess 10/12/2018-Current PHONE: [phone] Guidelines Source[facility] Date: 08/23/2018 Care Coordination: Has engaged in mental health services with [facility].\T\nbsp; Please contact [facility] for mental health concerns.\T\nbsp; [facility] \T\nbsp; [place]: [phone]. Care History Medical/Surgical 08/23/2018 [facility] - PATIENT ALSO KNOWN CORDELL MORALES. 04/22/2017 [facility] Care Recommendation: This patient has had 5 or more Emergency Department visits in the last 12 months. Patient requires education on the scope and purpose of the ED as an acute care provider not a Primary Care Provider and should not be utilized for chronic conditions. If patient returns to ED please contact Community Health WorkerRose at [phone]. These are guidelines and the provider should exercise clinical judgment when providing care. Mariah VISIT COUNT (12 MO.) 2 [facility] [place] TOTAL 2 NOTE: Visits indicate total known visits. ED/UCC VISIT TRACKING (12 MO.) 01/04/2020 16:52 [facility] [place] TYPE: Emergency COMPLAINT: - INGESTED FOREIGN OBJECT 11/13/2019 13:[address] [facility] [place] TYPE: Emergency COMPLAINT: - SWALLOWED FOREIGN OBJECT DIAGNOSES: - Unspecified asthma, uncomplicated - Other alf (current) drug therapy - Morbid (severe) obesity due to excess calories - Allergy status to other antibiotic agents status - Foreign body in stomach, initial encounter - Allergy status to penicillin - Nicotine dependence, unspecified, uncomplicated - Allergy status to analgesic agent status INPATIENT VISIT TRACKING (12 MO.) No inpatient visits to display in this time frame [email or web address]
== END 2020-01-04 18:05 | disposition home or self-care (01) ==
LOC: ED 16:51
DX: T18.9XXA Foreign body of alimentary tract, part unspecified, initial encounter (principal)

== ENCOUNTER 2020-04-06 19:20 | Emergency (ER) | payer OTHER ==
[~2020-04-06] VITALS: Ht 160 cm; Wt 81.6 kg
--- OUTSIDE RECORDS SUMMARY | 2020-04-06 19:22 | XMS ---
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 Plate Glass Installer Events No recent Security Events currently on file CRITERIA MET - Group Notification - - 2 Visits in 30 Days CARE PROVIDERS REKHA URIBE Physician English As A Second Language Teacher: Medical Current PHONE: [phone] KELSI SERNA Physician English As A Second Language Teacher 10/12/2018-Current PHONE: [phone] Care Guidelines exist for the following facilities: [facility] ( 08/23/2018 ) Care History Medical/Surgical 04/22/2017 [facility] Care Recommendation: This patient has had 5 or more Emergency Department visits in the last 12 months. Patient requires education on the scope and purpose of the ED as an acute care provider not a Primary Care Provider and should not be utilized for chronic conditions. If patient returns to ED please contact Community Health WorkerRose at [phone]. These are guidelines and the provider should exercise clinical judgment when providing care. E.D. VISIT COUNT (12 MO.) 4 [facility] [place] TOTAL 4 NOTE: Visits indicate total known visits. ED/C VISIT TRACKING (12 MO.) 04/06/2020 19:21 [facility] [place] TYPE: Emergency COMPLAINT: - STATES SWOLLOWED RAZOR 03/18/2020 00:20 [facility] [place] TYPE: Emergency COMPLAINT: - CHEST PAIN DIAGNOSES: - Allergy status to penicillin - Morbid (severe) obesity due to excess calories - Personal history of nicotine dependence - Chest pain, unspecified 01/04/2020 16:52 [facility] [place] TYPE: Emergency COMPLAINT: - INGESTED FOREIGN OBJECT DIAGNOSES: - Foreign body of alimentary tract, part unspecified, initial encounter 11/13/2019 13:52 [facility] [place] TYPE: Emergency COMPLAINT: - SWALLOWED FOREIGN OBJECT DIAGNOSES: - Unspecified asthma, uncomplicated - Other snf (current) drug therapy - Morbid (severe) obesity due to excess calories - Allergy status to other antibiotic agents - Foreign body in stomach, initial encounter - Allergy status to penicillin - Nicotine dependence, unspecified, uncomplicated - Allergy status to analgesic agent INPATIENT VISIT TRACKING (12 MO.) No inpatient visits to display in this time frame [email or web address]
== END 2020-04-07 00:06 | disposition home or self-care (01) ==
LOC: ED 19:20
DX: T18.3XXA Foreign body in small intestine, initial encounter (principal); J45.909 Unspecified asthma, uncomplicated; E66.01 Morbid (severe) obesity due to excess calories; Z88.0 Allergy status to penicillin; Z88.8 Allergy status to other drugs, medicaments and biological substances; Z88.5 Allergy status to narcotic agent
CPT/HCPCS: 71045; 74177; 80053; 83690; 84703; 85025; 96374; 96375; 99284-25; J1170; J2405; Q9967

== ENCOUNTER 2020-04-07 17:56 | Emergency (ER) | payer SELFPAY ==
[~2020-04-07] VITALS: Ht 160 cm; Wt 81.6 kg
--- OUTSIDE RECORDS SUMMARY | 2020-04-07 17:58 | XMS ---
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 Payment Analyst Events No recent Security Events currently on file CRITERIA MET - Group Notification - [facility] - 2 Visits in 30 Days CARE PROVIDERS REKHA URIBE Physician Forest Fire Control Officer: Medical Current PHONE: [phone] KELSI SERNA Physician Forest Fire Control Officer 10/12/2018-Current PHONE: [phone] Care Guidelines exist for the following facilities: [facility] ( 08/23/2018 ) Care History Medical/Surgical 04/22/2017 [facility] Care Recommendation: This patient has had 5 or more Emergency Department visits in the last 12 months. Patient requires education on the scope and purpose of the ED as an acute care provider not a Primary Care Provider and should not be utilized for chronic conditions. If patient returns to ED please contact Community Health WorkerRose at [phone]. These are guidelines and the provider should exercise clinical judgment when providing care. E.D. VISIT COUNT (12 MO.) 5 [facility] TOTAL 5 NOTE: Visits indicate total known visits. ED/C VISIT TRACKING (12 MO.) 04/07/2020 17:56 [facility] [place] TYPE: Emergency COMPLAINT: - FOREIGN OBJECT 04/06/2020 19:21 [facility] [place] TYPE: Emergency COMPLAINT: - FOREIGN OBJECT 03/18/2020 00:20 [facility] [place] TYPE: Emergency [...] DIAGNOSES: - Unspecified asthma, uncomplicated - Other fci (current) drug therapy - Morbid (severe) obesity due to excess calories - Allergy status to other antibiotic agents - Foreign body in stomach, initial encounter - Allergy status to penicillin - Nicotine dependence, unspecified, uncomplicated - Allergy status to analgesic agent INPATIENT VISIT TRACKING (12 MO.) No inpatient visits to display in this time frame [id number]
== END 2020-04-07 20:26 | disposition home or self-care (01) ==
LOC: ED 17:56
DX: T18.8XXA Foreign body in other parts of alimentary tract, initial encounter (principal); J45.909 Unspecified asthma, uncomplicated; E66.01 Morbid (severe) obesity due to excess calories; Z88.0 Allergy status to penicillin; Z88.8 Allergy status to other drugs, medicaments and biological substances; Z88.5 Allergy status to narcotic agent
CPT/HCPCS: 74018; 85025; 99284-25

== ENCOUNTER 2020-12-21 19:25 | Emergency (ER) | payer OTHER ==
[~2020-12-21] VITALS: Ht 160 cm; Wt 82.5 kg
[~2020-12-21 19:25] MED LIST changes: +BUSPIRONE HCL5 MG PO; +FLAGYL500 MG PO; +NAPROSYN500 MG PO; +TYLENOL325 M1 PO
--- OUTSIDE RECORDS SUMMARY | 2020-12-21 19:28 | XMS ---
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 Wafer Batter Mixer Events 1 event(s) in the past 18 months Most recent security events: Elopement at [facility] 10/10/2020 16:18 - Other Details: PATIENT LWBS CRITERIA MET - Group Notification CARE PROVIDERS REKHA URIBE Physician Landfill Gas Collection Operator: Medical Current PHONE: [phone] KELSI SERNA Physician Landfill Gas Collection Operator 10/12/2018-Current PHONE: [phone] Care Guidelines exist for the following facilities: [facility] [place] ( 04/23/2020 ) Care History Medical/Surgical 04/22/2017 [facility] Care Recommendation: This patient has had 5 or more Emergency Department visits in the last 12 months. Patient requires education on the scope and purpose of the ED as an acute care provider not a Primary Care Provider and should not be utilized for chronic conditions. If patient returns to ED please contact Community Health Worker Rose at [phone]. These are guidelines and the provider should exercise clinical judgment when providing care. E.D. VISIT COUNT (12 MO.) 8 ADINA Guadarrama TOTAL 8 NOTE: Visits indicate total known visits. ED/C VISIT TRACKING (12 MO.) 12/21/2020 19:25 [facility] [place] TYPE: Emergency COMPLAINT: - VOMITING 10/10/2020 16:18 [facility] [place] TYPE: Emergency COMPLAINT: - HOT, SHAKY, ANXIOUS 07/03/2020 08:55 [facility] [place] TYPE: Emergency COMPLAINT: - R SIDE ABD PAIN DIAGNOSES: - Morbid (severe) obesity due to excess calories - Allergy status to other drugs, medicaments and biological substances - Right upper quadrant pain - Right upper quadrant pain - Allergy status to narcotic agent - Left lower quadrant pain - Unspecified asthma, uncomplicated - Other manager intermediate (current) drug therapy - Allergy status to penicillin - Personal history of nicotine dependence - Right lower quadrant pain 06/04/2020 19:16 [facility] [place] TYPE: Emergency COMPLAINT: - FOREIGN BODY INGESTION 04/07/2020 17:56 [facility] [place] [place] TYPE: Emergency COMPLAINT: - FOREIGN OBJECT DIAGNOSES: - Foreign body in other parts of alimentary tract, initial encounter - Unspecified asthma, uncomplicated - Morbid (severe) obesity due to excess calories - Allergy status to penicillin - Allergy status to other drugs, medicaments and biological substances - Allergy status to narcotic agent - Right lower quadrant pain 04/06/2020 19:21 [facility] [place] [place] TYPE: Emergency COMPLAINT: - FOREIGN OBJECT DIAGNOSES: - Morbid (severe) obesity due to excess calories - Allergy status to other drugs, medicaments and biological substances - Allergy status to narcotic agent - Foreign body in small intestine, initial encounter - Allergy status to penicillin - Unspecified asthma, uncomplicated 03/18/2020 00:20 [facility] [place] TYPE: Emergency COMPLAINT: - CHEST PAIN DIAGNOSES: - Allergy status to penicillin - Morbid (severe) obesity due to excess calories - Personal history of nicotine dependence - Chest pain, unspecified 01/04/2020 16:52 [facility] [place] [place] TYPE: Emergency COMPLAINT: - INGESTED FOREIGN OBJECT DIAGNOSES: - Foreign body of alimentary tract, part unspecified, initial encounter INPATIENT VISIT TRACKING (12 MO.) 06/04/2020 19:17 [facility] [place] TYPE: Observation COMPLAINT: - FOREIGN BODY INGESTION [id number]
[2020-12-21] MEDS ORDERED: CLEOCIN HCL300 MG PO (20:05)
== END 2020-12-21 23:00 | disposition home or self-care (01) ==
LOC: ED 19:25
DX: L03.317 Cellulitis of buttock (principal); J45.909 Unspecified asthma, uncomplicated; G35 Multiple sclerosis; E66.01 Morbid (severe) obesity due to excess calories; Z87.891 Personal history of nicotine dependence; Z88.0 Allergy status to penicillin; Z88.5 Allergy status to narcotic agent; Z88.1 Allergy status to other antibiotic agents
CPT/HCPCS: 96365; 96366; 96375; 99283-25; J1885; J2765

== ENCOUNTER 2021-01-15 02:25 | Emergency (ER) | payer OTHER ==
[~2021-01-15] VITALS: Ht 160 cm; Wt 82.5 kg
[~2021-01-15 02:25] MED LIST changes: +CLEOCIN HCL300 MG PO
--- OUTSIDE RECORDS SUMMARY | 2021-01-15 03:10 | XMS ---
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 Insurance Processor Events 1 event(s) in the past 18 months Most recent security events: Elopement at [facility] 10/10/2020 16:18 - Other Details: PATIENT LWBS CRITERIA MET - Group Notification - [facility] - 2 Visits in 30 Days CARE PROVIDERS REKHA URIBE Physician Advertising Account Executive: Medical Current PHONE: [phone] KELSI SERNA Physician Advertising Account Executive 10/12/2018-Current PHONE: [phone] Care Guidelines exist for the following facilities: [facility] [place] ( 04/23/2020 ) Care History Medical/Surgical 04/22/2017 [facility] Care Recommendation: This patient has had 5 or more Emergency Department visits in the last 12 months. Patient requires education on the scope and purpose of the ED as an acute care provider not a Primary Care Provider and should not be utilized for chronic conditions. If patient returns to ED please contact Community Health WorkerRose at [phone]. These are guidelines and the provider should exercise clinical judgment when providing care. Mariah VISIT COUNT (12 MO.) 8 ADINA Guadarrama TOTAL 8 NOTE: Visits indicate total known visits. ED/UCC VISIT TRACKING (12 MO.) 01/15/2021 02:25 [facility] [place] TYPE: Emergency COMPLAINT: - SEVERE ABD PAIN 12/21/2020 19:25 [facility] [place] TYPE: Emergency COMPLAINT: - VOMITING DIAGNOSES: - Multiple sclerosis - Allergy status to penicillin - Personal history of nicotine dependence - Weakness - Allergy status to other antibiotic agents - Unspecified asthma, uncomplicated - Cellulitis of buttock - Morbid (severe) obesity due to excess calories - Allergy status to narcotic agent 10/10/2020 16:[address] [facility] [place] TYPE: Emergency COMPLAINT: - HOT, SHAKY, ANXIOUS 07/03/2020 08:[address] [facility] [place] TYPE: Emergency COMPLAINT: - R SIDE ABD PAIN DIAGNOSES: - Morbid (severe) obesity due to excess calories - Allergy status to other drugs, medicaments and biological substances - Right upper quadrant pain - Right upper quadrant pain - Allergy status to narcotic agent - Left lower quadrant pain - Unspecified asthma, uncomplicated - Other longterm (current) drug therapy - Allergy status to [...] of nicotine dependence - Chest pain, unspecified INPATIENT VISIT TRACKING (12 MO.) 06/04/2020 19:17 [facility] [place] TYPE: Observation COMPLAINT: - FOREIGN BODY INGESTION [id number]
[2021-01-15] MEDS ORDERED: LEVOFLOXACIN750 MG PO (06:54)
== END 2021-01-15 08:26 | disposition home or self-care (01) ==
LOC: ED 02:25
DX: N39.0 Urinary tract infection, site not specified (principal); J18.9 Pneumonia, unspecified organism; F19.10 Other psychoactive substance abuse, uncomplicated; Z20.822 Contact with and (suspected) exposure to COVID-19; J45.909 Unspecified asthma, uncomplicated; Z87.891 Personal history of nicotine dependence; Z88.0 Allergy status to penicillin; Z88.8 Allergy status to other drugs, medicaments and biological substances; Z88.5 Allergy status to narcotic agent
CPT/HCPCS: 71045; 71046; 74176; 80053; 81001; 83605; 83690; 84703; 85025; 94640; 94664; 96365; 96367; 96375; 99284-25; C9803; J0456; J0696; J1885; J7030; J7060; U0003

== ENCOUNTER 2021-10-10 13:57 | Emergency (ER) | payer SELFPAY ==
[~2021-10-10] VITALS: Ht 160 cm; Wt 82.5 kg
--- NOTE | ~2021-10-10 | EKG ---
[facility] [address] [place], [place] [address] Draft EK completed, results pending confirmation PATIENT NAME: ANDREWCORDELL Electrocardiogram DATE OF : 89 PHYSICIAN: PRELIMINARY REPORT #: [id number] REPORT IS CONFIDENTIAL AND NOT TO BE RELEASED WITHOUT AUTHORIZATION
[~2021-10-10 13:57] MED LIST changes: +LEVOFLOXACIN750 MG PO
--- OUTSIDE RECORDS SUMMARY | 2021-10-10 15:36 | XMS ---
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 Cash Applications Representative Events 1 event(s) in the past 18 months Most recent security events: Elopement at [facility] 10/10/2020 16:18 - Other Details: PATIENT LWBS CRITERIA MET - Group Notification CARE PROVIDERS REKHA URIBE Physician Mechanical Service Specialist: Medical Current PHONE: [phone] KELSI SERNA Physician 10/12/2018-Current PHONE: [phone] Care Guidelines exist for the following facilities: [facility] ( 04/23/2020 ) Care History Medical/Surgical 01/22/2021 [facility] RECEIVED CASE MANAGEMENT CONSULT-HELP PATIENT ESTABLISH CARE WITH A PROVIDER - PATIENT DOES NOT HAVE A CONTACT ADDRESS AND OR CONTACT NUMBER. UNABLE TO ASSIST AT THIS TIME. 04/22/2017 [facility] Care Recommendation: This patient has had 5 or more Emergency Department visits in the last 12 months. Patient requires education on the scope and purpose of the ED as an acute care provider not a Primary Care Provider and should not be utilized for chronic conditions. If patient returns to ED please contact Community Health WorkerRose at [phone]. These are guidelines and the provider should exercise clinical judgment when providing care. E.D. VISIT COUNT (12 MO.) 4 [facility]. TOTAL 4 NOTE: Visits indicate total known visits. ED/UCC VISIT TRACKING (12 MO.) 10/10/2021 13:58 [facility] [place] TYPE: Emergency COMPLAINT: - MULTIPLE COMPLAINTS 01/15/2021 02:25 [facility] [place] TYPE: Emergency COMPLAINT: - SEVERE ABD PAIN DIAGNOSES: - Other psychoactive substance abuse, uncomplicated - Urinary tract infection, site not specified - Allergy status to penicillin - Allergy status to other drugs, medicaments and biological substances - Personal history of nicotine dependence - Allergy status to narcotic agent - Generalized abdominal pain - Sedative, hypnotic or anxiolytic abuse, uncomplicated - Other stimulant abuse, uncomplicated - Pneumonia, unspecified organism - Unspecified asthma, uncomplicated 12/21/2020 19:25 [facility] [place] TYPE: Emergency COMPLAINT: - VOMITING DIAGNOSES: - Multiple sclerosis - Allergy status to penicillin - Personal history of nicotine dependence - Weakness - Allergy status to other antibiotic agents - Unspecified asthma, uncomplicated - Cellulitis of buttock - Morbid (severe) obesity due to excess calories - Allergy status to narcotic agent 10/10/2020 16:[address] [facility] [place] TYPE: Emergency COMPLAINT: - HOT, SHAKY, ANXIOUS INPATIENT VISIT TRACKING (12 MO.) No inpatient visits to display in this time frame [id number]
== END 2021-10-10 17:37 | disposition home or self-care (01) ==
LOC: ED 13:57
DX: F15.10 Other stimulant abuse, uncomplicated (principal); R20.2 Paresthesia of skin; J45.909 Unspecified asthma, uncomplicated; Z87.891 Personal history of nicotine dependence; Z88.0 Allergy status to penicillin; Z88.5 Allergy status to narcotic agent; Z88.8 Allergy status to other drugs, medicaments and biological substances
CPT/HCPCS: 36415; 51701; 71045; 80053; 81001; 84484; 84703; 85025; 93005; 93010; 99285-25; G0480

== ENCOUNTER 2022-03-29 20:41 | Emergency (ER) | payer OTHER ==
[~2022-03-29] VITALS: Ht 160 cm; Wt 84.4 kg
--- OUTSIDE RECORDS SUMMARY | 2022-03-29 20:44 | XMS ---
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 These are guidelines and the provider should exercise clinical judgment when providing care. E.D. VISIT COUNT (12 MO.) 2 [facility]. TOTAL 2 NOTE: Visits indicate total known visits. ED/UCC VISIT TRACKING (12 MO.) 03/29/2022 20:42 [facility] [place] TYPE: Emergency COMPLAINT: - SWALLOWED PEN AND TOWEL STRIPS 10/10/2021 13:58 [facility] [place] TYPE: Emergency COMPLAINT: - MULTIPLE COMPLAINTS DIAGNOSES: - Unspecified asthma, uncomplicated - Personal history of nicotine dependence - Allergy status to narcotic agent - Allergy status to other drugs, medicaments and biological substances - Paresthesia of skin - Allergy status to penicillin - Other stimulant abuse, uncomplicated INPATIENT VISIT TRACKING (12 MO.) No inpatient visits to display in this time frame [id number]
[2022-03-29] MEDS ORDERED: BUSPIRONE HCL10 MG PO (20:56)
[2022-03-29] MEDS ORDERED: ZYPREXA5 MG PO (20:56)
[2022-03-29] MEDS ORDERED: CONSTULOSE10 GM/15 M PO (22:30)
== END 2022-03-29 22:49 | disposition home or self-care (01) ==
LOC: ED 20:41
DX: T18.4XXA Foreign body in colon, initial encounter (principal); J45.909 Unspecified asthma, uncomplicated; Z87.891 Personal history of nicotine dependence; Z88.0 Allergy status to penicillin; Z88.8 Allergy status to other drugs, medicaments and biological substances; Z88.5 Allergy status to narcotic agent; Z79.899 Other long term (current) drug therapy
CPT/HCPCS: 36415; 74018; 84703; 85025; 99284-25

== ENCOUNTER 2022-04-03 12:42 | Emergency (ER) | payer SELFPAY ==
[~2022-04-03] VITALS: Ht 160 cm; Wt 84.4 kg
[~2022-04-03 12:42] MED LIST changes: +BUSPIRONE HCL10 MG PO; +CONSTULOSE10 GM/15 M PO; +ZYPREXA5 MG PO
--- OUTSIDE RECORDS SUMMARY | 2022-04-03 12:48 | XMS ---
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 Medical Staff Credentialing Coordinator Events 1 event(s) in the past 18 months Most recent security events: Elopement at [facility] 10/10/2020 16:18 - Other Details: PATIENT LWBS CRITERIA MET - [facility] - 2 Visits in 30 Days - Group Notification CARE PROVIDERS REKHA URIBE Physician Vegetable Thinner: Medical Current PHONE: [phone] KELSI SERNA Physician Vegetable Thinner 10/12/2018-Current PHONE: [phone] Care Guidelines exist for the following facilities: [facility] ( 04/23/2020 ) Care History Medical/Surgical 01/22/2021 [facility] RECEIVED CASE MANAGEMENT CONSULT-HELP PATIENT ESTABLISH CARE WITH A PROVIDER - PATIENT DOES NOT HAVE A CONTACT ADDRESS AND OR CONTACT NUMBER. UNABLE TO ASSIST AT THIS TIME. 04/22/2017 [facility] Care Recommendation: This patient has had 5 or more Emergency Department visits in the last 12 months. Patient requires education on the scope and purpose of the ED as an acute care provider not a Primary Care Provider and should not be utilized for chronic conditions. If patient returns to ED please contact Community Health WorkerRose at [phone]. These are guidelines and the provider should exercise clinical judgment when providing care. E.D. VISIT COUNT (12 MO.) 3 [facility]. TOTAL 3 NOTE: Visits indicate total known visits. ED/UCC VISIT TRACKING (12 MO.) 04/03/2022 12:[address] [facility] [place] TYPE: Emergency COMPLAINT: - FOREIGN OBJECT 03/29/2022 20:[address] [facility] [place] TYPE: Emergency COMPLAINT: - SWALLOWED PEN AND TOWEL STRIPS DIAGNOSES: - Other custodial (current) drug therapy - Unspecified asthma, uncomplicated - Personal history of nicotine dependence - Right lower quadrant pain - Foreign body in colon, initial encounter - Allergy status to penicillin - Allergy status to other drugs, medicaments and biological substances - Allergy status to narcotic agent 10/10/2021 13:[address] [facility] [place] TYPE: Emergency COMPLAINT: - MULTIPLE COMPLAINTS DIAGNOSES: - Personal history of nicotine dependence - Allergy status to narcotic agent - Allergy status to other drugs, medicaments and biological substances - Paresthesia of skin - Allergy status to penicillin - Other stimulant abuse, uncomplicated - Unspecified asthma, uncomplicated INPATIENT VISIT TRACKING (12 MO.) No inpatient visits to display in this time frame [id number]
== END 2022-04-03 13:45 | disposition home or self-care (01) ==
LOC: ED 12:42
DX: T18.2XXA Foreign body in stomach, initial encounter (principal); J45.909 Unspecified asthma, uncomplicated; Z87.891 Personal history of nicotine dependence; Z88.0 Allergy status to penicillin; Z88.1 Allergy status to other antibiotic agents; Z88.5 Allergy status to narcotic agent; Z79.899 Other long term (current) drug therapy; X58.XXXA Exposure to other specified factors, initial encounter
CPT/HCPCS: 74022; 99283-25

== ENCOUNTER 2022-04-04 23:54 | Emergency (ER) | payer OTHER ==
[~2022-04-04] VITALS: Ht 160 cm; Wt 84.4 kg
--- OUTSIDE RECORDS SUMMARY | 2022-04-05 00:03 | XMS ---
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 Radial Router Operator Events 1 event(s) in the past 18 months Most recent security events: Elopement at [facility] 10/10/2020 16:18 - Other Details: PATIENT LWBS CRITERIA MET - Group Notification - [facility] - 2 Visits in 30 Days CARE PROVIDERS REKHA URIBE Physician Physician Advisor: Medical Current PHONE: [phone] KELSI SERNA Physician Physician Advisor 10/12/2018-Current PHONE: [phone] Care Guidelines exist for the following facilities: [facility] ( 04/23/2020 ) Care History Medical/Surgical 01/22/2021 [facility] RECEIVED CASE MANAGEMENT CONSULT-HELP PATIENT ESTABLISH CARE WITH A PROVIDER - PATIENT DOES NOT HAVE A CONTACT ADDRESS AND OR CONTACT NUMBER. UNABLE TO ASSIST AT THIS TIME. 04/22/2017 [facility] Care Recommendation: This patient has had 5 or more Emergency Department visits in the last 12 months. Patient requires education on the scope and purpose of the ED as an acute care provider not a Primary Care Provider and should not be utilized for chronic conditions. If patient returns to ED please contact Community Health WorkerRose at [phone]. These are guidelines and the provider should exercise clinical judgment when providing care. E.D. VISIT COUNT (12 MO.) 4 [facility]. TOTAL 4 NOTE: Visits indicate total known visits. ED/UCC VISIT TRACKING (12 MO.) 04/04/2022 23:[address] [facility] [address] [facility] [place] TYPE: Emergency COMPLAINT: - ABD PAIN 04/03/2022 12:42 [facility] [place] TYPE: Emergency COMPLAINT: - FOREIGN OBJECT 03/29/2022 20:42 [facility] [place] [facility] [place] TYPE: Emergency COMPLAINT: - SWALLOWED PEN AND TOWEL STRIPS DIAGNOSES: - Other prison (current) drug therapy - Unspecified asthma, uncomplicated - Personal history of nicotine dependence - Right lower quadrant pain - Foreign body in colon, initial encounter - Allergy status to penicillin - Allergy status to other drugs, medicaments and biological substances - Allergy status to narcotic agent 10/10/2021 13:58 [facility] [place] TYPE: Emergency COMPLAINT: - MULTIPLE COMPLAINTS DIAGNOSES: - Personal history of nicotine dependence - Allergy status to narcotic agent - Allergy status to other drugs, medicaments and biological substances - Paresthesia of skin - Allergy status to penicillin - Other stimulant abuse, uncomplicated - Unspecified asthma, uncomplicated INPATIENT VISIT TRACKING (12 MO.) No inpatient visits to display in this time frame [id number]
== END 2022-04-05 01:48 | disposition home or self-care (01) ==
LOC: ED 23:54
DX: S00.03XA Contusion of scalp, initial encounter (principal); S30.0XXA Contusion of lower back and pelvis, initial encounter; S20.222A Contusion of left back wall of thorax, initial encounter; J45.909 Unspecified asthma, uncomplicated; Z87.891 Personal history of nicotine dependence; Z88.0 Allergy status to penicillin; Z88.8 Allergy status to other drugs, medicaments and biological substances; Z88.5 Allergy status to narcotic agent; Z79.899 Other long term (current) drug therapy; W22.8XXA Striking against or struck by other objects, initial encounter
CPT/HCPCS: 70450; 71250; 72125; 74176; 84703; 99284-25; A9270

== ENCOUNTER 2022-07-12 23:34 | Emergency (ER) | payer OTHER ==
[~2022-07-12] VITALS: Ht 160 cm; Wt 74.0 kg
--- OUTSIDE RECORDS SUMMARY | 2022-07-12 23:41 | XMS ---
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 Shoe Parts Caser Events No recent Security Events currently on file CRITERIA MET - Group Notification - [facility] - 2 Visits in 30 Days CARE PROVIDERS -Christy- Dentist: [facility] PHONE: [phone] REKHA URIBE Physician Music Video Director: Medical Current PHONE: [phone] KELSI SERNA Physician Music Video Director 10/12/2018-Current PHONE: [phone] Care Guidelines exist for the following facilities: [facility] ( 04/23/2020 ) Care History Medical/Surgical 01/22/2021 [facility] RECEIVED CASE MANAGEMENT CONSULT-HELP PATIENT ESTABLISH CARE WITH A PROVIDER - PATIENT DOES NOT HAVE A CONTACT ADDRESS AND OR CONTACT NUMBER. UNABLE TO ASSIST AT THIS TIME. 04/22/2017 [facility] Care Recommendation: This patient has had 5 or more Emergency Department visits in the last 12 months. Patient requires education on the scope and purpose of the ED as an acute care provider not a Primary Care Provider and should not be utilized for chronic conditions. If patient returns to ED please contact Community Health WorkerRose at [phone]. These are guidelines and the provider should exercise clinical judgment when providing care. E.D. VISIT COUNT (12 MO.) 6 [facility]. TOTAL 6 NOTE: Visits indicate total known visits. ED/UCC VISIT TRACKING (12 MO.) 07/12/2022 23:35 [facility] [place] TYPE: Emergency COMPLAINT: - DIZZY 06/16/2022 19:22 [facility] [place] TYPE: Emergency COMPLAINT: - SEIZURE DIAGNOSES: - Allergy status to narcotic agent - Allergy status to other drugs, medicaments and biological substances - Allergy status to penicillin - Exposure to other specified factors, initial encounter - Personal history of nicotine dependence - Strain of unspecified muscle, fascia and tendon at shoulder and upper arm level, left arm, initial encounter - Unspecified convulsions - Unspecified injury of left shoulder and upper arm, initial encounter 04/04/2022 23:55 [facility] [place] TYPE: Emergency COMPLAINT: - ABD PAIN DIAGNOSES: - Allergy status to narcotic agent - Allergy status to other drugs, medicaments and biological substances - Allergy status to penicillin - Cervicalgia - Contusion of left back wall of thorax, initial encounter - Contusion of lower back and pelvis, initial encounter - Contusion of scalp, initial encounter - Other usp (current) drug therapy - Personal history of nicotine dependence - Striking against or struck by other objects, initial encounter - Unspecified asthma, uncomplicated 04/03/2022 12:42 [facility] [place] [place] TYPE: Emergency COMPLAINT: - FOREIGN OBJECT DIAGNOSES: - Allergy status to narcotic agent - Allergy status to other antibiotic agents - Allergy status to penicillin - Exposure to other specified factors, initial encounter - Foreign body in stomach, initial encounter - Other foreign object in pharynx causing other injury, initial encounter - Other usp (current) drug therapy - Personal history of nicotine dependence - Unspecified asthma, uncomplicated 03/29/2022 20:42 [facility] [place] TYPE: Emergency COMPLAINT: - SWALLOWED PEN AND TOWEL STRIPS DIAGNOSES: - Allergy status to narcotic agent - Allergy status to other drugs, medicaments and biological substances - Allergy status to penicillin - Foreign body in colon, initial encounter - Other intermediate frame tender (current) drug therapy - Personal history of nicotine dependence - Right lower quadrant pain - Unspecified asthma, uncomplicated 10/10/2021 13:58 [facility] [place] [place] TYPE: Emergency COMPLAINT: - MULTIPLE COMPLAINTS DIAGNOSES: - Allergy status to narcotic agent - Allergy status to other drugs, medicaments and biological substances - Allergy status to penicillin - Other stimulant abuse, uncomplicated - Paresthesia of skin - Personal history of nicotine dependence - Unspecified asthma, uncomplicated INPATIENT VISIT TRACKING (12 MO.) No inpatient visits to display in this time frame [id number]
[2022-07-12] MEDS ORDERED: KEPPRA500 MG PO (23:43)
[2022-07-12 23:51] VITALS: BP 132/80
== END 2022-07-12 23:51 | disposition home or self-care (01) ==
LOC: ED 23:34
DX: R56.9 Unspecified convulsions (principal); Z87.891 Personal history of nicotine dependence; Z88.0 Allergy status to penicillin; Z88.5 Allergy status to narcotic agent; Z88.8 Allergy status to other drugs, medicaments and biological substances; Z79.899 Other long term (current) drug therapy
CPT/HCPCS: 99283

== ENCOUNTER 2024-04-21 12:27 | Emergency (ER) | payer OTHER ==
[~2024-04-21] VITALS: Ht 160 cm; Wt 81.2 kg
[2024-04-21 14:00] VITALS: BP 129/81
[2024-04-21] MEDS ORDERED: NALOXONE 4 MG NASAL SPRAY #2 HOME.PACK NAS ONE (14:00)
== END 2024-04-21 14:00 | disposition left against medical advice (07) ==
LOC: ED 12:27
DX: F11.120 Opioid abuse with intoxication, uncomplicated (principal); J45.909 Unspecified asthma, uncomplicated; Z87.891 Personal history of nicotine dependence; Z88.0 Allergy status to penicillin; Z88.5 Allergy status to narcotic agent; Z79.899 Other long term (current) drug therapy
CPT/HCPCS: 99284; J3490